=== PATIENT | female | born 1945 | race Caucasian/White ===

== ENCOUNTER 2017-09-28 21:18 | Inpatient (IN) | payer MEDICARE, BC ==
[2017-09-28 22:27] VITALS: BP 131/72
[2017-09-28] MEDS ORDERED: Magnesium Hydroxide (MOM) 30 mL UDC PO PRN (22:31)
[2017-09-28] MEDS ORDERED: Maalox 30 mL Cup PO PRN (22:31)
[2017-09-28] MEDS ORDERED: APAP PO PRN (22:38)
[2017-09-28] MEDS ORDERED: HYDROCODONE PO PRN (22:38)
[2017-09-28] MEDS ORDERED: Albuterol Nebulizer 2.5mg/3mL HHN PRN (23:13)
[2017-09-29] MEDS: Pantoprazole 40 mg EC Tab PO SCH (07:21)
[2017-09-29 07:38] LABS: % BASOPHILS 1.4 % (0.0-2.0); % EOSINOPHILS 3.8 % (0.0-5.0); % LYMPHOCYTES 32.4 % (20.0-50.0); % MONOCYTES 7.1 % (2.0-10.0); % NEUTROPHILS 55.3 % (40.0-80.0); BASOPHILE ABSOLUTE 0.1 Th/cumm (0-0.2); EOSINOPHILE ABSOLUTE 0.2 Th/cmm (0.1-0.4); HEMATOCRIT 41.8 % (41.0-60); LYMPHOCYTE ABSOLUTE 1.7 Th/cmm (1.5-3.0); MEAN CELL VOLUME 93.8 fl (81-100); MEAN CORPUSCULAR HEMOGLOBIN 31.5 pg (27.0-31.0); MEAN CORPUSCULAR HGB CONC 33.6 pg (28.0-36.0); MEAN PLATELET VOLUME 6.5 fl; MONOCYTE ABSOLUTE 0.4 Th/cmm (0.3-1.0); NEUTROPHILE ABSOLUTE 2.8 Th/cmm (1.8-8.0); PLATELET COUNT 358 Th/cmm (150-400); RED BLOOD COUNT 4.45 Mil/cmm (3.80-5.20); RED CELL DISTRIBUTION WIDTH 13.3 % (11.5-20.0); WHITE BLOOD COUNT 5.2 Th/cmm (4.8-10.8)
[2017-09-29 07:56] LABS: ALB/GLOB RATIO 1.8 (1.0-1.8); ALBUMIN 3.9 gm/dL (3.7-5.3); ALKALINE PHOSPHATASE 59 U/L (34-104); ANION GAP 9.7 (7.0-16.0); BILIRUBIN,TOTAL 0.4 mg/dL (0.3-1.0); BUN - UREA NITROGEN 22 mg/dL (7-25); CALCIUM SERUM 9.6 mg/dL (8.6-10.3); CARBON DIOXIDE 28.3 mEq/L (21.0-31.0); CHLORIDE 106 mEq/L (98-107); CHOLESTEROL 178 mg/dL (<200); CREATININE - SERUM 0.7 mg/dL (0.6-1.2); GFR AFRICAN-AMERICAN > 60.0 ml/min (>90); GFR NON AFRICAN-AMERICAN > 60.0 ml/min; GLUCOSE 95 mg/dL (70-105); HDL -HIGH DENSITY LIPOPROTEIN 33 mg/dL (23-92); SGOT 11 U/L (13-39); SGPT/ALT 8 U/L (7-52); SODIUM SERUM 140 mEq/L (136-145); TOTAL PROTEIN,SERUM 6.1 gm/dL (6.0-8.3); TRIGLYCERIDES 202 mg/dL (<150)
[2017-09-29 08:01] LABS: URINE MICROSCOPIC INDICATED? YES; URINE SOURCE CLEAN C
[2017-09-29 08:05] LABS: URINE BILIRUBIN NEGATIVE (NEGATIVE); URINE BLOOD MODERATE (NEGATIVE); URINE GLUCOSE (UA) NEGATIVE (NEGATIVE); URINE KETONE NEGATIVE (NEGATIVE); URINE LEUKOCYTE ESTERASE SMALL (NEGATIVE); URINE NITRATE NEGATIVE (NEGATIVE); URINE PROTEIN NEGATIVE (NEGATIVE); URINE UROBILINOGEN 0.2 E.U./dL (0.2 - 1.0)
[2017-09-29 08:06] LABS: URINE CLARITY SLIGHTLY HAZY (CLEAR); URINE COLOR YELLOW
[2017-09-29 08:09] LABS: URINE EPITHELIAL CELLS MANY /lpf (FEW)
[2017-09-29 08:10] LABS: URINE BACTERIA NONE SEEN /hpf (NONE SEEN)
[2017-09-29] MEDS ORDERED: FLUTICASONE PROPIONATE NS SCH (09:00)
[2017-09-29] MEDS: Atorvastatin Calcium 10 MG TAB PO SCH (09:50)
[2017-09-29] MEDS: Multivitamin Tab PO SCH (09:50)
--- NOTE | 2017-09-29 10:06 | Diagnostic Imaging Report ---
CHEST X-RAY: AP view INDICATION: pain COMPARISON: None FINDINGS: Chronic lung changes are noted with COPD changes. No focal consolidation or effusions. Heart size normal. Degenerative changes of the spine are noted. There may be vertebroplasty changes along the lower thoracic spinal region. IMPRESSION: Chronic lung changes and probable COPD. No focal consolidation identified.
[2017-09-29] MEDS ORDERED: Hydrocodone/APAP 5mg/325mg Tab PO PRN (14:12)
[2017-09-29] MEDS: Fluticasone Propionate 0.05mg/Actuation 16gm Nasal Spray NS SCH (14:24)
--- NOTE | 2017-09-29 22:31 | History & Physical ---
ADMIT DATE: HISTORY OF PRESENT ILLNESS: The patient is a 72-year-old female with a long history of hyperlipidemia, degenerative joint disease, dementia, admitted to [facility] under Dr. Hopkins's service for evaluation and treatment. The patient is a poor historian. PAST MEDICAL HISTORY: Significant for hyperlipidemia, degenerative joint disease, dementia. PAST SURGICAL HISTORY: ____ surgery. ALLERGIES: CODEINE AND ASPIRIN. SOCIAL HISTORY: No smoking, no alcohol. MEDICATIONS: Follow admission reconciliation. REVIEW OF SYSTEMS: RENAL SYSTEM: No history of chronic renal disorder. CARDIOVASCULAR SYSTEM: No coronary artery disease. ENDOCRINE SYSTEM: No diabetes or thyroid problem. GASTROINTESTINAL: No upper or lower GI bleed. NEUROLOGICAL SYSTEM: No seizure disorder. SKELETOMUSCULAR SYSTEM: No muscular dystrophy. HEMATOLOGICAL SYSTEM: No bleeding tendencies. RESPIRATORY SYSTEM: No asthma. GENITOURINARY: No dysuria or hematuria. PHYSICAL EXAMINATION: GENERAL: She is awake, not coherent. VITAL SIGNS: Temperature is 98, heart rate 88, blood pressure 132/70. HEENT: Normocephalic. Pupils reactive to light and accommodation. Sclerae clear. NECK: Supple. Negative for lymphadenopathy, JVD, or bruit. CHEST: Entry of air bilateral normal. No rhonchi or wheezing. HEART: S1, S2 normal. No murmur or gallop rhythm. ABDOMEN: Soft. Bowel sounds positive. EXTREMITIES: No edema. NEUROLOGIC: She is awake, alert, not fully oriented. LABORATORY DATA: White blood cell 5.2, hemoglobin 14, hematocrit 41.8, platelets ____. Sodium 140, potassium 4.0, BUN is 22, creatinine ____. Triglycerides 202. Urine specific gravity 1.015, pH 5, white blood cells 6-10. ASSESSMENT: 1. Urinary tract infection. 2. Hyperlipidemia. 3. Degenerative joint disease. 4. Dementia. PLAN: The patient admitted to hospital under Dr. Hopkins's service. MEDICAL PROBLEMS TO BE ADDRESSED DURING HOSPITALIZATION: ____ hyperlipidemia, degenerative joint disease. The patient will be started on antibiotics. The patient ____. The patient is cleared for activity. Thank you Dr. Hopkins for asking me to see your patient. JOB# [id number]
--- NOTE | 2017-09-29 23:08 | Psychiatric Evaluation ---
DATE OF SERVICE: 09/29/2017 JUSTIFICATION FOR HOSPITALIZATION: The patient coming to the hospital with worsening confusion, hallucinating apparently, depressed, currently on a hold, unable to care for her basic needs, telling me she is homeless. Coming in from [facility]. CHIEF COMPLAINT: "I don't know why I am here." HISTORY OF PRESENT ILLNESS: A 72-year-old female, confused, disoriented, does not know why she is in the hospital. The patient is coming from another hospital. She is homeless, depressed, unable to verbalize the plan for basic food, clothing and chcf, attesting to sadness, despair, does not know where she lives or if she gets any money, does not know if she gets any social security money. The patient has been selectively mute at times, poorly interactive with staff, but she is talking to me. Slept for about 7-8 hours, but is attesting to poor sleep at times. PAST PSYCHIATRIC HISTORY: "I don't know." FAMILY HISTORY: Noncontributory. SOCIAL HISTORY: The patient was born in , , no kids. Denies history of drugs, alcohol or tobacco. States she is homeless. MEDICATIONS: Noted. She is on Zyprexa, Lexapro and Aricept, apparent history of dementia. Under medical, please see full H and P. MENTAL STATUS EXAMINATION: Stated age, mildly unkempt, fair eye contact. Speech, decreased content. Mood, depressed. Affect, flat. Thought processes were disoriented. No overt SI or HI, unclear psychotic symptoms. Insight and judgment seemingly diminished. PROVISIONAL DIAGNOSES: Dementia with behaviors; mood, unspecified; psychosis, unspecified; anxiety, unspecified. Under medical, please see full H and P. ESTIMATED LENGTH OF STAY: 5-6 days. ASSESSMENT: The patient is homeless, , symptomatic with confusion, worsening confusion, hallucinations, depressed. PLAN: We will continue to monitor. Restart medications. TREATMENT PLAN: Includes group as well as milieu therapy. CONDITIONS FOR DISCHARGE: Improved mood, improve affect, cessation of any SI or HI, better control of her mood symptoms, safe discharge plan. JOB# [id number]
[2017-09-30] MEDS: Pantoprazole 40 mg EC Tab PO SCH (06:34)
[2017-09-30] MEDS ORDERED: Probiotic Screen MC PRN (08:15)
[2017-09-30] MEDS: Lactobacillus Rhamnosus GG 15 Billion CFU CAP.SPRINK PO SCH (10:28)
[2017-09-30] MEDS: Multivitamin Tab PO SCH (12:52)
[2017-09-30] MEDS: Atorvastatin Calcium 10 MG TAB PO SCH (12:53)
[2017-09-30] MEDS: Fluticasone Propionate 0.05mg/Actuation 16gm Nasal Spray NS SCH (12:53)
--- NOTE | 2017-09-30 17:19 | Internal Medicine Prog Note ---
Internal Medicine Subjective - Subjective Service Date: 09/30/17 Patient seen and examined:: with staff Patient is:: awake, verbal, in bed, talking, confused Per staff patient has:: no adverse event Internal Medicine Objective - Results Result Diagrams: 09/29/17 07:20 09/29/17 07:20 Recent Labs: Laboratory Last Values WBC 5.2 Th/cmm (4.8-10.8) 09/29/17 07:20 RBC 4.45 Mil/cmm (3.80-5.20) 09/29/17 07:20 Hgb 14.0 gm/dL (12-16) 09/29/17 07:20 Hct 41.8 % (41.0-60) 09/29/17 07:20 MCV 93.8 fl (81-100) 09/29/17 07:20 MCH 31.5 pg (27.0-31.0) H 09/29/17 07:20 MCHC Differential 33.6 pg (28.0-36.0) 09/29/17 07:20 RDW 13.3 % (11.5-20.0) 09/29/17 07:20 Plt Count 358 Th/cmm (150-400) 09/29/17 07:20 MPV 6.5 fl 09/29/17 07:20 Neutrophils % 55.3 % (40.0-80.0) 09/29/17 07:20 Lymphocytes % 32.4 % (20.0-50.0) 09/29/17 07:20 Monocytes % 7.1 % (2.0-10.0) 09/29/17 07:20 Eosinophils % 3.8 % (0.0-5.0) 09/29/17 07:20 Basophils % 1.4 % (0.0-2.0) 09/29/17 07:20 Sodium 140 mEq/L (136-145) 09/29/17 07:20 Potassium 4.0 mEq/L (3.5-5.1) 09/29/17 07:20 Chloride 106 mEq/L (98-107) 09/29/17 07:20 Carbon Dioxide 28.3 mEq/L (21.0-31.0) 09/29/17 07:20 Anion Gap 9.7 (7.0-16.0) 09/29/17 07:20 BUN 22 mg/dL (7-25) 09/29/17 07:20 Creatinine 0.7 mg/dL (0.6-1.2) 09/29/17 07:20 Est GFR ( Amer) > 60.0 ml/min (>90) 09/29/17 07:20 Est GFR (Non-Af Amer) > 60.0 ml/min 09/29/17 07:20 BUN/Creatinine Ratio 31.4 09/29/17 07:20 Glucose 95 mg/dL (70-105) 09/29/17 07:20 Calcium 9.6 mg/dL (8.6-10.3) 09/29/17 07:20 Total Bilirubin 0.4 mg/dL (0.3-1.0) 09/29/17 07:20 AST 11 U/L (13-39) L 09/29/17 07:20 ALT 8 U/L (7-52) 09/29/17 07:20 Alkaline Phosphatase 59 U/L (34-104) 09/29/17 07:20 Total Protein 6.1 gm/dL (6.0-8.3) 09/29/17 07:20 Albumin 3.9 gm/dL (3.7-5.3) 09/29/17 07:20 Globulin 2.2 gm/dL 09/29/17 07:20 Albumin/Globulin Ratio 1.8 (1.0-1.8) 09/29/17 07:20 Triglycerides 202 mg/dL (<150) H 09/29/17 07:20 Cholesterol 178 mg/dL (<200) 09/29/17 07:20 LDL Cholesterol Direct 100 mg/dL (75-193) 09/29/17 07:20 HDL Cholesterol 33 mg/dL (23-92) 09/29/17 07:20 TSH 1.05 uIU/ml (0.34-5.60) 09/29/17 07:20 Urine Source CLEAN C 09/29/17 07:10 Urine Color YELLOW 09/29/17 07:10 Urine Clarity SLIGHTLY HAZY (CLEAR) 09/29/17 07:10 Urine pH 6.0 (4.6 - 8.0) 09/29/17 07:10 Ur Specific [place] 1.015 (1.005-1.030) 09/29/17 07:10 Urine Protein NEGATIVE mg/dL (NEGATIVE) 09/29/17 07:10 Urine Glucose (UA) NEGATIVE mg/dL (NEGATIVE) 09/29/17 07:10 Urine Ketones NEGATIVE mg/dL (NEGATIVE) 09/29/17 07:10 Urine Blood MODERATE (NEGATIVE) H 09/29/17 07:10 Urine Nitrate NEGATIVE (NEGATIVE) 09/29/17 07:10 Urine Bilirubin NEGATIVE (NEGATIVE) 09/29/17 07:10 Urine Urobilinogen 0.2 E.U./dL (0.2 - 1.0) 09/29/17 07:10 Ur Leukocyte Esterase SMALL (NEGATIVE) H 09/29/17 07:10 Urine RBC 5-10 /hpf (0-5) H 09/29/17 07:10 Urine WBC 6-10 /hpf (0-5) H 09/29/17 07:10 Ur Epithelial Cells MANY /lpf (FEW) 09/29/17 07:10 Urine Bacteria NONE SEEN /hpf (NONE SEEN) 09/29/17 07:10 - Physical Exam Vitals and I&O: Vital Signs Temp 98.4 F 09/30/17 15:45 Pulse 72 09/30/17 15:45 Resp 20 09/30/17 15:45 BP 94/52 09/30/17 15:45 Pulse Ox 97 09/30/17 15:45 Intake & Output 09/29/17 09/30/17 09/30/17 18:59 06:59 18:59 Intake Total 1200 540 Balance 1200 540 Intake: Oral 1200 540 Other: # Voids 3 1 Active Medications: Current Medications Acetaminophen (Tylenol) 650 mg PO Q6H PRN PRN Reason: mild pain Stop: 11/27/17 22:37 Acetaminophen/Hydrocodone Bitart ([place] 5mg/325mg) 1 tab PO Q4H PRN PRN Reason: Pain (Severe) Stop: 11/28/17 14:11 Al Hydrox/Mg Hydrox/Simethicone (Maalox) 30 ml PO Q4H PRN PRN Reason: GI DISTRESS Stop: 11/27/17 22:30 Albuterol Sulfate (Albuterol 2.5mg/3ml Neb Ud) 1.25 mg HHN Q4HRT PRN PRN Reason: Shortness of Breath Stop: 11/27/17 23:12 Atorvastatin Calcium (Lipitor) 10 mg PO DAILY [facility]; Protocol Stop: 11/28/17 08:59 Last Admin: 09/30/17 12:53 Dose: 10 mg Ciprofloxacin (Cipro) 250 mg PO BID [facility] Stop: 11/29/17 08:59 Last Admin: 09/30/17 10:24 Dose: 250 mg Docusate Sodium (Colace) 100 mg PO BID [facility] Stop: 11/28/17 08:59 Last Admin: 09/30/17 12:53 Dose: Not Given Donepezil HCl (Aricept) 5 mg PO DAILY [facility] Stop: 11/28/17 08:59 Last Admin: 09/30/17 10:25 Dose: 5 mg Escitalopram Oxalate (Lexapro) 10 mg PO DAILY [facility]; Protocol Stop: 11/28/17 08:59 Last Admin: 09/30/17 12:53 Dose: 10 mg Fluticasone Propionate (Flonase) 1 spr NS DAILY [facility] Stop: 11/28/17 14:14 Last Admin: 09/30/17 12:53 Dose: Not Given Lactobacillus Rhamnosus (Culturelle 15b) 1 each PO DAILY [facility] Stop: 11/29/17 08:59 Last Admin: 09/30/17 10:28 Dose: 1 each Lorazepam (Ativan) 0.5 mg PO Q4H PRN; Protocol PRN Reason: Anxiety/agitation Stop: 11/27/17 22:30 Magnesium Hydroxide (Milk Of Magnesia) 30 ml PO HS PRN PRN Reason: Constipation Meclizine HCl (Antivert) 25 mg PO Q12H PRN PRN Reason: Vertigo Stop: 11/27/17 22:37 Miscellaneous (Probiotic Screen) 1 ea MC PRN PRN PRN Reason: PROTOCOL Stop: 11/29/17 08:14 Multivitamins/Vitamin C (Theragran) 1 tab PO DAILY [facility] Stop: 11/28/17 08:59 Last Admin: 09/30/17 12:52 Dose: Not Given Olanzapine (Zyprexa) 20 mg PO HS [facility]; Protocol Stop: 11/28/17 20:59 Last Admin: 09/29/17 21:10 Dose: 20 mg Pantoprazole Sodium (Protonix) 40 mg PO QDAC [facility] Stop: 11/28/17 07:29 Last Admin: 09/30/17 06:34 Dose: 40 mg Zolpidem Tartrate (Ambien) 5 mg PO HS PRN PRN Reason: Insomnia Stop: 11/27/17 22:30 Last Admin: 09/29/17 21:11 Dose: 5 mg General: demented HEENT: NC/AT, PERRLA, anicteric sclerae, throat clear Neck: Supple, No thyromegaly, +2 carotid pulse wo bruit, No LAD Cardiovascular: Normal S1, Normal S2, without murmur Abdomen: soft, non-tender, non-distended Neurological: no change Internal Medicine Assmt/Plan - Assessment Assessment: 1.UTI. 2.HYPERLIPIDEMIA. 3.DJD. 4.DEMENTIA. - Plan Plan: CONTINUE ON CURRENT MEDICATION AND DIET.
[2017-09-30 21:48] LABS: A1C % 4.9 % (4.0-6.0)
--- NOTE | 2017-09-30 22:49 | Progress Notes ---
DATE: 09/30/2017 SUBJECTIVE: The patient in the hospital with worsening confusion, hallucinating, depressed, had been on a hold, homeless, coming from [place]. States she had been at [facility] in the past. Does not know where she is going to go. She is very upset, mostly isolative in her room. It is unclear where she is going to go when she leaves here. It is unclear. She has the wherewithal to fend for her basic needs. She certainly is not presenting as such. Staff noting she is isolative, highly depressed, withdrawn, appearing quite melancholic, she slept fairly well, eating with some prompting. ASSESSMENT: The patient remains symptomatic, very little interaction, mostly withdrawn, isolative, concerns for grave disability. PLAN: We will continue to monitor. We will adjust and titrate medications. Continue Lexapro, continue Aricept. JOB# [id number]
[2017-10-01 05:10] LABS: HEP A AB IGM Negative (Negative); HEP B CORE IGM Negative (Negative); HEP B SURFACE AG QL Negative (Negative); HEP C ANTIBODY <0.1 s/co ratio (0.0-0.9)
[2017-10-01] MEDS: Pantoprazole 40 mg EC Tab PO SCH (06:38)
[2017-10-01] MEDS: Multivitamin Tab PO SCH (10:31)
[2017-10-01] MEDS: Lactobacillus Rhamnosus GG 15 Billion CFU CAP.SPRINK PO SCH (10:31)
[2017-10-01] MEDS: Atorvastatin Calcium 10 MG TAB PO SCH (10:31)
--- NOTE | 2017-10-01 16:33 | Internal Medicine Prog Note ---
Internal Medicine Subjective - Subjective Service Date: 10/01/17 Patient seen and examined:: with staff Patient is:: awake, verbal, in bed, talking, confused Per staff patient has:: no adverse event Internal Medicine Objective - Results Result Diagrams: 09/29/17 07:20 09/29/17 07:20 Recent Labs: Laboratory Last Values WBC 5.2 Th/cmm (4.8-10.8) 09/29/17 07:20 RBC 4.45 Mil/cmm (3.80-5.20) 09/29/17 07:20 Hgb 14.0 gm/dL (12-16) 09/29/17 07:20 Hct 41.8 % (41.0-60) 09/29/17 07:20 MCV 93.8 fl (81-100) 09/29/17 07:20 MCH 31.5 pg (27.0-31.0) H 09/29/17 07:20 MCHC Differential 33.6 pg (28.0-36.0) 09/29/17 07:20 RDW 13.3 % (11.5-20.0) 09/29/17 07:20 Plt Count 358 Th/cmm (150-400) 09/29/17 07:20 MPV 6.5 fl 09/29/17 07:20 Neutrophils % 55.3 % (40.0-80.0) 09/29/17 07:20 Lymphocytes % 32.4 % (20.0-50.0) 09/29/17 07:20 Monocytes % 7.1 % (2.0-10.0) 09/29/17 07:20 Eosinophils % 3.8 % (0.0-5.0) 09/29/17 07:20 Basophils % 1.4 % (0.0-2.0) 09/29/17 07:20 Sodium 140 mEq/L (136-145) 09/29/17 07:20 Potassium 4.0 mEq/L (3.5-5.1) 09/29/17 07:20 Chloride 106 mEq/L (98-107) 09/29/17 07:20 Carbon Dioxide 28.3 mEq/L (21.0-31.0) 09/29/17 07:20 Anion Gap 9.7 (7.0-16.0) 09/29/17 07:20 BUN 22 mg/dL (7-25) 09/29/17 07:20 Creatinine 0.7 mg/dL (0.6-1.2) 09/29/17 07:20 Est GFR ( Amer) > 60.0 ml/min (>90) 09/29/17 07:20 Est GFR (Non-Af Amer) > 60.0 ml/min 09/29/17 07:20 BUN/Creatinine Ratio 31.4 09/29/17 07:20 Glucose 95 mg/dL (70-105) 09/29/17 07:20 Hemoglobin A1c % 4.9 % (4.0-6.0) 09/29/17 07:20 Calcium 9.6 mg/dL (8.6-10.3) 09/29/17 07:20 Total Bilirubin 0.4 mg/dL (0.3-1.0) 09/29/17 07:20 AST 11 U/L (13-39) L 09/29/17 07:20 ALT 8 U/L (7-52) 09/29/17 07:20 Alkaline Phosphatase 59 U/L (34-104) 09/29/17 07:20 Total Protein 6.1 gm/dL (6.0-8.3) 09/29/17 07:20 Albumin 3.9 gm/dL (3.7-5.3) 09/29/17 07:20 Globulin 2.2 gm/dL 09/29/17 07:20 Albumin/Globulin Ratio 1.8 (1.0-1.8) 09/29/17 07:20 Triglycerides 202 mg/dL (<150) H 09/29/17 07:20 Cholesterol 178 mg/dL (<200) 09/29/17 07:20 LDL Cholesterol Direct 100 mg/dL (75-193) 09/29/17 07:20 HDL Cholesterol 33 mg/dL (23-92) 09/29/17 07:20 TSH 1.05 uIU/ml (0.34-5.60) 09/29/17 07:20 Urine Source CLEAN C 09/29/17 07:10 Urine Color YELLOW 09/29/17 07:10 Urine Clarity SLIGHTLY HAZY (CLEAR) 09/29/17 07:10 Urine pH 6.0 (4.6 - 8.0) 09/29/17 07:10 Ur Specific [place] 1.015 (1.005-1.030) 09/29/17 07:10 Urine Protein NEGATIVE mg/dL (NEGATIVE) 09/29/17 07:10 Urine Glucose (UA) NEGATIVE mg/dL (NEGATIVE) 09/29/17 07:10 Urine Ketones NEGATIVE mg/dL (NEGATIVE) 09/29/17 07:10 Urine Blood MODERATE (NEGATIVE) H 09/29/17 07:10 Urine Nitrate NEGATIVE (NEGATIVE) 09/29/17 07:10 Urine Bilirubin NEGATIVE (NEGATIVE) 09/29/17 07:10 Urine Urobilinogen 0.2 E.U./dL (0.2 - 1.0) 09/29/17 07:10 Ur Leukocyte Esterase SMALL (NEGATIVE) H 09/29/17 07:10 Urine RBC 5-10 /hpf (0-5) H 09/29/17 07:10 Urine WBC 6-10 /hpf (0-5) H 09/29/17 07:10 Ur Epithelial Cells MANY /lpf (FEW) 09/29/17 07:10 Urine Bacteria NONE SEEN /hpf (NONE SEEN) 09/29/17 07:10 RPR NONREACTIVE (NONREACTIVE) 09/29/17 07:20 Hepatitis A IgM Ab Negative (Negative) 09/29/17 07:20 Hep Bs Antigen Negative (Negative) 09/29/17 07:20 Hep B Core IgM Ab Negative (Negative) 09/29/17 07:20 Hepatitis C Antibody <0.1 s/co ratio (0.0-0.9) 09/29/17 07:20 - Physical Exam Vitals and I&O: Vital Signs Temp 98.4 F 09/30/17 15:45 Pulse 72 09/30/17 15:45 Resp 18 10/01/17 08:00 BP 94/52 09/30/17 15:45 Pulse Ox 97 09/30/17 15:45 Intake & Output 09/30/17 10/01/17 10/01/17 18:59 06:59 18:59 Intake Total 1200 Balance 1200 Intake: Oral 1200 Other: # Voids 3 Active Medications: Current Medications Acetaminophen (Tylenol) 650 mg PO Q6H PRN PRN Reason: mild pain Stop: 11/27/17 22:37 Acetaminophen/Hydrocodone Bitart ([place] 5mg/325mg) 1 tab PO Q4H PRN PRN Reason: Pain (Severe) Stop: 11/28/17 14:11 Al Hydrox/Mg Hydrox/Simethicone (Maalox) 30 ml PO Q4H PRN PRN Reason: GI DISTRESS Stop: 11/27/17 22:30 Albuterol Sulfate (Albuterol 2.5mg/3ml Neb Ud) 1.25 mg HHN Q4HRT PRN PRN Reason: Shortness of Breath Stop: 11/27/17 23:12 Atorvastatin Calcium (Lipitor) 10 mg PO DAILY [facility]; Protocol Stop: 11/28/17 08:59 Last Admin: 10/01/17 10:31 Dose: 10 mg Ciprofloxacin (Cipro) 250 mg PO BID [facility] Stop: 11/29/17 08:59 Last Admin: 10/01/17 10:31 Dose: 250 mg Docusate Sodium (Colace) 100 mg PO BID [facility] Stop: 11/28/17 08:59 Last Admin: 10/01/17 10:31 Dose: 100 mg Donepezil HCl (Aricept) 5 mg PO DAILY [facility] Stop: 11/28/17 08:59 Last Admin: 09/30/17 10:25 Dose: 5 mg Escitalopram Oxalate (Lexapro) 10 mg PO DAILY [facility]; Protocol Stop: 11/28/17 08:59 Last Admin: 10/01/17 10:31 Dose: 10 mg Fluticasone Propionate (Flonase) 1 spr NS DAILY [facility] Stop: 11/28/17 14:14 Last Admin: 09/30/17 12:53 Dose: Not Given Lactobacillus Rhamnosus (Culturelle 15b) 1 each PO DAILY [facility] Stop: 11/29/17 08:59 Last Admin: 10/01/17 10:31 Dose: 1 each Lorazepam (Ativan) 0.5 mg PO Q4H PRN; Protocol PRN Reason: Anxiety/agitation Stop: 11/27/17 22:30 Magnesium Hydroxide (Milk Of Magnesia) 30 ml PO HS PRN PRN Reason: Constipation Meclizine HCl (Antivert) 25 mg PO Q12H PRN PRN Reason: Vertigo Stop: 11/27/17 22:37 Miscellaneous (Probiotic Screen) 1 ea MC PRN PRN PRN Reason: PROTOCOL Stop: 11/29/17 08:14 Multivitamins/Vitamin C (Theragran) 1 tab PO DAILY [facility] Stop: 11/28/17 08:59 Last Admin: 10/01/17 10:31 Dose: 1 tab Olanzapine (Zyprexa) 20 mg PO HS [facility]; Protocol Stop: 11/28/17 20:59 Last Admin: 09/30/17 21:27 Dose: 20 mg Pantoprazole Sodium (Protonix) 40 mg PO QDAC [facility] Stop: 11/28/17 07:29 Last Admin: 10/01/17 06:38 Dose: 40 mg Zolpidem Tartrate (Ambien) 5 mg PO HS PRN PRN Reason: Insomnia Stop: 11/27/17 22:30 Last Admin: 09/30/17 21:27 Dose: 5 mg General: demented HEENT: NC/AT, PERRLA, anicteric sclerae, throat clear Neck: Supple, No thyromegaly, +2 carotid pulse wo bruit, No LAD Cardiovascular: Normal S1, Normal S2, without murmur Abdomen: soft, non-tender, non-distended Neurological: no change Internal Medicine Assmt/Plan - Assessment Assessment: 1.UTI. 2.HYPERLIPIDEMIA. 3.DJD. 4.DEMENTIA. - Plan Plan: CONTINUE ON CURRENT MEDICATION AND DIET.
[2017-10-01] MEDS: Fluticasone Propionate 0.05mg/Actuation 16gm Nasal Spray NS SCH (17:50)
--- NOTE | 2017-10-01 23:25 | Progress Notes ---
DATE: 10/01/2017 SUBJECTIVE: The patient in the hospital, severely depressed, hopeless, despairing, mostly in her room, appearing quite depressed, appearing quite despairing. Staff noting patient is extremely depressed, withdrawn, pessimistic and negative, __concerns for___ for self-care. She does not know where she is going to go, where she is going to live. She is attesting to homelessness. The patient is sleeping fairly well, eating with prompting, seen in her room always in bed, isolative, not participating at all. ASSESSMENT: The patient remains symptomatic, severely depressed, hopeless, despairing. PLAN: We will continue to monitor. We will continue to adjust and titrate medications. Given the severity of her ongoing symptoms, she is currently not safe for discharge at this time. JOB# [id number] MANASA
[2017-10-02] MEDS: Pantoprazole 40 mg EC Tab PO SCH (06:42)
--- NOTE | 2017-10-02 15:59 | Internal Medicine Prog Note ---
Internal Medicine Subjective - Subjective Service Date: 10/02/17 Patient seen and examined:: with staff Patient is:: awake, verbal, in bed, talking, confused Per staff patient has:: no adverse event Internal Medicine Objective - Results Result Diagrams: 09/29/17 07:20 09/29/17 07:20 Recent Labs: Laboratory Last Values WBC 5.2 Th/cmm (4.8-10.8) 09/29/17 07:20 RBC 4.45 Mil/cmm (3.80-5.20) 09/29/17 07:20 Hgb 14.0 gm/dL (12-16) 09/29/17 07:20 Hct 41.8 % (41.0-60) 09/29/17 07:20 MCV 93.8 fl (81-100) 09/29/17 07:20 MCH 31.5 pg (27.0-31.0) H 09/29/17 07:20 MCHC Differential 33.6 pg (28.0-36.0) 09/29/17 07:20 RDW 13.3 % (11.5-20.0) 09/29/17 07:20 Plt Count 358 Th/cmm (150-400) 09/29/17 07:20 MPV 6.5 fl 09/29/17 07:20 Neutrophils % 55.3 % (40.0-80.0) 09/29/17 07:20 Lymphocytes % 32.4 % (20.0-50.0) 09/29/17 07:20 Monocytes % 7.1 % (2.0-10.0) 09/29/17 07:20 Eosinophils % 3.8 % (0.0-5.0) 09/29/17 07:20 Basophils % 1.4 % (0.0-2.0) 09/29/17 07:20 Sodium 140 mEq/L (136-145) 09/29/17 07:20 Potassium 4.0 mEq/L (3.5-5.1) 09/29/17 07:20 Chloride 106 mEq/L (98-107) 09/29/17 07:20 Carbon Dioxide 28.3 mEq/L (21.0-31.0) 09/29/17 07:20 Anion Gap 9.7 (7.0-16.0) 09/29/17 07:20 BUN 22 mg/dL (7-25) 09/29/17 07:20 Creatinine 0.7 mg/dL (0.6-1.2) 09/29/17 07:20 Est GFR ( Amer) > 60.0 ml/min (>90) 09/29/17 07:20 Est GFR (Non-Af Amer) > 60.0 ml/min 09/29/17 07:20 BUN/Creatinine Ratio 31.4 09/29/17 07:20 Glucose 95 mg/dL (70-105) 09/29/17 07:20 Hemoglobin A1c % 4.9 % (4.0-6.0) 09/29/17 07:20 Calcium 9.6 mg/dL (8.6-10.3) 09/29/17 07:20 Total Bilirubin 0.4 mg/dL (0.3-1.0) 09/29/17 07:20 AST 11 U/L (13-39) L 09/29/17 07:20 ALT 8 U/L (7-52) 09/29/17 07:20 Alkaline Phosphatase 59 U/L (34-104) 09/29/17 07:20 Total Protein 6.1 gm/dL (6.0-8.3) 09/29/17 07:20 Albumin 3.9 gm/dL (3.7-5.3) 09/29/17 07:20 Globulin 2.2 gm/dL 09/29/17 07:20 Albumin/Globulin Ratio 1.8 (1.0-1.8) 09/29/17 07:20 Triglycerides 202 mg/dL (<150) H 09/29/17 07:20 Cholesterol 178 mg/dL (<200) 09/29/17 07:20 LDL Cholesterol Direct 100 mg/dL (75-193) 09/29/17 07:20 HDL Cholesterol 33 mg/dL (23-92) 09/29/17 07:20 TSH 1.05 uIU/ml (0.34-5.60) 09/29/17 07:20 Urine Source CLEAN C 09/29/17 07:10 Urine Color YELLOW 09/29/17 07:10 Urine Clarity SLIGHTLY HAZY (CLEAR) 09/29/17 07:10 Urine pH 6.0 (4.6 - 8.0) 09/29/17 07:10 Ur Specific [place] 1.015 (1.005-1.030) 09/29/17 07:10 Urine Protein NEGATIVE mg/dL (NEGATIVE) 09/29/17 07:10 Urine Glucose (UA) NEGATIVE mg/dL (NEGATIVE) 09/29/17 07:10 Urine Ketones NEGATIVE mg/dL (NEGATIVE) 09/29/17 07:10 Urine Blood MODERATE (NEGATIVE) H 09/29/17 07:10 Urine Nitrate NEGATIVE (NEGATIVE) 09/29/17 07:10 Urine Bilirubin NEGATIVE (NEGATIVE) 09/29/17 07:10 Urine Urobilinogen 0.2 E.U./dL (0.2 - 1.0) 09/29/17 07:10 Ur Leukocyte Esterase SMALL (NEGATIVE) H 09/29/17 07:10 Urine RBC 5-10 /hpf (0-5) H 09/29/17 07:10 Urine WBC 6-10 /hpf (0-5) H 09/29/17 07:10 Ur Epithelial Cells MANY /lpf (FEW) 09/29/17 07:10 Urine Bacteria NONE SEEN /hpf (NONE SEEN) 09/29/17 07:10 RPR NONREACTIVE (NONREACTIVE) 09/29/17 07:20 Hepatitis A IgM Ab Negative (Negative) 09/29/17 07:20 Hep Bs Antigen Negative (Negative) 09/29/17 07:20 Hep B Core IgM Ab Negative (Negative) 09/29/17 07:20 Hepatitis C Antibody <0.1 s/co ratio (0.0-0.9) 09/29/17 07:20 - Physical Exam Vitals and I&O: Vital Signs Temp 98.3 F 10/02/17 06:29 Pulse 73 10/02/17 06:29 Resp 20 10/02/17 06:29 BP 123/60 10/02/17 06:29 Pulse Ox 98 10/02/17 06:29 Intake & Output 10/01/17 10/02/17 10/02/17 18:59 06:59 18:59 Intake Total 800 240 Balance 800 240 Intake: Oral 800 240 Other: # Voids 3 2 # Bowel Movements 1 Active Medications: Current Medications Acetaminophen (Tylenol) 650 mg PO Q6H PRN PRN Reason: mild pain Stop: 11/27/17 22:37 Acetaminophen/Hydrocodone Bitart ([place] 5mg/325mg) 1 tab PO Q4H PRN PRN Reason: Pain (Severe) Stop: 11/28/17 14:11 Al Hydrox/Mg Hydrox/Simethicone (Maalox) 30 ml PO Q4H PRN PRN Reason: GI DISTRESS Stop: 11/27/17 22:30 Albuterol Sulfate (Albuterol 2.5mg/3ml Neb Ud) 1.25 mg HHN Q4HRT PRN PRN Reason: Shortness of Breath Stop: 11/27/17 23:12 Atorvastatin Calcium (Lipitor) 10 mg PO DAILY [facility]; Protocol Stop: 11/28/17 08:59 Last Admin: 10/01/17 10:31 Dose: 10 mg Ciprofloxacin (Cipro) 250 mg PO BID [facility] Stop: 11/29/17 08:59 Last Admin: 10/01/17 17:47 Dose: 250 mg Docusate Sodium (Colace) 100 mg PO BID [facility] Stop: 11/28/17 08:59 Last Admin: 10/01/17 17:49 Dose: Not Given Donepezil HCl (Aricept) 5 mg PO DAILY [facility] Stop: 11/28/17 08:59 Last Admin: 10/01/17 17:50 Dose: Not Given Escitalopram Oxalate (Lexapro) 10 mg PO DAILY [facility]; Protocol Stop: 11/28/17 08:59 Last Admin: 10/01/17 10:31 Dose: 10 mg Fluticasone Propionate (Flonase) 1 spr NS DAILY [facility] Stop: 11/28/17 14:14 Last Admin: 10/01/17 17:50 Dose: Not Given Lactobacillus Rhamnosus (Culturelle 15b) 1 each PO DAILY [facility] Stop: 11/29/17 08:59 Last Admin: 10/01/17 10:31 Dose: 1 each Lorazepam (Ativan) 0.5 mg PO Q4H PRN; Protocol PRN Reason: Anxiety/agitation Stop: 11/27/17 22:30 Magnesium Hydroxide (Milk Of Magnesia) 30 ml PO HS PRN PRN Reason: Constipation Meclizine HCl (Antivert) 25 mg PO Q12H PRN PRN Reason: Vertigo Stop: 11/27/17 22:37 Miscellaneous (Probiotic Screen) 1 ea MC PRN PRN PRN Reason: PROTOCOL Stop: 11/29/17 08:14 Multivitamins/Vitamin C (Theragran) 1 tab PO DAILY [facility] Stop: 11/28/17 08:59 Last Admin: 10/01/17 10:31 Dose: 1 tab Olanzapine (Zyprexa) 20 mg PO HS [facility]; Protocol Stop: 11/28/17 20:59 Last Admin: 10/01/17 21:31 Dose: 20 mg Pantoprazole Sodium (Protonix) 40 mg PO QDAC [facility] Stop: 11/28/17 07:29 Last Admin: 10/02/17 06:42 Dose: 40 mg Zolpidem Tartrate (Ambien) 5 mg PO HS PRN PRN Reason: Insomnia Stop: 11/27/17 22:30 Last Admin: 10/01/17 21:31 Dose: 5 mg General: demented HEENT: NC/AT, PERRLA, anicteric sclerae, throat clear Neck: Supple, No thyromegaly, +2 carotid pulse wo bruit, No LAD Cardiovascular: Normal S1, Normal S2, without murmur Abdomen: soft, non-tender, non-distended Neurological: no change Internal Medicine Assmt/Plan - Assessment Assessment: 1.UTI. 2.HYPERLIPIDEMIA. 3.DJD. 4.DEMENTIA. - Plan Plan: CONTINUE ON CURRENT MEDICATION AND DIET.
[2017-10-02] MEDS: Atorvastatin Calcium 10 MG TAB PO SCH (16:47)
[2017-10-02] MEDS: Lactobacillus Rhamnosus GG 15 Billion CFU CAP.SPRINK PO SCH (16:49)
[2017-10-02] MEDS: Multivitamin Tab PO SCH (16:49)
[2017-10-02] MEDS: Fluticasone Propionate 0.05mg/Actuation 16gm Nasal Spray NS SCH (16:49)
--- NOTE | 2017-10-02 23:01 | Progress Notes ---
DATE: SUBJECTIVE: Mostly stays to herself. The patient is still verbalizing, severe depression, hopelessness and despair, sleeping fairly well, most of the time requiring prompting to eat. ASSESSMENT: The patient remains asymptomatic, ongoing depressive symptoms, melancholy. PLAN: We will continue to monitor given her ongoing symptoms, she is not safe for discharge. She is unable to currently care for herself at a lower level of care. [facility]# [id number]
[2017-10-03] MEDS: Pantoprazole 40 mg EC Tab PO SCH (06:49)
--- NOTE | 2017-10-03 07:05 | Progress Notes ---
DATE: 10/03/2017 SUBJECTIVE: The patient still remains depressed, highly withdrawn, mostly stays to herself, alluding to severe depression and hopeless thoughts, despair, most of the time requiring prompting to eat, mostly in her room, feeling hopeless, helpless and despairing. No plans for self care. She gets anxious when I bring up where she is going to go when she leaves the hospital for example. ASSESSMENT: The patient is disengaged, highly withdrawn, highly symptomatic, depressed, hopeless. PLAN: We will continue to monitor, medications were noted, ongoing concerns about her ability to care for basic food, clothing and retirement. JOB# [id number]
[2017-10-03] MEDS: Lactobacillus Rhamnosus GG 15 Billion CFU CAP.SPRINK PO SCH (08:38)
[2017-10-03] MEDS: Multivitamin Tab PO SCH (08:38)
[2017-10-03] MEDS: Fluticasone Propionate 0.05mg/Actuation 16gm Nasal Spray NS SCH (08:39)
[2017-10-03] MEDS: Atorvastatin Calcium 10 MG TAB PO SCH (08:39)
--- NOTE | 2017-10-03 16:07 | Internal Medicine Prog Note ---
Internal Medicine Subjective - Subjective Service Date: 10/03/17 Patient seen and examined:: with staff Patient is:: awake, verbal, in bed, talking, confused Per staff patient has:: no adverse event Internal Medicine Objective - Results Result Diagrams: 09/29/17 07:20 09/29/17 07:20 Recent Labs: Laboratory Last Values WBC 5.2 Th/cmm (4.8-10.8) 09/29/17 07:20 RBC 4.45 Mil/cmm (3.80-5.20) 09/29/17 07:20 Hgb 14.0 gm/dL (12-16) 09/29/17 07:20 Hct 41.8 % (41.0-60) 09/29/17 07:20 MCV 93.8 fl (81-100) 09/29/17 07:20 MCH 31.5 pg (27.0-31.0) H 09/29/17 07:20 MCHC Differential 33.6 pg (28.0-36.0) 09/29/17 07:20 RDW 13.3 % (11.5-20.0) 09/29/17 07:20 Plt Count 358 Th/cmm (150-400) 09/29/17 07:20 MPV 6.5 fl 09/29/17 07:20 Neutrophils % 55.3 % (40.0-80.0) 09/29/17 07:20 Lymphocytes % 32.4 % (20.0-50.0) 09/29/17 07:20 Monocytes % 7.1 % (2.0-10.0) 09/29/17 07:20 Eosinophils % 3.8 % (0.0-5.0) 09/29/17 07:20 Basophils % 1.4 % (0.0-2.0) 09/29/17 07:20 Sodium 140 mEq/L (136-145) 09/29/17 07:20 Potassium 4.0 mEq/L (3.5-5.1) 09/29/17 07:20 Chloride 106 mEq/L (98-107) 09/29/17 07:20 Carbon Dioxide 28.3 mEq/L (21.0-31.0) 09/29/17 07:20 Anion Gap 9.7 (7.0-16.0) 09/29/17 07:20 BUN 22 mg/dL (7-25) 09/29/17 07:20 Creatinine 0.7 mg/dL (0.6-1.2) 09/29/17 07:20 Est GFR ( Amer) > 60.0 ml/min (>90) 09/29/17 07:20 Est GFR (Non-Af Amer) > 60.0 ml/min 09/29/17 07:20 BUN/Creatinine Ratio 31.4 09/29/17 07:20 Glucose 95 mg/dL (70-105) 09/29/17 07:20 Hemoglobin A1c % 4.9 % (4.0-6.0) 09/29/17 07:20 Calcium 9.6 mg/dL (8.6-10.3) 09/29/17 07:20 Total Bilirubin 0.4 mg/dL (0.3-1.0) 09/29/17 07:20 AST 11 U/L (13-39) L 09/29/17 07:20 ALT 8 U/L (7-52) 09/29/17 07:20 Alkaline Phosphatase 59 U/L (34-104) 09/29/17 07:20 Total Protein 6.1 gm/dL (6.0-8.3) 09/29/17 07:20 Albumin 3.9 gm/dL (3.7-5.3) 09/29/17 07:20 Globulin 2.2 gm/dL 09/29/17 07:20 Albumin/Globulin Ratio 1.8 (1.0-1.8) 09/29/17 07:20 Triglycerides 202 mg/dL (<150) H 09/29/17 07:20 Cholesterol 178 mg/dL (<200) 09/29/17 07:20 LDL Cholesterol Direct 100 mg/dL (75-193) 09/29/17 07:20 HDL Cholesterol 33 mg/dL (23-92) 09/29/17 07:20 TSH 1.05 uIU/ml (0.34-5.60) 09/29/17 07:20 Urine Source CLEAN C 09/29/17 07:10 Urine Color YELLOW 09/29/17 07:10 Urine Clarity SLIGHTLY HAZY (CLEAR) 09/29/17 07:10 Urine pH 6.0 (4.6 - 8.0) 09/29/17 07:10 Ur Specific [place] 1.015 (1.005-1.030) 09/29/17 07:10 Urine Protein NEGATIVE mg/dL (NEGATIVE) 09/29/17 07:10 Urine Glucose (UA) NEGATIVE mg/dL (NEGATIVE) 09/29/17 07:10 Urine Ketones NEGATIVE mg/dL (NEGATIVE) 09/29/17 07:10 Urine Blood MODERATE (NEGATIVE) H 09/29/17 07:10 Urine Nitrate NEGATIVE (NEGATIVE) 09/29/17 07:10 Urine Bilirubin NEGATIVE (NEGATIVE) 09/29/17 07:10 Urine Urobilinogen 0.2 E.U./dL (0.2 - 1.0) 09/29/17 07:10 Ur Leukocyte Esterase SMALL (NEGATIVE) H 09/29/17 07:10 Urine RBC 5-10 /hpf (0-5) H 09/29/17 07:10 Urine WBC 6-10 /hpf (0-5) H 09/29/17 07:10 Ur Epithelial Cells MANY /lpf (FEW) 09/29/17 07:10 Urine Bacteria NONE SEEN /hpf (NONE SEEN) 09/29/17 07:10 RPR NONREACTIVE (NONREACTIVE) 09/29/17 07:20 Hepatitis A IgM Ab Negative (Negative) 09/29/17 07:20 Hep Bs Antigen Negative (Negative) 09/29/17 07:20 Hep B Core IgM Ab Negative (Negative) 09/29/17 07:20 Hepatitis C Antibody <0.1 s/co ratio (0.0-0.9) 09/29/17 07:20 - Physical Exam Vitals and I&O: Vital Signs Temp 98.9 F 10/03/17 15:17 Pulse 78 10/03/17 15:17 Resp 18 10/03/17 15:17 BP 104/52 10/03/17 15:17 Pulse Ox 96 10/03/17 15:17 Intake & Output 10/02/17 10/03/17 10/03/17 18:59 06:59 18:59 Intake Total 950 Balance 950 Intake: Oral 950 Other: # Voids 4 # Bowel Movements 1 Active Medications: Current Medications Acetaminophen (Tylenol) 650 mg PO Q6H PRN PRN Reason: mild pain Stop: 11/27/17 22:37 Acetaminophen/Hydrocodone Bitart ([place] 5mg/325mg) 1 tab PO Q4H PRN PRN Reason: Pain (Severe) Stop: 11/28/17 14:11 Al Hydrox/Mg Hydrox/Simethicone (Maalox) 30 ml PO Q4H PRN PRN Reason: GI DISTRESS Stop: 11/27/17 22:30 Albuterol Sulfate (Albuterol 2.5mg/3ml Neb Ud) 1.25 mg HHN Q4HRT PRN PRN Reason: Shortness of Breath Stop: 11/27/17 23:12 Atorvastatin Calcium (Lipitor) 10 mg PO DAILY [facility]; Protocol Stop: 11/28/17 08:59 Last Admin: 10/03/17 08:39 Dose: 10 mg Ciprofloxacin (Cipro) 250 mg PO BID [facility] Stop: 11/29/17 08:59 Last Admin: 10/03/17 08:38 Dose: 250 mg Docusate Sodium (Colace) 100 mg PO BID [facility] Stop: 11/28/17 08:59 Last Admin: 10/03/17 08:38 Dose: 100 mg Donepezil HCl (Aricept) 5 mg PO DAILY [facility] Stop: 11/28/17 08:59 Last Admin: 10/03/17 08:39 Dose: 5 mg Escitalopram Oxalate (Lexapro) 10 mg PO DAILY [facility]; Protocol Stop: 11/28/17 08:59 Last Admin: 10/03/17 08:38 Dose: 10 mg Fluticasone Propionate (Flonase) 1 spr NS DAILY [facility] Stop: 11/28/17 14:14 Last Admin: 10/03/17 08:39 Dose: 1 spr Lactobacillus Rhamnosus (Culturelle 15b) 1 each PO DAILY [facility] Stop: 11/29/17 08:59 Last Admin: 10/03/17 08:38 Dose: 1 each Lorazepam (Ativan) 0.5 mg PO Q4H PRN; Protocol PRN Reason: Anxiety/agitation Stop: 11/27/17 22:30 Magnesium Hydroxide (Milk Of Magnesia) 30 ml PO HS PRN PRN Reason: Constipation Meclizine HCl (Antivert) 25 mg PO Q12H PRN PRN Reason: Vertigo Stop: 11/27/17 22:37 Miscellaneous (Probiotic Screen) 1 ea MC PRN PRN PRN Reason: PROTOCOL Stop: 11/29/17 08:14 Multivitamins/Vitamin C (Theragran) 1 tab PO DAILY [facility] Stop: 11/28/17 08:59 Last Admin: 10/03/17 08:38 Dose: 1 tab Olanzapine (Zyprexa) 20 mg PO HS [facility]; Protocol Stop: 11/28/17 20:59 Last Admin: 10/02/17 21:17 Dose: 20 mg Pantoprazole Sodium (Protonix) 40 mg PO QDAC [facility] Stop: 11/28/17 07:29 Last Admin: 10/03/17 06:49 Dose: 40 mg Zolpidem Tartrate (Ambien) 5 mg PO HS PRN PRN Reason: Insomnia Stop: 11/27/17 22:30 Last Admin: 10/02/17 21:17 Dose: 5 mg General: demented HEENT: NC/AT, PERRLA, anicteric sclerae, throat clear Neck: Supple, No thyromegaly, +2 carotid pulse wo bruit, No LAD Cardiovascular: Normal S1, Normal S2, without murmur Abdomen: soft, non-tender, non-distended Neurological: no change Internal Medicine Assmt/Plan - Assessment Assessment: 1.HYPERLIPIDEMIA. 2.DJD. 3.DEMENTIA. - Plan Plan: CONTINUE ON CURRENT MEDICATION AND DIET.
[2017-10-04] MEDS: Pantoprazole 40 mg EC Tab PO SCH (06:44)
--- NOTE | 2017-10-04 08:32 | Progress Notes ---
DATE: 10/04/2017 SUBJECTIVE: The patient is currently in the hospital highly depressed, withdrawn, always in her bed. States she feels "very bad" "the same." Denies any improvement, hopeless, helpless, despairing, also anxious, somewhat internally preoccupied, ruminative in her thoughts. Staff noting she remains quite depressed, melancholic, sullen. She is answering questions appropriately, but she is quite sad. 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 They share a room in a residential facility, which is fairly new information. The patient always by herself withdrawn, states that even if she had a place to go that she wanted to go to, she would still feel very depressed. ASSESSMENT AND PLAN: The patient remains down, depressed, withdrawn, attesting to ongoing severe depression. Continue Lexapro, Aricept. The patient seems to have a history of dementia. Given her ongoing symptoms, she is not currently safe for discharge. We will adjust medications at this time as needed and based on her ability. JOB# [id number]
[2017-10-04] MEDS: Lactobacillus Rhamnosus GG 15 Billion CFU CAP.SPRINK PO SCH (09:38)
[2017-10-04] MEDS: Fluticasone Propionate 0.05mg/Actuation 16gm Nasal Spray NS SCH (09:40)
[2017-10-04] MEDS: Atorvastatin Calcium 10 MG TAB PO SCH (09:40)
[2017-10-04] MEDS: Multivitamin Tab PO SCH (09:40)
--- NOTE | 2017-10-04 18:04 | Internal Medicine Prog Note ---
Internal Medicine Subjective - Subjective Service Date: 10/04/17 Patient seen and examined:: with staff Patient is:: awake, verbal, in bed, talking, confused Per staff patient has:: no adverse event Internal Medicine Objective - Results Result Diagrams: 09/29/17 07:20 09/29/17 07:20 Recent Labs: Laboratory Last Values WBC 5.2 Th/cmm (4.8-10.8) 09/29/17 07:20 RBC 4.45 Mil/cmm (3.80-5.20) 09/29/17 07:20 Hgb 14.0 gm/dL (12-16) 09/29/17 07:20 Hct 41.8 % (41.0-60) 09/29/17 07:20 MCV 93.8 fl (81-100) 09/29/17 07:20 MCH 31.5 pg (27.0-31.0) H 09/29/17 07:20 MCHC Differential 33.6 pg (28.0-36.0) 09/29/17 07:20 RDW 13.3 % (11.5-20.0) 09/29/17 07:20 Plt Count 358 Th/cmm (150-400) 09/29/17 07:20 MPV 6.5 fl 09/29/17 07:20 Neutrophils % 55.3 % (40.0-80.0) 09/29/17 07:20 Lymphocytes % 32.4 % (20.0-50.0) 09/29/17 07:20 Monocytes % 7.1 % (2.0-10.0) 09/29/17 07:20 Eosinophils % 3.8 % (0.0-5.0) 09/29/17 07:20 Basophils % 1.4 % (0.0-2.0) 09/29/17 07:20 Sodium 140 mEq/L (136-145) 09/29/17 07:20 Potassium 4.0 mEq/L (3.5-5.1) 09/29/17 07:20 Chloride 106 mEq/L (98-107) 09/29/17 07:20 Carbon Dioxide 28.3 mEq/L (21.0-31.0) 09/29/17 07:20 Anion Gap 9.7 (7.0-16.0) 09/29/17 07:20 BUN 22 mg/dL (7-25) 09/29/17 07:20 Creatinine 0.7 mg/dL (0.6-1.2) 09/29/17 07:20 Est GFR ( Amer) > 60.0 ml/min (>90) 09/29/17 07:20 Est GFR (Non-Af Amer) > 60.0 ml/min 09/29/17 07:20 BUN/Creatinine Ratio 31.4 09/29/17 07:20 Glucose 95 mg/dL (70-105) 09/29/17 07:20 Hemoglobin A1c % 4.9 % (4.0-6.0) 09/29/17 07:20 Calcium 9.6 mg/dL (8.6-10.3) 09/29/17 07:20 Total Bilirubin 0.4 mg/dL (0.3-1.0) 09/29/17 07:20 AST 11 U/L (13-39) L 09/29/17 07:20 ALT 8 U/L (7-52) 09/29/17 07:20 Alkaline Phosphatase 59 U/L (34-104) 09/29/17 07:20 Total Protein 6.1 gm/dL (6.0-8.3) 09/29/17 07:20 Albumin 3.9 gm/dL (3.7-5.3) 09/29/17 07:20 Globulin 2.2 gm/dL 09/29/17 07:20 Albumin/Globulin Ratio 1.8 (1.0-1.8) 09/29/17 07:20 Triglycerides 202 mg/dL (<150) H 09/29/17 07:20 Cholesterol 178 mg/dL (<200) 09/29/17 07:20 LDL Cholesterol Direct 100 mg/dL (75-193) 09/29/17 07:20 HDL Cholesterol 33 mg/dL (23-92) 09/29/17 07:20 TSH 1.05 uIU/ml (0.34-5.60) 09/29/17 07:20 Urine Source CLEAN C 09/29/17 07:10 Urine Color YELLOW 09/29/17 07:10 Urine Clarity SLIGHTLY HAZY (CLEAR) 09/29/17 07:10 Urine pH 6.0 (4.6 - 8.0) 09/29/17 07:10 Ur Specific [place] 1.015 (1.005-1.030) 09/29/17 07:10 Urine Protein NEGATIVE mg/dL (NEGATIVE) 09/29/17 07:10 Urine Glucose (UA) NEGATIVE mg/dL (NEGATIVE) 09/29/17 07:10 Urine Ketones NEGATIVE mg/dL (NEGATIVE) 09/29/17 07:10 Urine Blood MODERATE (NEGATIVE) H 09/29/17 07:10 Urine Nitrate NEGATIVE (NEGATIVE) 09/29/17 07:10 Urine Bilirubin NEGATIVE (NEGATIVE) 09/29/17 07:10 Urine Urobilinogen 0.2 E.U./dL (0.2 - 1.0) 09/29/17 07:10 Ur Leukocyte Esterase SMALL (NEGATIVE) H 09/29/17 07:10 Urine RBC 5-10 /hpf (0-5) H 09/29/17 07:10 Urine WBC 6-10 /hpf (0-5) H 09/29/17 07:10 Ur Epithelial Cells MANY /lpf (FEW) 09/29/17 07:10 Urine Bacteria NONE SEEN /hpf (NONE SEEN) 09/29/17 07:10 RPR NONREACTIVE (NONREACTIVE) 09/29/17 07:20 Hepatitis A IgM Ab Negative (Negative) 09/29/17 07:20 Hep Bs Antigen Negative (Negative) 09/29/17 07:20 Hep B Core IgM Ab Negative (Negative) 09/29/17 07:20 Hepatitis C Antibody <0.1 s/co ratio (0.0-0.9) 09/29/17 07:20 - Physical Exam Vitals and I&O: Vital Signs Temp 98.1 F 10/04/17 15:23 Pulse 71 10/04/17 15:23 Resp 20 10/04/17 15:23 BP 101/45 10/04/17 15:23 Pulse Ox 97 10/04/17 15:23 Intake & Output 10/03/17 10/04/17 10/04/17 18:59 06:59 18:59 Intake Total 1200 180 Balance 1200 180 Intake: Oral 1200 180 Other: # Voids 3 1 # Bowel Movements 1 0 Active Medications: Current Medications Acetaminophen (Tylenol) 650 mg PO Q6H PRN PRN Reason: mild pain Stop: 11/27/17 22:37 Acetaminophen/Hydrocodone Bitart ([place] 5mg/325mg) 1 tab PO Q4H PRN PRN Reason: Pain (Severe) Stop: 11/28/17 14:11 Al Hydrox/Mg Hydrox/Simethicone (Maalox) 30 ml PO Q4H PRN PRN Reason: GI DISTRESS Stop: 11/27/17 22:30 Albuterol Sulfate (Albuterol 2.5mg/3ml Neb Ud) 1.25 mg HHN Q4HRT PRN PRN Reason: Shortness of Breath Stop: 11/27/17 23:12 Atorvastatin Calcium (Lipitor) 10 mg PO DAILY [facility]; Protocol Stop: 11/28/17 08:59 Last Admin: 10/04/17 09:40 Dose: 10 mg Ciprofloxacin (Cipro) 250 mg PO BID [facility] Stop: 11/29/17 08:59 Last Admin: 10/04/17 09:39 Dose: 250 mg Docusate Sodium (Colace) 100 mg PO BID [facility] Stop: 11/28/17 08:59 Last Admin: 10/04/17 09:38 Dose: Not Given Donepezil HCl (Aricept) 5 mg PO DAILY [facility] Stop: 11/28/17 08:59 Last Admin: 10/04/17 09:38 Dose: 5 mg Escitalopram Oxalate (Lexapro) 10 mg PO DAILY [facility]; Protocol Stop: 11/28/17 08:59 Last Admin: 10/04/17 09:39 Dose: 10 mg Fluticasone Propionate (Flonase) 1 spr NS DAILY [facility] Stop: 11/28/17 14:14 Last Admin: 10/04/17 09:40 Dose: 1 spr Lactobacillus Rhamnosus (Culturelle 15b) 1 each PO DAILY [facility] Stop: 11/29/17 08:59 Last Admin: 10/04/17 09:38 Dose: 1 each Lorazepam (Ativan) 0.5 mg PO Q4H PRN; Protocol PRN Reason: Anxiety/agitation Stop: 11/27/17 22:30 Magnesium Hydroxide (Milk Of Magnesia) 30 ml PO HS PRN PRN Reason: Constipation Meclizine HCl (Antivert) 25 mg PO Q12H PRN PRN Reason: Vertigo Stop: 11/27/17 22:37 Miscellaneous (Probiotic Screen) 1 ea MC PRN PRN PRN Reason: PROTOCOL Stop: 11/29/17 08:14 Multivitamins/Vitamin C (Theragran) 1 tab PO DAILY [facility] Stop: 11/28/17 08:59 Last Admin: 10/04/17 09:40 Dose: 1 tab Olanzapine (Zyprexa) 20 mg PO HS ESME; Protocol Stop: 11/28/17 20:59 Last Admin: 10/03/17 20:43 Dose: 20 mg Pantoprazole Sodium (Protonix) 40 mg PO QDAC ESME Stop: 11/28/17 07:29 Last Admin: 10/04/17 06:44 Dose: 40 mg Zolpidem Tartrate (Ambien) 5 mg PO HS PRN PRN Reason: Insomnia Stop: 11/27/17 22:30 Last Admin: 10/02/17 21:17 Dose: 5 mg General: demented HEENT: NC/AT, PERRLA, anicteric sclerae, throat clear Neck: Supple, No thyromegaly, +2 carotid pulse wo bruit, No LAD Cardiovascular: Normal S1, Normal S2, without murmur Abdomen: soft, non-tender, non-distended Neurological: no change Internal Medicine Assmt/Plan - Assessment Assessment: 1.HYPERLIPIDEMIA. 2.DJD. 3.DEMENTIA. - Plan Plan: CONTINUE ON CURRENT MEDICATION AND DIET. Nutritional Asmnt/Malnutr-PDOC - Dietary Evaluation Malnutrition Findings (Please click <Entered> for more info): Nutritional Asmnt/Malnutrition Start: 10/04/17 14: 42 Text: Status: Complete Freq: Protocol: Document 10/04/17 14:42 [email or web address] (Rec: 10/04/17 14:45 [id number] [id number]) Nutritional Asmnt/Malnutrition Patient General Information Nutritional Screening Low Risk Diagnosis psychosis Pertinent Medical Hx/Surgical Hx hyperlipidemia, DJD, demntia Subjective Information Pt was in bathroom not able to visit. Per EMR, PO intake 25% . Current Diet Order/ Nutrition Support regular Pertinent Medications colace, culturelle, theragran, protonix Pertinent Labs 09/29 triglycerides 202 Nutritional Hx/Data Height 1.65 m Height (Calculated Centimeters) 165.1 Current Weight (lbs) 56.699 kg Weight (Calculated Kilograms) 56.7 Weight (Calculated Grams) 35708.0 Elizabeth Body Weight 125 Body Mass Index (BMI) 20.7 Weight Status Approriate GI Symptoms GI Symptoms None Last BM 7/8 Difficult in: None Skin Integrity/Comment: intact Current %PO Good (75-100%) Estimated Nutritional Goals BEE in Kcals: Using Current wt Calories/Kcals/Kg 25-30 Kcals Calculated 7707-4217 Protein: Using Current wt Protein g/k-1.2 Protein Calculated 57-68 Fluid: ml 1425-1710ml (1ml/kcal) Nutritional Problem No current Nutrition Prob Problem N/A Malnutrition Alert Is there a minimum of two criteria No selected? Query Text:Check all the applicable criteria. A minimum of two criteria are recommended for diagnosis of either severe or non-severe malnutrition. Malnutrition Related to Morbid Obesity Malnutrition related to morbid obesity No Intervention/Recommendation Comments 1. Continue with regular diet as ordered. 2. Monitor PO intake, wt, labs and skin integrity 3. F/U as low risk in 7 days, 10/11 Expected Outcomes/Goals Expected Outcomes/Goals 1. PO intake to meet at least 75% of nutritional needs. 2. Wt stability, skin to remain intact, labs to approach WNL.
[2017-10-05] MEDS: Pantoprazole 40 mg EC Tab PO SCH (06:38)
[2017-10-05] MEDS: Fluticasone Propionate 0.05mg/Actuation 16gm Nasal Spray NS SCH (08:58)
[2017-10-05] MEDS: Multivitamin Tab PO SCH (08:59)
[2017-10-05] MEDS: Lactobacillus Rhamnosus GG 15 Billion CFU CAP.SPRINK PO SCH (08:59)
[2017-10-05] MEDS: Atorvastatin Calcium 10 MG TAB PO SCH (08:59)
--- NOTE | 2017-10-05 21:25 | Internal Medicine Prog Note ---
Internal Medicine Subjective - Subjective Service Date: 10/05/17 Patient seen and examined:: with staff Patient is:: awake, verbal, in bed, talking, confused Per staff patient has:: no adverse event Internal Medicine Objective - Results Result Diagrams: 09/29/17 07:20 09/29/17 07:20 Recent Labs: Laboratory Last Values WBC 5.2 Th/cmm (4.8-10.8) 09/29/17 07:20 RBC 4.45 Mil/cmm (3.80-5.20) 09/29/17 07:20 Hgb 14.0 gm/dL (12-16) 09/29/17 07:20 Hct 41.8 % (41.0-60) 09/29/17 07:20 MCV 93.8 fl (81-100) 09/29/17 07:20 MCH 31.5 pg (27.0-31.0) H 09/29/17 07:20 MCHC Differential 33.6 pg (28.0-36.0) 09/29/17 07:20 RDW 13.3 % (11.5-20.0) 09/29/17 07:20 Plt Count 358 Th/cmm (150-400) 09/29/17 07:20 MPV 6.5 fl 09/29/17 07:20 Neutrophils % 55.3 % (40.0-80.0) 09/29/17 07:20 Lymphocytes % 32.4 % (20.0-50.0) 09/29/17 07:20 Monocytes % 7.1 % (2.0-10.0) 09/29/17 07:20 Eosinophils % 3.8 % (0.0-5.0) 09/29/17 07:20 Basophils % 1.4 % (0.0-2.0) 09/29/17 07:20 Sodium 140 mEq/L (136-145) 09/29/17 07:20 Potassium 4.0 mEq/L (3.5-5.1) 09/29/17 07:20 Chloride 106 mEq/L (98-107) 09/29/17 07:20 Carbon Dioxide 28.3 mEq/L (21.0-31.0) 09/29/17 07:20 Anion Gap 9.7 (7.0-16.0) 09/29/17 07:20 BUN 22 mg/dL (7-25) 09/29/17 07:20 Creatinine 0.7 mg/dL (0.6-1.2) 09/29/17 07:20 Est GFR ( Amer) > 60.0 ml/min (>90) 09/29/17 07:20 Est GFR (Non-Af Amer) > 60.0 ml/min 09/29/17 07:20 BUN/Creatinine Ratio 31.4 09/29/17 07:20 Glucose 95 mg/dL (70-105) 09/29/17 07:20 Hemoglobin A1c % 4.9 % (4.0-6.0) 09/29/17 07:20 Calcium 9.6 mg/dL (8.6-10.3) 09/29/17 07:20 Total Bilirubin 0.4 mg/dL (0.3-1.0) 09/29/17 07:20 AST 11 U/L (13-39) L 09/29/17 07:20 ALT 8 U/L (7-52) 09/29/17 07:20 Alkaline Phosphatase 59 U/L (34-104) 09/29/17 07:20 Total Protein 6.1 gm/dL (6.0-8.3) 09/29/17 07:20 Albumin 3.9 gm/dL (3.7-5.3) 09/29/17 07:20 Globulin 2.2 gm/dL 09/29/17 07:20 Albumin/Globulin Ratio 1.8 (1.0-1.8) 09/29/17 07:20 Triglycerides 202 mg/dL (<150) H 09/29/17 07:20 Cholesterol 178 mg/dL (<200) 09/29/17 07:20 LDL Cholesterol Direct 100 mg/dL (75-193) 09/29/17 07:20 HDL Cholesterol 33 mg/dL (23-92) 09/29/17 07:20 TSH 1.05 uIU/ml (0.34-5.60) 09/29/17 07:20 Urine Source CLEAN C 09/29/17 07:10 Urine Color YELLOW 09/29/17 07:10 Urine Clarity SLIGHTLY HAZY (CLEAR) 09/29/17 07:10 Urine pH 6.0 (4.6 - 8.0) 09/29/17 07:10 Ur Specific [place] 1.015 (1.005-1.030) 09/29/17 07:10 Urine Protein NEGATIVE mg/dL (NEGATIVE) 09/29/17 07:10 Urine Glucose (UA) NEGATIVE mg/dL (NEGATIVE) 09/29/17 07:10 Urine Ketones NEGATIVE mg/dL (NEGATIVE) 09/29/17 07:10 Urine Blood MODERATE (NEGATIVE) H 09/29/17 07:10 Urine Nitrate NEGATIVE (NEGATIVE) 09/29/17 07:10 Urine Bilirubin NEGATIVE (NEGATIVE) 09/29/17 07:10 Urine Urobilinogen 0.2 E.U./dL (0.2 - 1.0) 09/29/17 07:10 Ur Leukocyte Esterase SMALL (NEGATIVE) H 09/29/17 07:10 Urine RBC 5-10 /hpf (0-5) H 09/29/17 07:10 Urine WBC 6-10 /hpf (0-5) H 09/29/17 07:10 Ur Epithelial Cells MANY /lpf (FEW) 09/29/17 07:10 Urine Bacteria NONE SEEN /hpf (NONE SEEN) 09/29/17 07:10 RPR NONREACTIVE (NONREACTIVE) 09/29/17 07:20 Hepatitis A IgM Ab Negative (Negative) 09/29/17 07:20 Hep Bs Antigen Negative (Negative) 09/29/17 07:20 Hep B Core IgM Ab Negative (Negative) 09/29/17 07:20 Hepatitis C Antibody <0.1 s/co ratio (0.0-0.9) 09/29/17 07:20 - Physical Exam Vitals and I&O: Vital Signs Temp 98.9 F 10/05/17 19:54 Pulse 68 10/05/17 19:54 Resp 20 10/05/17 19:59 BP 103/52 10/05/17 19:54 Pulse Ox 98 10/05/17 19:54 Intake & Output 10/05/17 10/05/17 10/06/17 06:59 18:59 06:59 Intake Total 1800 60 Balance 1800 60 Intake: Oral 1800 60 Other: # Voids 4 0 # Bowel Movements 0 0 Active Medications: Current Medications Acetaminophen (Tylenol) 650 mg PO Q6H PRN PRN Reason: mild pain Stop: 11/27/17 22:37 Acetaminophen/Hydrocodone Bitart ([place] 5mg/325mg) 1 tab PO Q4H PRN PRN Reason: Pain (Severe) Stop: 11/28/17 14:11 Al Hydrox/Mg Hydrox/Simethicone (Maalox) 30 ml PO Q4H PRN PRN Reason: GI DISTRESS Stop: 11/27/17 22:30 Albuterol Sulfate (Albuterol 2.5mg/3ml Neb Ud) 1.25 mg HHN Q4HRT PRN PRN Reason: Shortness of Breath Stop: 11/27/17 23:12 Atorvastatin Calcium (Lipitor) 10 mg PO DAILY [facility]; Protocol Stop: 11/28/17 08:59 Last Admin: 10/05/17 08:59 Dose: 10 mg Docusate Sodium (Colace) 100 mg PO BID [facility] Stop: 11/28/17 08:59 Last Admin: 10/05/17 18:24 Dose: Not Given Donepezil HCl (Aricept) 5 mg PO DAILY [facility] Stop: 11/28/17 08:59 Last Admin: 10/05/17 08:59 Dose: 5 mg Escitalopram Oxalate (Lexapro) 10 mg PO DAILY [facility]; Protocol Stop: 11/28/17 08:59 Last Admin: 10/05/17 08:59 Dose: 10 mg Fluticasone Propionate (Flonase) 1 spr NS DAILY [facility] Stop: 11/28/17 14:14 Last Admin: 10/05/17 08:58 Dose: 1 spr Lactobacillus Rhamnosus (Culturelle 15b) 1 each PO DAILY [facility] Stop: 11/29/17 08:59 Last Admin: 10/05/17 08:59 Dose: 1 each Lorazepam (Ativan) 0.5 mg PO Q4H PRN; Protocol PRN Reason: Anxiety/agitation Stop: 11/27/17 22:30 Magnesium Hydroxide (Milk Of Magnesia) 30 ml PO HS PRN PRN Reason: Constipation Meclizine HCl (Antivert) 25 mg PO Q12H PRN PRN Reason: Vertigo Stop: 11/27/17 22:37 Miscellaneous (Probiotic Screen) 1 ea MC PRN PRN PRN Reason: PROTOCOL Stop: 11/29/17 08:14 Multivitamins/Vitamin C (Theragran) 1 tab PO DAILY [facility] Stop: 11/28/17 08:59 Last Admin: 10/05/17 08:59 Dose: 1 tab Olanzapine (Zyprexa) 20 mg PO HS [facility]; Protocol Stop: 11/28/17 20:59 Last Admin: 10/05/17 21:01 Dose: Not Given Pantoprazole Sodium (Protonix) 40 mg PO QDAC [facility] Stop: 11/28/17 07:29 Last Admin: 10/05/17 06:38 Dose: 40 mg Zolpidem Tartrate (Ambien) 5 mg PO HS PRN PRN Reason: Insomnia Stop: 11/27/17 22:30 Last Admin: 10/04/17 21:26 Dose: 5 mg General: demented HEENT: NC/AT, PERRLA, anicteric sclerae, throat clear Neck: Supple, No thyromegaly, +2 carotid pulse wo bruit, No LAD Cardiovascular: Normal S1, Normal S2, without murmur Abdomen: soft, non-tender, non-distended Neurological: no change Internal Medicine Assmt/Plan - Assessment Assessment: 1.HYPERLIPIDEMIA. 2.DJD. 3.DEMENTIA. - Plan Plan: CONTINUE ON CURRENT MEDICATION AND DIET. Nutritional Asmnt/Malnutr-PDOC - Dietary Evaluation Malnutrition Findings (Please click <Entered> for more info): Nutritional Asmnt/Malnutrition Start: 10/04/17 14: 42 Text: Status: Complete Freq: Protocol: Document 10/04/17 14:42 LCHENG (Rec: 10/04/17 14:45 [email or web address] [email or web address]) Nutritional Asmnt/Malnutrition Patient General Information Nutritional Screening Low Risk Diagnosis psychosis Pertinent Medical Hx/Surgical Hx hyperlipidemia, DJD, demntia Subjective Information Pt was in bathroom not able to visit. Per EMR, PO intake 25% . Current Diet Order/ Nutrition Support regular Pertinent Medications colace, culturelle, theragran, protonix Pertinent Labs 09/29 triglycerides 202 Nutritional Hx/Data Height 1.65 m Height (Calculated Centimeters) 165.1 Current Weight (lbs) 56.699 kg Weight (Calculated Kilograms) 56.7 Weight (Calculated Grams) 90491.0 [place] Body Weight 125 Body Mass Index (BMI) 20.7 Weight Status Approriate GI Symptoms GI Symptoms None Last BM 78 Difficult in: None Skin Integrity/Comment: intact Current %PO Good (75-100%) Estimated Nutritional Goals BEE in Kcals: Using Current wt Calories/Kcals/Kg 25-30 Kcals Calculated 6222-1632 Protein: Using Current wt Protein g/k-1.2 Protein Calculated 57-68 Fluid: ml 1425-1710ml (1ml/kcal) Nutritional Problem No current Nutrition Prob Problem N/A Malnutrition Alert Is there a minimum of two criteria No selected? Query Text:Check all the applicable criteria. A minimum of two criteria are recommended for diagnosis of either severe or non-severe malnutrition. Malnutrition Related to Morbid Obesity Malnutrition related to morbid obesity No Intervention/Recommendation Comments 1. Continue with regular diet as ordered. 2. Monitor PO intake, wt, labs and skin integrity 3. F/U as low risk in 7 days, 10/11 Expected Outcomes/Goals Expected Outcomes/Goals 1. PO intake to meet at least 75% of nutritional needs. 2. Wt stability, skin to remain intact, labs to approach WNL.
--- NOTE | 2017-10-06 01:11 | Progress Notes ---
DATE: 10/05/2017 The patient in the hospital, remains depressed, withdrawn, states her chief complaint is "very anxious," "very nervous." She is sleeping fairly well, mostly in her bed. Staff doing some work on her toilet. She is currently outside of her room, sitting down. No overt suicidal thoughts, but she states that she cannot walk very far. This is bothering her, feels very weak. She may need rehabilitation. The patient eating with some prompting. Staff notes she remains down and depressed. ASSESSMENT: The patient remains symptomatic, highly depressed, withdrawn. PLAN: We will continue to monitor. The patient remains melancholic, highly anxious and nervous. I will attempt to reach out to daughter today to increase collateral. [facility]# [id number]
[2017-10-06] MEDS: Pantoprazole 40 mg EC Tab PO SCH (06:37)
[2017-10-06] MEDS: Atorvastatin Calcium 10 MG TAB PO SCH ×2 (09:25→09:30)
[2017-10-06] MEDS: Lactobacillus Rhamnosus GG 15 Billion CFU CAP.SPRINK PO SCH ×2 (09:25→09:30)
[2017-10-06] MEDS: Multivitamin Tab PO SCH (09:30)
[2017-10-06] MEDS: Fluticasone Propionate 0.05mg/Actuation 16gm Nasal Spray NS SCH (09:30)
--- NOTE | 2017-10-06 20:25 | Internal Medicine Prog Note ---
Internal Medicine Subjective - Subjective Service Date: 10/06/17 Patient seen and examined:: with staff Patient is:: awake, verbal, in bed, talking, confused Per staff patient has:: no adverse event Internal Medicine Objective - Results Result Diagrams: 09/29/17 07:20 09/29/17 07:20 Recent Labs: Laboratory Last Values WBC 5.2 Th/cmm (4.8-10.8) 09/29/17 07:20 RBC 4.45 Mil/cmm (3.80-5.20) 09/29/17 07:20 Hgb 14.0 gm/dL (12-16) 09/29/17 07:20 Hct 41.8 % (41.0-60) 09/29/17 07:20 MCV 93.8 fl (81-100) 09/29/17 07:20 MCH 31.5 pg (27.0-31.0) H 09/29/17 07:20 MCHC Differential 33.6 pg (28.0-36.0) 09/29/17 07:20 RDW 13.3 % (11.5-20.0) 09/29/17 07:20 Plt Count 358 Th/cmm (150-400) 09/29/17 07:20 MPV 6.5 fl 09/29/17 07:20 Neutrophils % 55.3 % (40.0-80.0) 09/29/17 07:20 Lymphocytes % 32.4 % (20.0-50.0) 09/29/17 07:20 Monocytes % 7.1 % (2.0-10.0) 09/29/17 07:20 Eosinophils % 3.8 % (0.0-5.0) 09/29/17 07:20 Basophils % 1.4 % (0.0-2.0) 09/29/17 07:20 Sodium 140 mEq/L (136-145) 09/29/17 07:20 Potassium 4.0 mEq/L (3.5-5.1) 09/29/17 07:20 Chloride 106 mEq/L (98-107) 09/29/17 07:20 Carbon Dioxide 28.3 mEq/L (21.0-31.0) 09/29/17 07:20 Anion Gap 9.7 (7.0-16.0) 09/29/17 07:20 BUN 22 mg/dL (7-25) 09/29/17 07:20 Creatinine 0.7 mg/dL (0.6-1.2) 09/29/17 07:20 Est GFR ( Amer) > 60.0 ml/min (>90) 09/29/17 07:20 Est GFR (Non-Af Amer) > 60.0 ml/min 09/29/17 07:20 BUN/Creatinine Ratio 31.4 09/29/17 07:20 Glucose 95 mg/dL (70-105) 09/29/17 07:20 Hemoglobin A1c % 4.9 % (4.0-6.0) 09/29/17 07:20 Calcium 9.6 mg/dL (8.6-10.3) 09/29/17 07:20 Total Bilirubin 0.4 mg/dL (0.3-1.0) 09/29/17 07:20 AST 11 U/L (13-39) L 09/29/17 07:20 ALT 8 U/L (7-52) 09/29/17 07:20 Alkaline Phosphatase 59 U/L (34-104) 09/29/17 07:20 Total Protein 6.1 gm/dL (6.0-8.3) 09/29/17 07:20 Albumin 3.9 gm/dL (3.7-5.3) 09/29/17 07:20 Globulin 2.2 gm/dL 09/29/17 07:20 Albumin/Globulin Ratio 1.8 (1.0-1.8) 09/29/17 07:20 Triglycerides 202 mg/dL (<150) H 09/29/17 07:20 Cholesterol 178 mg/dL (<200) 09/29/17 07:20 LDL Cholesterol Direct 100 mg/dL (75-193) 09/29/17 07:20 HDL Cholesterol 33 mg/dL (23-92) 09/29/17 07:20 TSH 1.05 uIU/ml (0.34-5.60) 09/29/17 07:20 Urine Source CLEAN C 09/29/17 07:10 Urine Color YELLOW 09/29/17 07:10 Urine Clarity SLIGHTLY HAZY (CLEAR) 09/29/17 07:10 Urine pH 6.0 (4.6 - 8.0) 09/29/17 07:10 Ur Specific [place] 1.015 (1.005-1.030) 09/29/17 07:10 Urine Protein NEGATIVE mg/dL (NEGATIVE) 09/29/17 07:10 Urine Glucose (UA) NEGATIVE mg/dL (NEGATIVE) 09/29/17 07:10 Urine Ketones NEGATIVE mg/dL (NEGATIVE) 09/29/17 07:10 Urine Blood MODERATE (NEGATIVE) H 09/29/17 07:10 Urine Nitrate NEGATIVE (NEGATIVE) 09/29/17 07:10 Urine Bilirubin NEGATIVE (NEGATIVE) 09/29/17 07:10 Urine Urobilinogen 0.2 E.U./dL (0.2 - 1.0) 09/29/17 07:10 Ur Leukocyte Esterase SMALL (NEGATIVE) H 09/29/17 07:10 Urine RBC 5-10 /hpf (0-5) H 09/29/17 07:10 Urine WBC 6-10 /hpf (0-5) H 09/29/17 07:10 Ur Epithelial Cells MANY /lpf (FEW) 09/29/17 07:10 Urine Bacteria NONE SEEN /hpf (NONE SEEN) 09/29/17 07:10 RPR NONREACTIVE (NONREACTIVE) 09/29/17 07:20 Hepatitis A IgM Ab Negative (Negative) 09/29/17 07:20 Hep Bs Antigen Negative (Negative) 09/29/17 07:20 Hep B Core IgM Ab Negative (Negative) 09/29/17 07:20 Hepatitis C Antibody <0.1 s/co ratio (0.0-0.9) 09/29/17 07:20 - Physical Exam Vitals and I&O: Vital Signs Temp 98.7 F 10/06/17 15:00 Pulse 69 10/06/17 15:00 Resp 20 10/06/17 19:44 BP 104/53 10/06/17 15:00 Pulse Ox 98 10/06/17 14:00 Intake & Output 10/06/17 10/06/17 10/07/17 06:59 18:59 06:59 Intake Total 60 1100 Output Total 4 Balance 60 1096 Intake: Oral 60 1100 Output: Urine 4 Other: # Voids 0 # Bowel Movements 0 1 Active Medications: Current Medications Acetaminophen (Tylenol) 650 mg PO Q6H PRN PRN Reason: mild pain Stop: 11/27/17 22:37 Acetaminophen/Hydrocodone Bitart ([place] 5mg/325mg) 1 tab PO Q4H PRN PRN Reason: Pain (Severe) Stop: 11/28/17 14:11 Al Hydrox/Mg Hydrox/Simethicone (Maalox) 30 ml PO Q4H PRN PRN Reason: GI DISTRESS Stop: 11/27/17 22:30 Albuterol Sulfate (Albuterol 2.5mg/3ml Neb Ud) 1.25 mg HHN Q4HRT PRN PRN Reason: Shortness of Breath Stop: 11/27/17 23:12 Atorvastatin Calcium (Lipitor) 10 mg PO DAILY [facility]; Protocol Stop: 11/28/17 08:59 Last Admin: 10/06/17 09:30 Dose: Not Given Docusate Sodium (Colace) 100 mg PO BID [facility] Stop: 11/28/17 08:59 Last Admin: 10/06/17 17:32 Dose: Not Given Donepezil HCl (Aricept) 5 mg PO DAILY [facility] Stop: 11/28/17 08:59 Last Admin: 10/06/17 09:30 Dose: Not Given Escitalopram Oxalate (Lexapro) 10 mg PO DAILY [facility]; Protocol Stop: 11/28/17 08:59 Last Admin: 10/06/17 09:30 Dose: Not Given Fluticasone Propionate (Flonase) 1 spr NS DAILY [facility] Stop: 11/28/17 14:14 Last Admin: 10/06/17 09:30 Dose: Not Given Lactobacillus Rhamnosus (Culturelle 15b) 1 each PO DAILY [facility] Stop: 11/29/17 08:59 Last Admin: 10/06/17 09:30 Dose: Not Given Lorazepam (Ativan) 0.5 mg PO Q4H PRN; Protocol PRN Reason: Anxiety/agitation Stop: 11/27/17 22:30 Magnesium Hydroxide (Milk Of Magnesia) 30 ml PO HS PRN PRN Reason: Constipation Meclizine HCl (Antivert) 25 mg PO Q12H PRN PRN Reason: Vertigo Stop: 11/27/17 22:37 Miscellaneous (Probiotic Screen) 1 ea MC PRN PRN PRN Reason: PROTOCOL Stop: 11/29/17 08:14 Multivitamins/Vitamin C (Theragran) 1 tab PO DAILY [facility] Stop: 11/28/17 08:59 Last Admin: 10/06/17 09:30 Dose: Not Given Olanzapine (Zyprexa) 15 mg PO HS [facility] Stop: 12/05/17 20:59 Pantoprazole Sodium (Protonix) 40 mg PO QDAC [facility] Stop: 11/28/17 07:29 Last Admin: 10/06/17 06:37 Dose: 40 mg Zolpidem Tartrate (Ambien) 5 mg PO HS PRN PRN Reason: Insomnia Stop: 11/27/17 22:30 Last Admin: 10/04/17 21:26 Dose: 5 mg General: demented HEENT: NC/AT, PERRLA, anicteric sclerae, throat clear Neck: Supple, No thyromegaly, +2 carotid pulse wo bruit, No LAD Cardiovascular: Normal S1, Normal S2, without murmur Abdomen: soft, non-tender, non-distended Neurological: no change Internal Medicine Assmt/Plan - Assessment Assessment: 1.HYPERLIPIDEMIA. 2.DJD. 3.DEMENTIA. - Plan Plan: CONTINUE ON CURRENT MEDICATION AND DIET. Nutritional Asmnt/Malnutr-PDOC - Dietary Evaluation Malnutrition Findings (Please click <Entered> for more info): Nutritional Asmnt/Malnutrition Start: 10/04/17 14: 42 Text: Status: Complete Freq: Protocol: Document 10/04/17 14:42 LCHENG (Rec: 10/04/17 14:45 LCHENG [email or web address]) Nutritional Asmnt/Malnutrition Patient General Information Nutritional Screening Low Risk Diagnosis psychosis Pertinent Medical Hx/Surgical Hx hyperlipidemia, DJD, demntia Subjective Information Pt was in bathroom not able to visit. Per EMR, PO intake 25% . Current Diet Order/ Nutrition Support regular Pertinent Medications colace, culturelle, theragran, protonix Pertinent Labs 09/29 triglycerides 202 Nutritional Hx/Data Height 1.65 m Height (Calculated Centimeters) 165.1 Current Weight (lbs) 56.699 kg Weight (Calculated Kilograms) 56.7 Weight (Calculated Grams) 51741.0 [place] Body Weight 125 Body Mass Index (BMI) 20.7 Weight Status Approriate GI Symptoms GI Symptoms None Last BM 7/8 Difficult in: None Skin Integrity/Comment: intact Current %PO Good (75-100%) Estimated Nutritional Goals BEE in Kcals: Using Current wt Calories/Kcals/Kg 25-30 Kcals Calculated 4126-2790 Protein: Using Current wt Protein g/k-1.2 Protein Calculated 57-68 Fluid: ml 1425-1710ml (1ml/kcal) Nutritional Problem No current Nutrition Prob Problem N/A Malnutrition Alert Is there a minimum of two criteria No selected? Query Text:Check all the applicable criteria. A minimum of two criteria are recommended for diagnosis of either severe or non-severe malnutrition. Malnutrition Related to Morbid Obesity Malnutrition related to morbid obesity No Intervention/Recommendation Comments 1. Continue with regular diet as ordered. 2. Monitor PO intake, wt, labs and skin integrity 3. F/U as low risk in 7 days, 10/11 Expected Outcomes/Goals Expected Outcomes/Goals 1. PO intake to meet at least 75% of nutritional needs. 2. Wt stability, skin to remain intact, labs to approach WNL.
--- NOTE | 2017-10-07 05:09 | Progress Notes ---
DATE: 10/06/2017 SUBJECTIVE: The patient in the hospital very depressed, very withdrawn, very anxious all the time in her room, ruminative. I did speak with daughter yesterday. The patient with a long history of mental illness, severe depression, bizarre symptoms in the past, unclear if she has schizophrenia or major depression with psychotic symptoms. The patient is refusing medications, states that it is making her stomach upset. She is selectively mute at times, mostly in her room. ASSESSMENT: The patient remains __symptomatic___, highly depressed, withdrawn, complaining of medication side effects. PLAN: I will lower her Zyprexa to 15 mg. She remains quite acute in regards to how depressed she is. She needs prompting for ADLs, prompting to eat. KEANU# [id number] MANASA
[2017-10-07] MEDS: Pantoprazole 40 mg EC Tab PO SCH (06:37)
[2017-10-07] MEDS: Fluticasone Propionate 0.05mg/Actuation 16gm Nasal Spray NS SCH (09:32)
[2017-10-07] MEDS: Lactobacillus Rhamnosus GG 15 Billion CFU CAP.SPRINK PO SCH (09:32)
[2017-10-07] MEDS: Atorvastatin Calcium 10 MG TAB PO SCH (09:32)
[2017-10-07] MEDS: buPROPion XL 150 mg T 24 H PO SCH (09:32)
[2017-10-07] MEDS: Multivitamin Tab PO SCH (09:32)
--- NOTE | 2017-10-07 22:41 | Progress Notes ---
DATE: SUBJECTIVE: The patient seen, chart reviewed, discussed with staff. The patient is very depressed, isolative, withdrawn, not saying much. The patient with a long history of severe depression, melancholy, history of electroconvulsive therapy in the past. The patient mostly in her room. Concerns for atrophy. She states she cannot walk as far as she could when she first came to the hospital. Concerns about suicidality given how depressed she is. I did speak with daughter recently. Medications were noted. ASSESSMENT: The patient is severely depressed, melancholic, withdrawn, vegetative symptoms of depression, always in her room, not really functional at this time. PLAN: We will continue to monitor. We will adjust and titrate medications. Consider Wellbutrin. I did taper down her medications due to concerns of over sedation. JOB# [id number]
--- NOTE | 2017-10-07 23:14 | Internal Medicine Prog Note ---
Internal Medicine Subjective - Subjective Service Date: 10/07/17 Patient seen and examined:: with staff Patient is:: awake, verbal, in bed, talking, confused Per staff patient has:: no adverse event Internal Medicine Objective - Results Result Diagrams: 09/29/17 07:20 09/29/17 07:20 Recent Labs: Laboratory Last Values WBC 5.2 Th/cmm (4.8-10.8) 09/29/17 07:20 RBC 4.45 Mil/cmm (3.80-5.20) 09/29/17 07:20 Hgb 14.0 gm/dL (12-16) 09/29/17 07:20 Hct 41.8 % (41.0-60) 09/29/17 07:20 MCV 93.8 fl (81-100) 09/29/17 07:20 MCH 31.5 pg (27.0-31.0) H 09/29/17 07:20 MCHC Differential 33.6 pg (28.0-36.0) 09/29/17 07:20 RDW 13.3 % (11.5-20.0) 09/29/17 07:20 Plt Count 358 Th/cmm (150-400) 09/29/17 07:20 MPV 6.5 fl 09/29/17 07:20 Neutrophils % 55.3 % (40.0-80.0) 09/29/17 07:20 Lymphocytes % 32.4 % (20.0-50.0) 09/29/17 07:20 Monocytes % 7.1 % (2.0-10.0) 09/29/17 07:20 Eosinophils % 3.8 % (0.0-5.0) 09/29/17 07:20 Basophils % 1.4 % (0.0-2.0) 09/29/17 07:20 Sodium 140 mEq/L (136-145) 09/29/17 07:20 Potassium 4.0 mEq/L (3.5-5.1) 09/29/17 07:20 Chloride 106 mEq/L (98-107) 09/29/17 07:20 Carbon Dioxide 28.3 mEq/L (21.0-31.0) 09/29/17 07:20 Anion Gap 9.7 (7.0-16.0) 09/29/17 07:20 BUN 22 mg/dL (7-25) 09/29/17 07:20 Creatinine 0.7 mg/dL (0.6-1.2) 09/29/17 07:20 Est GFR ( Amer) > 60.0 ml/min (>90) 09/29/17 07:20 Est GFR (Non-Af Amer) > 60.0 ml/min 09/29/17 07:20 BUN/Creatinine Ratio 31.4 09/29/17 07:20 Glucose 95 mg/dL (70-105) 09/29/17 07:20 Hemoglobin A1c % 4.9 % (4.0-6.0) 09/29/17 07:20 Calcium 9.6 mg/dL (8.6-10.3) 09/29/17 07:20 Total Bilirubin 0.4 mg/dL (0.3-1.0) 09/29/17 07:20 AST 11 U/L (13-39) L 09/29/17 07:20 ALT 8 U/L (7-52) 09/29/17 07:20 Alkaline Phosphatase 59 U/L (34-104) 09/29/17 07:20 Total Protein 6.1 gm/dL (6.0-8.3) 09/29/17 07:20 Albumin 3.9 gm/dL (3.7-5.3) 09/29/17 07:20 Globulin 2.2 gm/dL 09/29/17 07:20 Albumin/Globulin Ratio 1.8 (1.0-1.8) 09/29/17 07:20 Triglycerides 202 mg/dL (<150) H 09/29/17 07:20 Cholesterol 178 mg/dL (<200) 09/29/17 07:20 LDL Cholesterol Direct 100 mg/dL (75-193) 09/29/17 07:20 HDL Cholesterol 33 mg/dL (23-92) 09/29/17 07:20 TSH 1.05 uIU/ml (0.34-5.60) 09/29/17 07:20 Urine Source CLEAN C 09/29/17 07:10 Urine Color YELLOW 09/29/17 07:10 Urine Clarity SLIGHTLY HAZY (CLEAR) 09/29/17 07:10 Urine pH 6.0 (4.6 - 8.0) 09/29/17 07:10 Ur Specific [place] 1.015 (1.005-1.030) 09/29/17 07:10 Urine Protein NEGATIVE mg/dL (NEGATIVE) 09/29/17 07:10 Urine Glucose (UA) NEGATIVE mg/dL (NEGATIVE) 09/29/17 07:10 Urine Ketones NEGATIVE mg/dL (NEGATIVE) 09/29/17 07:10 Urine Blood MODERATE (NEGATIVE) H 09/29/17 07:10 Urine Nitrate NEGATIVE (NEGATIVE) 09/29/17 07:10 Urine Bilirubin NEGATIVE (NEGATIVE) 09/29/17 07:10 Urine Urobilinogen 0.2 E.U./dL (0.2 - 1.0) 09/29/17 07:10 Ur Leukocyte Esterase SMALL (NEGATIVE) H 09/29/17 07:10 Urine RBC 5-10 /hpf (0-5) H 09/29/17 07:10 Urine WBC 6-10 /hpf (0-5) H 09/29/17 07:10 Ur Epithelial Cells MANY /lpf (FEW) 09/29/17 07:10 Urine Bacteria NONE SEEN /hpf (NONE SEEN) 09/29/17 07:10 RPR NONREACTIVE (NONREACTIVE) 09/29/17 07:20 Hepatitis A IgM Ab Negative (Negative) 09/29/17 07:20 Hep Bs Antigen Negative (Negative) 09/29/17 07:20 Hep B Core IgM Ab Negative (Negative) 09/29/17 07:20 Hepatitis C Antibody <0.1 s/co ratio (0.0-0.9) 09/29/17 07:20 - Physical Exam Vitals and I&O: Vital Signs Temp 98.6 F 10/07/17 14:00 Pulse 72 10/07/17 14:00 Resp 20 10/07/17 20:00 BP 121/57 10/07/17 14:00 Pulse Ox 98 10/07/17 14:00 Intake & Output 10/07/17 10/07/17 10/08/17 06:59 18:59 06:59 Intake Total 1250 Output Total 4 Balance 1246 Intake: Oral 1250 Output: Urine 4 Active Medications: Current Medications Acetaminophen (Tylenol) 650 mg PO Q6H PRN PRN Reason: mild pain Stop: 11/27/17 22:37 Acetaminophen/Hydrocodone Bitart ([place] 5mg/325mg) 1 tab PO Q4H PRN PRN Reason: Pain (Severe) Stop: 11/28/17 14:11 Al Hydrox/Mg Hydrox/Simethicone (Maalox) 30 ml PO Q4H PRN PRN Reason: GI DISTRESS Stop: 11/27/17 22:30 Albuterol Sulfate (Albuterol 2.5mg/3ml Neb Ud) 1.25 mg HHN Q4HRT PRN PRN Reason: Shortness of Breath Stop: 11/27/17 23:12 Atorvastatin Calcium (Lipitor) 10 mg PO DAILY [facility]; Protocol Stop: 11/28/17 08:59 Last Admin: 10/07/17 09:32 Dose: Not Given Bupropion HCl (Wellbutrin Xl) 150 mg PO DAILY [facility]; Protocol Stop: 12/06/17 08:59 Last Admin: 10/07/17 09:32 Dose: Not Given Docusate Sodium (Colace) 100 mg PO BID [facility] Stop: 11/28/17 08:59 Last Admin: 10/07/17 16:53 Dose: Not Given Donepezil HCl (Aricept) 5 mg PO DAILY [facility] Stop: 11/28/17 08:59 Last Admin: 10/07/17 09:32 Dose: Not Given Escitalopram Oxalate (Lexapro) 10 mg PO DAILY [facility]; Protocol Stop: 11/28/17 08:59 Last Admin: 10/07/17 09:32 Dose: Not Given Fluticasone Propionate (Flonase) 1 spr NS DAILY [facility] Stop: 11/28/17 14:14 Last Admin: 10/07/17 09:32 Dose: Not Given Lactobacillus Rhamnosus (Culturelle 15b) 1 each PO DAILY [facility] Stop: 11/29/17 08:59 Last Admin: 10/07/17 09:32 Dose: Not Given Lorazepam (Ativan) 0.5 mg PO Q4H PRN; Protocol PRN Reason: Anxiety/agitation Stop: 11/27/17 22:30 Magnesium Hydroxide (Milk Of Magnesia) 30 ml PO HS PRN PRN Reason: Constipation Meclizine HCl (Antivert) 25 mg PO Q12H PRN PRN Reason: Vertigo Stop: 11/27/17 22:37 Miscellaneous (Probiotic Screen) 1 ea MC PRN PRN PRN Reason: PROTOCOL Stop: 11/29/17 08:14 Multivitamins/Vitamin C (Theragran) 1 tab PO DAILY [facility] Stop: 11/28/17 08:59 Last Admin: 10/07/17 09:32 Dose: Not Given Olanzapine (Zyprexa) 15 mg PO HS [facility] Stop: 12/05/17 20:59 Last Admin: 10/07/17 20:50 Dose: 15 mg Pantoprazole Sodium (Protonix) 40 mg PO QDAC [facility] Stop: 11/28/17 07:29 Last Admin: 10/07/17 06:37 Dose: 40 mg Zolpidem Tartrate (Ambien) 5 mg PO HS PRN PRN Reason: Insomnia Stop: 11/27/17 22:30 Last Admin: 10/04/17 21:26 Dose: 5 mg General: demented HEENT: NC/AT, PERRLA, anicteric sclerae, throat clear Neck: Supple, No thyromegaly, +2 carotid pulse wo bruit, No LAD Cardiovascular: Normal S1, Normal S2, without murmur Abdomen: soft, non-tender, non-distended Neurological: no change Internal Medicine Assmt/Plan - Assessment Assessment: 1.HYPERLIPIDEMIA. 2.DJD. 3.DEMENTIA. - Plan Plan: CONTINUE ON CURRENT MEDICATION AND DIET. Nutritional Asmnt/Malnutr-PDOC - Dietary Evaluation Malnutrition Findings (Please click <Entered> for more info): Nutritional Asmnt/Malnutrition Start: 10/04/17 14: 42 Text: Status: Complete Freq: Protocol: Document 10/04/17 14:42 LCHENG (Rec: 10/04/17 14:45 [email or web address] [email or web address]) Nutritional Asmnt/Malnutrition Patient General Information Nutritional Screening Low Risk Diagnosis psychosis Pertinent Medical Hx/Surgical Hx hyperlipidemia, DJD, demntia Subjective Information Pt was in bathroom not able to visit. Per EMR, PO intake 25% . Current Diet Order/ Nutrition Support regular Pertinent Medications colace, culturelle, theragran, protonix Pertinent Labs 09/29 triglycerides 202 Nutritional Hx/Data Height 1.65 m Height (Calculated Centimeters) 165.1 Current Weight (lbs) 56.699 kg Weight (Calculated Kilograms) 56.7 Weight (Calculated Grams) 05847.0 [place] Body Weight 125 Body Mass Index (BMI) 20.7 Weight Status Approriate GI Symptoms GI Symptoms None Last BM 7/8 Difficult in: None Skin Integrity/Comment: intact Current %PO Good (75-100%) Estimated Nutritional Goals BEE in Kcals: Using Current wt Calories/Kcals/Kg 25-30 Kcals Calculated 5078-5721 Protein: Using Current wt Protein g/k-1.2 Protein Calculated 57-68 Fluid: ml 1425-1710ml (1ml/kcal) Nutritional Problem No current Nutrition Prob Problem N/A Malnutrition Alert Is there a minimum of two criteria No selected? Query Text:Check all the applicable criteria. A minimum of two criteria are recommended for diagnosis of either severe or non-severe malnutrition. Malnutrition Related to Morbid Obesity Malnutrition related to morbid obesity No Intervention/Recommendation Comments 1. Continue with regular diet as ordered. 2. Monitor PO intake, wt, labs and skin integrity 3. F/U as low risk in 7 days, 10/11 Expected Outcomes/Goals Expected Outcomes/Goals 1. PO intake to meet at least 75% of nutritional needs. 2. Wt stability, skin to remain intact, labs to approach WNL.
[2017-10-08] MEDS: Pantoprazole 40 mg EC Tab PO SCH (06:39)
[2017-10-08] MEDS: buPROPion XL 150 mg T 24 H PO SCH (09:14)
[2017-10-08] MEDS: Atorvastatin Calcium 10 MG TAB PO SCH (09:14)
[2017-10-08] MEDS: Multivitamin Tab PO SCH (09:15)
[2017-10-08] MEDS: Fluticasone Propionate 0.05mg/Actuation 16gm Nasal Spray NS SCH (09:15)
[2017-10-08] MEDS: Lactobacillus Rhamnosus GG 15 Billion CFU CAP.SPRINK PO SCH (09:15)
--- NOTE | 2017-10-08 17:30 | Progress Notes ---
DATE: 10/08/2017 SUBJECTIVE: The patient is depressed, still isolative, withdrawn. States she feels "very depressed, worked with physical therapy, but she states for a very brief period of time. The patient currently on Lexapro and Aricept. I did speak with daughter a couple of days ago, the patient remains highly withdrawn, vegetative, signs and symptoms of depression, recently increased on her Lexapro and also on Wellbutrin. The patient always in bed attesting to hopeless thoughts, hopeless thoughts. ASSESSMENT: The patient remains symptomatic, does not want to talk, sad, depressed. PLAN: We will continue to monitor given recent dose adjustments, we will continue at current dose, but I do plan to increase Lexapro and Wellbutrin over the next few days.. [facility]# [id number]
--- NOTE | 2017-10-08 19:02 | Internal Medicine Prog Note ---
Internal Medicine Subjective - Subjective Service Date: 10/08/17 Patient seen and examined:: with staff Patient is:: awake, verbal, in bed, talking, confused Per staff patient has:: no adverse event Internal Medicine Objective - Results Result Diagrams: 09/29/17 07:20 09/29/17 07:20 Recent Labs: Laboratory Last Values WBC 5.2 Th/cmm (4.8-10.8) 09/29/17 07:20 RBC 4.45 Mil/cmm (3.80-5.20) 09/29/17 07:20 Hgb 14.0 gm/dL (12-16) 09/29/17 07:20 Hct 41.8 % (41.0-60) 09/29/17 07:20 MCV 93.8 fl (81-100) 09/29/17 07:20 MCH 31.5 pg (27.0-31.0) H 09/29/17 07:20 MCHC Differential 33.6 pg (28.0-36.0) 09/29/17 07:20 RDW 13.3 % (11.5-20.0) 09/29/17 07:20 Plt Count 358 Th/cmm (150-400) 09/29/17 07:20 MPV 6.5 fl 09/29/17 07:20 Neutrophils % 55.3 % (40.0-80.0) 09/29/17 07:20 Lymphocytes % 32.4 % (20.0-50.0) 09/29/17 07:20 Monocytes % 7.1 % (2.0-10.0) 09/29/17 07:20 Eosinophils % 3.8 % (0.0-5.0) 09/29/17 07:20 Basophils % 1.4 % (0.0-2.0) 09/29/17 07:20 Sodium 140 mEq/L (136-145) 09/29/17 07:20 Potassium 4.0 mEq/L (3.5-5.1) 09/29/17 07:20 Chloride 106 mEq/L (98-107) 09/29/17 07:20 Carbon Dioxide 28.3 mEq/L (21.0-31.0) 09/29/17 07:20 Anion Gap 9.7 (7.0-16.0) 09/29/17 07:20 BUN 22 mg/dL (7-25) 09/29/17 07:20 Creatinine 0.7 mg/dL (0.6-1.2) 09/29/17 07:20 Est GFR ( Amer) > 60.0 ml/min (>90) 09/29/17 07:20 Est GFR (Non-Af Amer) > 60.0 ml/min 09/29/17 07:20 BUN/Creatinine Ratio 31.4 09/29/17 07:20 Glucose 95 mg/dL (70-105) 09/29/17 07:20 Hemoglobin A1c % 4.9 % (4.0-6.0) 09/29/17 07:20 Calcium 9.6 mg/dL (8.6-10.3) 09/29/17 07:20 Total Bilirubin 0.4 mg/dL (0.3-1.0) 09/29/17 07:20 AST 11 U/L (13-39) L 09/29/17 07:20 ALT 8 U/L (7-52) 09/29/17 07:20 Alkaline Phosphatase 59 U/L (34-104) 09/29/17 07:20 Total Protein 6.1 gm/dL (6.0-8.3) 09/29/17 07:20 Albumin 3.9 gm/dL (3.7-5.3) 09/29/17 07:20 Globulin 2.2 gm/dL 09/29/17 07:20 Albumin/Globulin Ratio 1.8 (1.0-1.8) 09/29/17 07:20 Triglycerides 202 mg/dL (<150) H 09/29/17 07:20 Cholesterol 178 mg/dL (<200) 09/29/17 07:20 LDL Cholesterol Direct 100 mg/dL (75-193) 09/29/17 07:20 HDL Cholesterol 33 mg/dL (23-92) 09/29/17 07:20 TSH 1.05 uIU/ml (0.34-5.60) 09/29/17 07:20 Urine Source CLEAN C 09/29/17 07:10 Urine Color YELLOW 09/29/17 07:10 Urine Clarity SLIGHTLY HAZY (CLEAR) 09/29/17 07:10 Urine pH 6.0 (4.6 - 8.0) 09/29/17 07:10 Ur Specific [place] 1.015 (1.005-1.030) 09/29/17 07:10 Urine Protein NEGATIVE mg/dL (NEGATIVE) 09/29/17 07:10 Urine Glucose (UA) NEGATIVE mg/dL (NEGATIVE) 09/29/17 07:10 Urine Ketones NEGATIVE mg/dL (NEGATIVE) 09/29/17 07:10 Urine Blood MODERATE (NEGATIVE) H 09/29/17 07:10 Urine Nitrate NEGATIVE (NEGATIVE) 09/29/17 07:10 Urine Bilirubin NEGATIVE (NEGATIVE) 09/29/17 07:10 Urine Urobilinogen 0.2 E.U./dL (0.2 - 1.0) 09/29/17 07:10 Ur Leukocyte Esterase SMALL (NEGATIVE) H 09/29/17 07:10 Urine RBC 5-10 /hpf (0-5) H 09/29/17 07:10 Urine WBC 6-10 /hpf (0-5) H 09/29/17 07:10 Ur Epithelial Cells MANY /lpf (FEW) 09/29/17 07:10 Urine Bacteria NONE SEEN /hpf (NONE SEEN) 09/29/17 07:10 RPR NONREACTIVE (NONREACTIVE) 09/29/17 07:20 Hepatitis A IgM Ab Negative (Negative) 09/29/17 07:20 Hep Bs Antigen Negative (Negative) 09/29/17 07:20 Hep B Core IgM Ab Negative (Negative) 09/29/17 07:20 Hepatitis C Antibody <0.1 s/co ratio (0.0-0.9) 09/29/17 07:20 - Physical Exam Vitals and I&O: Vital Signs Temp 97.8 F 10/08/17 15:15 Pulse 66 10/08/17 15:15 Resp 20 10/08/17 15:15 BP 100/59 10/08/17 15:15 Pulse Ox 97 10/08/17 15:15 Intake & Output 10/07/17 10/08/17 10/08/17 18:59 06:59 18:59 Intake Total 1250 1200 Output Total 4 Balance 1246 1200 Intake: Oral 1250 1200 Output: Urine 4 Other: # Voids 3 # Bowel Movements 1 Active Medications: Current Medications Acetaminophen (Tylenol) 650 mg PO Q6H PRN PRN Reason: mild pain Stop: 11/27/17 22:37 Acetaminophen/Hydrocodone Bitart ([place] 5mg/325mg) 1 tab PO Q4H PRN PRN Reason: Pain (Severe) Stop: 11/28/17 14:11 Al Hydrox/Mg Hydrox/Simethicone (Maalox) 30 ml PO Q4H PRN PRN Reason: GI DISTRESS Stop: 11/27/17 22:30 Albuterol Sulfate (Albuterol 2.5mg/3ml Neb Ud) 1.25 mg HHN Q4HRT PRN PRN Reason: Shortness of Breath Stop: 11/27/17 23:12 Atorvastatin Calcium (Lipitor) 10 mg PO DAILY [facility]; Protocol Stop: 11/28/17 08:59 Last Admin: 10/08/17 09:14 Dose: Not Given Bupropion HCl (Wellbutrin Xl) 150 mg PO DAILY [facility]; Protocol Stop: 12/06/17 08:59 Last Admin: 10/08/17 09:14 Dose: Not Given Docusate Sodium (Colace) 100 mg PO BID [facility] Stop: 11/28/17 08:59 Last Admin: 10/08/17 10:00 Dose: 100 mg Donepezil HCl (Aricept) 5 mg PO DAILY [facility] Stop: 11/28/17 08:59 Last Admin: 10/08/17 09:15 Dose: Not Given Escitalopram Oxalate (Lexapro) 10 mg PO DAILY [facility]; Protocol Stop: 11/28/17 08:59 Last Admin: 10/08/17 09:15 Dose: Not Given Fluticasone Propionate (Flonase) 1 spr NS DAILY [facility] Stop: 11/28/17 14:14 Last Admin: 10/08/17 09:15 Dose: Not Given Lactobacillus Rhamnosus (Culturelle 15b) 1 each PO DAILY [facility] Stop: 11/29/17 08:59 Last Admin: 10/08/17 09:15 Dose: Not Given Lorazepam (Ativan) 0.5 mg PO Q4H PRN; Protocol PRN Reason: Anxiety/agitation Stop: 11/27/17 22:30 Magnesium Hydroxide (Milk Of Magnesia) 30 ml PO HS PRN PRN Reason: Constipation Meclizine HCl (Antivert) 25 mg PO Q12H PRN PRN Reason: Vertigo Stop: 11/27/17 22:37 Miscellaneous (Probiotic Screen) 1 ea MC PRN PRN PRN Reason: PROTOCOL Stop: 11/29/17 08:14 Multivitamins/Vitamin C (Theragran) 1 tab PO DAILY [facility] Stop: 11/28/17 08:59 Last Admin: 10/08/17 09:15 Dose: Not Given Olanzapine (Zyprexa) 15 mg PO HS [facility] Stop: 12/05/17 20:59 Last Admin: 10/07/17 20:50 Dose: 15 mg Pantoprazole Sodium (Protonix) 40 mg PO QDAC [facility] Stop: 11/28/17 07:29 Last Admin: 10/08/17 06:39 Dose: 40 mg Zolpidem Tartrate (Ambien) 5 mg PO HS PRN PRN Reason: Insomnia Stop: 11/27/17 22:30 Last Admin: 10/04/17 21:26 Dose: 5 mg General: demented HEENT: NC/AT, PERRLA, anicteric sclerae, throat clear Neck: Supple, No thyromegaly, +2 carotid pulse wo bruit, No LAD Cardiovascular: Normal S1, Normal S2, without murmur Abdomen: soft, non-tender, non-distended Neurological: no change Internal Medicine Assmt/Plan - Assessment Assessment: 1.HYPERLIPIDEMIA. 2.DJD. 3.DEMENTIA. - Plan Plan: CONTINUE ON CURRENT MEDICATION AND DIET. Nutritional Asmnt/Malnutr-PDOC - Dietary Evaluation Malnutrition Findings (Please click <Entered> for more info): Nutritional Asmnt/Malnutrition Start: 10/04/17 14: 42 Text: Status: Complete Freq: Protocol: Document 10/04/17 14:42 LCHENG (Rec: 10/04/17 14:45 [email or web address] [email or web address]) Nutritional Asmnt/Malnutrition Patient General Information Nutritional Screening Low Risk Diagnosis psychosis Pertinent Medical Hx/Surgical Hx hyperlipidemia, DJD, demntia Subjective Information Pt was in bathroom not able to visit. Per EMR, PO intake 25% . Current Diet Order/ Nutrition Support regular Pertinent Medications colace, culturelle, theragran, protonix Pertinent Labs 09/29 triglycerides 202 Nutritional Hx/Data Height 1.65 m Height (Calculated Centimeters) 165.1 Current Weight (lbs) 56.699 kg Weight (Calculated Kilograms) 56.7 Weight (Calculated Grams) 23024.0 [place] Body Weight 125 Body Mass Index (BMI) 20.7 Weight Status Approriate GI Symptoms GI Symptoms None Last BM 7/8 Difficult in: None Skin Integrity/Comment: intact Current %PO Good (75-100%) Estimated Nutritional Goals BEE in Kcals: Using Current wt Calories/Kcals/Kg 25-30 Kcals Calculated 4973-1035 Protein: Using Current wt Protein g/k-1.2 Protein Calculated 57-68 Fluid: ml 1425-1710ml (1ml/kcal) Nutritional Problem No current Nutrition Prob Problem N/A Malnutrition Alert Is there a minimum of two criteria No selected? Query Text:Check all the applicable criteria. A minimum of two criteria are recommended for diagnosis of either severe or non-severe malnutrition. Malnutrition Related to Morbid Obesity Malnutrition related to morbid obesity No Intervention/Recommendation Comments 1. Continue with regular diet as ordered. 2. Monitor PO intake, wt, labs and skin integrity 3. F/U as low risk in 7 days, 10/11 Expected Outcomes/Goals Expected Outcomes/Goals 1. PO intake to meet at least 75% of nutritional needs. 2. Wt stability, skin to remain intact, labs to approach WNL.
[2017-10-09] MEDS: Pantoprazole 40 mg EC Tab PO SCH (06:37)
[2017-10-09] MEDS: Multivitamin Tab PO SCH (08:57)
[2017-10-09] MEDS: Lactobacillus Rhamnosus GG 15 Billion CFU CAP.SPRINK PO SCH (08:57)
[2017-10-09] MEDS: buPROPion XL 150 mg T 24 H PO SCH (08:58)
[2017-10-09] MEDS: Atorvastatin Calcium 10 MG TAB PO SCH (08:58)
[2017-10-09] MEDS: Fluticasone Propionate 0.05mg/Actuation 16gm Nasal Spray NS SCH (11:53)
--- NOTE | 2017-10-09 18:17 | Progress Notes ---
DATE: 10/09/2017 Dr. Medrano Covering for Dr. Hopkins. SUBJECTIVE: Chart reviewed and the patient interviewed. Also, discussed the patient's condition with the staff and reviewed records and labs. The patient is in a depressed mood. The patient also is isolating herself. She is also selectively mute. The patient also is still selective with taking her medications and yesterday she only took Zyprexa and refused other medications. The patient also still has mood swings and she is agitated and easily irritable. ASSESSMENT: The patient is still psychotic and agitated. TREATMENT PLAN: Encouraged the patient to take her medications. Also, working on her depression and her ineffective coping and also continue to work on her anxiety and continue to follow up. [facility]# [id number]
--- NOTE | 2017-10-09 20:29 | Internal Medicine Prog Note ---
Internal Medicine Subjective - Subjective Service Date: 10/09/17 Patient seen and examined:: with staff Patient is:: awake, verbal, in bed, talking, confused Per staff patient has:: no adverse event Internal Medicine Objective - Results Result Diagrams: 09/29/17 07:20 09/29/17 07:20 Recent Labs: Laboratory Last Values WBC 5.2 Th/cmm (4.8-10.8) 09/29/17 07:20 RBC 4.45 Mil/cmm (3.80-5.20) 09/29/17 07:20 Hgb 14.0 gm/dL (12-16) 09/29/17 07:20 Hct 41.8 % (41.0-60) 09/29/17 07:20 MCV 93.8 fl (81-100) 09/29/17 07:20 MCH 31.5 pg (27.0-31.0) H 09/29/17 07:20 MCHC Differential 33.6 pg (28.0-36.0) 09/29/17 07:20 RDW 13.3 % (11.5-20.0) 09/29/17 07:20 Plt Count 358 Th/cmm (150-400) 09/29/17 07:20 MPV 6.5 fl 09/29/17 07:20 Neutrophils % 55.3 % (40.0-80.0) 09/29/17 07:20 Lymphocytes % 32.4 % (20.0-50.0) 09/29/17 07:20 Monocytes % 7.1 % (2.0-10.0) 09/29/17 07:20 Eosinophils % 3.8 % (0.0-5.0) 09/29/17 07:20 Basophils % 1.4 % (0.0-2.0) 09/29/17 07:20 Sodium 140 mEq/L (136-145) 09/29/17 07:20 Potassium 4.0 mEq/L (3.5-5.1) 09/29/17 07:20 Chloride 106 mEq/L (98-107) 09/29/17 07:20 Carbon Dioxide 28.3 mEq/L (21.0-31.0) 09/29/17 07:20 Anion Gap 9.7 (7.0-16.0) 09/29/17 07:20 BUN 22 mg/dL (7-25) 09/29/17 07:20 Creatinine 0.7 mg/dL (0.6-1.2) 09/29/17 07:20 Est GFR ( Amer) > 60.0 ml/min (>90) 09/29/17 07:20 Est GFR (Non-Af Amer) > 60.0 ml/min 09/29/17 07:20 BUN/Creatinine Ratio 31.4 09/29/17 07:20 Glucose 95 mg/dL (70-105) 09/29/17 07:20 Hemoglobin A1c % 4.9 % (4.0-6.0) 09/29/17 07:20 Calcium 9.6 mg/dL (8.6-10.3) 09/29/17 07:20 Total Bilirubin 0.4 mg/dL (0.3-1.0) 09/29/17 07:20 AST 11 U/L (13-39) L 09/29/17 07:20 ALT 8 U/L (7-52) 09/29/17 07:20 Alkaline Phosphatase 59 U/L (34-104) 09/29/17 07:20 Total Protein 6.1 gm/dL (6.0-8.3) 09/29/17 07:20 Albumin 3.9 gm/dL (3.7-5.3) 09/29/17 07:20 Globulin 2.2 gm/dL 09/29/17 07:20 Albumin/Globulin Ratio 1.8 (1.0-1.8) 09/29/17 07:20 Triglycerides 202 mg/dL (<150) H 09/29/17 07:20 Cholesterol 178 mg/dL (<200) 09/29/17 07:20 LDL Cholesterol Direct 100 mg/dL (75-193) 09/29/17 07:20 HDL Cholesterol 33 mg/dL (23-92) 09/29/17 07:20 TSH 1.05 uIU/ml (0.34-5.60) 09/29/17 07:20 Urine Source CLEAN C 09/29/17 07:10 Urine Color YELLOW 09/29/17 07:10 Urine Clarity SLIGHTLY HAZY (CLEAR) 09/29/17 07:10 Urine pH 6.0 (4.6 - 8.0) 09/29/17 07:10 Ur Specific [place] 1.015 (1.005-1.030) 09/29/17 07:10 Urine Protein NEGATIVE mg/dL (NEGATIVE) 09/29/17 07:10 Urine Glucose (UA) NEGATIVE mg/dL (NEGATIVE) 09/29/17 07:10 Urine Ketones NEGATIVE mg/dL (NEGATIVE) 09/29/17 07:10 Urine Blood MODERATE (NEGATIVE) H 09/29/17 07:10 Urine Nitrate NEGATIVE (NEGATIVE) 09/29/17 07:10 Urine Bilirubin NEGATIVE (NEGATIVE) 09/29/17 07:10 Urine Urobilinogen 0.2 E.U./dL (0.2 - 1.0) 09/29/17 07:10 Ur Leukocyte Esterase SMALL (NEGATIVE) H 09/29/17 07:10 Urine RBC 5-10 /hpf (0-5) H 09/29/17 07:10 Urine WBC 6-10 /hpf (0-5) H 09/29/17 07:10 Ur Epithelial Cells MANY /lpf (FEW) 09/29/17 07:10 Urine Bacteria NONE SEEN /hpf (NONE SEEN) 09/29/17 07:10 RPR NONREACTIVE (NONREACTIVE) 09/29/17 07:20 Hepatitis A IgM Ab Negative (Negative) 09/29/17 07:20 Hep Bs Antigen Negative (Negative) 09/29/17 07:20 Hep B Core IgM Ab Negative (Negative) 09/29/17 07:20 Hepatitis C Antibody <0.1 s/co ratio (0.0-0.9) 09/29/17 07:20 - Physical Exam Vitals and I&O: Vital Signs Temp 98.1 F 10/09/17 15:36 Pulse 70 10/09/17 15:36 Resp 20 10/09/17 15:36 BP 119/58 10/09/17 15:36 Pulse Ox 96 10/09/17 15:36 Intake & Output 10/09/17 10/09/17 10/10/17 06:59 18:59 06:59 Intake Total 1200 Balance 1200 Intake: Oral 1200 Other: # Voids 3 Active Medications: Current Medications Acetaminophen (Tylenol) 650 mg PO Q6H PRN PRN Reason: mild pain Stop: 11/27/17 22:37 Acetaminophen/Hydrocodone Bitart ([place] 5mg/325mg) 1 tab PO Q4H PRN PRN Reason: Pain (Severe) Stop: 11/28/17 14:11 Al Hydrox/Mg Hydrox/Simethicone (Maalox) 30 ml PO Q4H PRN PRN Reason: GI DISTRESS Stop: 11/27/17 22:30 Albuterol Sulfate (Albuterol 2.5mg/3ml Neb Ud) 1.25 mg HHN Q4HRT PRN PRN Reason: Shortness of Breath Stop: 11/27/17 23:12 Atorvastatin Calcium (Lipitor) 10 mg PO DAILY [facility]; Protocol Stop: 11/28/17 08:59 Last Admin: 10/09/17 08:58 Dose: 10 mg Bupropion HCl (Wellbutrin Xl) 150 mg PO DAILY [facility]; Protocol Stop: 12/06/17 08:59 Last Admin: 10/09/17 08:58 Dose: 150 mg Docusate Sodium (Colace) 100 mg PO BID [facility] Stop: 11/28/17 08:59 Last Admin: 10/09/17 16:14 Dose: 100 mg Donepezil HCl (Aricept) 5 mg PO DAILY [facility] Stop: 11/28/17 08:59 Last Admin: 10/09/17 08:58 Dose: 5 mg Escitalopram Oxalate (Lexapro) 10 mg PO DAILY [facility]; Protocol Stop: 11/28/17 08:59 Last Admin: 10/09/17 08:58 Dose: 10 mg Fluticasone Propionate (Flonase) 1 spr NS DAILY [facility] Stop: 11/28/17 14:14 Last Admin: 10/09/17 11:53 Dose: 1 spr Lactobacillus Rhamnosus (Culturelle 15b) 1 each PO DAILY [facility] Stop: 11/29/17 08:59 Last Admin: 10/09/17 08:57 Dose: 1 each Lorazepam (Ativan) 0.5 mg PO Q4H PRN; Protocol PRN Reason: Anxiety/agitation Stop: 11/27/17 22:30 Magnesium Hydroxide (Milk Of Magnesia) 30 ml PO HS PRN PRN Reason: Constipation Meclizine HCl (Antivert) 25 mg PO Q12H PRN PRN Reason: Vertigo Stop: 11/27/17 22:37 Miscellaneous (Probiotic Screen) 1 ea MC PRN PRN PRN Reason: PROTOCOL Stop: 11/29/17 08:14 Multivitamins/Vitamin C (Theragran) 1 tab PO DAILY [facility] Stop: 11/28/17 08:59 Last Admin: 10/09/17 08:57 Dose: 1 tab Olanzapine (Zyprexa) 15 mg PO HS [facility] Stop: 12/05/17 20:59 Last Admin: 10/08/17 20:58 Dose: 15 mg Pantoprazole Sodium (Protonix) 40 mg PO QDAC [facility] Stop: 11/28/17 07:29 Last Admin: 10/09/17 06:37 Dose: 40 mg Zolpidem Tartrate (Ambien) 5 mg PO HS PRN PRN Reason: Insomnia Stop: 11/27/17 22:30 Last Admin: 10/04/17 21:26 Dose: 5 mg General: demented HEENT: NC/AT, PERRLA, anicteric sclerae, throat clear Neck: Supple, No thyromegaly, +2 carotid pulse wo bruit, No LAD Cardiovascular: Normal S1, Normal S2, without murmur Abdomen: soft, non-tender, non-distended Neurological: no change Internal Medicine Assmt/Plan - Assessment Assessment: 1.HYPERLIPIDEMIA. 2.DJD. 3.DEMENTIA. - Plan Plan: CONTINUE ON CURRENT MEDICATION AND DIET. Nutritional Asmnt/Malnutr-PDOC - Dietary Evaluation Malnutrition Findings (Please click <Entered> for more info): Nutritional Asmnt/Malnutrition Start: 10/04/17 14: 42 Text: Status: Complete Freq: Protocol: Document 10/04/17 14:42 LCHENG (Rec: 10/04/17 14:45 KAREN [email or web address]) Nutritional Asmnt/Malnutrition Patient General Information Nutritional Screening Low Risk Diagnosis psychosis Pertinent Medical Hx/Surgical Hx hyperlipidemia, DJD, demntia Subjective Information Pt was in bathroom not able to visit. Per EMR, PO intake 25% . Current Diet Order/ Nutrition Support regular Pertinent Medications colace, culturelle, theragran, protonix Pertinent Labs 09/29 triglycerides 202 Nutritional Hx/Data Height 1.65 m Height (Calculated Centimeters) 165.1 Current Weight (lbs) 56.699 kg Weight (Calculated Kilograms) 56.7 Weight (Calculated Grams) 86907.0 [place] Body Weight 125 Body Mass Index (BMI) 20.7 Weight Status Approriate GI Symptoms GI Symptoms None Last BM 7/8 Difficult in: None Skin Integrity/Comment: intact Current %PO Good (75-100%) Estimated Nutritional Goals BEE in Kcals: Using Current wt Calories/Kcals/Kg 25-30 Kcals Calculated 1710-5056 Protein: Using Current wt Protein g/k-1.2 Protein Calculated 57-68 Fluid: ml 1425-1710ml (1ml/kcal) Nutritional Problem No current Nutrition Prob Problem N/A Malnutrition Alert Is there a minimum of two criteria No selected? Query Text:Check all the applicable criteria. A minimum of two criteria are recommended for diagnosis of either severe or non-severe malnutrition. Malnutrition Related to Morbid Obesity Malnutrition related to morbid obesity No Intervention/Recommendation Comments 1. Continue with regular diet as ordered. 2. Monitor PO intake, wt, labs and skin integrity 3. F/U as low risk in 7 days, 10/11 Expected Outcomes/Goals Expected Outcomes/Goals 1. PO intake to meet at least 75% of nutritional needs. 2. Wt stability, skin to remain intact, labs to approach WNL.
[2017-10-10] MEDS: Pantoprazole 40 mg EC Tab PO SCH (06:31)
[2017-10-10] MEDS: Fluticasone Propionate 0.05mg/Actuation 16gm Nasal Spray NS SCH (09:12)
[2017-10-10] MEDS: Atorvastatin Calcium 10 MG TAB PO SCH (09:12)
[2017-10-10] MEDS: Multivitamin Tab PO SCH (09:12)
[2017-10-10] MEDS: Lactobacillus Rhamnosus GG 15 Billion CFU CAP.SPRINK PO SCH (09:12)
[2017-10-10] MEDS: buPROPion XL 150 mg T 24 H PO SCH (09:12)
--- NOTE | 2017-10-10 17:05 | Internal Medicine Prog Note ---
Internal Medicine Subjective - Subjective Service Date: 10/10/17 Patient seen and examined:: without staff Patient is:: awake, verbal, in bed, talking, confused Per staff patient has:: no adverse event Internal Medicine Objective - Results Result Diagrams: 09/29/17 07:20 09/29/17 07:20 Recent Labs: Laboratory Last Values WBC 5.2 Th/cmm (4.8-10.8) 09/29/17 07:20 RBC 4.45 Mil/cmm (3.80-5.20) 09/29/17 07:20 Hgb 14.0 gm/dL (12-16) 09/29/17 07:20 Hct 41.8 % (41.0-60) 09/29/17 07:20 MCV 93.8 fl (81-100) 09/29/17 07:20 MCH 31.5 pg (27.0-31.0) H 09/29/17 07:20 MCHC Differential 33.6 pg (28.0-36.0) 09/29/17 07:20 RDW 13.3 % (11.5-20.0) 09/29/17 07:20 Plt Count 358 Th/cmm (150-400) 09/29/17 07:20 MPV 6.5 fl 09/29/17 07:20 Neutrophils % 55.3 % (40.0-80.0) 09/29/17 07:20 Lymphocytes % 32.4 % (20.0-50.0) 09/29/17 07:20 Monocytes % 7.1 % (2.0-10.0) 09/29/17 07:20 Eosinophils % 3.8 % (0.0-5.0) 09/29/17 07:20 Basophils % 1.4 % (0.0-2.0) 09/29/17 07:20 Sodium 140 mEq/L (136-145) 09/29/17 07:20 Potassium 4.0 mEq/L (3.5-5.1) 09/29/17 07:20 Chloride 106 mEq/L (98-107) 09/29/17 07:20 Carbon Dioxide 28.3 mEq/L (21.0-31.0) 09/29/17 07:20 Anion Gap 9.7 (7.0-16.0) 09/29/17 07:20 BUN 22 mg/dL (7-25) 09/29/17 07:20 Creatinine 0.7 mg/dL (0.6-1.2) 09/29/17 07:20 Est GFR ( Amer) > 60.0 ml/min (>90) 09/29/17 07:20 Est GFR (Non-Af Amer) > 60.0 ml/min 09/29/17 07:20 BUN/Creatinine Ratio 31.4 09/29/17 07:20 Glucose 95 mg/dL (70-105) 09/29/17 07:20 Hemoglobin A1c % 4.9 % (4.0-6.0) 09/29/17 07:20 Calcium 9.6 mg/dL (8.6-10.3) 09/29/17 07:20 Total Bilirubin 0.4 mg/dL (0.3-1.0) 09/29/17 07:20 AST 11 U/L (13-39) L 09/29/17 07:20 ALT 8 U/L (7-52) 09/29/17 07:20 Alkaline Phosphatase 59 U/L (34-104) 09/29/17 07:20 Total Protein 6.1 gm/dL (6.0-8.3) 09/29/17 07:20 Albumin 3.9 gm/dL (3.7-5.3) 09/29/17 07:20 Globulin 2.2 gm/dL 09/29/17 07:20 Albumin/Globulin Ratio 1.8 (1.0-1.8) 09/29/17 07:20 Triglycerides 202 mg/dL (<150) H 09/29/17 07:20 Cholesterol 178 mg/dL (<200) 09/29/17 07:20 LDL Cholesterol Direct 100 mg/dL (75-193) 09/29/17 07:20 HDL Cholesterol 33 mg/dL (23-92) 09/29/17 07:20 TSH 1.05 uIU/ml (0.34-5.60) 09/29/17 07:20 Urine Source CLEAN C 09/29/17 07:10 Urine Color YELLOW 09/29/17 07:10 Urine Clarity SLIGHTLY HAZY (CLEAR) 09/29/17 07:10 Urine pH 6.0 (4.6 - 8.0) 09/29/17 07:10 Ur Specific [place] 1.015 (1.005-1.030) 09/29/17 07:10 Urine Protein NEGATIVE mg/dL (NEGATIVE) 09/29/17 07:10 Urine Glucose (UA) NEGATIVE mg/dL (NEGATIVE) 09/29/17 07:10 Urine Ketones NEGATIVE mg/dL (NEGATIVE) 09/29/17 07:10 Urine Blood MODERATE (NEGATIVE) H 09/29/17 07:10 Urine Nitrate NEGATIVE (NEGATIVE) 09/29/17 07:10 Urine Bilirubin NEGATIVE (NEGATIVE) 09/29/17 07:10 Urine Urobilinogen 0.2 E.U./dL (0.2 - 1.0) 09/29/17 07:10 Ur Leukocyte Esterase SMALL (NEGATIVE) H 09/29/17 07:10 Urine RBC 5-10 /hpf (0-5) H 09/29/17 07:10 Urine WBC 6-10 /hpf (0-5) H 09/29/17 07:10 Ur Epithelial Cells MANY /lpf (FEW) 09/29/17 07:10 Urine Bacteria NONE SEEN /hpf (NONE SEEN) 09/29/17 07:10 RPR NONREACTIVE (NONREACTIVE) 09/29/17 07:20 Hepatitis A IgM Ab Negative (Negative) 09/29/17 07:20 Hep Bs Antigen Negative (Negative) 09/29/17 07:20 Hep B Core IgM Ab Negative (Negative) 09/29/17 07:20 Hepatitis C Antibody <0.1 s/co ratio (0.0-0.9) 09/29/17 07:20 - Physical Exam Vitals and I&O: Vital Signs Temp 98.1 F 10/09/17 15:36 Pulse 70 10/09/17 15:36 Resp 20 10/09/17 15:36 BP 119/58 10/09/17 15:36 Pulse Ox 96 10/09/17 15:36 Intake & Output 10/09/17 10/10/17 10/10/17 18:59 06:59 18:59 Intake Total 1200 Balance 1200 Intake: Oral 1200 Other: # Voids 3 Active Medications: Current Medications Acetaminophen (Tylenol) 650 mg PO Q6H PRN PRN Reason: mild pain Stop: 11/27/17 22:37 Acetaminophen/Hydrocodone Bitart ([place] 5mg/325mg) 1 tab PO Q4H PRN PRN Reason: Pain (Severe) Stop: 11/28/17 14:11 Al Hydrox/Mg Hydrox/Simethicone (Maalox) 30 ml PO Q4H PRN PRN Reason: GI DISTRESS Stop: 11/27/17 22:30 Albuterol Sulfate (Albuterol 2.5mg/3ml Neb Ud) 1.25 mg HHN Q4HRT PRN PRN Reason: Shortness of Breath Stop: 11/27/17 23:12 Atorvastatin Calcium (Lipitor) 10 mg PO DAILY [facility]; Protocol Stop: 11/28/17 08:59 Last Admin: 10/10/17 09:12 Dose: Not Given Bupropion HCl (Wellbutrin Xl) 150 mg PO DAILY [facility]; Protocol Stop: 12/06/17 08:59 Last Admin: 10/10/17 09:12 Dose: Not Given Docusate Sodium (Colace) 100 mg PO BID [facility] Stop: 11/28/17 08:59 Last Admin: 10/10/17 16:11 Dose: Not Given Donepezil HCl (Aricept) 5 mg PO DAILY [facility] Stop: 11/28/17 08:59 Last Admin: 10/10/17 09:12 Dose: Not Given Escitalopram Oxalate (Lexapro) 10 mg PO DAILY [facility]; Protocol Stop: 11/28/17 08:59 Last Admin: 10/10/17 09:12 Dose: Not Given Fluticasone Propionate (Flonase) 1 spr NS DAILY [facility] Stop: 11/28/17 14:14 Last Admin: 10/10/17 09:12 Dose: 1 spr Lactobacillus Rhamnosus (Culturelle 15b) 1 each PO DAILY [facility] Stop: 11/29/17 08:59 Last Admin: 10/10/17 09:12 Dose: Not Given Lorazepam (Ativan) 0.5 mg PO Q4H PRN; Protocol PRN Reason: Anxiety/agitation Stop: 11/27/17 22:30 Magnesium Hydroxide (Milk Of Magnesia) 30 ml PO HS PRN PRN Reason: Constipation Meclizine HCl (Antivert) 25 mg PO Q12H PRN PRN Reason: Vertigo Stop: 11/27/17 22:37 Miscellaneous (Probiotic Screen) 1 ea MC PRN PRN PRN Reason: PROTOCOL Stop: 11/29/17 08:14 Multivitamins/Vitamin C (Theragran) 1 tab PO DAILY [facility] Stop: 11/28/17 08:59 Last Admin: 10/10/17 09:12 Dose: Not Given Olanzapine (Zyprexa) 15 mg PO HS [facility] Stop: 12/05/17 20:59 Last Admin: 10/09/17 21:29 Dose: Not Given Pantoprazole Sodium (Protonix) 40 mg PO QDAC [facility] Stop: 11/28/17 07:29 Last Admin: 10/10/17 06:31 Dose: 40 mg Zolpidem Tartrate (Ambien) 5 mg PO HS PRN PRN Reason: Insomnia Stop: 11/27/17 22:30 Last Admin: 10/04/17 21:26 Dose: 5 mg General: demented HEENT: NC/AT, PERRLA, anicteric sclerae, throat clear Neck: Supple, No thyromegaly, +2 carotid pulse wo bruit, No LAD Cardiovascular: Normal S1, Normal S2, without murmur Abdomen: soft, non-tender, non-distended Neurological: no change Internal Medicine Assmt/Plan - Assessment Assessment: 1.HYPERLIPIDEMIA. 2.DJD. 3.DEMENTIA. - Plan Plan: CONTINUE ON CURRENT MEDICATION AND DIET. Nutritional Asmnt/Malnutr-PDOC - Dietary Evaluation Malnutrition Findings (Please click <Entered> for more info): Nutritional Asmnt/Malnutrition Start: 10/04/17 14: 42 Text: Status: Complete Freq: Protocol: Document 10/04/17 14:42 LCHENG (Rec: 10/04/17 14:45 KAREN [email or web address]) Nutritional Asmnt/Malnutrition Patient General Information Nutritional Screening Low Risk Diagnosis psychosis Pertinent Medical Hx/Surgical Hx hyperlipidemia, DJD, demntia Subjective Information Pt was in bathroom not able to visit. Per EMR, PO intake 25% . Current Diet Order/ Nutrition Support regular Pertinent Medications colace, culturelle, theragran, protonix Pertinent Labs 09/29 triglycerides 202 Nutritional Hx/Data Height 1.65 m Height (Calculated Centimeters) 165.1 Current Weight (lbs) 56.699 kg Weight (Calculated Kilograms) 56.7 Weight (Calculated Grams) 59147.0 [place] Body Weight 125 Body Mass Index (BMI) 20.7 Weight Status Approriate GI Symptoms GI Symptoms None Last BM 7/8 Difficult in: None Skin Integrity/Comment: intact Current %PO Good (75-100%) Estimated Nutritional Goals BEE in Kcals: Using Current wt Calories/Kcals/Kg 25-30 Kcals Calculated 5246-5772 Protein: Using Current wt Protein g/k-1.2 Protein Calculated 57-68 Fluid: ml 1425-1710ml (1ml/kcal) Nutritional Problem No current Nutrition Prob Problem N/A Malnutrition Alert Is there a minimum of two criteria No selected? Query Text:Check all the applicable criteria. A minimum of two criteria are recommended for diagnosis of either severe or non-severe malnutrition. Malnutrition Related to Morbid Obesity Malnutrition related to morbid obesity No Intervention/Recommendation Comments 1. Continue with regular diet as ordered. 2. Monitor PO intake, wt, labs and skin integrity 3. F/U as low risk in 7 days, 10/11 Expected Outcomes/Goals Expected Outcomes/Goals 1. PO intake to meet at least 75% of nutritional needs. 2. Wt stability, skin to remain intact, labs to approach WNL.
--- NOTE | 2017-10-11 00:29 | Progress Notes ---
DATE: 10/10/2017 SUBJECTIVE: Chart reviewed and the patient interviewed. Also, discussed the patient's condition with the staff and reviewed records and labs. The patient is still isolative and withdrawn. The patient also is still in a depressed mood. She continued to be selectively mute. Also, the patient is selective with taking her medications. Otherwise, the patient is more cooperative. ASSESSMENT: The patient is still agitated. TREATMENT PLAN: Continue to monitor behavior and current medications closely. Also, we will continue adjusting psychotropic medications and follow up closely. [facility]# [id number] [id number]
[2017-10-11] MEDS: Pantoprazole 40 mg EC Tab PO SCH (06:32)
[2017-10-11] MEDS: buPROPion XL 150 mg T 24 H PO SCH (08:37)
[2017-10-11] MEDS: Fluticasone Propionate 0.05mg/Actuation 16gm Nasal Spray NS SCH (08:37)
[2017-10-11] MEDS: Atorvastatin Calcium 10 MG TAB PO SCH (08:37)
[2017-10-11] MEDS: Lactobacillus Rhamnosus GG 15 Billion CFU CAP.SPRINK PO SCH (08:38)
[2017-10-11] MEDS: Multivitamin Tab PO SCH (08:38)
--- NOTE | 2017-10-11 20:53 | Internal Medicine Prog Note ---
Internal Medicine Subjective - Subjective Service Date: 10/11/17 Patient seen and examined:: with staff Patient is:: awake, verbal, in bed, talking, confused Per staff patient has:: no adverse event Internal Medicine Objective - Results Result Diagrams: 09/29/17 07:20 09/29/17 07:20 Recent Labs: Laboratory Last Values WBC 5.2 Th/cmm (4.8-10.8) 09/29/17 07:20 RBC 4.45 Mil/cmm (3.80-5.20) 09/29/17 07:20 Hgb 14.0 gm/dL (12-16) 09/29/17 07:20 Hct 41.8 % (41.0-60) 09/29/17 07:20 MCV 93.8 fl (81-100) 09/29/17 07:20 MCH 31.5 pg (27.0-31.0) H 09/29/17 07:20 MCHC Differential 33.6 pg (28.0-36.0) 09/29/17 07:20 RDW 13.3 % (11.5-20.0) 09/29/17 07:20 Plt Count 358 Th/cmm (150-400) 09/29/17 07:20 MPV 6.5 fl 09/29/17 07:20 Neutrophils % 55.3 % (40.0-80.0) 09/29/17 07:20 Lymphocytes % 32.4 % (20.0-50.0) 09/29/17 07:20 Monocytes % 7.1 % (2.0-10.0) 09/29/17 07:20 Eosinophils % 3.8 % (0.0-5.0) 09/29/17 07:20 Basophils % 1.4 % (0.0-2.0) 09/29/17 07:20 Sodium 140 mEq/L (136-145) 09/29/17 07:20 Potassium 4.0 mEq/L (3.5-5.1) 09/29/17 07:20 Chloride 106 mEq/L (98-107) 09/29/17 07:20 Carbon Dioxide 28.3 mEq/L (21.0-31.0) 09/29/17 07:20 Anion Gap 9.7 (7.0-16.0) 09/29/17 07:20 BUN 22 mg/dL (7-25) 09/29/17 07:20 Creatinine 0.7 mg/dL (0.6-1.2) 09/29/17 07:20 Est GFR ( Amer) > 60.0 ml/min (>90) 09/29/17 07:20 Est GFR (Non-Af Amer) > 60.0 ml/min 09/29/17 07:20 BUN/Creatinine Ratio 31.4 09/29/17 07:20 Glucose 95 mg/dL (70-105) 09/29/17 07:20 Hemoglobin A1c % 4.9 % (4.0-6.0) 09/29/17 07:20 Calcium 9.6 mg/dL (8.6-10.3) 09/29/17 07:20 Total Bilirubin 0.4 mg/dL (0.3-1.0) 09/29/17 07:20 AST 11 U/L (13-39) L 09/29/17 07:20 ALT 8 U/L (7-52) 09/29/17 07:20 Alkaline Phosphatase 59 U/L (34-104) 09/29/17 07:20 Total Protein 6.1 gm/dL (6.0-8.3) 09/29/17 07:20 Albumin 3.9 gm/dL (3.7-5.3) 09/29/17 07:20 Globulin 2.2 gm/dL 09/29/17 07:20 Albumin/Globulin Ratio 1.8 (1.0-1.8) 09/29/17 07:20 Triglycerides 202 mg/dL (<150) H 09/29/17 07:20 Cholesterol 178 mg/dL (<200) 09/29/17 07:20 LDL Cholesterol Direct 100 mg/dL (75-193) 09/29/17 07:20 HDL Cholesterol 33 mg/dL (23-92) 09/29/17 07:20 TSH 1.05 uIU/ml (0.34-5.60) 09/29/17 07:20 Urine Source CLEAN C 09/29/17 07:10 Urine Color YELLOW 09/29/17 07:10 Urine Clarity SLIGHTLY HAZY (CLEAR) 09/29/17 07:10 Urine pH 6.0 (4.6 - 8.0) 09/29/17 07:10 Ur Specific [place] 1.015 (1.005-1.030) 09/29/17 07:10 Urine Protein NEGATIVE mg/dL (NEGATIVE) 09/29/17 07:10 Urine Glucose (UA) NEGATIVE mg/dL (NEGATIVE) 09/29/17 07:10 Urine Ketones NEGATIVE mg/dL (NEGATIVE) 09/29/17 07:10 Urine Blood MODERATE (NEGATIVE) H 09/29/17 07:10 Urine Nitrate NEGATIVE (NEGATIVE) 09/29/17 07:10 Urine Bilirubin NEGATIVE (NEGATIVE) 09/29/17 07:10 Urine Urobilinogen 0.2 E.U./dL (0.2 - 1.0) 09/29/17 07:10 Ur Leukocyte Esterase SMALL (NEGATIVE) H 09/29/17 07:10 Urine RBC 5-10 /hpf (0-5) H 09/29/17 07:10 Urine WBC 6-10 /hpf (0-5) H 09/29/17 07:10 Ur Epithelial Cells MANY /lpf (FEW) 09/29/17 07:10 Urine Bacteria NONE SEEN /hpf (NONE SEEN) 09/29/17 07:10 RPR NONREACTIVE (NONREACTIVE) 09/29/17 07:20 Hepatitis A IgM Ab Negative (Negative) 09/29/17 07:20 Hep Bs Antigen Negative (Negative) 09/29/17 07:20 Hep B Core IgM Ab Negative (Negative) 09/29/17 07:20 Hepatitis C Antibody <0.1 s/co ratio (0.0-0.9) 09/29/17 07:20 - Physical Exam Vitals and I&O: Vital Signs Temp 97 F 10/11/17 20:02 Pulse 76 10/11/17 20:02 Resp 20 10/11/17 20:02 BP 110/64 10/11/17 20:02 Pulse Ox 95 10/11/17 20:02 Intake & Output 10/11/17 10/11/17 10/12/17 06:59 18:59 06:59 Intake Total 120 1200 120 Balance 120 1200 120 Intake: Oral 120 1200 120 Other: # Voids 3 3 3 # Bowel Movements 0 0 0 Active Medications: Current Medications Acetaminophen (Tylenol) 650 mg PO Q6H PRN PRN Reason: mild pain Stop: 11/27/17 22:37 Acetaminophen/Hydrocodone Bitart ([place] 5mg/325mg) 1 tab PO Q4H PRN PRN Reason: Pain (Severe) Stop: 11/28/17 14:11 Al Hydrox/Mg Hydrox/Simethicone (Maalox) 30 ml PO Q4H PRN PRN Reason: GI DISTRESS Stop: 11/27/17 22:30 Albuterol Sulfate (Albuterol 2.5mg/3ml Neb Ud) 1.25 mg HHN Q4HRT PRN PRN Reason: Shortness of Breath Stop: 11/27/17 23:12 Atorvastatin Calcium (Lipitor) 10 mg PO DAILY [facility]; Protocol Stop: 11/28/17 08:59 Last Admin: 10/11/17 08:37 Dose: Not Given Bupropion HCl (Wellbutrin Xl) 150 mg PO DAILY [facility]; Protocol Stop: 12/06/17 08:59 Last Admin: 10/11/17 08:37 Dose: Not Given Docusate Sodium (Colace) 100 mg PO BID [facility] Stop: 11/28/17 08:59 Last Admin: 10/11/17 18:22 Dose: 100 mg Donepezil HCl (Aricept) 5 mg PO DAILY [facility] Stop: 11/28/17 08:59 Last Admin: 10/11/17 08:37 Dose: Not Given Escitalopram Oxalate (Lexapro) 10 mg PO DAILY [facility]; Protocol Stop: 11/28/17 08:59 Last Admin: 10/11/17 08:37 Dose: Not Given Fluticasone Propionate (Flonase) 1 spr NS DAILY [facility] Stop: 11/28/17 14:14 Last Admin: 10/11/17 08:37 Dose: 1 spr Lactobacillus Rhamnosus (Culturelle 15b) 1 each PO DAILY [facility] Stop: 11/29/17 08:59 Last Admin: 10/11/17 08:38 Dose: Not Given Lorazepam (Ativan) 0.5 mg PO Q4H PRN; Protocol PRN Reason: Anxiety/agitation Stop: 11/27/17 22:30 Magnesium Hydroxide (Milk Of Magnesia) 30 ml PO HS PRN PRN Reason: Constipation Meclizine HCl (Antivert) 25 mg PO Q12H PRN PRN Reason: Vertigo Stop: 11/27/17 22:37 Miscellaneous (Probiotic Screen) 1 ea MC PRN PRN PRN Reason: PROTOCOL Stop: 11/29/17 08:14 Multivitamins/Vitamin C (Theragran) 1 tab PO DAILY [facility] Stop: 11/28/17 08:59 Last Admin: 10/11/17 08:38 Dose: Not Given Olanzapine (Zyprexa) 15 mg PO HS [facility] Stop: 12/05/17 20:59 Last Admin: 10/11/17 20:42 Dose: Not Given Pantoprazole Sodium (Protonix) 40 mg PO QDAC [facility] Stop: 11/28/17 07:29 Last Admin: 10/11/17 06:32 Dose: Not Given Zolpidem Tartrate (Ambien) 5 mg PO HS PRN PRN Reason: Insomnia Stop: 11/27/17 22:30 Last Admin: 10/04/17 21:26 Dose: 5 mg General: demented HEENT: NC/AT, PERRLA, anicteric sclerae, throat clear Neck: Supple, No thyromegaly, +2 carotid pulse wo bruit, No LAD Cardiovascular: Normal S1, Normal S2, without murmur Abdomen: soft, non-tender, non-distended Neurological: no change Internal Medicine Assmt/Plan - Assessment Assessment: 1.HYPERLIPIDEMIA. 2.DJD. 3.DEMENTIA. - Plan Plan: CONTINUE ON CURRENT MEDICATION AND DIET. Nutritional Asmnt/Malnutr-PDOC - Dietary Evaluation Malnutrition Findings (Please click <Entered> for more info): Nutritional Asmnt/Malnutrition Start: 10/04/17 14: 42 Text: Status: Complete Freq: Protocol: Document 10/04/17 14:42 LCHENG (Rec: 10/04/17 14:45 [email or web address]) Nutritional Asmnt/Malnutrition Patient General Information Nutritional Screening Low Risk Diagnosis psychosis Pertinent Medical Hx/Surgical Hx hyperlipidemia, DJD, demntia Subjective Information Pt was in bathroom not able to visit. Per EMR, PO intake 25% . Current Diet Order/ Nutrition Support regular Pertinent Medications colace, culturelle, theragran, protonix Pertinent Labs 09/29 triglycerides 202 Nutritional Hx/Data Height 1.65 m Height (Calculated Centimeters) 165.1 Current Weight (lbs) 56.699 kg Weight (Calculated Kilograms) 56.7 Weight (Calculated Grams) 31903.0 [place] Body Weight 125 Body Mass Index (BMI) 20.7 Weight Status Approriate GI Symptoms GI Symptoms None Last BM 7/8 Difficult in: None Skin Integrity/Comment: intact Current %PO Good (75-100%) Estimated Nutritional Goals BEE in Kcals: Using Current wt Calories/Kcals/Kg 25-30 Kcals Calculated 2716-1376 Protein: Using Current wt Protein g/k-1.2 Protein Calculated 57-68 Fluid: ml 1425-1710ml (1ml/kcal) Nutritional Problem No current Nutrition Prob Problem N/A Malnutrition Alert Is there a minimum of two criteria No selected? Query Text:Check all the applicable criteria. A minimum of two criteria are recommended for diagnosis of either severe or non-severe malnutrition. Malnutrition Related to Morbid Obesity Malnutrition related to morbid obesity No Intervention/Recommendation Comments 1. Continue with regular diet as ordered. 2. Monitor PO intake, wt, labs and skin integrity 3. F/U as low risk in 7 days, 10/11 Expected Outcomes/Goals Expected Outcomes/Goals 1. PO intake to meet at least 75% of nutritional needs. 2. Wt stability, skin to remain intact, labs to approach WNL.
--- NOTE | 2017-10-11 23:19 | Progress Notes ---
DATE: 10/11/2017 SUBJECTIVE: I met with the patient in the hospital. Still very isolative, withdrawn, still feeling "the same," depressed, hopeless and melancholic, despairing, not talking much, states she feels hopeless, down. No agitation today. She has been fairly calm, cooperative, mostly to herself. Ongoing concerns about her mood, she has had electroconvulsive therapy in the past. ASSESSMENT: The patient remains withdrawn, isolative, still symptomatic, severe depressive symptoms, currently on bupropion, seems to be tolerating well. Also, Lexapro. PLAN: We will continue to monitor. We will slowly increase doses of medications, increase dosing of Wellbutrin for example. JOB# [id number]
[2017-10-12] MEDS: Pantoprazole 40 mg EC Tab PO SCH (06:34)
[2017-10-12] MEDS: buPROPion XL 150 mg T 24 H PO SCH (09:15)
[2017-10-12] MEDS: Atorvastatin Calcium 10 MG TAB PO SCH (09:15)
[2017-10-12] MEDS: Multivitamin Tab PO SCH (09:16)
[2017-10-12] MEDS: Fluticasone Propionate 0.05mg/Actuation 16gm Nasal Spray NS SCH (09:16)
[2017-10-12] MEDS: Lactobacillus Rhamnosus GG 15 Billion CFU CAP.SPRINK PO SCH (09:16)
--- NOTE | 2017-10-12 22:09 | Internal Medicine Prog Note ---
Internal Medicine Subjective - Subjective Service Date: 10/12/17 Patient seen and examined:: with staff Patient is:: awake, verbal, in bed, talking, confused Per staff patient has:: no adverse event Internal Medicine Objective - Results Result Diagrams: 09/29/17 07:20 09/29/17 07:20 Recent Labs: Laboratory Last Values WBC 5.2 Th/cmm (4.8-10.8) 09/29/17 07:20 RBC 4.45 Mil/cmm (3.80-5.20) 09/29/17 07:20 Hgb 14.0 gm/dL (12-16) 09/29/17 07:20 Hct 41.8 % (41.0-60) 09/29/17 07:20 MCV 93.8 fl (81-100) 09/29/17 07:20 MCH 31.5 pg (27.0-31.0) H 09/29/17 07:20 MCHC Differential 33.6 pg (28.0-36.0) 09/29/17 07:20 RDW 13.3 % (11.5-20.0) 09/29/17 07:20 Plt Count 358 Th/cmm (150-400) 09/29/17 07:20 MPV 6.5 fl 09/29/17 07:20 Neutrophils % 55.3 % (40.0-80.0) 09/29/17 07:20 Lymphocytes % 32.4 % (20.0-50.0) 09/29/17 07:20 Monocytes % 7.1 % (2.0-10.0) 09/29/17 07:20 Eosinophils % 3.8 % (0.0-5.0) 09/29/17 07:20 Basophils % 1.4 % (0.0-2.0) 09/29/17 07:20 Sodium 140 mEq/L (136-145) 09/29/17 07:20 Potassium 4.0 mEq/L (3.5-5.1) 09/29/17 07:20 Chloride 106 mEq/L (98-107) 09/29/17 07:20 Carbon Dioxide 28.3 mEq/L (21.0-31.0) 09/29/17 07:20 Anion Gap 9.7 (7.0-16.0) 09/29/17 07:20 BUN 22 mg/dL (7-25) 09/29/17 07:20 Creatinine 0.7 mg/dL (0.6-1.2) 09/29/17 07:20 Est GFR ( Amer) > 60.0 ml/min (>90) 09/29/17 07:20 Est GFR (Non-Af Amer) > 60.0 ml/min 09/29/17 07:20 BUN/Creatinine Ratio 31.4 09/29/17 07:20 Glucose 95 mg/dL (70-105) 09/29/17 07:20 Hemoglobin A1c % 4.9 % (4.0-6.0) 09/29/17 07:20 Calcium 9.6 mg/dL (8.6-10.3) 09/29/17 07:20 Total Bilirubin 0.4 mg/dL (0.3-1.0) 09/29/17 07:20 AST 11 U/L (13-39) L 09/29/17 07:20 ALT 8 U/L (7-52) 09/29/17 07:20 Alkaline Phosphatase 59 U/L (34-104) 09/29/17 07:20 Total Protein 6.1 gm/dL (6.0-8.3) 09/29/17 07:20 Albumin 3.9 gm/dL (3.7-5.3) 09/29/17 07:20 Globulin 2.2 gm/dL 09/29/17 07:20 Albumin/Globulin Ratio 1.8 (1.0-1.8) 09/29/17 07:20 Triglycerides 202 mg/dL (<150) H 09/29/17 07:20 Cholesterol 178 mg/dL (<200) 09/29/17 07:20 LDL Cholesterol Direct 100 mg/dL (75-193) 09/29/17 07:20 HDL Cholesterol 33 mg/dL (23-92) 09/29/17 07:20 TSH 1.05 uIU/ml (0.34-5.60) 09/29/17 07:20 Urine Source CLEAN C 09/29/17 07:10 Urine Color YELLOW 09/29/17 07:10 Urine Clarity SLIGHTLY HAZY (CLEAR) 09/29/17 07:10 Urine pH 6.0 (4.6 - 8.0) 09/29/17 07:10 Ur Specific [place] 1.015 (1.005-1.030) 09/29/17 07:10 Urine Protein NEGATIVE mg/dL (NEGATIVE) 09/29/17 07:10 Urine Glucose (UA) NEGATIVE mg/dL (NEGATIVE) 09/29/17 07:10 Urine Ketones NEGATIVE mg/dL (NEGATIVE) 09/29/17 07:10 Urine Blood MODERATE (NEGATIVE) H 09/29/17 07:10 Urine Nitrate NEGATIVE (NEGATIVE) 09/29/17 07:10 Urine Bilirubin NEGATIVE (NEGATIVE) 09/29/17 07:10 Urine Urobilinogen 0.2 E.U./dL (0.2 - 1.0) 09/29/17 07:10 Ur Leukocyte Esterase SMALL (NEGATIVE) H 09/29/17 07:10 Urine RBC 5-10 /hpf (0-5) H 09/29/17 07:10 Urine WBC 6-10 /hpf (0-5) H 09/29/17 07:10 Ur Epithelial Cells MANY /lpf (FEW) 09/29/17 07:10 Urine Bacteria NONE SEEN /hpf (NONE SEEN) 09/29/17 07:10 RPR NONREACTIVE (NONREACTIVE) 09/29/17 07:20 Hepatitis A IgM Ab Negative (Negative) 09/29/17 07:20 Hep Bs Antigen Negative (Negative) 09/29/17 07:20 Hep B Core IgM Ab Negative (Negative) 09/29/17 07:20 Hepatitis C Antibody <0.1 s/co ratio (0.0-0.9) 09/29/17 07:20 - Physical Exam Vitals and I&O: Vital Signs Temp 98.9 F 10/12/17 20:31 Pulse 66 10/12/17 20:31 Resp 19 10/12/17 20:31 BP 112/66 10/12/17 20:31 Pulse Ox 96 10/12/17 20:31 Intake & Output 10/12/17 10/12/17 10/13/17 06:59 18:59 06:59 Intake Total 120 1200 120 Balance 120 1200 120 Intake: Oral 120 1200 120 Other: # Voids 3 3 3 # Bowel Movements 0 1 0 Active Medications: Current Medications Acetaminophen (Tylenol) 650 mg PO Q6H PRN PRN Reason: mild pain Stop: 11/27/17 22:37 Acetaminophen/Hydrocodone Bitart ([place] 5mg/325mg) 1 tab PO Q4H PRN PRN Reason: Pain (Severe) Stop: 11/28/17 14:11 Al Hydrox/Mg Hydrox/Simethicone (Maalox) 30 ml PO Q4H PRN PRN Reason: GI DISTRESS Stop: 11/27/17 22:30 Albuterol Sulfate (Albuterol 2.5mg/3ml Neb Ud) 1.25 mg HHN Q4HRT PRN PRN Reason: Shortness of Breath Stop: 11/27/17 23:12 Atorvastatin Calcium (Lipitor) 10 mg PO DAILY [facility]; Protocol Stop: 11/28/17 08:59 Last Admin: 10/12/17 09:15 Dose: Not Given Bupropion HCl (Wellbutrin Xl) 150 mg PO DAILY [facility]; Protocol Stop: 12/06/17 08:59 Last Admin: 10/12/17 09:15 Dose: Not Given Docusate Sodium (Colace) 100 mg PO BID [facility] Stop: 11/28/17 08:59 Last Admin: 10/12/17 16:30 Dose: Not Given Donepezil HCl (Aricept) 5 mg PO DAILY [facility] Stop: 11/28/17 08:59 Last Admin: 10/12/17 09:15 Dose: Not Given Escitalopram Oxalate (Lexapro) 10 mg PO DAILY [facility]; Protocol Stop: 11/28/17 08:59 Last Admin: 10/12/17 09:16 Dose: Not Given Fluticasone Propionate (Flonase) 1 spr NS DAILY [facility] Stop: 11/28/17 14:14 Last Admin: 10/12/17 09:16 Dose: Not Given Lactobacillus Rhamnosus (Culturelle 15b) 1 each PO DAILY [facility] Stop: 10/12/17 23:59 Last Admin: 10/12/17 09:16 Dose: Not Given Lorazepam (Ativan) 0.5 mg PO Q4H PRN; Protocol PRN Reason: Anxiety/agitation Stop: 11/27/17 22:30 Magnesium Hydroxide (Milk Of Magnesia) 30 ml PO HS PRN PRN Reason: Constipation Meclizine HCl (Antivert) 25 mg PO Q12H PRN PRN Reason: Vertigo Stop: 11/27/17 22:37 Miscellaneous (Probiotic Screen) 1 ea MC PRN PRN PRN Reason: PROTOCOL Stop: 11/29/17 08:14 Multivitamins/Vitamin C (Theragran) 1 tab PO DAILY [facility] Stop: 11/28/17 08:59 Last Admin: 10/12/17 09:16 Dose: Not Given Olanzapine (Zyprexa) 15 mg PO HS [facility] Stop: 12/05/17 20:59 Last Admin: 10/12/17 20:31 Dose: Not Given Pantoprazole Sodium (Protonix) 40 mg PO QDAC [facility] Stop: 11/28/17 07:29 Last Admin: 10/12/17 06:34 Dose: Not Given Zolpidem Tartrate (Ambien) 5 mg PO HS PRN PRN Reason: Insomnia Stop: 11/27/17 22:30 Last Admin: 10/04/17 21:26 Dose: 5 mg General: demented HEENT: NC/AT, PERRLA, anicteric sclerae, throat clear Neck: Supple, No thyromegaly, +2 carotid pulse wo bruit, No LAD Cardiovascular: Normal S1, Normal S2, without murmur Abdomen: soft, non-tender, non-distended Neurological: no change Internal Medicine Assmt/Plan - Assessment Assessment: 1.HYPERLIPIDEMIA. 2.DJD. 3.DEMENTIA. - Plan Plan: CONTINUE ON CURRENT MEDICATION AND DIET. Nutritional Asmnt/Malnutr-PDOC - Dietary Evaluation Malnutrition Findings (Please click <Entered> for more info): Nutritional Asmnt/Malnutrition Start: 10/04/17 14: 42 Text: Status: Complete Freq: Protocol: Document 10/04/17 14:42 LCHENG (Rec: 10/04/17 14:45 [email or web address] [email or web address]) Nutritional Asmnt/Malnutrition Patient General Information Nutritional Screening Low Risk Diagnosis psychosis Pertinent Medical Hx/Surgical Hx hyperlipidemia, DJD, demntia Subjective Information Pt was in bathroom not able to visit. Per EMR, PO intake 25% . Current Diet Order/ Nutrition Support regular Pertinent Medications colace, culturelle, theragran, protonix Pertinent Labs 09/29 triglycerides 202 Nutritional Hx/Data Height 1.65 m Height (Calculated Centimeters) 165.1 Current Weight (lbs) 56.699 kg Weight (Calculated Kilograms) 56.7 Weight (Calculated Grams) 74044.0 [place] Body Weight 125 Body Mass Index (BMI) 20.7 Weight Status Approriate GI Symptoms GI Symptoms None Last BM 7/8 Difficult in: None Skin Integrity/Comment: intact Current %PO Good (75-100%) Estimated Nutritional Goals BEE in Kcals: Using Current wt Calories/Kcals/Kg 25-30 Kcals Calculated 5924-8918 Protein: Using Current wt Protein g/k-1.2 Protein Calculated 57-68 Fluid: ml 1425-1710ml (1ml/kcal) Nutritional Problem No current Nutrition Prob Problem N/A Malnutrition Alert Is there a minimum of two criteria No selected? Query Text:Check all the applicable criteria. A minimum of two criteria are recommended for diagnosis of either severe or non-severe malnutrition. Malnutrition Related to Morbid Obesity Malnutrition related to morbid obesity No Intervention/Recommendation Comments 1. Continue with regular diet as ordered. 2. Monitor PO intake, wt, labs and skin integrity 3. F/U as low risk in 7 days, 10/11 Expected Outcomes/Goals Expected Outcomes/Goals 1. PO intake to meet at least 75% of nutritional needs. 2. Wt stability, skin to remain intact, labs to approach WNL.
--- NOTE | 2017-10-12 22:43 | Progress Notes ---
DATE: 10/12/2017 SUBJECTIVE: A 72-year-old female seen today 10/12/2017, severely depressed, melancholic, and bad. States she still feels very disoriented and very depressed, does not know where she is going to go when she leaves here, distracted, and still at times refusing medications. Unclear why she is refusing medications. The patient remains symptomatic, depressed, refusing treatment, hopeless, despairing, mostly in her room. No overt psychotic symptoms, mostly severe depressive symptoms. Unclear why she is refusing medications, alluding to stomach upset. ASSESSMENT: The patient is symptomatic and severely depressed, not really getting much better and refusing treatment. We will monitor and follow up. [facility]# [id number]
[2017-10-13] MEDS: Pantoprazole 40 mg EC Tab PO SCH (06:34)
[2017-10-13] MEDS: Atorvastatin Calcium 10 MG TAB PO SCH (08:42)
[2017-10-13] MEDS: buPROPion XL 150 mg T 24 H PO SCH (08:42)
[2017-10-13] MEDS: Fluticasone Propionate 0.05mg/Actuation 16gm Nasal Spray NS SCH (08:43)
[2017-10-13] MEDS: Multivitamin Tab PO SCH (08:43)
--- NOTE | 2017-10-13 20:46 | Progress Notes ---
DATE: 10/13/2017 DATE OF SERVICE: 10/13/2017 SUBJECTIVE: The patient does not want to take her medications, especially the Zyprexa. She knows she is amenable to take antidepressants. She remains preoccupied, somewhat disoriented, highly depressed, mostly in her room. Vegetative symptoms of depression feel clinically the same. Does not know why she is so depressed, guarded, selectively mute at times. Medications were noted. Vitals were noted. The patient is sleeping well, eating on her own volition. ASSESSMENT: The patient is depressed, withdrawn, does not want to take Zyprexa. She does verbalize she is willing to take Wellbutrin. We will continue to monitor. There are ongoing safety concerns given the severity and extent of her depression, also concerns about compliance to medications. [facility]# [id number]
--- NOTE | 2017-10-13 21:33 | Internal Medicine Prog Note ---
Internal Medicine Subjective - Subjective Service Date: 10/13/17 Patient is:: awake, verbal, in bed, talking, confused Per staff patient has:: no adverse event Internal Medicine Objective - Results Result Diagrams: 09/29/17 07:20 09/29/17 07:20 Recent Labs: Laboratory Last Values WBC 5.2 Th/cmm (4.8-10.8) 09/29/17 07:20 RBC 4.45 Mil/cmm (3.80-5.20) 09/29/17 07:20 Hgb 14.0 gm/dL (12-16) 09/29/17 07:20 Hct 41.8 % (41.0-60) 09/29/17 07:20 MCV 93.8 fl (81-100) 09/29/17 07:20 MCH 31.5 pg (27.0-31.0) H 09/29/17 07:20 MCHC Differential 33.6 pg (28.0-36.0) 09/29/17 07:20 RDW 13.3 % (11.5-20.0) 09/29/17 07:20 Plt Count 358 Th/cmm (150-400) 09/29/17 07:20 MPV 6.5 fl 09/29/17 07:20 Neutrophils % 55.3 % (40.0-80.0) 09/29/17 07:20 Lymphocytes % 32.4 % (20.0-50.0) 09/29/17 07:20 Monocytes % 7.1 % (2.0-10.0) 09/29/17 07:20 Eosinophils % 3.8 % (0.0-5.0) 09/29/17 07:20 Basophils % 1.4 % (0.0-2.0) 09/29/17 07:20 Sodium 140 mEq/L (136-145) 09/29/17 07:20 Potassium 4.0 mEq/L (3.5-5.1) 09/29/17 07:20 Chloride 106 mEq/L (98-107) 09/29/17 07:20 Carbon Dioxide 28.3 mEq/L (21.0-31.0) 09/29/17 07:20 Anion Gap 9.7 (7.0-16.0) 09/29/17 07:20 BUN 22 mg/dL (7-25) 09/29/17 07:20 Creatinine 0.7 mg/dL (0.6-1.2) 09/29/17 07:20 Est GFR ( Amer) > 60.0 ml/min (>90) 09/29/17 07:20 Est GFR (Non-Af Amer) > 60.0 ml/min 09/29/17 07:20 BUN/Creatinine Ratio 31.4 09/29/17 07:20 Glucose 95 mg/dL (70-105) 09/29/17 07:20 Hemoglobin A1c % 4.9 % (4.0-6.0) 09/29/17 07:20 Calcium 9.6 mg/dL (8.6-10.3) 09/29/17 07:20 Total Bilirubin 0.4 mg/dL (0.3-1.0) 09/29/17 07:20 AST 11 U/L (13-39) L 09/29/17 07:20 ALT 8 U/L (7-52) 09/29/17 07:20 Alkaline Phosphatase 59 U/L (34-104) 09/29/17 07:20 Total Protein 6.1 gm/dL (6.0-8.3) 09/29/17 07:20 Albumin 3.9 gm/dL (3.7-5.3) 09/29/17 07:20 Globulin 2.2 gm/dL 09/29/17 07:20 Albumin/Globulin Ratio 1.8 (1.0-1.8) 09/29/17 07:20 Triglycerides 202 mg/dL (<150) H 09/29/17 07:20 Cholesterol 178 mg/dL (<200) 09/29/17 07:20 LDL Cholesterol Direct 100 mg/dL (75-193) 09/29/17 07:20 HDL Cholesterol 33 mg/dL (23-92) 09/29/17 07:20 TSH 1.05 uIU/ml (0.34-5.60) 09/29/17 07:20 Urine Source CLEAN C 09/29/17 07:10 Urine Color YELLOW 09/29/17 07:10 Urine Clarity SLIGHTLY HAZY (CLEAR) 09/29/17 07:10 Urine pH 6.0 (4.6 - 8.0) 09/29/17 07:10 Ur Specific [place] 1.015 (1.005-1.030) 09/29/17 07:10 Urine Protein NEGATIVE mg/dL (NEGATIVE) 09/29/17 07:10 Urine Glucose (UA) NEGATIVE mg/dL (NEGATIVE) 09/29/17 07:10 Urine Ketones NEGATIVE mg/dL (NEGATIVE) 09/29/17 07:10 Urine Blood MODERATE (NEGATIVE) H 09/29/17 07:10 Urine Nitrate NEGATIVE (NEGATIVE) 09/29/17 07:10 Urine Bilirubin NEGATIVE (NEGATIVE) 09/29/17 07:10 Urine Urobilinogen 0.2 E.U./dL (0.2 - 1.0) 09/29/17 07:10 Ur Leukocyte Esterase SMALL (NEGATIVE) H 09/29/17 07:10 Urine RBC 5-10 /hpf (0-5) H 09/29/17 07:10 Urine WBC 6-10 /hpf (0-5) H 09/29/17 07:10 Ur Epithelial Cells MANY /lpf (FEW) 09/29/17 07:10 Urine Bacteria NONE SEEN /hpf (NONE SEEN) 09/29/17 07:10 RPR NONREACTIVE (NONREACTIVE) 09/29/17 07:20 Hepatitis A IgM Ab Negative (Negative) 09/29/17 07:20 Hep Bs Antigen Negative (Negative) 09/29/17 07:20 Hep B Core IgM Ab Negative (Negative) 09/29/17 07:20 Hepatitis C Antibody <0.1 s/co ratio (0.0-0.9) 09/29/17 07:20 - Physical Exam Vitals and I&O: Vital Signs Temp 98.0 F 10/13/17 21:01 Pulse 79 10/13/17 21:01 Resp 20 10/13/17 21:01 BP 117/59 10/13/17 21:01 Pulse Ox 94 10/13/17 21:01 Intake & Output 10/13/17 10/13/17 10/14/17 06:59 18:59 06:59 Intake Total 120 1200 Output Total 0 Balance 120 1200 Intake: Oral 120 1200 Output: Stool 0 Other: # Voids 2 2 # Bowel Movements 0 Active Medications: Current Medications Acetaminophen (Tylenol) 650 mg PO Q6H PRN PRN Reason: mild pain Stop: 11/27/17 22:37 Acetaminophen/Hydrocodone Bitart ([place] 5mg/325mg) 1 tab PO Q4H PRN PRN Reason: Pain (Severe) Stop: 11/28/17 14:11 Al Hydrox/Mg Hydrox/Simethicone (Maalox) 30 ml PO Q4H PRN PRN Reason: GI DISTRESS Stop: 11/27/17 22:30 Albuterol Sulfate (Albuterol 2.5mg/3ml Neb Ud) 1.25 mg HHN Q4HRT PRN PRN Reason: Shortness of Breath Stop: 11/27/17 23:12 Atorvastatin Calcium (Lipitor) 10 mg PO DAILY [facility]; Protocol Stop: 11/28/17 08:59 Last Admin: 10/13/17 08:42 Dose: Not Given Bupropion HCl (Wellbutrin Xl) 150 mg PO DAILY [facility]; Protocol Stop: 12/06/17 08:59 Last Admin: 10/13/17 08:42 Dose: Not Given Docusate Sodium (Colace) 100 mg PO BID [facility] Stop: 11/28/17 08:59 Last Admin: 10/13/17 16:52 Dose: 100 mg Donepezil HCl (Aricept) 5 mg PO DAILY [facility] Stop: 11/28/17 08:59 Last Admin: 10/13/17 08:42 Dose: Not Given Escitalopram Oxalate (Lexapro) 10 mg PO DAILY [facility]; Protocol Stop: 11/28/17 08:59 Last Admin: 10/13/17 08:43 Dose: Not Given Fluticasone Propionate (Flonase) 1 spr NS DAILY [facility] Stop: 11/28/17 14:14 Last Admin: 10/13/17 08:43 Dose: Not Given Lorazepam (Ativan) 0.5 mg PO Q4H PRN; Protocol PRN Reason: Anxiety/agitation Stop: 11/27/17 22:30 Magnesium Hydroxide (Milk Of Magnesia) 30 ml PO HS PRN PRN Reason: Constipation Meclizine HCl (Antivert) 25 mg PO Q12H PRN PRN Reason: Vertigo Stop: 11/27/17 22:37 Miscellaneous (Probiotic Screen) 1 ea MC PRN PRN PRN Reason: PROTOCOL Stop: 11/29/17 08:14 Multivitamins/Vitamin C (Theragran) 1 tab PO DAILY [facility] Stop: 11/28/17 08:59 Last Admin: 10/13/17 08:43 Dose: Not Given Pantoprazole Sodium (Protonix) 40 mg PO QDAC [facility] Stop: 11/28/17 07:29 Last Admin: 10/13/17 06:34 Dose: Not Given Zolpidem Tartrate (Ambien) 5 mg PO HS PRN PRN Reason: Insomnia Stop: 11/27/17 22:30 Last Admin: 10/04/17 21:26 Dose: 5 mg General: demented HEENT: NC/AT, PERRLA, anicteric sclerae, throat clear Neck: Supple, No thyromegaly, +2 carotid pulse wo bruit, No LAD Cardiovascular: Normal S1, Normal S2, without murmur Abdomen: soft, non-tender, non-distended Neurological: no change Internal Medicine Assmt/Plan - Assessment Assessment: 1.HYPERLIPIDEMIA. 2.DJD. 3.DEMENTIA. - Plan Plan: CONTINUE ON CURRENT MEDICATION AND DIET. Nutritional Asmnt/Malnutr-PDOC - Dietary Evaluation Malnutrition Findings (Please click <Entered> for more info): Nutritional Asmnt/Malnutrition Start: 10/04/17 14: 42 Text: Status: Complete Freq: Protocol: Document 10/04/17 14:42 LCHENG (Rec: 10/04/17 14:45 [email or web address]) Nutritional Asmnt/Malnutrition Patient General Information Nutritional Screening Low Risk Diagnosis psychosis Pertinent Medical Hx/Surgical Hx hyperlipidemia, DJD, demntia Subjective Information Pt was in bathroom not able to visit. Per EMR, PO intake 25% . Current Diet Order/ Nutrition Support regular Pertinent Medications colace, culturelle, theragran, protonix Pertinent Labs 09/29 triglycerides 202 Nutritional Hx/Data Height 1.65 m Height (Calculated Centimeters) 165.1 Current Weight (lbs) 56.699 kg Weight (Calculated Kilograms) 56.7 Weight (Calculated Grams) 40009.0 [place] Body Weight 125 Body Mass Index (BMI) 20.7 Weight Status Approriate GI Symptoms GI Symptoms None Last BM 10/03 Difficult in: None Skin Integrity/Comment: intact Current %PO Good (75-100%) Estimated Nutritional Goals BEE in Kcals: Using Current wt Calories/Kcals/Kg 25-30 Kcals Calculated 7195-0015 Protein: Using Current wt Protein g/k-1.2 Protein Calculated 57-68 Fluid: ml 1425-1710ml (1ml/kcal) Nutritional Problem No current Nutrition Prob Problem N/A Malnutrition Alert Is there a minimum of two criteria No selected? Query Text:Check all the applicable criteria. A minimum of two criteria are recommended for diagnosis of either severe or non-severe malnutrition. Malnutrition Related to Morbid Obesity Malnutrition related to morbid obesity No Intervention/Recommendation Comments 1. Continue with regular diet as ordered. 2. Monitor PO intake, wt, labs and skin integrity 3. F/U as low risk in 7 days, 10/11 Expected Outcomes/Goals Expected Outcomes/Goals 1. PO intake to meet at least 75% of nutritional needs. 2. Wt stability, skin to remain intact, labs to approach WNL.
[2017-10-14] MEDS: Pantoprazole 40 mg EC Tab PO SCH (06:30)
[2017-10-14] MEDS: Multivitamin Tab PO SCH (09:10)
[2017-10-14] MEDS: buPROPion XL 150 mg T 24 H PO SCH (09:10)
[2017-10-14] MEDS: Atorvastatin Calcium 10 MG TAB PO SCH (09:11)
[2017-10-14] MEDS: Fluticasone Propionate 0.05mg/Actuation 16gm Nasal Spray NS SCH (09:15)
--- NOTE | 2017-10-14 21:19 | Internal Medicine Prog Note ---
Internal Medicine Subjective - Subjective Service Date: 10/14/17 Patient seen and examined:: with staff Patient is:: awake, verbal, in bed, talking, confused Per staff patient has:: no adverse event Internal Medicine Objective - Results Result Diagrams: 09/29/17 07:20 09/29/17 07:20 Recent Labs: Laboratory Last Values WBC 5.2 Th/cmm (4.8-10.8) 09/29/17 07:20 RBC 4.45 Mil/cmm (3.80-5.20) 09/29/17 07:20 Hgb 14.0 gm/dL (12-16) 09/29/17 07:20 Hct 41.8 % (41.0-60) 09/29/17 07:20 MCV 93.8 fl (81-100) 09/29/17 07:20 MCH 31.5 pg (27.0-31.0) H 09/29/17 07:20 MCHC Differential 33.6 pg (28.0-36.0) 09/29/17 07:20 RDW 13.3 % (11.5-20.0) 09/29/17 07:20 Plt Count 358 Th/cmm (150-400) 09/29/17 07:20 MPV 6.5 fl 09/29/17 07:20 Neutrophils % 55.3 % (40.0-80.0) 09/29/17 07:20 Lymphocytes % 32.4 % (20.0-50.0) 09/29/17 07:20 Monocytes % 7.1 % (2.0-10.0) 09/29/17 07:20 Eosinophils % 3.8 % (0.0-5.0) 09/29/17 07:20 Basophils % 1.4 % (0.0-2.0) 09/29/17 07:20 Sodium 140 mEq/L (136-145) 09/29/17 07:20 Potassium 4.0 mEq/L (3.5-5.1) 09/29/17 07:20 Chloride 106 mEq/L (98-107) 09/29/17 07:20 Carbon Dioxide 28.3 mEq/L (21.0-31.0) 09/29/17 07:20 Anion Gap 9.7 (7.0-16.0) 09/29/17 07:20 BUN 22 mg/dL (7-25) 09/29/17 07:20 Creatinine 0.7 mg/dL (0.6-1.2) 09/29/17 07:20 Est GFR ( Amer) > 60.0 ml/min (>90) 09/29/17 07:20 Est GFR (Non-Af Amer) > 60.0 ml/min 09/29/17 07:20 BUN/Creatinine Ratio 31.4 09/29/17 07:20 Glucose 95 mg/dL (70-105) 09/29/17 07:20 Hemoglobin A1c % 4.9 % (4.0-6.0) 09/29/17 07:20 Calcium 9.6 mg/dL (8.6-10.3) 09/29/17 07:20 Total Bilirubin 0.4 mg/dL (0.3-1.0) 09/29/17 07:20 AST 11 U/L (13-39) L 09/29/17 07:20 ALT 8 U/L (7-52) 09/29/17 07:20 Alkaline Phosphatase 59 U/L (34-104) 09/29/17 07:20 Total Protein 6.1 gm/dL (6.0-8.3) 09/29/17 07:20 Albumin 3.9 gm/dL (3.7-5.3) 09/29/17 07:20 Globulin 2.2 gm/dL 09/29/17 07:20 Albumin/Globulin Ratio 1.8 (1.0-1.8) 09/29/17 07:20 Triglycerides 202 mg/dL (<150) H 09/29/17 07:20 Cholesterol 178 mg/dL (<200) 09/29/17 07:20 LDL Cholesterol Direct 100 mg/dL (75-193) 09/29/17 07:20 HDL Cholesterol 33 mg/dL (23-92) 09/29/17 07:20 TSH 1.05 uIU/ml (0.34-5.60) 09/29/17 07:20 Urine Source CLEAN C 09/29/17 07:10 Urine Color YELLOW 09/29/17 07:10 Urine Clarity SLIGHTLY HAZY (CLEAR) 09/29/17 07:10 Urine pH 6.0 (4.6 - 8.0) 09/29/17 07:10 Ur Specific [place] 1.015 (1.005-1.030) 09/29/17 07:10 Urine Protein NEGATIVE mg/dL (NEGATIVE) 09/29/17 07:10 Urine Glucose (UA) NEGATIVE mg/dL (NEGATIVE) 09/29/17 07:10 Urine Ketones NEGATIVE mg/dL (NEGATIVE) 09/29/17 07:10 Urine Blood MODERATE (NEGATIVE) H 09/29/17 07:10 Urine Nitrate NEGATIVE (NEGATIVE) 09/29/17 07:10 Urine Bilirubin NEGATIVE (NEGATIVE) 09/29/17 07:10 Urine Urobilinogen 0.2 E.U./dL (0.2 - 1.0) 09/29/17 07:10 Ur Leukocyte Esterase SMALL (NEGATIVE) H 09/29/17 07:10 Urine RBC 5-10 /hpf (0-5) H 09/29/17 07:10 Urine WBC 6-10 /hpf (0-5) H 09/29/17 07:10 Ur Epithelial Cells MANY /lpf (FEW) 09/29/17 07:10 Urine Bacteria NONE SEEN /hpf (NONE SEEN) 09/29/17 07:10 RPR NONREACTIVE (NONREACTIVE) 09/29/17 07:20 Hepatitis A IgM Ab Negative (Negative) 09/29/17 07:20 Hep Bs Antigen Negative (Negative) 09/29/17 07:20 Hep B Core IgM Ab Negative (Negative) 09/29/17 07:20 Hepatitis C Antibody <0.1 s/co ratio (0.0-0.9) 09/29/17 07:20 - Physical Exam Vitals and I&O: Vital Signs Temp 98.0 F 10/14/17 20:09 Pulse 72 10/14/17 20:09 Resp 19 10/14/17 20:09 BP 115/69 10/14/17 20:09 Pulse Ox 98 10/14/17 20:09 Intake & Output 10/14/17 10/14/17 10/15/17 06:59 18:59 06:59 Intake Total 960 Balance 960 Intake: Oral 960 Other: # Voids 4 # Bowel Movements 0 Active Medications: Current Medications Acetaminophen (Tylenol) 650 mg PO Q6H PRN PRN Reason: mild pain Stop: 11/27/17 22:37 Acetaminophen/Hydrocodone Bitart ([place] 5mg/325mg) 1 tab PO Q4H PRN PRN Reason: Pain (Severe) Stop: 11/28/17 14:11 Al Hydrox/Mg Hydrox/Simethicone (Maalox) 30 ml PO Q4H PRN PRN Reason: GI DISTRESS Stop: 11/27/17 22:30 Albuterol Sulfate (Albuterol 2.5mg/3ml Neb Ud) 1.25 mg HHN Q4HRT PRN PRN Reason: Shortness of Breath Stop: 11/27/17 23:12 Atorvastatin Calcium (Lipitor) 10 mg PO DAILY [facility]; Protocol Stop: 11/28/17 08:59 Last Admin: 10/14/17 09:11 Dose: 10 mg Bupropion HCl (Wellbutrin Xl) 150 mg PO DAILY [facility]; Protocol Stop: 12/06/17 08:59 Last Admin: 10/14/17 09:10 Dose: 150 mg Docusate Sodium (Colace) 100 mg PO BID [facility] Stop: 11/28/17 08:59 Last Admin: 10/14/17 18:44 Dose: 100 mg Donepezil HCl (Aricept) 5 mg PO DAILY [facility] Stop: 11/28/17 08:59 Last Admin: 10/14/17 09:10 Dose: 5 mg Escitalopram Oxalate (Lexapro) 10 mg PO DAILY [facility]; Protocol Stop: 11/28/17 08:59 Last Admin: 10/14/17 09:10 Dose: 10 mg Fluticasone Propionate (Flonase) 1 spr NS DAILY [facility] Stop: 11/28/17 14:14 Last Admin: 10/14/17 09:15 Dose: 1 spr Lorazepam (Ativan) 0.5 mg PO Q4H PRN; Protocol PRN Reason: Anxiety/agitation Stop: 11/27/17 22:30 Magnesium Hydroxide (Milk Of Magnesia) 30 ml PO HS PRN PRN Reason: Constipation Meclizine HCl (Antivert) 25 mg PO Q12H PRN PRN Reason: Vertigo Stop: 11/27/17 22:37 Miscellaneous (Probiotic Screen) 1 ea MC PRN PRN PRN Reason: PROTOCOL Stop: 11/29/17 08:14 Multivitamins/Vitamin C (Theragran) 1 tab PO DAILY [facility] Stop: 11/28/17 08:59 Last Admin: 10/14/17 09:10 Dose: 1 tab Pantoprazole Sodium (Protonix) 40 mg PO QDAC [facility] Stop: 11/28/17 07:29 Last Admin: 10/14/17 06:30 Dose: Not Given Zolpidem Tartrate (Ambien) 5 mg PO HS PRN PRN Reason: Insomnia Stop: 11/27/17 22:30 Last Admin: 10/04/17 21:26 Dose: 5 mg General: demented HEENT: NC/AT, PERRLA, anicteric sclerae, throat clear Neck: Supple, No thyromegaly, +2 carotid pulse wo bruit, No LAD Cardiovascular: Normal S1, Normal S2, without murmur Abdomen: soft, non-tender, non-distended Neurological: no change Internal Medicine Assmt/Plan - Assessment Assessment: 1.HYPERLIPIDEMIA. 2.DJD. 3.DEMENTIA. - Plan Plan: CONTINUE ON CURRENT MEDICATION AND DIET. Nutritional Asmnt/Malnutr-PDOC - Dietary Evaluation Malnutrition Findings (Please click <Entered> for more info): Nutritional Asmnt/Malnutrition Start: 10/04/17 14: 42 Text: Status: Complete Freq: Protocol: Document 10/04/17 14:42 LCHENG (Rec: 10/04/17 14:45 LCHENG [email or web address]) Nutritional Asmnt/Malnutrition Patient General Information Nutritional Screening Low Risk Diagnosis psychosis Pertinent Medical Hx/Surgical Hx hyperlipidemia, DJD, demntia Subjective Information Pt was in bathroom not able to visit. Per EMR, PO intake 25% . Current Diet Order/ Nutrition Support regular Pertinent Medications colace, culturelle, theragran, protonix Pertinent Labs 09/29 triglycerides 202 Nutritional Hx/Data Height 1.65 m Height (Calculated Centimeters) 165.1 Current Weight (lbs) 56.699 kg Weight (Calculated Kilograms) 56.7 Weight (Calculated Grams) 93131.0 [place] Body Weight 125 Body Mass Index (BMI) 20.7 Weight Status Approriate GI Symptoms GI Symptoms None Last BM 7 Difficult in: None Skin Integrity/Comment: intact Current %PO Good (75-100%) Estimated Nutritional Goals BEE in Kcals: Using Current wt Calories/Kcals/Kg 25-30 Kcals Calculated 9990-5132 Protein: Using Current wt Protein g/k-1.2 Protein Calculated 57-68 Fluid: ml 1425-1710ml (1ml/kcal) Nutritional Problem No current Nutrition Prob Problem N/A Malnutrition Alert Is there a minimum of two criteria No selected? Query Text:Check all the applicable criteria. A minimum of two criteria are recommended for diagnosis of either severe or non-severe malnutrition. Malnutrition Related to Morbid Obesity Malnutrition related to morbid obesity No Intervention/Recommendation Comments 1. Continue with regular diet as ordered. 2. Monitor PO intake, wt, labs and skin integrity 3. F/U as low risk in 7 days, 10/11 Expected Outcomes/Goals Expected Outcomes/Goals 1. PO intake to meet at least 75% of nutritional needs. 2. Wt stability, skin to remain intact, labs to approach WNL.
[2017-10-15] MEDS: Pantoprazole 40 mg EC Tab PO SCH (06:30)
--- NOTE | 2017-10-15 07:08 | Progress Notes ---
DATE: SUBJECTIVE: The patient seen, chart reviewed, discussed with staff. The patient is more amenable to taking her medications. She is complaining of constipation; however, the patient verbalizing severe depression, hopeless thoughts, melancholic despair, mostly in her room, isolative, vegetative in regards to her depressive signs and symptoms. She is sleeping okay, eating on her own volition, denying any overt SI, but she is quite hopeless, which is concerning given her history, off Zyprexa. ASSESSMENT: The patient remains symptomatic, severely depressed, melancholic, tolerant of dose, stoppage of Zyprexa. She was refusing for the past couple of days. We will continue to monitor her medical complaints. We will continue to adjust her medications given the severity of her current symptoms that are ongoing safety concerns. [facility]# [id number]
[2017-10-15] MEDS: buPROPion XL 150 mg T 24 H PO SCH (08:42)
[2017-10-15] MEDS: Atorvastatin Calcium 10 MG TAB PO SCH (08:42)
[2017-10-15] MEDS: Multivitamin Tab PO SCH (08:44)
[2017-10-15] MEDS: Fluticasone Propionate 0.05mg/Actuation 16gm Nasal Spray NS SCH (10:03)
--- NOTE | 2017-10-15 16:42 | Internal Medicine Prog Note ---
Internal Medicine Subjective - Subjective Service Date: 10/15/17 Patient seen and examined:: with staff Patient is:: awake, verbal, in bed, talking, confused Per staff patient has:: no adverse event Internal Medicine Objective - Results Result Diagrams: 09/29/17 07:20 09/29/17 07:20 Recent Labs: Laboratory Last Values WBC 5.2 Th/cmm (4.8-10.8) 09/29/17 07:20 RBC 4.45 Mil/cmm (3.80-5.20) 09/29/17 07:20 Hgb 14.0 gm/dL (12-16) 09/29/17 07:20 Hct 41.8 % (41.0-60) 09/29/17 07:20 MCV 93.8 fl (81-100) 09/29/17 07:20 MCH 31.5 pg (27.0-31.0) H 09/29/17 07:20 MCHC Differential 33.6 pg (28.0-36.0) 09/29/17 07:20 RDW 13.3 % (11.5-20.0) 09/29/17 07:20 Plt Count 358 Th/cmm (150-400) 09/29/17 07:20 MPV 6.5 fl 09/29/17 07:20 Neutrophils % 55.3 % (40.0-80.0) 09/29/17 07:20 Lymphocytes % 32.4 % (20.0-50.0) 09/29/17 07:20 Monocytes % 7.1 % (2.0-10.0) 09/29/17 07:20 Eosinophils % 3.8 % (0.0-5.0) 09/29/17 07:20 Basophils % 1.4 % (0.0-2.0) 09/29/17 07:20 Sodium 140 mEq/L (136-145) 09/29/17 07:20 Potassium 4.0 mEq/L (3.5-5.1) 09/29/17 07:20 Chloride 106 mEq/L (98-107) 09/29/17 07:20 Carbon Dioxide 28.3 mEq/L (21.0-31.0) 09/29/17 07:20 Anion Gap 9.7 (7.0-16.0) 09/29/17 07:20 BUN 22 mg/dL (7-25) 09/29/17 07:20 Creatinine 0.7 mg/dL (0.6-1.2) 09/29/17 07:20 Est GFR ( Amer) > 60.0 ml/min (>90) 09/29/17 07:20 Est GFR (Non-Af Amer) > 60.0 ml/min 09/29/17 07:20 BUN/Creatinine Ratio 31.4 09/29/17 07:20 Glucose 95 mg/dL (70-105) 09/29/17 07:20 Hemoglobin A1c % 4.9 % (4.0-6.0) 09/29/17 07:20 Calcium 9.6 mg/dL (8.6-10.3) 09/29/17 07:20 Total Bilirubin 0.4 mg/dL (0.3-1.0) 09/29/17 07:20 AST 11 U/L (13-39) L 09/29/17 07:20 ALT 8 U/L (7-52) 09/29/17 07:20 Alkaline Phosphatase 59 U/L (34-104) 09/29/17 07:20 Total Protein 6.1 gm/dL (6.0-8.3) 09/29/17 07:20 Albumin 3.9 gm/dL (3.7-5.3) 09/29/17 07:20 Globulin 2.2 gm/dL 09/29/17 07:20 Albumin/Globulin Ratio 1.8 (1.0-1.8) 09/29/17 07:20 Triglycerides 202 mg/dL (<150) H 09/29/17 07:20 Cholesterol 178 mg/dL (<200) 09/29/17 07:20 LDL Cholesterol Direct 100 mg/dL (75-193) 09/29/17 07:20 HDL Cholesterol 33 mg/dL (23-92) 09/29/17 07:20 TSH 1.05 uIU/ml (0.34-5.60) 09/29/17 07:20 Urine Source CLEAN C 09/29/17 07:10 Urine Color YELLOW 09/29/17 07:10 Urine Clarity SLIGHTLY HAZY (CLEAR) 09/29/17 07:10 Urine pH 6.0 (4.6 - 8.0) 09/29/17 07:10 Ur Specific [place] 1.015 (1.005-1.030) 09/29/17 07:10 Urine Protein NEGATIVE mg/dL (NEGATIVE) 09/29/17 07:10 Urine Glucose (UA) NEGATIVE mg/dL (NEGATIVE) 09/29/17 07:10 Urine Ketones NEGATIVE mg/dL (NEGATIVE) 09/29/17 07:10 Urine Blood MODERATE (NEGATIVE) H 09/29/17 07:10 Urine Nitrate NEGATIVE (NEGATIVE) 09/29/17 07:10 Urine Bilirubin NEGATIVE (NEGATIVE) 09/29/17 07:10 Urine Urobilinogen 0.2 E.U./dL (0.2 - 1.0) 09/29/17 07:10 Ur Leukocyte Esterase SMALL (NEGATIVE) H 09/29/17 07:10 Urine RBC 5-10 /hpf (0-5) H 09/29/17 07:10 Urine WBC 6-10 /hpf (0-5) H 09/29/17 07:10 Ur Epithelial Cells MANY /lpf (FEW) 09/29/17 07:10 Urine Bacteria NONE SEEN /hpf (NONE SEEN) 09/29/17 07:10 RPR NONREACTIVE (NONREACTIVE) 09/29/17 07:20 Hepatitis A IgM Ab Negative (Negative) 09/29/17 07:20 Hep Bs Antigen Negative (Negative) 09/29/17 07:20 Hep B Core IgM Ab Negative (Negative) 09/29/17 07:20 Hepatitis C Antibody <0.1 s/co ratio (0.0-0.9) 09/29/17 07:20 - Physical Exam Vitals and I&O: Vital Signs Temp 97.9 F 10/15/17 14:00 Pulse 68 10/15/17 14:00 Resp 20 10/15/17 14:00 BP 110/60 10/15/17 14:00 Pulse Ox 98 10/15/17 14:00 Intake & Output 10/14/17 10/15/17 10/15/17 18:59 06:59 18:59 Intake Total 960 120 240 Output Total 0 Balance 960 120 240 Intake: Oral 960 120 240 Output: Stool 0 Other: # Voids 4 3 1 # Bowel Movements 0 Active Medications: Current Medications Acetaminophen (Tylenol) 650 mg PO Q6H PRN PRN Reason: mild pain Stop: 11/27/17 22:37 Acetaminophen/Hydrocodone Bitart ([place] 5mg/325mg) 1 tab PO Q4H PRN PRN Reason: Pain (Severe) Stop: 11/28/17 14:11 Al Hydrox/Mg Hydrox/Simethicone (Maalox) 30 ml PO Q4H PRN PRN Reason: GI DISTRESS Stop: 11/27/17 22:30 Albuterol Sulfate (Albuterol 2.5mg/3ml Neb Ud) 1.25 mg HHN Q4HRT PRN PRN Reason: Shortness of Breath Stop: 11/27/17 23:12 Atorvastatin Calcium (Lipitor) 10 mg PO DAILY ESME; Protocol Stop: 11/28/17 08:59 Last Admin: 10/15/17 08:42 Dose: 10 mg Bisacodyl (Dulcolax 10 Mg Supp) 10 mg RC DAILY PRN PRN Reason: Constipation Stop: 12/13/17 22:14 Bupropion HCl (Wellbutrin Xl) 150 mg PO DAILY ESME; Protocol Stop: 12/06/17 08:59 Last Admin: 10/15/17 08:42 Dose: 150 mg Docusate Sodium (Colace) 100 mg PO BID ESME Stop: 11/28/17 08:59 Last Admin: 10/15/17 08:43 Dose: 100 mg Donepezil HCl (Aricept) 5 mg PO DAILY ESME Stop: 11/28/17 08:59 Last Admin: 10/15/17 08:43 Dose: 5 mg Escitalopram Oxalate (Lexapro) 10 mg PO DAILY ESME; Protocol Stop: 11/28/17 08:59 Last Admin: 10/15/17 08:43 Dose: 10 mg Fluticasone Propionate (Flonase) 1 spr NS DAILY ESME Stop: 11/28/17 14:14 Last Admin: 10/15/17 10:03 Dose: 1 spr Lorazepam (Ativan) 0.5 mg PO Q4H PRN; Protocol PRN Reason: Anxiety/agitation Stop: 11/27/17 22:30 Magnesium Hydroxide (Milk Of Magnesia) 30 ml PO HS PRN PRN Reason: Constipation Meclizine HCl (Antivert) 25 mg PO Q12H PRN PRN Reason: Vertigo Stop: 11/27/17 22:37 Miscellaneous (Probiotic Screen) 1 ea MC PRN PRN PRN Reason: PROTOCOL Stop: 11/29/17 08:14 Multivitamins/Vitamin C (Theragran) 1 tab PO DAILY ESME Stop: 11/28/17 08:59 Last Admin: 10/15/17 08:44 Dose: 1 tab Pantoprazole Sodium (Protonix) 40 mg PO QDAC ESME Stop: 11/28/17 07:29 Last Admin: 10/15/17 06:30 Dose: 40 mg Zolpidem Tartrate (Ambien) 5 mg PO HS PRN PRN Reason: Insomnia Stop: 11/27/17 22:30 Last Admin: 10/14/17 23:47 Dose: 5 mg General: demented HEENT: NC/AT, PERRLA, anicteric sclerae, throat clear Neck: Supple, No thyromegaly, +2 carotid pulse wo bruit, No LAD Cardiovascular: Normal S1, Normal S2, without murmur Abdomen: soft, non-tender, non-distended Neurological: no change Internal Medicine Assmt/Plan - Assessment Assessment: 1.HYPERLIPIDEMIA. 2.DJD. 3.DEMENTIA. - Plan Plan: CONTINUE ON CURRENT MEDICATION AND DIET. Nutritional Asmnt/Malnutr-PDOC - Dietary Evaluation Malnutrition Findings (Please click <Entered> for more info): Nutritional Asmnt/Malnutrition Start: 10/04/17 14: 42 Text: Status: Complete Freq: Protocol: Document 10/04/17 14:42 LCHENG (Rec: 10/04/17 14:45 [email or web address]) Nutritional Asmnt/Malnutrition Patient General Information Nutritional Screening Low Risk Diagnosis psychosis Pertinent Medical Hx/Surgical Hx hyperlipidemia, DJD, demntia Subjective Information Pt was in bathroom not able to visit. Per EMR, PO intake 25% . Current Diet Order/ Nutrition Support regular Pertinent Medications colace, culturelle, theragran, protonix Pertinent Labs 09/29 triglycerides 202 Nutritional Hx/Data Height 1.65 m Height (Calculated Centimeters) 165.1 Current Weight (lbs) 56.699 kg Weight (Calculated Kilograms) 56.7 Weight (Calculated Grams) 44101.0 [place] Body Weight 125 Body Mass Index (BMI) 20.7 Weight Status Approriate GI Symptoms GI Symptoms None Last BM 10/03 Difficult in: None Skin Integrity/Comment: intact Current %PO Good (75-100%) Estimated Nutritional Goals BEE in Kcals: Using Current wt Calories/Kcals/Kg 25-30 Kcals Calculated 6601-7219 Protein: Using Current wt Protein g/k-1.2 Protein Calculated 57-68 Fluid: ml 1425-1710ml (1ml/kcal) Nutritional Problem No current Nutrition Prob Problem N/A Malnutrition Alert Is there a minimum of two criteria No selected? Query Text:Check all the applicable criteria. A minimum of two criteria are recommended for diagnosis of either severe or non-severe malnutrition. Malnutrition Related to Morbid Obesity Malnutrition related to morbid obesity No Intervention/Recommendation Comments 1. Continue with regular diet as ordered. 2. Monitor PO intake, wt, labs and skin integrity 3. F/U as low risk in 7 days, 10/11 Expected Outcomes/Goals Expected Outcomes/Goals 1. PO intake to meet at least 75% of nutritional needs. 2. Wt stability, skin to remain intact, labs to approach WNL.
--- NOTE | 2017-10-15 19:53 | Progress Notes ---
DATE: 10/15/2017 SUBJECTIVE: The patient is currently in the hospital, still very depressed, withdrawn, not saying much to me, sleeping: "Okay". Eating: "Okay". Appearing isolative, mostly in her room. She is taking her medications, not complaining of stomach upset. No side effects noted. She needs a lot of prompting for ADLs, prompting to eat, unable to care for her basic needs, concerns for grave disability. No place to go at this time. Medications were noted. ASSESSMENT: The patient awake, engaged, but not saying much. Some eye contact. Vegetative signs of depression noted, hopelessness and despair. PLAN: We will continue to monitor, titrate and adjust medications. The patient will need help with placement. [facility]# [id number]
[2017-10-16] MEDS: Pantoprazole 40 mg EC Tab PO SCH (06:37)
[2017-10-16] MEDS: Atorvastatin Calcium 10 MG TAB PO SCH ×2 (09:33→09:46)
[2017-10-16] MEDS: buPROPion XL 150 mg T 24 H PO SCH ×2 (09:33→09:46)
[2017-10-16] MEDS: Multivitamin Tab PO SCH ×2 (09:33→09:47)
[2017-10-16] MEDS: Fluticasone Propionate 0.05mg/Actuation 16gm Nasal Spray NS SCH (09:33)
--- NOTE | 2017-10-16 15:56 | General Progress Note ---
Subjective - Review of Systems Service Date: 10/16/17 Subjective: resting comfortably cooperative no complaint Objective - Results Result Diagrams: 09/29/17 07:20 09/29/17 07:20 Recent Labs: Laboratory Last Values WBC 5.2 Th/cmm (4.8-10.8) 09/29/17 07:20 RBC 4.45 Mil/cmm (3.80-5.20) 09/29/17 07:20 Hgb 14.0 gm/dL (12-16) 09/29/17 07:20 Hct 41.8 % (41.0-60) 09/29/17 07:20 MCV 93.8 fl (81-100) 09/29/17 07:20 MCH 31.5 pg (27.0-31.0) H 09/29/17 07:20 MCHC Differential 33.6 pg (28.0-36.0) 09/29/17 07:20 RDW 13.3 % (11.5-20.0) 09/29/17 07:20 Plt Count 358 Th/cmm (150-400) 09/29/17 07:20 MPV 6.5 fl 09/29/17 07:20 Neutrophils % 55.3 % (40.0-80.0) 09/29/17 07:20 Lymphocytes % 32.4 % (20.0-50.0) 09/29/17 07:20 Monocytes % 7.1 % (2.0-10.0) 09/29/17 07:20 Eosinophils % 3.8 % (0.0-5.0) 09/29/17 07:20 Basophils % 1.4 % (0.0-2.0) 09/29/17 07:20 Sodium 140 mEq/L (136-145) 09/29/17 07:20 Potassium 4.0 mEq/L (3.5-5.1) 09/29/17 07:20 Chloride 106 mEq/L (98-107) 09/29/17 07:20 Carbon Dioxide 28.3 mEq/L (21.0-31.0) 09/29/17 07:20 Anion Gap 9.7 (7.0-16.0) 09/29/17 07:20 BUN 22 mg/dL (7-25) 09/29/17 07:20 Creatinine 0.7 mg/dL (0.6-1.2) 09/29/17 07:20 Est GFR ( Amer) > 60.0 ml/min (>90) 09/29/17 07:20 Est GFR (Non-Af Amer) > 60.0 ml/min 09/29/17 07:20 BUN/Creatinine Ratio 31.4 09/29/17 07:20 Glucose 95 mg/dL (70-105) 09/29/17 07:20 Hemoglobin A1c % 4.9 % (4.0-6.0) 09/29/17 07:20 Calcium 9.6 mg/dL (8.6-10.3) 09/29/17 07:20 Total Bilirubin 0.4 mg/dL (0.3-1.0) 09/29/17 07:20 AST 11 U/L (13-39) L 09/29/17 07:20 ALT 8 U/L (7-52) 09/29/17 07:20 Alkaline Phosphatase 59 U/L (34-104) 09/29/17 07:20 Total Protein 6.1 gm/dL (6.0-8.3) 09/29/17 07:20 Albumin 3.9 gm/dL (3.7-5.3) 09/29/17 07:20 Globulin 2.2 gm/dL 09/29/17 07:20 Albumin/Globulin Ratio 1.8 (1.0-1.8) 09/29/17 07:20 Triglycerides 202 mg/dL (<150) H 09/29/17 07:20 Cholesterol 178 mg/dL (<200) 09/29/17 07:20 LDL Cholesterol Direct 100 mg/dL (75-193) 09/29/17 07:20 HDL Cholesterol 33 mg/dL (23-92) 09/29/17 07:20 TSH 1.05 uIU/ml (0.34-5.60) 09/29/17 07:20 Urine Source CLEAN C 09/29/17 07:10 Urine Color YELLOW 09/29/17 07:10 Urine Clarity SLIGHTLY HAZY (CLEAR) 09/29/17 07:10 Urine pH 6.0 (4.6 - 8.0) 09/29/17 07:10 Ur Specific [place] 1.015 (1.005-1.030) 09/29/17 07:10 Urine Protein NEGATIVE mg/dL (NEGATIVE) 09/29/17 07:10 Urine Glucose (UA) NEGATIVE mg/dL (NEGATIVE) 09/29/17 07:10 Urine Ketones NEGATIVE mg/dL (NEGATIVE) 09/29/17 07:10 Urine Blood MODERATE (NEGATIVE) H 09/29/17 07:10 Urine Nitrate NEGATIVE (NEGATIVE) 09/29/17 07:10 Urine Bilirubin NEGATIVE (NEGATIVE) 09/29/17 07:10 Urine Urobilinogen 0.2 E.U./dL (0.2 - 1.0) 09/29/17 07:10 Ur Leukocyte Esterase SMALL (NEGATIVE) H 09/29/17 07:10 Urine RBC 5-10 /hpf (0-5) H 09/29/17 07:10 Urine WBC 6-10 /hpf (0-5) H 09/29/17 07:10 Ur Epithelial Cells MANY /lpf (FEW) 09/29/17 07:10 Urine Bacteria NONE SEEN /hpf (NONE SEEN) 09/29/17 07:10 RPR NONREACTIVE (NONREACTIVE) 09/29/17 07:20 Hepatitis A IgM Ab Negative (Negative) 09/29/17 07:20 Hep Bs Antigen Negative (Negative) 09/29/17 07:20 Hep B Core IgM Ab Negative (Negative) 09/29/17 07:20 Hepatitis C Antibody <0.1 s/co ratio (0.0-0.9) 09/29/17 07:20 - Physical Exam Vitals and I&O: Vital Signs Temp 98.2 F 10/16/17 08:00 Pulse 78 10/16/17 08:00 Resp 20 10/16/17 08:00 BP 143/74 10/16/17 08:00 Pulse Ox 96 10/16/17 08:00 Intake & Output 10/15/17 10/16/17 10/16/17 18:59 06:59 18:59 Intake Total 240 Balance 240 Intake: Oral 240 Other: # Voids 1 Active Medications: Current Medications Acetaminophen (Tylenol) 650 mg PO Q6H PRN PRN Reason: mild pain Stop: 11/27/17 22:37 Acetaminophen/Hydrocodone Bitart ([place] 5mg/325mg) 1 tab PO Q4H PRN PRN Reason: Pain (Severe) Stop: 11/28/17 14:11 Al Hydrox/Mg Hydrox/Simethicone (Maalox) 30 ml PO Q4H PRN PRN Reason: GI DISTRESS Stop: 11/27/17 22:30 Albuterol Sulfate (Albuterol 2.5mg/3ml Neb Ud) 1.25 mg HHN Q4HRT PRN PRN Reason: Shortness of Breath Stop: 11/27/17 23:12 Atorvastatin Calcium (Lipitor) 10 mg PO DAILY ESME; Protocol Stop: 11/28/17 08:59 Last Admin: 10/16/17 09:46 Dose: Not Given Bisacodyl (Dulcolax 10 Mg Supp) 10 mg RC DAILY PRN PRN Reason: Constipation Stop: 12/13/17 22:14 Last Admin: 10/15/17 17:22 Dose: 10 mg Bupropion HCl (Wellbutrin Xl) 150 mg PO DAILY ESME; Protocol Stop: 12/06/17 08:59 Last Admin: 10/16/17 09:46 Dose: Not Given Docusate Sodium (Colace) 100 mg PO BID ESME Stop: 11/28/17 08:59 Last Admin: 10/16/17 09:45 Dose: Not Given Donepezil HCl (Aricept) 5 mg PO DAILY ESME Stop: 11/28/17 08:59 Last Admin: 10/16/17 09:33 Dose: 5 mg Escitalopram Oxalate (Lexapro) 10 mg PO DAILY ESME; Protocol Stop: 11/28/17 08:59 Last Admin: 10/16/17 09:47 Dose: Not Given Fluticasone Propionate (Flonase) 1 spr NS DAILY ESME Stop: 11/28/17 14:14 Last Admin: 10/16/17 09:33 Dose: 1 spr Lorazepam (Ativan) 0.5 mg PO Q4H PRN; Protocol PRN Reason: Anxiety/agitation Stop: 11/27/17 22:30 Magnesium Hydroxide (Milk Of Magnesia) 30 ml PO HS PRN PRN Reason: Constipation Meclizine HCl (Antivert) 25 mg PO Q12H PRN PRN Reason: Vertigo Stop: 11/27/17 22:37 Miscellaneous (Probiotic Screen) 1 ea MC PRN PRN PRN Reason: PROTOCOL Stop: 11/29/17 08:14 Multivitamins/Vitamin C (Theragran) 1 tab PO DAILY ESME Stop: 11/28/17 08:59 Last Admin: 10/16/17 09:47 Dose: Not Given Pantoprazole Sodium (Protonix) 40 mg PO QDAC ESME Stop: 11/28/17 07:29 Last Admin: 10/16/17 06:37 Dose: Not Given Zolpidem Tartrate (Ambien) 5 mg PO HS PRN PRN Reason: Insomnia Stop: 11/27/17 22:30 Last Admin: 10/14/17 23:47 Dose: 5 mg Assessment/Plan - Assessment Assessment: 1.HYPERLIPIDEMIA. 2.DJD. 3.DEMENTIA - Plan Plan: cont current treatment Nutritional Asmnt/Malnutr-PDOC - Dietary Evaluation Malnutrition Findings (Please click <Entered> for more info): Nutritional Asmnt/Malnutrition Start: 10/04/17 14: 42 Text: Status: Complete Freq: Protocol: Document 10/04/17 14:42 [email or web address] (Rec: 10/04/17 14:45 [email or web address] [email or web address]) Nutritional Asmnt/Malnutrition Patient General Information Nutritional Screening Low Risk Diagnosis psychosis Pertinent Medical Hx/Surgical Hx hyperlipidemia, DJD, demntia Subjective Information Pt was in bathroom not able to visit. Per EMR, PO intake 25% . Current Diet Order/ Nutrition Support regular Pertinent Medications colace, culturelle, theragran, protonix Pertinent Labs 09/29 triglycerides 202 Nutritional Hx/Data Height 1.65 m Height (Calculated Centimeters) 165.1 Current Weight (lbs) 56.699 kg Weight (Calculated Kilograms) 56.7 Weight (Calculated Grams) 31111.0 [place] Body Weight 125 Body Mass Index (BMI) 20.7 Weight Status Approriate GI Symptoms GI Symptoms None Last BM 10/03 Difficult in: None Skin Integrity/Comment: intact Current %PO Good (75-100%) Estimated Nutritional Goals BEE in Kcals: Using Current wt Calories/Kcals/Kg 25-30 Kcals Calculated 5118-4189 Protein: Using Current wt Protein g/k-1.2 Protein Calculated 57-68 Fluid: ml 1425-1710ml (1ml/kcal) Nutritional Problem No current Nutrition Prob Problem N/A Malnutrition Alert Is there a minimum of two criteria No selected? Query Text:Check all the applicable criteria. A minimum of two criteria are recommended for diagnosis of either severe or non-severe malnutrition. Malnutrition Related to Morbid Obesity Malnutrition related to morbid obesity No Intervention/Recommendation Comments 1. Continue with regular diet as ordered. 2. Monitor PO intake, wt, labs and skin integrity 3. F/U as low risk in 7 days, 10/11 Expected Outcomes/Goals Expected Outcomes/Goals 1. PO intake to meet at least 75% of nutritional needs. 2. Wt stability, skin to remain intact, labs to approach WNL.
[2017-10-17] MEDS: Pantoprazole 40 mg EC Tab PO SCH (06:34)
[2017-10-17] MEDS: buPROPion XL 150 mg T 24 H PO SCH (09:07)
[2017-10-17] MEDS: Multivitamin Tab PO SCH (09:08)
[2017-10-17] MEDS: Atorvastatin Calcium 10 MG TAB PO SCH (09:08)
[2017-10-17] MEDS: Fluticasone Propionate 0.05mg/Actuation 16gm Nasal Spray NS SCH (10:09)
--- NOTE | 2017-10-17 18:06 | General Progress Note ---
Subjective - Review of Systems Service Date: 10/17/17 Subjective: resting comfortably cooperative no complaint Objective - Results Result Diagrams: 09/29/17 07:20 09/29/17 07:20 Recent Labs: Laboratory Last Values WBC 5.2 Th/cmm (4.8-10.8) 09/29/17 07:20 RBC 4.45 Mil/cmm (3.80-5.20) 09/29/17 07:20 Hgb 14.0 gm/dL (12-16) 09/29/17 07:20 Hct 41.8 % (41.0-60) 09/29/17 07:20 MCV 93.8 fl (81-100) 09/29/17 07:20 MCH 31.5 pg (27.0-31.0) H 09/29/17 07:20 MCHC Differential 33.6 pg (28.0-36.0) 09/29/17 07:20 RDW 13.3 % (11.5-20.0) 09/29/17 07:20 Plt Count 358 Th/cmm (150-400) 09/29/17 07:20 MPV 6.5 fl 09/29/17 07:20 Neutrophils % 55.3 % (40.0-80.0) 09/29/17 07:20 Lymphocytes % 32.4 % (20.0-50.0) 09/29/17 07:20 Monocytes % 7.1 % (2.0-10.0) 09/29/17 07:20 Eosinophils % 3.8 % (0.0-5.0) 09/29/17 07:20 Basophils % 1.4 % (0.0-2.0) 09/29/17 07:20 Sodium 140 mEq/L (136-145) 09/29/17 07:20 Potassium 4.0 mEq/L (3.5-5.1) 09/29/17 07:20 Chloride 106 mEq/L (98-107) 09/29/17 07:20 Carbon Dioxide 28.3 mEq/L (21.0-31.0) 09/29/17 07:20 Anion Gap 9.7 (7.0-16.0) 09/29/17 07:20 BUN 22 mg/dL (7-25) 09/29/17 07:20 Creatinine 0.7 mg/dL (0.6-1.2) 09/29/17 07:20 Est GFR ( Amer) > 60.0 ml/min (>90) 09/29/17 07:20 Est GFR (Non-Af Amer) > 60.0 ml/min 09/29/17 07:20 BUN/Creatinine Ratio 31.4 09/29/17 07:20 Glucose 95 mg/dL (70-105) 09/29/17 07:20 Hemoglobin A1c % 4.9 % (4.0-6.0) 09/29/17 07:20 Calcium 9.6 mg/dL (8.6-10.3) 09/29/17 07:20 Total Bilirubin 0.4 mg/dL (0.3-1.0) 09/29/17 07:20 AST 11 U/L (13-39) L 09/29/17 07:20 ALT 8 U/L (7-52) 09/29/17 07:20 Alkaline Phosphatase 59 U/L (34-104) 09/29/17 07:20 Total Protein 6.1 gm/dL (6.0-8.3) 09/29/17 07:20 Albumin 3.9 gm/dL (3.7-5.3) 09/29/17 07:20 Globulin 2.2 gm/dL 09/29/17 07:20 Albumin/Globulin Ratio 1.8 (1.0-1.8) 09/29/17 07:20 Triglycerides 202 mg/dL (<150) H 09/29/17 07:20 Cholesterol 178 mg/dL (<200) 09/29/17 07:20 LDL Cholesterol Direct 100 mg/dL (75-193) 09/29/17 07:20 HDL Cholesterol 33 mg/dL (23-92) 09/29/17 07:20 TSH 1.05 uIU/ml (0.34-5.60) 09/29/17 07:20 Urine Source CLEAN C 09/29/17 07:10 Urine Color YELLOW 09/29/17 07:10 Urine Clarity SLIGHTLY HAZY (CLEAR) 09/29/17 07:10 Urine pH 6.0 (4.6 - 8.0) 09/29/17 07:10 Ur Specific [place] 1.015 (1.005-1.030) 09/29/17 07:10 Urine Protein NEGATIVE mg/dL (NEGATIVE) 09/29/17 07:10 Urine Glucose (UA) NEGATIVE mg/dL (NEGATIVE) 09/29/17 07:10 Urine Ketones NEGATIVE mg/dL (NEGATIVE) 09/29/17 07:10 Urine Blood MODERATE (NEGATIVE) H 09/29/17 07:10 Urine Nitrate NEGATIVE (NEGATIVE) 09/29/17 07:10 Urine Bilirubin NEGATIVE (NEGATIVE) 09/29/17 07:10 Urine Urobilinogen 0.2 E.U./dL (0.2 - 1.0) 09/29/17 07:10 Ur Leukocyte Esterase SMALL (NEGATIVE) H 09/29/17 07:10 Urine RBC 5-10 /hpf (0-5) H 09/29/17 07:10 Urine WBC 6-10 /hpf (0-5) H 09/29/17 07:10 Ur Epithelial Cells MANY /lpf (FEW) 09/29/17 07:10 Urine Bacteria NONE SEEN /hpf (NONE SEEN) 09/29/17 07:10 RPR NONREACTIVE (NONREACTIVE) 09/29/17 07:20 Hepatitis A IgM Ab Negative (Negative) 09/29/17 07:20 Hep Bs Antigen Negative (Negative) 09/29/17 07:20 Hep B Core IgM Ab Negative (Negative) 09/29/17 07:20 Hepatitis C Antibody <0.1 s/co ratio (0.0-0.9) 09/29/17 07:20 - Physical Exam Vitals and I&O: Vital Signs Temp 98.1 F 10/17/17 15:33 Pulse 76 10/17/17 15:33 Resp 20 10/17/17 15:33 BP 133/74 10/17/17 15:33 Pulse Ox 95 10/17/17 15:33 Intake & Output 10/16/17 10/17/17 10/17/17 18:59 06:59 18:59 Output Total 1 Balance -1 Output: Stool 1 Other: # Voids 2 Active Medications: Current Medications Acetaminophen (Tylenol) 650 mg PO Q6H PRN PRN Reason: mild pain Stop: 11/27/17 22:37 Acetaminophen/Hydrocodone Bitart ([place] 5mg/325mg) 1 tab PO Q4H PRN PRN Reason: Pain (Severe) Stop: 11/28/17 14:11 Al Hydrox/Mg Hydrox/Simethicone (Maalox) 30 ml PO Q4H PRN PRN Reason: GI DISTRESS Stop: 11/27/17 22:30 Albuterol Sulfate (Albuterol 2.5mg/3ml Neb Ud) 1.25 mg HHN Q4HRT PRN PRN Reason: Shortness of Breath Stop: 11/27/17 23:12 Atorvastatin Calcium (Lipitor) 10 mg PO DAILY ESME; Protocol Stop: 11/28/17 08:59 Last Admin: 10/17/17 09:08 Dose: 10 mg Bisacodyl (Dulcolax 10 Mg Supp) 10 mg RC DAILY PRN PRN Reason: Constipation Stop: 12/13/17 22:14 Last Admin: 10/15/17 17:22 Dose: 10 mg Bupropion HCl (Wellbutrin Xl) 150 mg PO DAILY ESME; Protocol Stop: 12/06/17 08:59 Last Admin: 10/17/17 09:07 Dose: 150 mg Docusate Sodium (Colace) 100 mg PO BID ESME Stop: 11/28/17 08:59 Last Admin: 10/17/17 17:43 Dose: 100 mg Donepezil HCl (Aricept) 5 mg PO DAILY ESME Stop: 11/28/17 08:59 Last Admin: 10/17/17 09:08 Dose: 5 mg Escitalopram Oxalate (Lexapro) 10 mg PO DAILY ESME; Protocol Stop: 11/28/17 08:59 Last Admin: 10/17/17 09:07 Dose: 10 mg Fluticasone Propionate (Flonase) 1 spr NS DAILY ESME Stop: 11/28/17 14:14 Last Admin: 10/17/17 10:09 Dose: 1 spr Lorazepam (Ativan) 0.5 mg PO Q4H PRN; Protocol PRN Reason: Anxiety/agitation Stop: 11/27/17 22:30 Magnesium Hydroxide (Milk Of Magnesia) 30 ml PO HS PRN PRN Reason: Constipation Meclizine HCl (Antivert) 25 mg PO Q12H PRN PRN Reason: Vertigo Stop: 11/27/17 22:37 Miscellaneous (Probiotic Screen) 1 ea MC PRN PRN PRN Reason: PROTOCOL Stop: 11/29/17 08:14 Multivitamins/Vitamin C (Theragran) 1 tab PO DAILY ESME Stop: 11/28/17 08:59 Last Admin: 10/17/17 09:08 Dose: 1 tab Pantoprazole Sodium (Protonix) 40 mg PO QDAC ESME Stop: 11/28/17 07:29 Last Admin: 10/17/17 06:34 Dose: Not Given Zolpidem Tartrate (Ambien) 5 mg PO HS PRN PRN Reason: Insomnia Stop: 11/27/17 22:30 Last Admin: 10/14/17 23:47 Dose: 5 mg Assessment/Plan - Assessment Assessment: 1.HYPERLIPIDEMIA. 2.DJD. 3.DEMENTIA - Plan Plan: cont current treatment Nutritional Asmnt/Malnutr-PDOC - Dietary Evaluation Malnutrition Findings (Please click <Entered> for more info): Nutritional Asmnt/Malnutrition Start: 10/04/17 14: 42 Text: Status: Complete Freq: Protocol: Document 10/04/17 14:42 [email or web address] (Rec: 10/04/17 14:45 [email or web address] [email or web address]) Nutritional Asmnt/Malnutrition Patient General Information Nutritional Screening Low Risk Diagnosis psychosis Pertinent Medical Hx/Surgical Hx hyperlipidemia, DJD, demntia Subjective Information Pt was in bathroom not able to visit. Per EMR, PO intake 25% . Current Diet Order/ Nutrition Support regular Pertinent Medications colace, culturelle, theragran, protonix Pertinent Labs 09/29 triglycerides 202 Nutritional Hx/Data Height 1.65 m Height (Calculated Centimeters) 165.1 Current Weight (lbs) 56.699 kg Weight (Calculated Kilograms) 56.7 Weight (Calculated Grams) 21984.0 [place] Body Weight 125 Body Mass Index (BMI) 20.7 Weight Status Approriate GI Symptoms GI Symptoms None Last BM 10/03 Difficult in: None Skin Integrity/Comment: intact Current %PO Good (75-100%) Estimated Nutritional Goals BEE in Kcals: Using Current wt Calories/Kcals/Kg 25-30 Kcals Calculated 2664-5543 Protein: Using Current wt Protein g/k-1.2 Protein Calculated 57-68 Fluid: ml 1425-1710ml (1ml/kcal) Nutritional Problem No current Nutrition Prob Problem N/A Malnutrition Alert Is there a minimum of two criteria No selected? Query Text:Check all the applicable criteria. A minimum of two criteria are recommended for diagnosis of either severe or non-severe malnutrition. Malnutrition Related to Morbid Obesity Malnutrition related to morbid obesity No Intervention/Recommendation Comments 1. Continue with regular diet as ordered. 2. Monitor PO intake, wt, labs and skin integrity 3. F/U as low risk in 7 days, 10/11 Expected Outcomes/Goals Expected Outcomes/Goals 1. PO intake to meet at least 75% of nutritional needs. 2. Wt stability, skin to remain intact, labs to approach WNL.
--- NOTE | 2017-10-17 18:38 | Progress Notes ---
DATE: 10/17/2017 SUBJECTIVE: Chart reviewed and the patient interviewed. Also, discussed the patient's condition with the staff and reviewed records and labs. The patient continued to be severely anxious and she is still restless. The patient also did not sleep well last night. She also is refusing to take her medications. Also, when I tried to talk to the patient, the patient is selectively mute and has poor eye contact and low tone and rate of speech. The patient also is still isolative and minimal interaction with others. Otherwise, the patient is eating and she still needs a lot of prompt towards her ADLs. ASSESSMENT: The patient is still irritable and needs titration. TREATMENT PLAN: We will continue to monitor her behavior and her condition closely. Also, continue to work on her noncooperative and not compliant with treatment recommendations and advised the patient to take her medications regularly. JOB# [id number]
[2017-10-18] MEDS: Pantoprazole 40 mg EC Tab PO SCH (06:31)
--- NOTE | 2017-10-18 08:22 | Progress Notes ---
DATE: 10/16/2017 DICTATING FOR: Angel Hopkins MD SUBJECTIVE: The patient was interviewed. Case discussed with the staff and chart reviewed. Per the staff, the patient has been labile. She has been medication selective. She also has been anxious. The patient was interviewed. The patient reports that she is doing "I guess okay." The patient is speaking with soft speech. She does report feeling depressed. She is also withdrawn, lying in bed with poor eye contact. She is mumbling to herself. Apparently, she also has been responding to internal stimuli per the floor staff. MENTAL STATUS EXAM: The patient appears elderly with somewhat unkempt with poor eye contact. Her speech is soft and minimal. Her mood, she describes as depressed. She is also with a constricted affect, also withdrawn. Her speech is soft and minimal. Her thought process remains loose. Unable to assess suicidal and homicidal ideations due to her poor cooperation, but she does seem to be responding to internal stimuli. She also seems to have poor insight, judgement and impulse control. ASSESSMENT: This is a 72-year-old female, admitted to [facility]. The patient at this time continues to be labile. She has been refusing selective medications. She has been anxious. She has been mumbling to herself. Responding heavily to internal stimuli. Also depressed and withdrawn. Needs constant redirection on the unit and needs further titration of her medication. PLAN: We will continue the patient's acute hospitalization. We will continue medications as prescribed. We will encourage the patient to verbalize her needs. Encourage the patient to participate in group and milieu therapy. Encourage the patient to work with social work and case checker for discharge planning and the need for community resources. JOB# [id number] MANASA
[2017-10-18] MEDS: Fluticasone Propionate 0.05mg/Actuation 16gm Nasal Spray NS SCH (09:50)
[2017-10-18] MEDS: Atorvastatin Calcium 10 MG TAB PO SCH (09:55)
[2017-10-18] MEDS: buPROPion XL 150 mg T 24 H PO SCH ×2 (09:56→10:27)
[2017-10-18] MEDS: Multivitamin Tab PO SCH (09:57)
--- NOTE | 2017-10-18 14:39 | Progress Notes ---
DATE: 10/18/2017 SUBJECTIVE: The patient interviewed. Case discussed with staff. Chart reviewed. The patient labile. Medications selective. Anxious. The patient noting that she is feeling "okay." She states that she does not feel depressed today. She does not want to take her medications, but she did take her medications today. Dr. Adame felt that she may have been mumbling to self, but no current evidence of psychosis at this time. She did not want to take the Zyprexa. She does not appear to have been psychotic. I did speak with family. No previous diagnosis of psychosis in the past with schizophrenia, mostly withdrawn, poorly interactive. ASSESSMENT: The patient remains restless, engaged on exam. Awake, alert. Staff noting she has been resistant to care, complaining of diarrhea. We have found her placement. We need confirmation by family, we can send her there. The patient's more likely diagnosis seems to be cognitive decline, possibly dementia. She seems quite vegetative, anhedonic, apathetic in fact. The patient did take Lexapro today. We will monitor and follow up. Consider the addition of Namenda. JOB# [id number]
--- NOTE | 2017-10-18 20:28 | Internal Medicine Prog Note ---
Internal Medicine Subjective - Subjective Service Date: 10/18/17 Patient seen and examined:: with staff Patient is:: awake, verbal, in bed, talking, confused Per staff patient has:: no adverse event Internal Medicine Objective - Results Result Diagrams: 09/29/17 07:20 09/29/17 07:20 Recent Labs: Laboratory Last Values WBC 5.2 Th/cmm (4.8-10.8) 09/29/17 07:20 RBC 4.45 Mil/cmm (3.80-5.20) 09/29/17 07:20 Hgb 14.0 gm/dL (12-16) 09/29/17 07:20 Hct 41.8 % (41.0-60) 09/29/17 07:20 MCV 93.8 fl (81-100) 09/29/17 07:20 MCH 31.5 pg (27.0-31.0) H 09/29/17 07:20 MCHC Differential 33.6 pg (28.0-36.0) 09/29/17 07:20 RDW 13.3 % (11.5-20.0) 09/29/17 07:20 Plt Count 358 Th/cmm (150-400) 09/29/17 07:20 MPV 6.5 fl 09/29/17 07:20 Neutrophils % 55.3 % (40.0-80.0) 09/29/17 07:20 Lymphocytes % 32.4 % (20.0-50.0) 09/29/17 07:20 Monocytes % 7.1 % (2.0-10.0) 09/29/17 07:20 Eosinophils % 3.8 % (0.0-5.0) 09/29/17 07:20 Basophils % 1.4 % (0.0-2.0) 09/29/17 07:20 Sodium 140 mEq/L (136-145) 09/29/17 07:20 Potassium 4.0 mEq/L (3.5-5.1) 09/29/17 07:20 Chloride 106 mEq/L (98-107) 09/29/17 07:20 Carbon Dioxide 28.3 mEq/L (21.0-31.0) 09/29/17 07:20 Anion Gap 9.7 (7.0-16.0) 09/29/17 07:20 BUN 22 mg/dL (7-25) 09/29/17 07:20 Creatinine 0.7 mg/dL (0.6-1.2) 09/29/17 07:20 Est GFR ( Amer) > 60.0 ml/min (>90) 09/29/17 07:20 Est GFR (Non-Af Amer) > 60.0 ml/min 09/29/17 07:20 BUN/Creatinine Ratio 31.4 09/29/17 07:20 Glucose 95 mg/dL (70-105) 09/29/17 07:20 Hemoglobin A1c % 4.9 % (4.0-6.0) 09/29/17 07:20 Calcium 9.6 mg/dL (8.6-10.3) 09/29/17 07:20 Total Bilirubin 0.4 mg/dL (0.3-1.0) 09/29/17 07:20 AST 11 U/L (13-39) L 09/29/17 07:20 ALT 8 U/L (7-52) 09/29/17 07:20 Alkaline Phosphatase 59 U/L (34-104) 09/29/17 07:20 Total Protein 6.1 gm/dL (6.0-8.3) 09/29/17 07:20 Albumin 3.9 gm/dL (3.7-5.3) 09/29/17 07:20 Globulin 2.2 gm/dL 09/29/17 07:20 Albumin/Globulin Ratio 1.8 (1.0-1.8) 09/29/17 07:20 Triglycerides 202 mg/dL (<150) H 09/29/17 07:20 Cholesterol 178 mg/dL (<200) 09/29/17 07:20 LDL Cholesterol Direct 100 mg/dL (75-193) 09/29/17 07:20 HDL Cholesterol 33 mg/dL (23-92) 09/29/17 07:20 TSH 1.05 uIU/ml (0.34-5.60) 09/29/17 07:20 Urine Source CLEAN C 09/29/17 07:10 Urine Color YELLOW 09/29/17 07:10 Urine Clarity SLIGHTLY HAZY (CLEAR) 09/29/17 07:10 Urine pH 6.0 (4.6 - 8.0) 09/29/17 07:10 Ur Specific [place] 1.015 (1.005-1.030) 09/29/17 07:10 Urine Protein NEGATIVE mg/dL (NEGATIVE) 09/29/17 07:10 Urine Glucose (UA) NEGATIVE mg/dL (NEGATIVE) 09/29/17 07:10 Urine Ketones NEGATIVE mg/dL (NEGATIVE) 09/29/17 07:10 Urine Blood MODERATE (NEGATIVE) H 09/29/17 07:10 Urine Nitrate NEGATIVE (NEGATIVE) 09/29/17 07:10 Urine Bilirubin NEGATIVE (NEGATIVE) 09/29/17 07:10 Urine Urobilinogen 0.2 E.U./dL (0.2 - 1.0) 09/29/17 07:10 Ur Leukocyte Esterase SMALL (NEGATIVE) H 09/29/17 07:10 Urine RBC 5-10 /hpf (0-5) H 09/29/17 07:10 Urine WBC 6-10 /hpf (0-5) H 09/29/17 07:10 Ur Epithelial Cells MANY /lpf (FEW) 09/29/17 07:10 Urine Bacteria NONE SEEN /hpf (NONE SEEN) 09/29/17 07:10 RPR NONREACTIVE (NONREACTIVE) 09/29/17 07:20 Hepatitis A IgM Ab Negative (Negative) 09/29/17 07:20 Hep Bs Antigen Negative (Negative) 09/29/17 07:20 Hep B Core IgM Ab Negative (Negative) 09/29/17 07:20 Hepatitis C Antibody <0.1 s/co ratio (0.0-0.9) 09/29/17 07:20 - Physical Exam Vitals and I&O: Vital Signs Temp 98.5 F 10/18/17 19:58 Pulse 72 10/18/17 19:58 Resp 19 10/18/17 19:58 BP 105/55 10/18/17 19:58 Pulse Ox 96 10/18/17 19:58 Intake & Output 10/18/17 10/18/17 10/19/17 06:59 18:59 06:59 Intake Total 120 850 60 Balance 120 850 60 Intake: Oral 120 850 60 Other: # Voids 3 3 1 # Bowel Movements 0 0 0 Active Medications: Current Medications Acetaminophen (Tylenol) 650 mg PO Q6H PRN PRN Reason: mild pain Stop: 11/27/17 22:37 Acetaminophen/Hydrocodone Bitart ([place] 5mg/325mg) 1 tab PO Q4H PRN PRN Reason: Pain (Severe) Stop: 11/28/17 14:11 Al Hydrox/Mg Hydrox/Simethicone (Maalox) 30 ml PO Q4H PRN PRN Reason: GI DISTRESS Stop: 11/27/17 22:30 Last Admin: 10/18/17 10:19 Dose: 30 ml Albuterol Sulfate (Albuterol 2.5mg/3ml Neb Ud) 1.25 mg HHN Q4HRT PRN PRN Reason: Shortness of Breath Stop: 11/27/17 23:12 Atorvastatin Calcium (Lipitor) 10 mg PO DAILY ESME; Protocol Stop: 11/28/17 08:59 Last Admin: 10/18/17 09:55 Dose: Not Given Bisacodyl (Dulcolax 10 Mg Supp) 10 mg RC DAILY PRN PRN Reason: Constipation Stop: 12/13/17 22:14 Last Admin: 10/15/17 17:22 Dose: 10 mg Bupropion HCl (Wellbutrin Xl) 150 mg PO DAILY ESME; Protocol Stop: 12/06/17 08:59 Last Admin: 10/18/17 10:27 Dose: 150 mg Docusate Sodium (Colace) 100 mg PO BID ESME Stop: 11/28/17 08:59 Last Admin: 10/18/17 16:29 Dose: 100 mg Donepezil HCl (Aricept) 5 mg PO DAILY ESME Stop: 11/28/17 08:59 Last Admin: 10/18/17 09:56 Dose: Not Given Escitalopram Oxalate (Lexapro) 10 mg PO DAILY ESME; Protocol Stop: 11/28/17 08:59 Last Admin: 10/18/17 10:27 Dose: 10 mg Fluticasone Propionate (Flonase) 1 spr NS DAILY ESME Stop: 11/28/17 14:14 Last Admin: 10/18/17 09:50 Dose: 1 spr Lorazepam (Ativan) 0.5 mg PO Q4H PRN; Protocol PRN Reason: Anxiety/agitation Stop: 11/27/17 22:30 Last Admin: 10/17/17 20:30 Dose: 0.5 mg Magnesium Hydroxide (Milk Of Magnesia) 30 ml PO HS PRN PRN Reason: Constipation Meclizine HCl (Antivert) 25 mg PO Q12H PRN PRN Reason: Vertigo Stop: 11/27/17 22:37 Miscellaneous (Probiotic Screen) 1 ea MC PRN PRN PRN Reason: PROTOCOL Stop: 11/29/17 08:14 Multivitamins/Vitamin C (Theragran) 1 tab PO DAILY ESME Stop: 11/28/17 08:59 Last Admin: 10/18/17 09:57 Dose: Not Given Pantoprazole Sodium (Protonix) 40 mg PO QDAC ESME Stop: 11/28/17 07:29 Last Admin: 10/18/17 06:31 Dose: 40 mg Zolpidem Tartrate (Ambien) 5 mg PO HS PRN PRN Reason: Insomnia Stop: 11/27/17 22:30 Last Admin: 10/17/17 20:30 Dose: 5 mg General: demented HEENT: NC/AT, PERRLA, anicteric sclerae, throat clear Neck: Supple, No thyromegaly, +2 carotid pulse wo bruit, No LAD Cardiovascular: Normal S1, Normal S2, without murmur Abdomen: soft, non-tender, non-distended Neurological: no change Internal Medicine Assmt/Plan - Assessment Assessment: 1.HYPERLIPIDEMIA. 2.DJD. 3.DEMENTIA. - Plan Plan: CONTINUE ON CURRENT MEDICATION AND DIET. Nutritional Asmnt/Malnutr-PDOC - Dietary Evaluation Malnutrition Findings (Please click <Entered> for more info): Nutritional Asmnt/Malnutrition Start: 10/04/17 14: 42 Text: Status: Complete Freq: Protocol: Document 10/04/17 14:42 [email or web address] (Rec: 10/04/17 14:45 [email or web address] [email or web address]) Nutritional Asmnt/Malnutrition Patient General Information Nutritional Screening Low Risk Diagnosis psychosis Pertinent Medical Hx/Surgical Hx hyperlipidemia, DJD, demntia Subjective Information Pt was in bathroom not able to visit. Per EMR, PO intake 25% . Current Diet Order/ Nutrition Support regular Pertinent Medications colace, culturelle, theragran, protonix Pertinent Labs 09/29 triglycerides 202 Nutritional Hx/Data Height 1.65 m Height (Calculated Centimeters) 165.1 Current Weight (lbs) 56.699 kg Weight (Calculated Kilograms) 56.7 Weight (Calculated Grams) 56568.0 [place] Body Weight 125 Body Mass Index (BMI) 20.7 Weight Status Approriate GI Symptoms GI Symptoms None Last BM 7/8 Difficult in: None Skin Integrity/Comment: intact Current %PO Good (75-100%) Estimated Nutritional Goals BEE in Kcals: Using Current wt Calories/Kcals/Kg 25-30 Kcals Calculated 1585-7356 Protein: Using Current wt Protein g/k-1.2 Protein Calculated 57-68 Fluid: ml 1425-1710ml (1ml/kcal) Nutritional Problem No current Nutrition Prob Problem N/A Malnutrition Alert Is there a minimum of two criteria No selected? Query Text:Check all the applicable criteria. A minimum of two criteria are recommended for diagnosis of either severe or non-severe malnutrition. Malnutrition Related to Morbid Obesity Malnutrition related to morbid obesity No Intervention/Recommendation Comments 1. Continue with regular diet as ordered. 2. Monitor PO intake, wt, labs and skin integrity 3. F/U as low risk in 7 days, 10/11 Expected Outcomes/Goals Expected Outcomes/Goals 1. PO intake to meet at least 75% of nutritional needs. 2. Wt stability, skin to remain intact, labs to approach WNL.
[2017-10-19] MEDS: Pantoprazole 40 mg EC Tab PO SCH (06:39)
[2017-10-19] MEDS: Fluticasone Propionate 0.05mg/Actuation 16gm Nasal Spray NS SCH (09:15)
[2017-10-19] MEDS: Multivitamin Tab PO SCH (09:15)
[2017-10-19] MEDS: Atorvastatin Calcium 10 MG TAB PO SCH (09:15)
[2017-10-19] MEDS: buPROPion XL 150 mg T 24 H PO SCH (09:15)
--- NOTE | 2017-10-19 16:14 | Progress Notes ---
DATE: 10/19/2017 SUBJECTIVE: The patient remains anxious, restless, feeling "okay," "I am not depressed yet." The patient is AO to name, place, year, month, not day. She knows she was in the hospital. She knows what city she is in. She knows the season. She is not quite sure about why she is in the hospital only alluding to "medical reasons." The patient remains withdrawn, poorly interactive. On a positive note since the Zyprexa was stopped, the patient has been somewhat more interactive coming out of her room, but she is very noncompliant with medications sometimes taking them and sometimes not. She took her medications yesterday, but not today. Per collateral, the patient seems to have only responded to ECT. She has been on a gambit of medications in the past with little efficacy. Per health and social care teacher, the patient's daughter has filed an appeal because home, does not want her back. The hearing is scheduled for 11/09 at 11:45 a.m. Apparently, the daughter is coming, administrator social welfare is coming, linux systems administrator is coming. The patient is fairly indifferent about where she goes. She really has not voiced an opinion about where she wants to go. The patient notes she is sleeping well, eating without any overt prompting. ASSESSMENT AND PLAN: The patient remains symptomatic, withdrawn, not taking her medications. No overt psychotic symptoms. She is mildly disoriented, withdrawn, seems depressed. She tell me she does not take her medications because she feels like they do not work. This is likely based on reality given that collateral told me that the only thing she has responded to in the past was ECT. JOB# [id number]
--- NOTE | 2017-10-19 20:52 | Internal Medicine Prog Note ---
Internal Medicine Subjective - Subjective Service Date: 10/19/17 Patient seen and examined:: with staff Patient is:: awake, verbal, in bed, talking, confused Per staff patient has:: no adverse event Internal Medicine Objective - Results Result Diagrams: 09/29/17 07:20 09/29/17 07:20 Recent Labs: Laboratory Last Values WBC 5.2 Th/cmm (4.8-10.8) 09/29/17 07:20 RBC 4.45 Mil/cmm (3.80-5.20) 09/29/17 07:20 Hgb 14.0 gm/dL (12-16) 09/29/17 07:20 Hct 41.8 % (41.0-60) 09/29/17 07:20 MCV 93.8 fl (81-100) 09/29/17 07:20 MCH 31.5 pg (27.0-31.0) H 09/29/17 07:20 MCHC Differential 33.6 pg (28.0-36.0) 09/29/17 07:20 RDW 13.3 % (11.5-20.0) 09/29/17 07:20 Plt Count 358 Th/cmm (150-400) 09/29/17 07:20 MPV 6.5 fl 09/29/17 07:20 Neutrophils % 55.3 % (40.0-80.0) 09/29/17 07:20 Lymphocytes % 32.4 % (20.0-50.0) 09/29/17 07:20 Monocytes % 7.1 % (2.0-10.0) 09/29/17 07:20 Eosinophils % 3.8 % (0.0-5.0) 09/29/17 07:20 Basophils % 1.4 % (0.0-2.0) 09/29/17 07:20 Sodium 140 mEq/L (136-145) 09/29/17 07:20 Potassium 4.0 mEq/L (3.5-5.1) 09/29/17 07:20 Chloride 106 mEq/L (98-107) 09/29/17 07:20 Carbon Dioxide 28.3 mEq/L (21.0-31.0) 09/29/17 07:20 Anion Gap 9.7 (7.0-16.0) 09/29/17 07:20 BUN 22 mg/dL (7-25) 09/29/17 07:20 Creatinine 0.7 mg/dL (0.6-1.2) 09/29/17 07:20 Est GFR ( Amer) > 60.0 ml/min (>90) 09/29/17 07:20 Est GFR (Non-Af Amer) > 60.0 ml/min 09/29/17 07:20 BUN/Creatinine Ratio 31.4 09/29/17 07:20 Glucose 95 mg/dL (70-105) 09/29/17 07:20 Hemoglobin A1c % 4.9 % (4.0-6.0) 09/29/17 07:20 Calcium 9.6 mg/dL (8.6-10.3) 09/29/17 07:20 Total Bilirubin 0.4 mg/dL (0.3-1.0) 09/29/17 07:20 AST 11 U/L (13-39) L 09/29/17 07:20 ALT 8 U/L (7-52) 09/29/17 07:20 Alkaline Phosphatase 59 U/L (34-104) 09/29/17 07:20 Total Protein 6.1 gm/dL (6.0-8.3) 09/29/17 07:20 Albumin 3.9 gm/dL (3.7-5.3) 09/29/17 07:20 Globulin 2.2 gm/dL 09/29/17 07:20 Albumin/Globulin Ratio 1.8 (1.0-1.8) 09/29/17 07:20 Triglycerides 202 mg/dL (<150) H 09/29/17 07:20 Cholesterol 178 mg/dL (<200) 09/29/17 07:20 LDL Cholesterol Direct 100 mg/dL (75-193) 09/29/17 07:20 HDL Cholesterol 33 mg/dL (23-92) 09/29/17 07:20 TSH 1.05 uIU/ml (0.34-5.60) 09/29/17 07:20 Urine Source CLEAN C 09/29/17 07:10 Urine Color YELLOW 09/29/17 07:10 Urine Clarity SLIGHTLY HAZY (CLEAR) 09/29/17 07:10 Urine pH 6.0 (4.6 - 8.0) 09/29/17 07:10 Ur Specific [place] 1.015 (1.005-1.030) 09/29/17 07:10 Urine Protein NEGATIVE mg/dL (NEGATIVE) 09/29/17 07:10 Urine Glucose (UA) NEGATIVE mg/dL (NEGATIVE) 09/29/17 07:10 Urine Ketones NEGATIVE mg/dL (NEGATIVE) 09/29/17 07:10 Urine Blood MODERATE (NEGATIVE) H 09/29/17 07:10 Urine Nitrate NEGATIVE (NEGATIVE) 09/29/17 07:10 Urine Bilirubin NEGATIVE (NEGATIVE) 09/29/17 07:10 Urine Urobilinogen 0.2 E.U./dL (0.2 - 1.0) 09/29/17 07:10 Ur Leukocyte Esterase SMALL (NEGATIVE) H 09/29/17 07:10 Urine RBC 5-10 /hpf (0-5) H 09/29/17 07:10 Urine WBC 6-10 /hpf (0-5) H 09/29/17 07:10 Ur Epithelial Cells MANY /lpf (FEW) 09/29/17 07:10 Urine Bacteria NONE SEEN /hpf (NONE SEEN) 09/29/17 07:10 RPR NONREACTIVE (NONREACTIVE) 09/29/17 07:20 Hepatitis A IgM Ab Negative (Negative) 09/29/17 07:20 Hep Bs Antigen Negative (Negative) 09/29/17 07:20 Hep B Core IgM Ab Negative (Negative) 09/29/17 07:20 Hepatitis C Antibody <0.1 s/co ratio (0.0-0.9) 09/29/17 07:20 - Physical Exam Vitals and I&O: Vital Signs Temp 98.8 F 10/19/17 14:00 Pulse 80 10/19/17 14:00 Resp 20 10/19/17 14:00 BP 115/65 10/19/17 14:00 Pulse Ox 98 10/19/17 14:00 Intake & Output 10/19/17 10/19/17 10/20/17 06:59 18:59 06:59 Intake Total 60 400 Balance 60 400 Intake: Oral 60 400 Other: # Voids 3 2 # Bowel Movements 0 0 Active Medications: Current Medications Acetaminophen (Tylenol) 650 mg PO Q6H PRN PRN Reason: mild pain Stop: 11/27/17 22:37 Acetaminophen/Hydrocodone Bitart ([place] 5mg/325mg) 1 tab PO Q4H PRN PRN Reason: Pain (Severe) Stop: 11/28/17 14:11 Al Hydrox/Mg Hydrox/Simethicone (Maalox) 30 ml PO Q4H PRN PRN Reason: GI DISTRESS Stop: 11/27/17 22:30 Last Admin: 10/18/17 10:19 Dose: 30 ml Albuterol Sulfate (Albuterol 2.5mg/3ml Neb Ud) 1.25 mg HHN Q4HRT PRN PRN Reason: Shortness of Breath Stop: 11/27/17 23:12 Atorvastatin Calcium (Lipitor) 10 mg PO DAILY ESME; Protocol Stop: 11/28/17 08:59 Last Admin: 10/19/17 09:15 Dose: Not Given Bisacodyl (Dulcolax 10 Mg Supp) 10 mg RC DAILY PRN PRN Reason: Constipation Stop: 12/13/17 22:14 Last Admin: 10/15/17 17:22 Dose: 10 mg Bupropion HCl (Wellbutrin Xl) 150 mg PO DAILY ESME; Protocol Stop: 12/06/17 08:59 Last Admin: 10/19/17 09:15 Dose: Not Given Docusate Sodium (Colace) 100 mg PO BID [facility] Stop: 11/28/17 08:59 Last Admin: 10/19/17 16:08 Dose: Not Given Donepezil HCl (Aricept) 5 mg PO DAILY [facility] Stop: 11/28/17 08:59 Last Admin: 10/19/17 09:15 Dose: Not Given Escitalopram Oxalate (Lexapro) 10 mg PO DAILY ESME; Protocol Stop: 11/28/17 08:59 Last Admin: 10/19/17 09:15 Dose: Not Given Fluticasone Propionate (Flonase) 1 spr NS DAILY [facility] Stop: 11/28/17 14:14 Last Admin: 10/19/17 09:15 Dose: Not Given Lorazepam (Ativan) 0.5 mg PO Q4H PRN; Protocol PRN Reason: Anxiety/agitation Stop: 11/27/17 22:30 Last Admin: 10/17/17 20:30 Dose: 0.5 mg Magnesium Hydroxide (Milk Of Magnesia) 30 ml PO HS PRN PRN Reason: Constipation Meclizine HCl (Antivert) 25 mg PO Q12H PRN PRN Reason: Vertigo Stop: 11/27/17 22:37 Miscellaneous (Probiotic Screen) 1 ea MC PRN PRN PRN Reason: PROTOCOL Stop: 11/29/17 08:14 Multivitamins/Vitamin C (Theragran) 1 tab PO DAILY ESME Stop: 11/28/17 08:59 Last Admin: 10/19/17 09:15 Dose: Not Given Pantoprazole Sodium (Protonix) 40 mg PO QDAC ESME Stop: 11/28/17 07:29 Last Admin: 10/19/17 06:39 Dose: 40 mg Zolpidem Tartrate (Ambien) 5 mg PO HS PRN PRN Reason: Insomnia Stop: 11/27/17 22:30 Last Admin: 10/18/17 21:13 Dose: 5 mg General: demented HEENT: NC/AT, PERRLA, anicteric sclerae, throat clear Neck: Supple, No thyromegaly, +2 carotid pulse wo bruit, No LAD Cardiovascular: Normal S1, Normal S2, without murmur Abdomen: soft, non-tender, non-distended Neurological: no change Internal Medicine Assmt/Plan - Assessment Assessment: 1.HYPERLIPIDEMIA. 2.DJD. 3.DEMENTIA. - Plan Plan: CONTINUE ON CURRENT MEDICATION AND DIET. Nutritional Asmnt/Malnutr-PDOC - Dietary Evaluation Malnutrition Findings (Please click <Entered> for more info): Nutritional Asmnt/Malnutrition Start: 10/04/17 14: 42 Text: Status: Complete Freq: Protocol: Document 10/04/17 14:42 [email or web address] (Rec: 10/04/17 14:45 [email or web address]) Nutritional Asmnt/Malnutrition Patient General Information Nutritional Screening Low Risk Diagnosis psychosis Pertinent Medical Hx/Surgical Hx hyperlipidemia, DJD, demntia Subjective Information Pt was in bathroom not able to visit. Per EMR, PO intake 25% . Current Diet Order/ Nutrition Support regular Pertinent Medications colace, culturelle, theragran, protonix Pertinent Labs 09/29 triglycerides 202 Nutritional Hx/Data Height 1.65 m Height (Calculated Centimeters) 165.1 Current Weight (lbs) 56.699 kg Weight (Calculated Kilograms) 56.7 Weight (Calculated Grams) 16576.0 [place] Body Weight 125 Body Mass Index (BMI) 20.7 Weight Status Approriate GI Symptoms GI Symptoms None Last BM 7/8 Difficult in: None Skin Integrity/Comment: intact Current %PO Good (75-100%) Estimated Nutritional Goals BEE in Kcals: Using Current wt Calories/Kcals/Kg 25-30 Kcals Calculated 2518-1760 Protein: Using Current wt Protein g/k-1.2 Protein Calculated 57-68 Fluid: ml 1425-1710ml (1ml/kcal) Nutritional Problem No current Nutrition Prob Problem N/A Malnutrition Alert Is there a minimum of two criteria No selected? Query Text:Check all the applicable criteria. A minimum of two criteria are recommended for diagnosis of either severe or non-severe malnutrition. Malnutrition Related to Morbid Obesity Malnutrition related to morbid obesity No Intervention/Recommendation Comments 1. Continue with regular diet as ordered. 2. Monitor PO intake, wt, labs and skin integrity 3. F/U as low risk in 7 days, 10/11 Expected Outcomes/Goals Expected Outcomes/Goals 1. PO intake to meet at least 75% of nutritional needs. 2. Wt stability, skin to remain intact, labs to approach WNL.
[2017-10-20] MEDS: Pantoprazole 40 mg EC Tab PO SCH (06:31)
[2017-10-20] MEDS: Atorvastatin Calcium 10 MG TAB PO SCH (08:48)
[2017-10-20] MEDS: buPROPion XL 150 mg T 24 H PO SCH (08:49)
[2017-10-20] MEDS: Fluticasone Propionate 0.05mg/Actuation 16gm Nasal Spray NS SCH (08:50)
[2017-10-20] MEDS: Multivitamin Tab PO SCH (08:50)
--- NOTE | 2017-10-20 13:41 | Progress Notes ---
DATE: 10/20/2017 The patient did take her medications today and noting she feels "okay." Staff noting she has been in bed most of the day, very withdrawn, currently awaiting a court hearing for her chances to go back to her previous living arrangements. Still at times confused, isolative. It seems she came in with a diagnosis of depression. Her demeanor has been waxing and waning, cognition waxing and waning. Per daughter who I spoke with a while ago, the only thing that ever worked for her depression was electroconvulsive therapy. The patient denying depression, but she appears depressed, withdrawn. Some of her symptoms and affect may be due to Alzheimer dementia. Sleeping well, eating well. ASSESSMENT: The patient remains symptomatic, depressed, withdrawn, confusion noted. We will monitor and follow up. [facility]# [id number]
--- NOTE | 2017-10-20 21:42 | Internal Medicine Prog Note ---
Internal Medicine Subjective - Subjective Service Date: 10/20/17 Patient seen and examined:: with staff Patient is:: awake, verbal, in bed, talking, confused Per staff patient has:: no adverse event Internal Medicine Objective - Results Result Diagrams: 09/29/17 07:20 09/29/17 07:20 Recent Labs: Laboratory Last Values WBC 5.2 Th/cmm (4.8-10.8) 09/29/17 07:20 RBC 4.45 Mil/cmm (3.80-5.20) 09/29/17 07:20 Hgb 14.0 gm/dL (12-16) 09/29/17 07:20 Hct 41.8 % (41.0-60) 09/29/17 07:20 MCV 93.8 fl (81-100) 09/29/17 07:20 MCH 31.5 pg (27.0-31.0) H 09/29/17 07:20 MCHC Differential 33.6 pg (28.0-36.0) 09/29/17 07:20 RDW 13.3 % (11.5-20.0) 09/29/17 07:20 Plt Count 358 Th/cmm (150-400) 09/29/17 07:20 MPV 6.5 fl 09/29/17 07:20 Neutrophils % 55.3 % (40.0-80.0) 09/29/17 07:20 Lymphocytes % 32.4 % (20.0-50.0) 09/29/17 07:20 Monocytes % 7.1 % (2.0-10.0) 09/29/17 07:20 Eosinophils % 3.8 % (0.0-5.0) 09/29/17 07:20 Basophils % 1.4 % (0.0-2.0) 09/29/17 07:20 Sodium 140 mEq/L (136-145) 09/29/17 07:20 Potassium 4.0 mEq/L (3.5-5.1) 09/29/17 07:20 Chloride 106 mEq/L (98-107) 09/29/17 07:20 Carbon Dioxide 28.3 mEq/L (21.0-31.0) 09/29/17 07:20 Anion Gap 9.7 (7.0-16.0) 09/29/17 07:20 BUN 22 mg/dL (7-25) 09/29/17 07:20 Creatinine 0.7 mg/dL (0.6-1.2) 09/29/17 07:20 Est GFR ( Amer) > 60.0 ml/min (>90) 09/29/17 07:20 Est GFR (Non-Af Amer) > 60.0 ml/min 09/29/17 07:20 BUN/Creatinine Ratio 31.4 09/29/17 07:20 Glucose 95 mg/dL (70-105) 09/29/17 07:20 Hemoglobin A1c % 4.9 % (4.0-6.0) 09/29/17 07:20 Calcium 9.6 mg/dL (8.6-10.3) 09/29/17 07:20 Total Bilirubin 0.4 mg/dL (0.3-1.0) 09/29/17 07:20 AST 11 U/L (13-39) L 09/29/17 07:20 ALT 8 U/L (7-52) 09/29/17 07:20 Alkaline Phosphatase 59 U/L (34-104) 09/29/17 07:20 Total Protein 6.1 gm/dL (6.0-8.3) 09/29/17 07:20 Albumin 3.9 gm/dL (3.7-5.3) 09/29/17 07:20 Globulin 2.2 gm/dL 09/29/17 07:20 Albumin/Globulin Ratio 1.8 (1.0-1.8) 09/29/17 07:20 Triglycerides 202 mg/dL (<150) H 09/29/17 07:20 Cholesterol 178 mg/dL (<200) 09/29/17 07:20 LDL Cholesterol Direct 100 mg/dL (75-193) 09/29/17 07:20 HDL Cholesterol 33 mg/dL (23-92) 09/29/17 07:20 TSH 1.05 uIU/ml (0.34-5.60) 09/29/17 07:20 Urine Source CLEAN C 09/29/17 07:10 Urine Color YELLOW 09/29/17 07:10 Urine Clarity SLIGHTLY HAZY (CLEAR) 09/29/17 07:10 Urine pH 6.0 (4.6 - 8.0) 09/29/17 07:10 Ur Specific [place] 1.015 (1.005-1.030) 09/29/17 07:10 Urine Protein NEGATIVE mg/dL (NEGATIVE) 09/29/17 07:10 Urine Glucose (UA) NEGATIVE mg/dL (NEGATIVE) 09/29/17 07:10 Urine Ketones NEGATIVE mg/dL (NEGATIVE) 09/29/17 07:10 Urine Blood MODERATE (NEGATIVE) H 09/29/17 07:10 Urine Nitrate NEGATIVE (NEGATIVE) 09/29/17 07:10 Urine Bilirubin NEGATIVE (NEGATIVE) 09/29/17 07:10 Urine Urobilinogen 0.2 E.U./dL (0.2 - 1.0) 09/29/17 07:10 Ur Leukocyte Esterase SMALL (NEGATIVE) H 09/29/17 07:10 Urine RBC 5-10 /hpf (0-5) H 09/29/17 07:10 Urine WBC 6-10 /hpf (0-5) H 09/29/17 07:10 Ur Epithelial Cells MANY /lpf (FEW) 09/29/17 07:10 Urine Bacteria NONE SEEN /hpf (NONE SEEN) 09/29/17 07:10 RPR NONREACTIVE (NONREACTIVE) 09/29/17 07:20 Hepatitis A IgM Ab Negative (Negative) 09/29/17 07:20 Hep Bs Antigen Negative (Negative) 09/29/17 07:20 Hep B Core IgM Ab Negative (Negative) 09/29/17 07:20 Hepatitis C Antibody <0.1 s/co ratio (0.0-0.9) 09/29/17 07:20 - Physical Exam Vitals and I&O: Vital Signs Temp 97.3 F 10/20/17 19:48 Pulse 68 10/20/17 19:48 Resp 20 10/20/17 19:48 BP 104/61 10/20/17 19:48 Pulse Ox 98 10/20/17 19:48 Intake & Output 10/20/17 10/20/17 10/21/17 06:59 18:59 06:59 Intake Total 120 800 Balance 120 800 Intake: Oral 120 800 Other: # Voids 2 3 # Bowel Movements 1 Active Medications: Current Medications Acetaminophen (Tylenol) 650 mg PO Q6H PRN PRN Reason: mild pain Stop: 11/27/17 22:37 Acetaminophen/Hydrocodone Bitart ([place] 5mg/325mg) 1 tab PO Q4H PRN PRN Reason: Pain (Severe) Stop: 11/28/17 14:11 Al Hydrox/Mg Hydrox/Simethicone (Maalox) 30 ml PO Q4H PRN PRN Reason: GI DISTRESS Stop: 11/27/17 22:30 Last Admin: 10/18/17 10:19 Dose: 30 ml Albuterol Sulfate (Albuterol 2.5mg/3ml Neb Ud) 1.25 mg HHN Q4HRT PRN PRN Reason: Shortness of Breath Stop: 11/27/17 23:12 Atorvastatin Calcium (Lipitor) 10 mg PO DAILY ESME; Protocol Stop: 11/28/17 08:59 Last Admin: 10/20/17 08:48 Dose: 10 mg Bisacodyl (Dulcolax 10 Mg Supp) 10 mg RC DAILY PRN PRN Reason: Constipation Stop: 12/13/17 22:14 Last Admin: 10/15/17 17:22 Dose: 10 mg Bupropion HCl (Wellbutrin Xl) 150 mg PO DAILY ESME; Protocol Stop: 12/06/17 08:59 Last Admin: 10/20/17 08:49 Dose: 150 mg Docusate Sodium (Colace) 100 mg PO BID ESME Stop: 11/28/17 08:59 Last Admin: 10/20/17 16:28 Dose: Not Given Donepezil HCl (Aricept) 5 mg PO DAILY ESME Stop: 11/28/17 08:59 Last Admin: 10/20/17 08:49 Dose: 5 mg Escitalopram Oxalate (Lexapro) 10 mg PO DAILY ESME; Protocol Stop: 11/28/17 08:59 Last Admin: 10/20/17 08:49 Dose: 10 mg Fluticasone Propionate (Flonase) 1 spr NS DAILY ESME Stop: 11/28/17 14:14 Last Admin: 10/20/17 08:50 Dose: 1 spr Lorazepam (Ativan) 0.5 mg PO Q4H PRN; Protocol PRN Reason: Anxiety/agitation Stop: 11/27/17 22:30 Last Admin: 10/17/17 20:30 Dose: 0.5 mg Magnesium Hydroxide (Milk Of Magnesia) 30 ml PO HS PRN PRN Reason: Constipation Meclizine HCl (Antivert) 25 mg PO Q12H PRN PRN Reason: Vertigo Stop: 11/27/17 22:37 Miscellaneous (Probiotic Screen) 1 ea MC PRN PRN PRN Reason: PROTOCOL Stop: 11/29/17 08:14 Multivitamins/Vitamin C (Theragran) 1 tab PO DAILY ESME Stop: 11/28/17 08:59 Last Admin: 10/20/17 08:50 Dose: Not Given Pantoprazole Sodium (Protonix) 40 mg PO QDAC ESME Stop: 11/28/17 07:29 Last Admin: 10/20/17 06:31 Dose: Not Given Zolpidem Tartrate (Ambien) 5 mg PO HS PRN PRN Reason: Insomnia Stop: 11/27/17 22:30 Last Admin: 10/18/17 21:13 Dose: 5 mg General: demented HEENT: NC/AT, PERRLA, anicteric sclerae, throat clear Neck: Supple, No thyromegaly, +2 carotid pulse wo bruit, No LAD Cardiovascular: Normal S1, Normal S2, without murmur Abdomen: soft, non-tender, non-distended Neurological: no change Internal Medicine Assmt/Plan - Assessment Assessment: 1.HYPERLIPIDEMIA. 2.DJD. 3.DEMENTIA. - Plan Plan: CONTINUE ON CURRENT MEDICATION AND DIET. Nutritional Asmnt/Malnutr-PDOC - Dietary Evaluation Malnutrition Findings (Please click <Entered> for more info): Nutritional Asmnt/Malnutrition Start: 10/04/17 14: 42 Text: Status: Complete Freq: Protocol: Document 10/04/17 14:42 LCHENG (Rec: 10/04/17 14:45 [email or web address]) Nutritional Asmnt/Malnutrition Patient General Information Nutritional Screening Low Risk Diagnosis psychosis Pertinent Medical Hx/Surgical Hx hyperlipidemia, DJD, demntia Subjective Information Pt was in bathroom not able to visit. Per EMR, PO intake 25% . Current Diet Order/ Nutrition Support regular Pertinent Medications colace, culturelle, theragran, protonix Pertinent Labs 09/29 triglycerides 202 Nutritional Hx/Data Height 1.65 m Height (Calculated Centimeters) 165.1 Current Weight (lbs) 56.699 kg Weight (Calculated Kilograms) 56.7 Weight (Calculated Grams) 40635.0 [place] Body Weight 125 Body Mass Index (BMI) 20.7 Weight Status Approriate GI Symptoms GI Symptoms None Last BM 7/8 Difficult in: None Skin Integrity/Comment: intact Current %PO Good (75-100%) Estimated Nutritional Goals BEE in Kcals: Using Current wt Calories/Kcals/Kg 25-30 Kcals Calculated 6932-0359 Protein: Using Current wt Protein g/k-1.2 Protein Calculated 57-68 Fluid: ml 1425-1710ml (1ml/kcal) Nutritional Problem No current Nutrition Prob Problem N/A Malnutrition Alert Is there a minimum of two criteria No selected? Query Text:Check all the applicable criteria. A minimum of two criteria are recommended for diagnosis of either severe or non-severe malnutrition. Malnutrition Related to Morbid Obesity Malnutrition related to morbid obesity No Intervention/Recommendation Comments 1. Continue with regular diet as ordered. 2. Monitor PO intake, wt, labs and skin integrity 3. F/U as low risk in 7 days, 10/11 Expected Outcomes/Goals Expected Outcomes/Goals 1. PO intake to meet at least 75% of nutritional needs. 2. Wt stability, skin to remain intact, labs to approach WNL.
[2017-10-21] MEDS: Pantoprazole 40 mg EC Tab PO SCH (06:44)
[2017-10-21] MEDS: Atorvastatin Calcium 10 MG TAB PO SCH (08:45)
[2017-10-21] MEDS: buPROPion XL 150 mg T 24 H PO SCH (08:45)
[2017-10-21] MEDS: Multivitamin Tab PO SCH (08:45)
[2017-10-21] MEDS: Fluticasone Propionate 0.05mg/Actuation 16gm Nasal Spray NS SCH (08:45)
--- NOTE | 2017-10-21 19:48 | Progress Notes ---
DATE: 10/21/2017 SUBJECTIVE: The patient states she feels "okay." She states that she took her medications today. She complains of some stomach upset. Per previous hospital notes, she apparently was exhibiting psychotic symptoms; per the psychologist voices actively hallucinating. The patient denying this currently, does not remember hallucinating, but not the best historian. The patient is sleeping well, eating well. She remains mostly withdrawn, isolative, slept about 7-1/2 hours. No behavioral outbursts. She has been calm, cooperative at times, still resisting medications. ASSESSMENT: The patient is withdrawn, some bouts of confusion, not wanting to shower, very withdrawn, mostly keeps to herself. Poor orientation at times. PLAN: We will attempt to encourage medication compliance. Start low dose Abilify as adjunctive for her depression. We are currently pending a court hearing for placement. JOB# [id number]
--- NOTE | 2017-10-21 22:15 | Internal Medicine Prog Note ---
Internal Medicine Subjective - Subjective Service Date: 10/21/17 Patient seen and examined:: with staff Patient is:: awake, verbal, in bed, talking, confused Per staff patient has:: no adverse event Internal Medicine Objective - Results Result Diagrams: 09/29/17 07:20 09/29/17 07:20 Recent Labs: Laboratory Last Values WBC 5.2 Th/cmm (4.8-10.8) 09/29/17 07:20 RBC 4.45 Mil/cmm (3.80-5.20) 09/29/17 07:20 Hgb 14.0 gm/dL (12-16) 09/29/17 07:20 Hct 41.8 % (41.0-60) 09/29/17 07:20 MCV 93.8 fl (81-100) 09/29/17 07:20 MCH 31.5 pg (27.0-31.0) H 09/29/17 07:20 MCHC Differential 33.6 pg (28.0-36.0) 09/29/17 07:20 RDW 13.3 % (11.5-20.0) 09/29/17 07:20 Plt Count 358 Th/cmm (150-400) 09/29/17 07:20 MPV 6.5 fl 09/29/17 07:20 Neutrophils % 55.3 % (40.0-80.0) 09/29/17 07:20 Lymphocytes % 32.4 % (20.0-50.0) 09/29/17 07:20 Monocytes % 7.1 % (2.0-10.0) 09/29/17 07:20 Eosinophils % 3.8 % (0.0-5.0) 09/29/17 07:20 Basophils % 1.4 % (0.0-2.0) 09/29/17 07:20 Sodium 140 mEq/L (136-145) 09/29/17 07:20 Potassium 4.0 mEq/L (3.5-5.1) 09/29/17 07:20 Chloride 106 mEq/L (98-107) 09/29/17 07:20 Carbon Dioxide 28.3 mEq/L (21.0-31.0) 09/29/17 07:20 Anion Gap 9.7 (7.0-16.0) 09/29/17 07:20 BUN 22 mg/dL (7-25) 09/29/17 07:20 Creatinine 0.7 mg/dL (0.6-1.2) 09/29/17 07:20 Est GFR ( Amer) > 60.0 ml/min (>90) 09/29/17 07:20 Est GFR (Non-Af Amer) > 60.0 ml/min 09/29/17 07:20 BUN/Creatinine Ratio 31.4 09/29/17 07:20 Glucose 95 mg/dL (70-105) 09/29/17 07:20 Hemoglobin A1c % 4.9 % (4.0-6.0) 09/29/17 07:20 Calcium 9.6 mg/dL (8.6-10.3) 09/29/17 07:20 Total Bilirubin 0.4 mg/dL (0.3-1.0) 09/29/17 07:20 AST 11 U/L (13-39) L 09/29/17 07:20 ALT 8 U/L (7-52) 09/29/17 07:20 Alkaline Phosphatase 59 U/L (34-104) 09/29/17 07:20 Total Protein 6.1 gm/dL (6.0-8.3) 09/29/17 07:20 Albumin 3.9 gm/dL (3.7-5.3) 09/29/17 07:20 Globulin 2.2 gm/dL 09/29/17 07:20 Albumin/Globulin Ratio 1.8 (1.0-1.8) 09/29/17 07:20 Triglycerides 202 mg/dL (<150) H 09/29/17 07:20 Cholesterol 178 mg/dL (<200) 09/29/17 07:20 LDL Cholesterol Direct 100 mg/dL (75-193) 09/29/17 07:20 HDL Cholesterol 33 mg/dL (23-92) 09/29/17 07:20 TSH 1.05 uIU/ml (0.34-5.60) 09/29/17 07:20 Urine Source CLEAN C 09/29/17 07:10 Urine Color YELLOW 09/29/17 07:10 Urine Clarity SLIGHTLY HAZY (CLEAR) 09/29/17 07:10 Urine pH 6.0 (4.6 - 8.0) 09/29/17 07:10 Ur Specific [place] 1.015 (1.005-1.030) 09/29/17 07:10 Urine Protein NEGATIVE mg/dL (NEGATIVE) 09/29/17 07:10 Urine Glucose (UA) NEGATIVE mg/dL (NEGATIVE) 09/29/17 07:10 Urine Ketones NEGATIVE mg/dL (NEGATIVE) 09/29/17 07:10 Urine Blood MODERATE (NEGATIVE) H 09/29/17 07:10 Urine Nitrate NEGATIVE (NEGATIVE) 09/29/17 07:10 Urine Bilirubin NEGATIVE (NEGATIVE) 09/29/17 07:10 Urine Urobilinogen 0.2 E.U./dL (0.2 - 1.0) 09/29/17 07:10 Ur Leukocyte Esterase SMALL (NEGATIVE) H 09/29/17 07:10 Urine RBC 5-10 /hpf (0-5) H 09/29/17 07:10 Urine WBC 6-10 /hpf (0-5) H 09/29/17 07:10 Ur Epithelial Cells MANY /lpf (FEW) 09/29/17 07:10 Urine Bacteria NONE SEEN /hpf (NONE SEEN) 09/29/17 07:10 RPR NONREACTIVE (NONREACTIVE) 09/29/17 07:20 Hepatitis A IgM Ab Negative (Negative) 09/29/17 07:20 Hep Bs Antigen Negative (Negative) 09/29/17 07:20 Hep B Core IgM Ab Negative (Negative) 09/29/17 07:20 Hepatitis C Antibody <0.1 s/co ratio (0.0-0.9) 09/29/17 07:20 - Physical Exam Vitals and I&O: Vital Signs Temp 98.3 F 10/21/17 14:00 Pulse 80 10/21/17 20:00 Resp 20 10/21/17 20:00 BP 107/65 10/21/17 14:00 Pulse Ox 96 10/21/17 14:00 Intake & Output 10/21/17 10/21/17 10/22/17 06:59 18:59 06:59 Intake Total 120 Output Total 0 Balance 120 0 Intake: Oral 120 Output: Stool 0 Other: # Voids 2 2 Active Medications: Current Medications Acetaminophen (Tylenol) 650 mg PO Q6H PRN PRN Reason: mild pain Stop: 11/27/17 22:37 Acetaminophen/Hydrocodone Bitart ([place] 5mg/325mg) 1 tab PO Q4H PRN PRN Reason: Pain (Severe) Stop: 11/28/17 14:11 Al Hydrox/Mg Hydrox/Simethicone (Maalox) 30 ml PO Q4H PRN PRN Reason: GI DISTRESS Stop: 11/27/17 22:30 Last Admin: 10/18/17 10:19 Dose: 30 ml Albuterol Sulfate (Albuterol 2.5mg/3ml Neb Ud) 1.25 mg HHN Q4HRT PRN PRN Reason: Shortness of Breath Stop: 11/27/17 23:12 Aripiprazole (Abilify) 2 mg PO DAILY ESME; Protocol Stop: 12/21/17 08:59 Atorvastatin Calcium (Lipitor) 10 mg PO DAILY ESME; Protocol Stop: 11/28/17 08:59 Last Admin: 10/21/17 08:45 Dose: 10 mg Bisacodyl (Dulcolax 10 Mg Supp) 10 mg RC DAILY PRN PRN Reason: Constipation Stop: 12/13/17 22:14 Last Admin: 10/15/17 17:22 Dose: 10 mg Bupropion HCl (Wellbutrin Xl) 150 mg PO DAILY ESME; Protocol Stop: 12/06/17 08:59 Last Admin: 10/21/17 08:45 Dose: 150 mg Docusate Sodium (Colace) 100 mg PO BID ESME Stop: 11/28/17 08:59 Last Admin: 10/21/17 17:05 Dose: Not Given Donepezil HCl (Aricept) 5 mg PO DAILY [facility] Stop: 11/28/17 08:59 Last Admin: 10/21/17 08:45 Dose: 5 mg Escitalopram Oxalate (Lexapro) 10 mg PO DAILY ESME; Protocol Stop: 11/28/17 08:59 Last Admin: 10/21/17 08:45 Dose: 10 mg Fluticasone Propionate (Flonase) 1 spr NS DAILY ESME Stop: 11/28/17 14:14 Last Admin: 10/21/17 08:45 Dose: 1 spr Lorazepam (Ativan) 0.5 mg PO Q4H PRN; Protocol PRN Reason: Anxiety/agitation Stop: 11/27/17 22:30 Last Admin: 10/17/17 20:30 Dose: 0.5 mg Magnesium Hydroxide (Milk Of Magnesia) 30 ml PO HS PRN PRN Reason: Constipation Meclizine HCl (Antivert) 25 mg PO Q12H PRN PRN Reason: Vertigo Stop: 11/27/17 22:37 Miscellaneous (Probiotic Screen) 1 ea MC PRN PRN PRN Reason: PROTOCOL Stop: 11/29/17 08:14 Multivitamins/Vitamin C (Theragran) 1 tab PO DAILY ESME Stop: 11/28/17 08:59 Last Admin: 10/21/17 08:45 Dose: 1 tab Pantoprazole Sodium (Protonix) 40 mg PO QDAC ESME Stop: 11/28/17 07:29 Last Admin: 10/21/17 06:44 Dose: Not Given Zolpidem Tartrate (Ambien) 5 mg PO HS PRN PRN Reason: Insomnia Stop: 11/27/17 22:30 Last Admin: 10/18/17 21:13 Dose: 5 mg General: demented HEENT: NC/AT, PERRLA, anicteric sclerae, throat clear Neck: Supple, No thyromegaly, +2 carotid pulse wo bruit, No LAD Cardiovascular: Normal S1, Normal S2, without murmur Abdomen: soft, non-tender, non-distended Neurological: no change Internal Medicine Assmt/Plan - Assessment Assessment: 1.HYPERLIPIDEMIA. 2.DJD. 3.DEMENTIA. - Plan Plan: CONTINUE ON CURRENT MEDICATION AND DIET. Nutritional Asmnt/Malnutr-PDOC - Dietary Evaluation Malnutrition Findings (Please click <Entered> for more info): Nutritional Asmnt/Malnutrition Start: 10/04/17 14: 42 Text: Status: Complete Freq: Protocol: Document 10/04/17 14:42 LCHENG (Rec: 10/04/17 14:45 LCHENG [email or web address]) Nutritional Asmnt/Malnutrition Patient General Information Nutritional Screening Low Risk Diagnosis psychosis Pertinent Medical Hx/Surgical Hx hyperlipidemia, DJD, demntia Subjective Information Pt was in bathroom not able to visit. Per EMR, PO intake 25% . Current Diet Order/ Nutrition Support regular Pertinent Medications colace, culturelle, theragran, protonix Pertinent Labs 09/29 triglycerides 202 Nutritional Hx/Data Height 1.65 m Height (Calculated Centimeters) 165.1 Current Weight (lbs) 56.699 kg Weight (Calculated Kilograms) 56.7 Weight (Calculated Grams) 92607.0 [place] Body Weight 125 Body Mass Index (BMI) 20.7 Weight Status Approriate GI Symptoms GI Symptoms None Last BM 8 Difficult in: None Skin Integrity/Comment: intact Current %PO Good (75-100%) Estimated Nutritional Goals BEE in Kcals: Using Current wt Calories/Kcals/Kg 25-30 Kcals Calculated 1855-6630 Protein: Using Current wt Protein g/k-1.2 Protein Calculated 57-68 Fluid: ml 1425-1710ml (1ml/kcal) Nutritional Problem No current Nutrition Prob Problem N/A Malnutrition Alert Is there a minimum of two criteria No selected? Query Text:Check all the applicable criteria. A minimum of two criteria are recommended for diagnosis of either severe or non-severe malnutrition. Malnutrition Related to Morbid Obesity Malnutrition related to morbid obesity No Intervention/Recommendation Comments 1. Continue with regular diet as ordered. 2. Monitor PO intake, wt, labs and skin integrity 3. F/U as low risk in 7 days, 10/11 Expected Outcomes/Goals Expected Outcomes/Goals 1. PO intake to meet at least 75% of nutritional needs. 2. Wt stability, skin to remain intact, labs to approach WNL.
[2017-10-22] MEDS: Pantoprazole 40 mg EC Tab PO SCH (06:34)
[2017-10-22] MEDS: Atorvastatin Calcium 10 MG TAB PO SCH (09:14)
[2017-10-22] MEDS: buPROPion XL 150 mg T 24 H PO SCH (09:14)
[2017-10-22] MEDS: Multivitamin Tab PO SCH (09:17)
[2017-10-22] MEDS: Fluticasone Propionate 0.05mg/Actuation 16gm Nasal Spray NS SCH (09:18)
--- NOTE | 2017-10-22 18:06 | Progress Notes ---
DATE: 10/22/2017 SUBJECTIVE: The patient is seen today 10/22/2017 at about 0700 hours, took her medications today with some prompting, preoccupied, noted to be guarded, very poor historian, concerns for cognitive impairment, very impoverished on exam. Not a very good historian. Currently, we are pending the court hearing to try to get her back to her original place of residence. The patient still pacing, but she has been calm, no agitation. ASSESSMENT: The patient seemingly confused, disoriented, poor historian, and restless. Currently on low dose Abilify. She is taking her medications. We will continue to monitor. Medications were noted. The patient unable to be cared for at a lower level of care. JOB# [id number]
--- NOTE | 2017-10-22 22:56 | Internal Medicine Prog Note ---
Internal Medicine Subjective - Subjective Service Date: 10/22/17 Patient seen and examined:: with staff Patient is:: awake, verbal, in bed, talking, confused Per staff patient has:: no adverse event Internal Medicine Objective - Results Result Diagrams: 09/29/17 07:20 09/29/17 07:20 Recent Labs: Laboratory Last Values WBC 5.2 Th/cmm (4.8-10.8) 09/29/17 07:20 RBC 4.45 Mil/cmm (3.80-5.20) 09/29/17 07:20 Hgb 14.0 gm/dL (12-16) 09/29/17 07:20 Hct 41.8 % (41.0-60) 09/29/17 07:20 MCV 93.8 fl (81-100) 09/29/17 07:20 MCH 31.5 pg (27.0-31.0) H 09/29/17 07:20 MCHC Differential 33.6 pg (28.0-36.0) 09/29/17 07:20 RDW 13.3 % (11.5-20.0) 09/29/17 07:20 Plt Count 358 Th/cmm (150-400) 09/29/17 07:20 MPV 6.5 fl 09/29/17 07:20 Neutrophils % 55.3 % (40.0-80.0) 09/29/17 07:20 Lymphocytes % 32.4 % (20.0-50.0) 09/29/17 07:20 Monocytes % 7.1 % (2.0-10.0) 09/29/17 07:20 Eosinophils % 3.8 % (0.0-5.0) 09/29/17 07:20 Basophils % 1.4 % (0.0-2.0) 09/29/17 07:20 Sodium 140 mEq/L (136-145) 09/29/17 07:20 Potassium 4.0 mEq/L (3.5-5.1) 09/29/17 07:20 Chloride 106 mEq/L (98-107) 09/29/17 07:20 Carbon Dioxide 28.3 mEq/L (21.0-31.0) 09/29/17 07:20 Anion Gap 9.7 (7.0-16.0) 09/29/17 07:20 BUN 22 mg/dL (7-25) 09/29/17 07:20 Creatinine 0.7 mg/dL (0.6-1.2) 09/29/17 07:20 Est GFR ( Amer) > 60.0 ml/min (>90) 09/29/17 07:20 Est GFR (Non-Af Amer) > 60.0 ml/min 09/29/17 07:20 BUN/Creatinine Ratio 31.4 09/29/17 07:20 Glucose 95 mg/dL (70-105) 09/29/17 07:20 Hemoglobin A1c % 4.9 % (4.0-6.0) 09/29/17 07:20 Calcium 9.6 mg/dL (8.6-10.3) 09/29/17 07:20 Total Bilirubin 0.4 mg/dL (0.3-1.0) 09/29/17 07:20 AST 11 U/L (13-39) L 09/29/17 07:20 ALT 8 U/L (7-52) 09/29/17 07:20 Alkaline Phosphatase 59 U/L (34-104) 09/29/17 07:20 Total Protein 6.1 gm/dL (6.0-8.3) 09/29/17 07:20 Albumin 3.9 gm/dL (3.7-5.3) 09/29/17 07:20 Globulin 2.2 gm/dL 09/29/17 07:20 Albumin/Globulin Ratio 1.8 (1.0-1.8) 09/29/17 07:20 Triglycerides 202 mg/dL (<150) H 09/29/17 07:20 Cholesterol 178 mg/dL (<200) 09/29/17 07:20 LDL Cholesterol Direct 100 mg/dL (75-193) 09/29/17 07:20 HDL Cholesterol 33 mg/dL (23-92) 09/29/17 07:20 TSH 1.05 uIU/ml (0.34-5.60) 09/29/17 07:20 Urine Source CLEAN C 09/29/17 07:10 Urine Color YELLOW 09/29/17 07:10 Urine Clarity SLIGHTLY HAZY (CLEAR) 09/29/17 07:10 Urine pH 6.0 (4.6 - 8.0) 09/29/17 07:10 Ur Specific [place] 1.015 (1.005-1.030) 09/29/17 07:10 Urine Protein NEGATIVE mg/dL (NEGATIVE) 09/29/17 07:10 Urine Glucose (UA) NEGATIVE mg/dL (NEGATIVE) 09/29/17 07:10 Urine Ketones NEGATIVE mg/dL (NEGATIVE) 09/29/17 07:10 Urine Blood MODERATE (NEGATIVE) H 09/29/17 07:10 Urine Nitrate NEGATIVE (NEGATIVE) 09/29/17 07:10 Urine Bilirubin NEGATIVE (NEGATIVE) 09/29/17 07:10 Urine Urobilinogen 0.2 E.U./dL (0.2 - 1.0) 09/29/17 07:10 Ur Leukocyte Esterase SMALL (NEGATIVE) H 09/29/17 07:10 Urine RBC 5-10 /hpf (0-5) H 09/29/17 07:10 Urine WBC 6-10 /hpf (0-5) H 09/29/17 07:10 Ur Epithelial Cells MANY /lpf (FEW) 09/29/17 07:10 Urine Bacteria NONE SEEN /hpf (NONE SEEN) 09/29/17 07:10 RPR NONREACTIVE (NONREACTIVE) 09/29/17 07:20 Hepatitis A IgM Ab Negative (Negative) 09/29/17 07:20 Hep Bs Antigen Negative (Negative) 09/29/17 07:20 Hep B Core IgM Ab Negative (Negative) 09/29/17 07:20 Hepatitis C Antibody <0.1 s/co ratio (0.0-0.9) 09/29/17 07:20 - Physical Exam Vitals and I&O: Vital Signs Temp 97.4 F 10/22/17 14:00 Pulse 80 10/22/17 19:43 Resp 20 10/22/17 19:43 BP 103/53 10/22/17 14:00 Pulse Ox 98 10/22/17 14:00 Intake & Output 10/22/17 10/22/17 10/23/17 06:59 18:59 06:59 Intake Total 500 950 Balance 500 950 Intake: Oral 500 950 Other: # Voids 3 4 # Bowel Movements 0 1 Active Medications: Current Medications Acetaminophen (Tylenol) 650 mg PO Q6H PRN PRN Reason: mild pain Stop: 11/27/17 22:37 Acetaminophen/Hydrocodone Bitart ([place] 5mg/325mg) 1 tab PO Q4H PRN PRN Reason: Pain (Severe) Stop: 11/28/17 14:11 Al Hydrox/Mg Hydrox/Simethicone (Maalox) 30 ml PO Q4H PRN PRN Reason: GI DISTRESS Stop: 11/27/17 22:30 Last Admin: 10/18/17 10:19 Dose: 30 ml Albuterol Sulfate (Albuterol 2.5mg/3ml Neb Ud) 1.25 mg HHN Q4HRT PRN PRN Reason: Shortness of Breath Stop: 11/27/17 23:12 Aripiprazole (Abilify) 2 mg PO DAILY ESME; Protocol Stop: 12/21/17 08:59 Last Admin: 10/22/17 09:15 Dose: 2 mg Atorvastatin Calcium (Lipitor) 10 mg PO DAILY ESME; Protocol Stop: 11/28/17 08:59 Last Admin: 10/22/17 09:14 Dose: 10 mg Bisacodyl (Dulcolax 10 Mg Supp) 10 mg RC DAILY PRN PRN Reason: Constipation Stop: 12/13/17 22:14 Last Admin: 10/15/17 17:22 Dose: 10 mg Bupropion HCl (Wellbutrin Xl) 150 mg PO DAILY ESME; Protocol Stop: 12/06/17 08:59 Last Admin: 10/22/17 09:14 Dose: 150 mg Docusate Sodium (Colace) 100 mg PO BID ESME Stop: 11/28/17 08:59 Last Admin: 10/22/17 16:14 Dose: 100 mg Donepezil HCl (Aricept) 5 mg PO DAILY ESME Stop: 11/28/17 08:59 Last Admin: 10/22/17 09:16 Dose: 5 mg Escitalopram Oxalate (Lexapro) 10 mg PO DAILY ESME; Protocol Stop: 11/28/17 08:59 Last Admin: 10/22/17 09:15 Dose: 10 mg Fluticasone Propionate (Flonase) 1 spr NS DAILY ESME Stop: 11/28/17 14:14 Last Admin: 10/22/17 09:18 Dose: 1 spr Lorazepam (Ativan) 0.5 mg PO Q4H PRN; Protocol PRN Reason: Anxiety/agitation Stop: 11/27/17 22:30 Last Admin: 10/22/17 20:45 Dose: 0.5 mg Magnesium Hydroxide (Milk Of Magnesia) 30 ml PO HS PRN PRN Reason: Constipation Meclizine HCl (Antivert) 25 mg PO Q12H PRN PRN Reason: Vertigo Stop: 11/27/17 22:37 Miscellaneous (Probiotic Screen) 1 ea MC PRN PRN PRN Reason: PROTOCOL Stop: 11/29/17 08:14 Multivitamins/Vitamin C (Theragran) 1 tab PO DAILY ESME Stop: 11/28/17 08:59 Last Admin: 10/22/17 09:17 Dose: 1 tab Pantoprazole Sodium (Protonix) 40 mg PO QDAC ESME Stop: 11/28/17 07:29 Last Admin: 10/22/17 06:34 Dose: 40 mg Zolpidem Tartrate (Ambien) 5 mg PO HS PRN PRN Reason: Insomnia Stop: 11/27/17 22:30 Last Admin: 10/22/17 20:45 Dose: 5 mg General: demented HEENT: NC/AT, PERRLA, anicteric sclerae, throat clear Neck: Supple, No thyromegaly, +2 carotid pulse wo bruit, No LAD Cardiovascular: Normal S1, Normal S2, without murmur Abdomen: soft, non-tender, non-distended Neurological: no change Internal Medicine Assmt/Plan - Assessment Assessment: 1.HYPERLIPIDEMIA. 2.DJD. 3.DEMENTIA. - Plan Plan: CONTINUE ON CURRENT MEDICATION AND DIET. Nutritional Asmnt/Malnutr-PDOC - Dietary Evaluation Malnutrition Findings (Please click <Entered> for more info): Nutritional Asmnt/Malnutrition Start: 10/04/17 14: 42 Text: Status: Complete Freq: Protocol: Document 10/04/17 14:42 LCHENG (Rec: 10/04/17 14:45 [email or web address]) Nutritional Asmnt/Malnutrition Patient General Information Nutritional Screening Low Risk Diagnosis psychosis Pertinent Medical Hx/Surgical Hx hyperlipidemia, DJD, demntia Subjective Information Pt was in bathroom not able to visit. Per EMR, PO intake 25% . Current Diet Order/ Nutrition Support regular Pertinent Medications colace, culturelle, theragran, protonix Pertinent Labs 09/29 triglycerides 202 Nutritional Hx/Data Height 1.65 m Height (Calculated Centimeters) 165.1 Current Weight (lbs) 56.699 kg Weight (Calculated Kilograms) 56.7 Weight (Calculated Grams) 58389.0 [place] Body Weight 125 Body Mass Index (BMI) 20.7 Weight Status Approriate GI Symptoms GI Symptoms None Last BM 7/8 Difficult in: None Skin Integrity/Comment: intact Current %PO Good (75-100%) Estimated Nutritional Goals BEE in Kcals: Using Current wt Calories/Kcals/Kg 25-30 Kcals Calculated 1107-8404 Protein: Using Current wt Protein g/k-1.2 Protein Calculated 57-68 Fluid: ml 1425-1710ml (1ml/kcal) Nutritional Problem No current Nutrition Prob Problem N/A Malnutrition Alert Is there a minimum of two criteria No selected? Query Text:Check all the applicable criteria. A minimum of two criteria are recommended for diagnosis of either severe or non-severe malnutrition. Malnutrition Related to Morbid Obesity Malnutrition related to morbid obesity No Intervention/Recommendation Comments 1. Continue with regular diet as ordered. 2. Monitor PO intake, wt, labs and skin integrity 3. F/U as low risk in 7 days, 10/11 Expected Outcomes/Goals Expected Outcomes/Goals 1. PO intake to meet at least 75% of nutritional needs. 2. Wt stability, skin to remain intact, labs to approach WNL.
[2017-10-23] MEDS: Pantoprazole 40 mg EC Tab PO SCH (06:38)
[2017-10-23] MEDS: buPROPion XL 150 mg T 24 H PO SCH (09:01)
[2017-10-23] MEDS: Multivitamin Tab PO SCH (09:02)
[2017-10-23] MEDS: Atorvastatin Calcium 10 MG TAB PO SCH (09:02)
[2017-10-23] MEDS: Fluticasone Propionate 0.05mg/Actuation 16gm Nasal Spray NS SCH (09:07)
--- NOTE | 2017-10-23 19:47 | Internal Medicine Prog Note ---
Internal Medicine Subjective - Subjective Service Date: 10/23/17 Patient seen and examined:: without staff Patient is:: awake, verbal, in bed, talking, confused Per staff patient has:: no adverse event Internal Medicine Objective - Results Result Diagrams: 09/29/17 07:20 09/29/17 07:20 Recent Labs: Laboratory Last Values WBC 5.2 Th/cmm (4.8-10.8) 09/29/17 07:20 RBC 4.45 Mil/cmm (3.80-5.20) 09/29/17 07:20 Hgb 14.0 gm/dL (12-16) 09/29/17 07:20 Hct 41.8 % (41.0-60) 09/29/17 07:20 MCV 93.8 fl (81-100) 09/29/17 07:20 MCH 31.5 pg (27.0-31.0) H 09/29/17 07:20 MCHC Differential 33.6 pg (28.0-36.0) 09/29/17 07:20 RDW 13.3 % (11.5-20.0) 09/29/17 07:20 Plt Count 358 Th/cmm (150-400) 09/29/17 07:20 MPV 6.5 fl 09/29/17 07:20 Neutrophils % 55.3 % (40.0-80.0) 09/29/17 07:20 Lymphocytes % 32.4 % (20.0-50.0) 09/29/17 07:20 Monocytes % 7.1 % (2.0-10.0) 09/29/17 07:20 Eosinophils % 3.8 % (0.0-5.0) 09/29/17 07:20 Basophils % 1.4 % (0.0-2.0) 09/29/17 07:20 Sodium 140 mEq/L (136-145) 09/29/17 07:20 Potassium 4.0 mEq/L (3.5-5.1) 09/29/17 07:20 Chloride 106 mEq/L (98-107) 09/29/17 07:20 Carbon Dioxide 28.3 mEq/L (21.0-31.0) 09/29/17 07:20 Anion Gap 9.7 (7.0-16.0) 09/29/17 07:20 BUN 22 mg/dL (7-25) 09/29/17 07:20 Creatinine 0.7 mg/dL (0.6-1.2) 09/29/17 07:20 Est GFR ( Amer) > 60.0 ml/min (>90) 09/29/17 07:20 Est GFR (Non-Af Amer) > 60.0 ml/min 09/29/17 07:20 BUN/Creatinine Ratio 31.4 09/29/17 07:20 Glucose 95 mg/dL (70-105) 09/29/17 07:20 Hemoglobin A1c % 4.9 % (4.0-6.0) 09/29/17 07:20 Calcium 9.6 mg/dL (8.6-10.3) 09/29/17 07:20 Total Bilirubin 0.4 mg/dL (0.3-1.0) 09/29/17 07:20 AST 11 U/L (13-39) L 09/29/17 07:20 ALT 8 U/L (7-52) 09/29/17 07:20 Alkaline Phosphatase 59 U/L (34-104) 09/29/17 07:20 Total Protein 6.1 gm/dL (6.0-8.3) 09/29/17 07:20 Albumin 3.9 gm/dL (3.7-5.3) 09/29/17 07:20 Globulin 2.2 gm/dL 09/29/17 07:20 Albumin/Globulin Ratio 1.8 (1.0-1.8) 09/29/17 07:20 Triglycerides 202 mg/dL (<150) H 09/29/17 07:20 Cholesterol 178 mg/dL (<200) 09/29/17 07:20 LDL Cholesterol Direct 100 mg/dL (75-193) 09/29/17 07:20 HDL Cholesterol 33 mg/dL (23-92) 09/29/17 07:20 TSH 1.05 uIU/ml (0.34-5.60) 09/29/17 07:20 Urine Source CLEAN C 09/29/17 07:10 Urine Color YELLOW 09/29/17 07:10 Urine Clarity SLIGHTLY HAZY (CLEAR) 09/29/17 07:10 Urine pH 6.0 (4.6 - 8.0) 09/29/17 07:10 Ur Specific [place] 1.015 (1.005-1.030) 09/29/17 07:10 Urine Protein NEGATIVE mg/dL (NEGATIVE) 09/29/17 07:10 Urine Glucose (UA) NEGATIVE mg/dL (NEGATIVE) 09/29/17 07:10 Urine Ketones NEGATIVE mg/dL (NEGATIVE) 09/29/17 07:10 Urine Blood MODERATE (NEGATIVE) H 09/29/17 07:10 Urine Nitrate NEGATIVE (NEGATIVE) 09/29/17 07:10 Urine Bilirubin NEGATIVE (NEGATIVE) 09/29/17 07:10 Urine Urobilinogen 0.2 E.U./dL (0.2 - 1.0) 09/29/17 07:10 Ur Leukocyte Esterase SMALL (NEGATIVE) H 09/29/17 07:10 Urine RBC 5-10 /hpf (0-5) H 09/29/17 07:10 Urine WBC 6-10 /hpf (0-5) H 09/29/17 07:10 Ur Epithelial Cells MANY /lpf (FEW) 09/29/17 07:10 Urine Bacteria NONE SEEN /hpf (NONE SEEN) 09/29/17 07:10 RPR NONREACTIVE (NONREACTIVE) 09/29/17 07:20 Hepatitis A IgM Ab Negative (Negative) 09/29/17 07:20 Hep Bs Antigen Negative (Negative) 09/29/17 07:20 Hep B Core IgM Ab Negative (Negative) 09/29/17 07:20 Hepatitis C Antibody <0.1 s/co ratio (0.0-0.9) 09/29/17 07:20 - Physical Exam Vitals and I&O: Vital Signs Temp 99.3 F 10/23/17 14:00 Pulse 71 10/23/17 14:00 Resp 18 10/23/17 14:00 BP 117/92 10/23/17 14:00 Pulse Ox 97 10/23/17 14:00 Intake & Output 10/23/17 10/23/17 10/24/17 06:59 18:59 06:59 Intake Total 600 Balance 600 Intake: Oral 600 Other: # Voids 3 Active Medications: Current Medications Acetaminophen (Tylenol) 650 mg PO Q6H PRN PRN Reason: mild pain Stop: 11/27/17 22:37 Acetaminophen/Hydrocodone Bitart ([place] 5mg/325mg) 1 tab PO Q4H PRN PRN Reason: Pain (Severe) Stop: 11/28/17 14:11 Al Hydrox/Mg Hydrox/Simethicone (Maalox) 30 ml PO Q4H PRN PRN Reason: GI DISTRESS Stop: 11/27/17 22:30 Last Admin: 10/18/17 10:19 Dose: 30 ml Albuterol Sulfate (Albuterol 2.5mg/3ml Neb Ud) 1.25 mg HHN Q4HRT PRN PRN Reason: Shortness of Breath Stop: 11/27/17 23:12 Aripiprazole (Abilify) 2 mg PO DAILY ESME; Protocol Stop: 12/21/17 08:59 Last Admin: 10/23/17 09:03 Dose: 2 mg Atorvastatin Calcium (Lipitor) 10 mg PO DAILY ESME; Protocol Stop: 11/28/17 08:59 Last Admin: 10/23/17 09:02 Dose: 10 mg Bisacodyl (Dulcolax 10 Mg Supp) 10 mg RC DAILY PRN PRN Reason: Constipation Stop: 12/13/17 22:14 Last Admin: 10/15/17 17:22 Dose: 10 mg Bupropion HCl (Wellbutrin Xl) 150 mg PO DAILY ESME; Protocol Stop: 12/06/17 08:59 Last Admin: 10/23/17 09:01 Dose: 150 mg Docusate Sodium (Colace) 100 mg PO BID ESME Stop: 11/28/17 08:59 Last Admin: 10/23/17 17:45 Dose: Not Given Donepezil HCl (Aricept) 5 mg PO DAILY ESME Stop: 11/28/17 08:59 Last Admin: 10/23/17 09:02 Dose: 5 mg Escitalopram Oxalate (Lexapro) 10 mg PO DAILY ESME; Protocol Stop: 11/28/17 08:59 Last Admin: 10/23/17 09:01 Dose: 10 mg Fluticasone Propionate (Flonase) 1 spr NS DAILY ESME Stop: 11/28/17 14:14 Last Admin: 10/23/17 09:07 Dose: 1 spr Lorazepam (Ativan) 0.5 mg PO Q4H PRN; Protocol PRN Reason: Anxiety/agitation Stop: 11/27/17 22:30 Last Admin: 10/23/17 11:42 Dose: 0.5 mg Magnesium Hydroxide (Milk Of Magnesia) 30 ml PO HS PRN PRN Reason: Constipation Meclizine HCl (Antivert) 25 mg PO Q12H PRN PRN Reason: Vertigo Stop: 11/27/17 22:37 Miscellaneous (Probiotic Screen) 1 ea MC PRN PRN PRN Reason: PROTOCOL Stop: 11/29/17 08:14 Multivitamins/Vitamin C (Theragran) 1 tab PO DAILY ESME Stop: 11/28/17 08:59 Last Admin: 10/23/17 09:02 Dose: 1 tab Pantoprazole Sodium (Protonix) 40 mg PO QDAC ESME Stop: 11/28/17 07:29 Last Admin: 10/23/17 06:38 Dose: 40 mg Zolpidem Tartrate (Ambien) 5 mg PO HS PRN PRN Reason: Insomnia Stop: 11/27/17 22:30 Last Admin: 10/22/17 20:45 Dose: 5 mg General: demented HEENT: NC/AT, PERRLA, anicteric sclerae, throat clear Neck: Supple, No thyromegaly, +2 carotid pulse wo bruit, No LAD Cardiovascular: Normal S1, Normal S2, without murmur Abdomen: soft, non-tender, non-distended Neurological: no change Internal Medicine Assmt/Plan - Assessment Assessment: 1.HYPERLIPIDEMIA. 2.DJD. 3.DEMENTIA. - Plan Plan: CONTINUE ON CURRENT MEDICATION AND DIET. Nutritional Asmnt/Malnutr-PDOC - Dietary Evaluation Malnutrition Findings (Please click <Entered> for more info): Nutritional Asmnt/Malnutrition Start: 10/04/17 14: 42 Text: Status: Complete Freq: Protocol: Document 10/04/17 14:42 LCHENG (Rec: 10/04/17 14:45 LCHENG [email or web address]) Nutritional Asmnt/Malnutrition Patient General Information Nutritional Screening Low Risk Diagnosis psychosis Pertinent Medical Hx/Surgical Hx hyperlipidemia, DJD, demntia Subjective Information Pt was in bathroom not able to visit. Per EMR, PO intake 25% . Current Diet Order/ Nutrition Support regular Pertinent Medications colace, culturelle, theragran, protonix Pertinent Labs 09/29 triglycerides 202 Nutritional Hx/Data Height 1.65 m Height (Calculated Centimeters) 165.1 Current Weight (lbs) 56.699 kg Weight (Calculated Kilograms) 56.7 Weight (Calculated Grams) 48333.0 [place] Body Weight 125 Body Mass Index (BMI) 20.7 Weight Status Approriate GI Symptoms GI Symptoms None Last BM 7/8 Difficult in: None Skin Integrity/Comment: intact Current %PO Good (75-100%) Estimated Nutritional Goals BEE in Kcals: Using Current wt Calories/Kcals/Kg 25-30 Kcals Calculated 1629-3139 Protein: Using Current wt Protein g/k-1.2 Protein Calculated 57-68 Fluid: ml 1425-1710ml (1ml/kcal) Nutritional Problem No current Nutrition Prob Problem N/A Malnutrition Alert Is there a minimum of two criteria No selected? Query Text:Check all the applicable criteria. A minimum of two criteria are recommended for diagnosis of either severe or non-severe malnutrition. Malnutrition Related to Morbid Obesity Malnutrition related to morbid obesity No Intervention/Recommendation Comments 1. Continue with regular diet as ordered. 2. Monitor PO intake, wt, labs and skin integrity 3. F/U as low risk in 7 days, 10/11 Expected Outcomes/Goals Expected Outcomes/Goals 1. PO intake to meet at least 75% of nutritional needs. 2. Wt stability, skin to remain intact, labs to approach WNL.
--- NOTE | 2017-10-23 22:42 | Progress Notes ---
DATE: 10/23/[address] Hopkins. Case was discussed with staff of the patient, reviewed records. This is a 72-year-old female who was admitted on 09/28/2017 because of confusion, hallucinations, depression, on the hold, unable to take care of her basic needs. She is homeless, coming from [facility]. She said "I don't know why I am here," was very confused. The patient continues to be internally preoccupied, continues to be guarded, continues to be confused, unable to participate in meaningful conversation or make safe plan for self-care. They are trying to get her back to her original place of residence. The patient has been compliant with the medication with no side effects, no sedation, no nausea, no extrapyramidal symptoms. She is on Abilify 2 mg daily, Lexapro 10 mg a day and Aricept 5 mg a day and no side effects, no sedation, no nausea and no extrapyramidal symptoms. We will continue to work with the patient in group therapy, milieu therapy, adjust medication as needed. JOB# [id number]
[2017-10-24] MEDS: Pantoprazole 40 mg EC Tab PO SCH (06:51)
[2017-10-24] MEDS: Fluticasone Propionate 0.05mg/Actuation 16gm Nasal Spray NS SCH (09:49)
[2017-10-24] MEDS: Multivitamin Tab PO SCH (09:50)
[2017-10-24] MEDS: Atorvastatin Calcium 10 MG TAB PO SCH (09:50)
[2017-10-24] MEDS: buPROPion XL 150 mg T 24 H PO SCH (09:51)
--- NOTE | 2017-10-24 13:17 | Internal Medicine Prog Note ---
Internal Medicine Subjective - Subjective Service Date: 10/24/17 Patient seen and examined:: with staff Patient is:: awake, verbal, in bed, talking, confused Per staff patient has:: no adverse event Internal Medicine Objective - Results Result Diagrams: 09/29/17 07:20 09/29/17 07:20 Recent Labs: Laboratory Last Values WBC 5.2 Th/cmm (4.8-10.8) 09/29/17 07:20 RBC 4.45 Mil/cmm (3.80-5.20) 09/29/17 07:20 Hgb 14.0 gm/dL (12-16) 09/29/17 07:20 Hct 41.8 % (41.0-60) 09/29/17 07:20 MCV 93.8 fl (81-100) 09/29/17 07:20 MCH 31.5 pg (27.0-31.0) H 09/29/17 07:20 MCHC Differential 33.6 pg (28.0-36.0) 09/29/17 07:20 RDW 13.3 % (11.5-20.0) 09/29/17 07:20 Plt Count 358 Th/cmm (150-400) 09/29/17 07:20 MPV 6.5 fl 09/29/17 07:20 Neutrophils % 55.3 % (40.0-80.0) 09/29/17 07:20 Lymphocytes % 32.4 % (20.0-50.0) 09/29/17 07:20 Monocytes % 7.1 % (2.0-10.0) 09/29/17 07:20 Eosinophils % 3.8 % (0.0-5.0) 09/29/17 07:20 Basophils % 1.4 % (0.0-2.0) 09/29/17 07:20 Sodium 140 mEq/L (136-145) 09/29/17 07:20 Potassium 4.0 mEq/L (3.5-5.1) 09/29/17 07:20 Chloride 106 mEq/L (98-107) 09/29/17 07:20 Carbon Dioxide 28.3 mEq/L (21.0-31.0) 09/29/17 07:20 Anion Gap 9.7 (7.0-16.0) 09/29/17 07:20 BUN 22 mg/dL (7-25) 09/29/17 07:20 Creatinine 0.7 mg/dL (0.6-1.2) 09/29/17 07:20 Est GFR ( Amer) > 60.0 ml/min (>90) 09/29/17 07:20 Est GFR (Non-Af Amer) > 60.0 ml/min 09/29/17 07:20 BUN/Creatinine Ratio 31.4 09/29/17 07:20 Glucose 95 mg/dL (70-105) 09/29/17 07:20 Hemoglobin A1c % 4.9 % (4.0-6.0) 09/29/17 07:20 Calcium 9.6 mg/dL (8.6-10.3) 09/29/17 07:20 Total Bilirubin 0.4 mg/dL (0.3-1.0) 09/29/17 07:20 AST 11 U/L (13-39) L 09/29/17 07:20 ALT 8 U/L (7-52) 09/29/17 07:20 Alkaline Phosphatase 59 U/L (34-104) 09/29/17 07:20 Total Protein 6.1 gm/dL (6.0-8.3) 09/29/17 07:20 Albumin 3.9 gm/dL (3.7-5.3) 09/29/17 07:20 Globulin 2.2 gm/dL 09/29/17 07:20 Albumin/Globulin Ratio 1.8 (1.0-1.8) 09/29/17 07:20 Triglycerides 202 mg/dL (<150) H 09/29/17 07:20 Cholesterol 178 mg/dL (<200) 09/29/17 07:20 LDL Cholesterol Direct 100 mg/dL (75-193) 09/29/17 07:20 HDL Cholesterol 33 mg/dL (23-92) 09/29/17 07:20 TSH 1.05 uIU/ml (0.34-5.60) 09/29/17 07:20 Urine Source CLEAN C 09/29/17 07:10 Urine Color YELLOW 09/29/17 07:10 Urine Clarity SLIGHTLY HAZY (CLEAR) 09/29/17 07:10 Urine pH 6.0 (4.6 - 8.0) 09/29/17 07:10 Ur Specific [place] 1.015 (1.005-1.030) 09/29/17 07:10 Urine Protein NEGATIVE mg/dL (NEGATIVE) 09/29/17 07:10 Urine Glucose (UA) NEGATIVE mg/dL (NEGATIVE) 09/29/17 07:10 Urine Ketones NEGATIVE mg/dL (NEGATIVE) 09/29/17 07:10 Urine Blood MODERATE (NEGATIVE) H 09/29/17 07:10 Urine Nitrate NEGATIVE (NEGATIVE) 09/29/17 07:10 Urine Bilirubin NEGATIVE (NEGATIVE) 09/29/17 07:10 Urine Urobilinogen 0.2 E.U./dL (0.2 - 1.0) 09/29/17 07:10 Ur Leukocyte Esterase SMALL (NEGATIVE) H 09/29/17 07:10 Urine RBC 5-10 /hpf (0-5) H 09/29/17 07:10 Urine WBC 6-10 /hpf (0-5) H 09/29/17 07:10 Ur Epithelial Cells MANY /lpf (FEW) 09/29/17 07:10 Urine Bacteria NONE SEEN /hpf (NONE SEEN) 09/29/17 07:10 RPR NONREACTIVE (NONREACTIVE) 09/29/17 07:20 Hepatitis A IgM Ab Negative (Negative) 09/29/17 07:20 Hep Bs Antigen Negative (Negative) 09/29/17 07:20 Hep B Core IgM Ab Negative (Negative) 09/29/17 07:20 Hepatitis C Antibody <0.1 s/co ratio (0.0-0.9) 09/29/17 07:20 - Physical Exam Vitals and I&O: Vital Signs Temp 97.6 F 10/23/17 20:00 Pulse 73 10/23/17 20:00 Resp 20 10/24/17 08:00 BP 111/59 10/23/17 20:00 Pulse Ox 97 10/23/17 20:00 Intake & Output 10/23/17 10/24/17 10/24/17 18:59 06:59 18:59 Intake Total 600 Balance 600 Intake: Oral 600 Other: # Voids 3 Active Medications: Current Medications Acetaminophen (Tylenol) 650 mg PO Q6H PRN PRN Reason: mild pain Stop: 11/27/17 22:37 Acetaminophen/Hydrocodone Bitart ([place] 5mg/325mg) 1 tab PO Q4H PRN PRN Reason: Pain (Severe) Stop: 11/28/17 14:11 Al Hydrox/Mg Hydrox/Simethicone (Maalox) 30 ml PO Q4H PRN PRN Reason: GI DISTRESS Stop: 11/27/17 22:30 Last Admin: 10/18/17 10:19 Dose: 30 ml Albuterol Sulfate (Albuterol 2.5mg/3ml Neb Ud) 1.25 mg HHN Q4HRT PRN PRN Reason: Shortness of Breath Stop: 11/27/17 23:12 Aripiprazole (Abilify) 2 mg PO DAILY ESME; Protocol Stop: 12/21/17 08:59 Last Admin: 10/24/17 09:51 Dose: 2 mg Atorvastatin Calcium (Lipitor) 10 mg PO DAILY ESME; Protocol Stop: 11/28/17 08:59 Last Admin: 10/24/17 09:50 Dose: 10 mg Bisacodyl (Dulcolax 10 Mg Supp) 10 mg RC DAILY PRN PRN Reason: Constipation Stop: 12/13/17 22:14 Last Admin: 10/15/17 17:22 Dose: 10 mg Bupropion HCl (Wellbutrin Xl) 150 mg PO DAILY ESME; Protocol Stop: 12/06/17 08:59 Last Admin: 10/24/17 09:51 Dose: 150 mg Docusate Sodium (Colace) 100 mg PO BID ESME Stop: 11/28/17 08:59 Last Admin: 10/24/17 09:50 Dose: 100 mg Donepezil HCl (Aricept) 5 mg PO DAILY ESME Stop: 11/28/17 08:59 Last Admin: 10/24/17 09:51 Dose: 5 mg Escitalopram Oxalate (Lexapro) 10 mg PO DAILY ESME; Protocol Stop: 11/28/17 08:59 Last Admin: 10/24/17 09:51 Dose: 10 mg Fluticasone Propionate (Flonase) 1 spr NS DAILY ESME Stop: 11/28/17 14:14 Last Admin: 10/24/17 09:49 Dose: 1 spr Lorazepam (Ativan) 0.5 mg PO Q4H PRN; Protocol PRN Reason: Anxiety/agitation Stop: 11/27/17 22:30 Last Admin: 10/23/17 11:42 Dose: 0.5 mg Magnesium Hydroxide (Milk Of Magnesia) 30 ml PO HS PRN PRN Reason: Constipation Meclizine HCl (Antivert) 25 mg PO Q12H PRN PRN Reason: Vertigo Stop: 11/27/17 22:37 Miscellaneous (Probiotic Screen) 1 ea MC PRN PRN PRN Reason: PROTOCOL Stop: 11/29/17 08:14 Multivitamins/Vitamin C (Theragran) 1 tab PO DAILY ESME Stop: 11/28/17 08:59 Last Admin: 10/24/17 09:50 Dose: 1 tab Pantoprazole Sodium (Protonix) 40 mg PO QDAC ESME Stop: 11/28/17 07:29 Last Admin: 10/24/17 06:51 Dose: 40 mg Zolpidem Tartrate (Ambien) 5 mg PO HS PRN PRN Reason: Insomnia Stop: 11/27/17 22:30 Last Admin: 10/22/17 20:45 Dose: 5 mg General: demented HEENT: NC/AT, PERRLA, anicteric sclerae, throat clear Neck: Supple, No thyromegaly, +2 carotid pulse wo bruit, No LAD Cardiovascular: Normal S1, Normal S2, without murmur Abdomen: soft, non-tender, non-distended Neurological: no change Internal Medicine Assmt/Plan - Assessment Assessment: 1.HYPERLIPIDEMIA. 2.DJD. 3.DEMENTIA. - Plan Plan: CONTINUE ON CURRENT MEDICATION AND DIET. Nutritional Asmnt/Malnutr-PDOC - Dietary Evaluation Malnutrition Findings (Please click <Entered> for more info): Nutritional Asmnt/Malnutrition Start: 10/04/17 14: 42 Text: Status: Complete Freq: Protocol: Document 10/04/17 14:42 LCHENG (Rec: 10/04/17 14:45 LCHENG [email or web address]) Nutritional Asmnt/Malnutrition Patient General Information Nutritional Screening Low Risk Diagnosis psychosis Pertinent Medical Hx/Surgical Hx hyperlipidemia, DJD, demntia Subjective Information Pt was in bathroom not able to visit. Per EMR, PO intake 25% . Current Diet Order/ Nutrition Support regular Pertinent Medications colace, culturelle, theragran, protonix Pertinent Labs 09/29 triglycerides 202 Nutritional Hx/Data Height 1.65 m Height (Calculated Centimeters) 165.1 Current Weight (lbs) 56.699 kg Weight (Calculated Kilograms) 56.7 Weight (Calculated Grams) 31773.0 [place] Body Weight 125 Body Mass Index (BMI) 20.7 Weight Status Approriate GI Symptoms GI Symptoms None Last BM 7/8 Difficult in: None Skin Integrity/Comment: intact Current %PO Good (75-100%) Estimated Nutritional Goals BEE in Kcals: Using Current wt Calories/Kcals/Kg 25-30 Kcals Calculated 7027-4962 Protein: Using Current wt Protein g/k-1.2 Protein Calculated 57-68 Fluid: ml 1425-1710ml (1ml/kcal) Nutritional Problem No current Nutrition Prob Problem N/A Malnutrition Alert Is there a minimum of two criteria No selected? Query Text:Check all the applicable criteria. A minimum of two criteria are recommended for diagnosis of either severe or non-severe malnutrition. Malnutrition Related to Morbid Obesity Malnutrition related to morbid obesity No Intervention/Recommendation Comments 1. Continue with regular diet as ordered. 2. Monitor PO intake, wt, labs and skin integrity 3. F/U as low risk in 7 days, 10/11 Expected Outcomes/Goals Expected Outcomes/Goals 1. PO intake to meet at least 75% of nutritional needs. 2. Wt stability, skin to remain intact, labs to approach WNL.
--- NOTE | 2017-10-24 22:33 | Progress Notes ---
DATE: 10/24/[address] Hopkins. SUBJECTIVE: Case was discussed with staff of the patient, reviewed records. The patient continues to be confused, responding to internal stimuli, depressed, unable to care for her basic needs or make safe plan for self-care. She continues to be unable to state a plan for self-care, don't know why she is here, unpredictable, impulsive, needing redirection with very poor insight. She was initiated on Abilify and Aricept with no side effects, no sedation, no nausea, and no extrapyramidal symptoms. Her lab work showed CBC with high MCH, the rest within normal range. Her chemistry panel shows low AST. The rest is within normal range. Triglyceride is high at 202. Urinalysis was high with ____ blood and small leukocytic esterase, defer decision to the primary care physician ____. Hepatitis panel is negative. We will continue to work with the patient in group therapy, milieu therapy, and adjust the medications as needed. JOB# [id number]
[2017-10-25] MEDS: Pantoprazole 40 mg EC Tab PO SCH (06:34)
[2017-10-25] MEDS: Atorvastatin Calcium 10 MG TAB PO SCH (10:23)
[2017-10-25] MEDS: buPROPion XL 150 mg T 24 H PO SCH (10:24)
[2017-10-25] MEDS: Fluticasone Propionate 0.05mg/Actuation 16gm Nasal Spray NS SCH (10:26)
[2017-10-25] MEDS: Multivitamin Tab PO SCH (10:26)
--- NOTE | 2017-10-25 11:17 | Progress Notes ---
DATE: 10/25/2017 SUBJECTIVE: The patient is currently in the hospital, still noted to be at times confused, not the best historian, coming in on Aricept, seems to be a little more compliant with her medications, although still requiring some prompting. Mostly withdrawn, isolative in her room, pacing back and forth. She is denying any voices. No active psychotic symptoms, but at times staff noting she seems to be mumbling to self. The patient does not appear paranoid. She seems to have presented initially with psychotic symptoms, but the symptoms seem to be dissipating. Sleeping 6-8 hours per night. ASSESSMENT: The patient remains symptomatic, withdrawn, mostly in her room. No behaviors, no agitation, somewhat better med compliance. We will continue to monitor. Coordinate care with social work regarding safe discharge plan and good psychiatric followup. JOB# [id number]
--- NOTE | 2017-10-25 22:16 | Internal Medicine Prog Note ---
Internal Medicine Subjective - Subjective Service Date: 10/25/17 Patient seen and examined:: with staff Patient is:: awake, verbal, in bed, talking, confused Per staff patient has:: no adverse event Internal Medicine Objective - Results Result Diagrams: 09/29/17 07:20 09/29/17 07:20 Recent Labs: Laboratory Last Values WBC 5.2 Th/cmm (4.8-10.8) 09/29/17 07:20 RBC 4.45 Mil/cmm (3.80-5.20) 09/29/17 07:20 Hgb 14.0 gm/dL (12-16) 09/29/17 07:20 Hct 41.8 % (41.0-60) 09/29/17 07:20 MCV 93.8 fl (81-100) 09/29/17 07:20 MCH 31.5 pg (27.0-31.0) H 09/29/17 07:20 MCHC Differential 33.6 pg (28.0-36.0) 09/29/17 07:20 RDW 13.3 % (11.5-20.0) 09/29/17 07:20 Plt Count 358 Th/cmm (150-400) 09/29/17 07:20 MPV 6.5 fl 09/29/17 07:20 Neutrophils % 55.3 % (40.0-80.0) 09/29/17 07:20 Lymphocytes % 32.4 % (20.0-50.0) 09/29/17 07:20 Monocytes % 7.1 % (2.0-10.0) 09/29/17 07:20 Eosinophils % 3.8 % (0.0-5.0) 09/29/17 07:20 Basophils % 1.4 % (0.0-2.0) 09/29/17 07:20 Sodium 140 mEq/L (136-145) 09/29/17 07:20 Potassium 4.0 mEq/L (3.5-5.1) 09/29/17 07:20 Chloride 106 mEq/L (98-107) 09/29/17 07:20 Carbon Dioxide 28.3 mEq/L (21.0-31.0) 09/29/17 07:20 Anion Gap 9.7 (7.0-16.0) 09/29/17 07:20 BUN 22 mg/dL (7-25) 09/29/17 07:20 Creatinine 0.7 mg/dL (0.6-1.2) 09/29/17 07:20 Est GFR ( Amer) > 60.0 ml/min (>90) 09/29/17 07:20 Est GFR (Non-Af Amer) > 60.0 ml/min 09/29/17 07:20 BUN/Creatinine Ratio 31.4 09/29/17 07:20 Glucose 95 mg/dL (70-105) 09/29/17 07:20 Hemoglobin A1c % 4.9 % (4.0-6.0) 09/29/17 07:20 Calcium 9.6 mg/dL (8.6-10.3) 09/29/17 07:20 Total Bilirubin 0.4 mg/dL (0.3-1.0) 09/29/17 07:20 AST 11 U/L (13-39) L 09/29/17 07:20 ALT 8 U/L (7-52) 09/29/17 07:20 Alkaline Phosphatase 59 U/L (34-104) 09/29/17 07:20 Total Protein 6.1 gm/dL (6.0-8.3) 09/29/17 07:20 Albumin 3.9 gm/dL (3.7-5.3) 09/29/17 07:20 Globulin 2.2 gm/dL 09/29/17 07:20 Albumin/Globulin Ratio 1.8 (1.0-1.8) 09/29/17 07:20 Triglycerides 202 mg/dL (<150) H 09/29/17 07:20 Cholesterol 178 mg/dL (<200) 09/29/17 07:20 LDL Cholesterol Direct 100 mg/dL (75-193) 09/29/17 07:20 HDL Cholesterol 33 mg/dL (23-92) 09/29/17 07:20 TSH 1.05 uIU/ml (0.34-5.60) 09/29/17 07:20 Urine Source CLEAN C 09/29/17 07:10 Urine Color YELLOW 09/29/17 07:10 Urine Clarity SLIGHTLY HAZY (CLEAR) 09/29/17 07:10 Urine pH 6.0 (4.6 - 8.0) 09/29/17 07:10 Ur Specific [place] 1.015 (1.005-1.030) 09/29/17 07:10 Urine Protein NEGATIVE mg/dL (NEGATIVE) 09/29/17 07:10 Urine Glucose (UA) NEGATIVE mg/dL (NEGATIVE) 09/29/17 07:10 Urine Ketones NEGATIVE mg/dL (NEGATIVE) 09/29/17 07:10 Urine Blood MODERATE (NEGATIVE) H 09/29/17 07:10 Urine Nitrate NEGATIVE (NEGATIVE) 09/29/17 07:10 Urine Bilirubin NEGATIVE (NEGATIVE) 09/29/17 07:10 Urine Urobilinogen 0.2 E.U./dL (0.2 - 1.0) 09/29/17 07:10 Ur Leukocyte Esterase SMALL (NEGATIVE) H 09/29/17 07:10 Urine RBC 5-10 /hpf (0-5) H 09/29/17 07:10 Urine WBC 6-10 /hpf (0-5) H 09/29/17 07:10 Ur Epithelial Cells MANY /lpf (FEW) 09/29/17 07:10 Urine Bacteria NONE SEEN /hpf (NONE SEEN) 09/29/17 07:10 RPR NONREACTIVE (NONREACTIVE) 09/29/17 07:20 Hepatitis A IgM Ab Negative (Negative) 09/29/17 07:20 Hep Bs Antigen Negative (Negative) 09/29/17 07:20 Hep B Core IgM Ab Negative (Negative) 09/29/17 07:20 Hepatitis C Antibody <0.1 s/co ratio (0.0-0.9) 09/29/17 07:20 - Physical Exam Vitals and I&O: Vital Signs Temp 98.4 F 10/25/17 20:19 Pulse 71 10/25/17 20:19 Resp 20 10/25/17 20:19 BP 120/63 10/25/17 20:19 Pulse Ox 95 10/25/17 20:19 Intake & Output 10/25/17 10/25/17 10/26/17 06:59 18:59 06:59 Intake Total 120 1200 120 Balance 120 1200 120 Intake: Oral 120 1200 120 Other: # Voids 3 3 1 # Bowel Movements 0 1 0 Active Medications: Current Medications Acetaminophen (Tylenol) 650 mg PO Q6H PRN PRN Reason: mild pain Stop: 11/27/17 22:37 Acetaminophen/Hydrocodone Bitart ([place] 5mg/325mg) 1 tab PO Q4H PRN PRN Reason: Pain (Severe) Stop: 11/28/17 14:11 Al Hydrox/Mg Hydrox/Simethicone (Maalox) 30 ml PO Q4H PRN PRN Reason: GI DISTRESS Stop: 11/27/17 22:30 Last Admin: 10/18/17 10:19 Dose: 30 ml Albuterol Sulfate (Albuterol 2.5mg/3ml Neb Ud) 1.25 mg HHN Q4HRT PRN PRN Reason: Shortness of Breath Stop: 11/27/17 23:12 Aripiprazole (Abilify) 2 mg PO DAILY ESME; Protocol Stop: 12/21/17 08:59 Last Admin: 10/25/17 10:24 Dose: 2 mg Atorvastatin Calcium (Lipitor) 10 mg PO DAILY ESME; Protocol Stop: 11/28/17 08:59 Last Admin: 10/25/17 10:23 Dose: 10 mg Bisacodyl (Dulcolax 10 Mg Supp) 10 mg RC DAILY PRN PRN Reason: Constipation Stop: 12/13/17 22:14 Last Admin: 10/15/17 17:22 Dose: 10 mg Bupropion HCl (Wellbutrin Xl) 150 mg PO DAILY ESME; Protocol Stop: 12/06/17 08:59 Last Admin: 10/25/17 10:24 Dose: 150 mg Docusate Sodium (Colace) 100 mg PO BID ESME Stop: 11/28/17 08:59 Last Admin: 10/25/17 10:25 Dose: Not Given Donepezil HCl (Aricept) 5 mg PO DAILY ESME Stop: 11/28/17 08:59 Last Admin: 10/25/17 10:25 Dose: 5 mg Escitalopram Oxalate (Lexapro) 10 mg PO DAILY ESME; Protocol Stop: 11/28/17 08:59 Last Admin: 10/25/17 10:24 Dose: 10 mg Fluticasone Propionate (Flonase) 1 spr NS DAILY ESME Stop: 11/28/17 14:14 Last Admin: 10/25/17 10:26 Dose: Not Given Lorazepam (Ativan) 0.5 mg PO Q4H PRN; Protocol PRN Reason: Anxiety/agitation Stop: 11/27/17 22:30 Last Admin: 10/23/17 11:42 Dose: 0.5 mg Magnesium Hydroxide (Milk Of Magnesia) 30 ml PO HS PRN PRN Reason: Constipation Meclizine HCl (Antivert) 25 mg PO Q12H PRN PRN Reason: Vertigo Stop: 11/27/17 22:37 Miscellaneous (Probiotic Screen) 1 ea MC PRN PRN PRN Reason: PROTOCOL Stop: 11/29/17 08:14 Multivitamins/Vitamin C (Theragran) 1 tab PO DAILY ESME Stop: 11/28/17 08:59 Last Admin: 10/25/17 10:26 Dose: Not Given Pantoprazole Sodium (Protonix) 40 mg PO QDAC ESME Stop: 11/28/17 07:29 Last Admin: 10/25/17 06:34 Dose: 40 mg Zolpidem Tartrate (Ambien) 5 mg PO HS PRN PRN Reason: Insomnia Stop: 11/27/17 22:30 Last Admin: 10/22/17 20:45 Dose: 5 mg General: demented HEENT: NC/AT, PERRLA, anicteric sclerae, throat clear Neck: Supple, No thyromegaly, +2 carotid pulse wo bruit, No LAD Cardiovascular: Normal S1, Normal S2, without murmur Abdomen: soft, non-tender, non-distended Neurological: no change Internal Medicine Assmt/Plan - Assessment Assessment: 1.HYPERLIPIDEMIA. 2.DJD. 3.DEMENTIA. - Plan Plan: CONTINUE ON CURRENT MEDICATION AND DIET. Nutritional Asmnt/Malnutr-PDOC - Dietary Evaluation Malnutrition Findings (Please click <Entered> for more info): Nutritional Asmnt/Malnutrition Start: 10/04/17 14: 42 Text: Status: Complete Freq: Protocol: Document 10/04/17 14:42 [email or web address] (Rec: 10/04/17 14:45 KAREN [email or web address]) Nutritional Asmnt/Malnutrition Patient General Information Nutritional Screening Low Risk Diagnosis psychosis Pertinent Medical Hx/Surgical Hx hyperlipidemia, DJD, demntia Subjective Information Pt was in bathroom not able to visit. Per EMR, PO intake 25% . Current Diet Order/ Nutrition Support regular Pertinent Medications colace, culturelle, theragran, protonix Pertinent Labs 09/29 triglycerides 202 Nutritional Hx/Data Height 1.65 m Height (Calculated Centimeters) 165.1 Current Weight (lbs) 56.699 kg Weight (Calculated Kilograms) 56.7 Weight (Calculated Grams) 62837.0 [place] Body Weight 125 Body Mass Index (BMI) 20.7 Weight Status Approriate GI Symptoms GI Symptoms None Last BM 8 Difficult in: None Skin Integrity/Comment: intact Current %PO Good (75-100%) Estimated Nutritional Goals BEE in Kcals: Using Current wt Calories/Kcals/Kg 25-30 Kcals Calculated 3847-1693 Protein: Using Current wt Protein g/k-1.2 Protein Calculated 57-68 Fluid: ml 1425-1710ml (1ml/kcal) Nutritional Problem No current Nutrition Prob Problem N/A Malnutrition Alert Is there a minimum of two criteria No selected? Query Text:Check all the applicable criteria. A minimum of two criteria are recommended for diagnosis of either severe or non-severe malnutrition. Malnutrition Related to Morbid Obesity Malnutrition related to morbid obesity No Intervention/Recommendation Comments 1. Continue with regular diet as ordered. 2. Monitor PO intake, wt, labs and skin integrity 3. F/U as low risk in 7 days, 10/11 Expected Outcomes/Goals Expected Outcomes/Goals 1. PO intake to meet at least 75% of nutritional needs. 2. Wt stability, skin to remain intact, labs to approach WNL.
[2017-10-26] MEDS: Pantoprazole 40 mg EC Tab PO SCH (06:31)
[2017-10-26] MEDS: buPROPion XL 150 mg T 24 H PO SCH (10:29)
[2017-10-26] MEDS: Atorvastatin Calcium 10 MG TAB PO SCH (10:30)
[2017-10-26] MEDS: Fluticasone Propionate 0.05mg/Actuation 16gm Nasal Spray NS SCH (10:31)
[2017-10-26] MEDS: Multivitamin Tab PO SCH (10:31)
--- NOTE | 2017-10-26 11:55 | Internal Medicine Prog Note ---
Internal Medicine Subjective - Subjective Service Date: 10/26/17 Patient seen and examined:: without staff Patient is:: awake, verbal, in bed, talking, confused Per staff patient has:: no adverse event Internal Medicine Objective - Results Result Diagrams: 09/29/17 07:20 09/29/17 07:20 Recent Labs: Laboratory Last Values WBC 5.2 Th/cmm (4.8-10.8) 09/29/17 07:20 RBC 4.45 Mil/cmm (3.80-5.20) 09/29/17 07:20 Hgb 14.0 gm/dL (12-16) 09/29/17 07:20 Hct 41.8 % (41.0-60) 09/29/17 07:20 MCV 93.8 fl (81-100) 09/29/17 07:20 MCH 31.5 pg (27.0-31.0) H 09/29/17 07:20 MCHC Differential 33.6 pg (28.0-36.0) 09/29/17 07:20 RDW 13.3 % (11.5-20.0) 09/29/17 07:20 Plt Count 358 Th/cmm (150-400) 09/29/17 07:20 MPV 6.5 fl 09/29/17 07:20 Neutrophils % 55.3 % (40.0-80.0) 09/29/17 07:20 Lymphocytes % 32.4 % (20.0-50.0) 09/29/17 07:20 Monocytes % 7.1 % (2.0-10.0) 09/29/17 07:20 Eosinophils % 3.8 % (0.0-5.0) 09/29/17 07:20 Basophils % 1.4 % (0.0-2.0) 09/29/17 07:20 Sodium 140 mEq/L (136-145) 09/29/17 07:20 Potassium 4.0 mEq/L (3.5-5.1) 09/29/17 07:20 Chloride 106 mEq/L (98-107) 09/29/17 07:20 Carbon Dioxide 28.3 mEq/L (21.0-31.0) 09/29/17 07:20 Anion Gap 9.7 (7.0-16.0) 09/29/17 07:20 BUN 22 mg/dL (7-25) 09/29/17 07:20 Creatinine 0.7 mg/dL (0.6-1.2) 09/29/17 07:20 Est GFR ( Amer) > 60.0 ml/min (>90) 09/29/17 07:20 Est GFR (Non-Af Amer) > 60.0 ml/min 09/29/17 07:20 BUN/Creatinine Ratio 31.4 09/29/17 07:20 Glucose 95 mg/dL (70-105) 09/29/17 07:20 Hemoglobin A1c % 4.9 % (4.0-6.0) 09/29/17 07:20 Calcium 9.6 mg/dL (8.6-10.3) 09/29/17 07:20 Total Bilirubin 0.4 mg/dL (0.3-1.0) 09/29/17 07:20 AST 11 U/L (13-39) L 09/29/17 07:20 ALT 8 U/L (7-52) 09/29/17 07:20 Alkaline Phosphatase 59 U/L (34-104) 09/29/17 07:20 Total Protein 6.1 gm/dL (6.0-8.3) 09/29/17 07:20 Albumin 3.9 gm/dL (3.7-5.3) 09/29/17 07:20 Globulin 2.2 gm/dL 09/29/17 07:20 Albumin/Globulin Ratio 1.8 (1.0-1.8) 09/29/17 07:20 Triglycerides 202 mg/dL (<150) H 09/29/17 07:20 Cholesterol 178 mg/dL (<200) 09/29/17 07:20 LDL Cholesterol Direct 100 mg/dL (75-193) 09/29/17 07:20 HDL Cholesterol 33 mg/dL (23-92) 09/29/17 07:20 TSH 1.05 uIU/ml (0.34-5.60) 09/29/17 07:20 Urine Source CLEAN C 09/29/17 07:10 Urine Color YELLOW 09/29/17 07:10 Urine Clarity SLIGHTLY HAZY (CLEAR) 09/29/17 07:10 Urine pH 6.0 (4.6 - 8.0) 09/29/17 07:10 Ur Specific [place] 1.015 (1.005-1.030) 09/29/17 07:10 Urine Protein NEGATIVE mg/dL (NEGATIVE) 09/29/17 07:10 Urine Glucose (UA) NEGATIVE mg/dL (NEGATIVE) 09/29/17 07:10 Urine Ketones NEGATIVE mg/dL (NEGATIVE) 09/29/17 07:10 Urine Blood MODERATE (NEGATIVE) H 09/29/17 07:10 Urine Nitrate NEGATIVE (NEGATIVE) 09/29/17 07:10 Urine Bilirubin NEGATIVE (NEGATIVE) 09/29/17 07:10 Urine Urobilinogen 0.2 E.U./dL (0.2 - 1.0) 09/29/17 07:10 Ur Leukocyte Esterase SMALL (NEGATIVE) H 09/29/17 07:10 Urine RBC 5-10 /hpf (0-5) H 09/29/17 07:10 Urine WBC 6-10 /hpf (0-5) H 09/29/17 07:10 Ur Epithelial Cells MANY /lpf (FEW) 09/29/17 07:10 Urine Bacteria NONE SEEN /hpf (NONE SEEN) 09/29/17 07:10 RPR NONREACTIVE (NONREACTIVE) 09/29/17 07:20 Hepatitis A IgM Ab Negative (Negative) 09/29/17 07:20 Hep Bs Antigen Negative (Negative) 09/29/17 07:20 Hep B Core IgM Ab Negative (Negative) 09/29/17 07:20 Hepatitis C Antibody <0.1 s/co ratio (0.0-0.9) 09/29/17 07:20 - Physical Exam Vitals and I&O: Vital Signs Temp 99.0 F 10/26/17 06:17 Pulse 80 10/26/17 06:17 Resp 20 10/26/17 06:17 BP 128/69 10/26/17 06:17 Pulse Ox 97 10/26/17 06:17 Intake & Output 10/25/17 10/26/17 10/26/17 18:59 06:59 18:59 Intake Total 1200 240 Balance 1200 240 Intake: Oral 1200 240 Other: # Voids 3 1 # Bowel Movements 1 0 Active Medications: Current Medications Acetaminophen (Tylenol) 650 mg PO Q6H PRN PRN Reason: mild pain Stop: 11/27/17 22:37 Acetaminophen/Hydrocodone Bitart ([place] 5mg/325mg) 1 tab PO Q4H PRN PRN Reason: Pain (Severe) Stop: 11/28/17 14:11 Al Hydrox/Mg Hydrox/Simethicone (Maalox) 30 ml PO Q4H PRN PRN Reason: GI DISTRESS Stop: 11/27/17 22:30 Last Admin: 10/18/17 10:19 Dose: 30 ml Albuterol Sulfate (Albuterol 2.5mg/3ml Neb Ud) 1.25 mg HHN Q4HRT PRN PRN Reason: Shortness of Breath Stop: 11/27/17 23:12 Aripiprazole (Abilify) 2 mg PO DAILY ESME; Protocol Stop: 12/21/17 08:59 Last Admin: 10/26/17 10:29 Dose: 2 mg Atorvastatin Calcium (Lipitor) 10 mg PO DAILY ESME; Protocol Stop: 11/28/17 08:59 Last Admin: 10/26/17 10:30 Dose: 10 mg Bisacodyl (Dulcolax 10 Mg Supp) 10 mg RC DAILY PRN PRN Reason: Constipation Stop: 12/13/17 22:14 Last Admin: 10/15/17 17:22 Dose: 10 mg Bupropion HCl (Wellbutrin Xl) 150 mg PO DAILY ESME; Protocol Stop: 12/06/17 08:59 Last Admin: 10/26/17 10:29 Dose: 150 mg Docusate Sodium (Colace) 100 mg PO BID ESME Stop: 11/28/17 08:59 Last Admin: 10/26/17 10:30 Dose: Not Given Donepezil HCl (Aricept) 5 mg PO DAILY ESME Stop: 11/28/17 08:59 Last Admin: 10/26/17 10:30 Dose: 5 mg Fluticasone Propionate (Flonase) 1 spr NS DAILY ESME Stop: 11/28/17 14:14 Last Admin: 10/26/17 10:31 Dose: Not Given Lorazepam (Ativan) 0.5 mg PO Q4H PRN; Protocol PRN Reason: Anxiety/agitation Stop: 11/27/17 22:30 Last Admin: 10/26/17 04:59 Dose: 0.5 mg Magnesium Hydroxide (Milk Of Magnesia) 30 ml PO HS PRN PRN Reason: Constipation Meclizine HCl (Antivert) 25 mg PO Q12H PRN PRN Reason: Vertigo Stop: 11/27/17 22:37 Miscellaneous (Probiotic Screen) 1 ea MC PRN PRN PRN Reason: PROTOCOL Stop: 11/29/17 08:14 Multivitamins/Vitamin C (Theragran) 1 tab PO DAILY ESME Stop: 11/28/17 08:59 Last Admin: 10/26/17 10:31 Dose: Not Given Pantoprazole Sodium (Protonix) 40 mg PO QDAC ESME Stop: 11/28/17 07:29 Last Admin: 10/26/17 06:31 Dose: 40 mg Zolpidem Tartrate (Ambien) 5 mg PO HS PRN PRN Reason: Insomnia Stop: 11/27/17 22:30 Last Admin: 10/22/17 20:45 Dose: 5 mg General: demented HEENT: NC/AT, PERRLA, anicteric sclerae, throat clear Neck: Supple, No thyromegaly, +2 carotid pulse wo bruit, No LAD Cardiovascular: Normal S1, Normal S2, without murmur Abdomen: soft, non-tender, non-distended Neurological: no change Internal Medicine Assmt/Plan - Assessment Assessment: 1.HYPERLIPIDEMIA. 2.DJD. 3.DEMENTIA. - Plan Plan: CONTINUE ON CURRENT MEDICATION AND DIET. Nutritional Asmnt/Malnutr-PDOC - Dietary Evaluation Malnutrition Findings (Please click <Entered> for more info): Nutritional Asmnt/Malnutrition Start: 10/04/17 14: 42 Text: Status: Complete Freq: Protocol: Document 10/04/17 14:42 LCHENG (Rec: 10/04/17 14:45 [email or web address] [email or web address]) Nutritional Asmnt/Malnutrition Patient General Information Nutritional Screening Low Risk Diagnosis psychosis Pertinent Medical Hx/Surgical Hx hyperlipidemia, DJD, demntia Subjective Information Pt was in bathroom not able to visit. Per EMR, PO intake 25% . Current Diet Order/ Nutrition Support regular Pertinent Medications colace, culturelle, theragran, protonix Pertinent Labs 09/29 triglycerides 202 Nutritional Hx/Data Height 1.65 m Height (Calculated Centimeters) 165.1 Current Weight (lbs) 56.699 kg Weight (Calculated Kilograms) 56.7 Weight (Calculated Grams) 56870.0 [place] Body Weight 125 Body Mass Index (BMI) 20.7 Weight Status Approriate GI Symptoms GI Symptoms None Last BM 7/8 Difficult in: None Skin Integrity/Comment: intact Current %PO Good (75-100%) Estimated Nutritional Goals BEE in Kcals: Using Current wt Calories/Kcals/Kg 25-30 Kcals Calculated 1811-0079 Protein: Using Current wt Protein g/k-1.2 Protein Calculated 57-68 Fluid: ml 1425-1710ml (1ml/kcal) Nutritional Problem No current Nutrition Prob Problem N/A Malnutrition Alert Is there a minimum of two criteria No selected? Query Text:Check all the applicable criteria. A minimum of two criteria are recommended for diagnosis of either severe or non-severe malnutrition. Malnutrition Related to Morbid Obesity Malnutrition related to morbid obesity No Intervention/Recommendation Comments 1. Continue with regular diet as ordered. 2. Monitor PO intake, wt, labs and skin integrity 3. F/U as low risk in 7 days, 10/11 Expected Outcomes/Goals Expected Outcomes/Goals 1. PO intake to meet at least 75% of nutritional needs. 2. Wt stability, skin to remain intact, labs to approach WNL.
--- NOTE | 2017-10-26 23:11 | Progress Notes ---
DATE: 10/26/2017 The patient in the hospital, noted to be at times confused, still radically medication compliant, telling me that she does not want to take the medications right now because it makes her sick and that makes her nauseous. She slept for about 8 hours, is resting comfortably, still pacing at times, restless, anxious, poor historian, withdrawn. 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 We are looking at places in [facility], I am not clear. ASSESSMENT: The patient remains depressed, withdrawn, symptomatic. No voices. No hallucinations, no psychotic symptoms. The patient noting she is having some nausea to the medications. She is currently on Lexapro, Aricept, Wellbutrin. These medications have not really been efficacious and she is noting that she feels they are making her nauseous. I will be stopping the Lexapro, continue Wellbutrin. The patient knows that she is agreeable to take medications if she is not having any side effects. JOB# [id number]
[2017-10-27] MEDS: Pantoprazole 40 mg EC Tab PO SCH (06:34)
--- NOTE | 2017-10-27 10:03 | Progress Notes ---
DATE: 10/27/2017 SUBJECTIVE: The patient in the hospital, still with poor memory, confused, tells me she is not taking medications, but in fact she is. Fair orientation, calm, cooperative. Staff noting she has been improving. It seems that as her medications have been tapered, she has improved. No auditory or visual hallucinations. She is suspicious, withdrawn, mostly to herself. No noted paranoia. She is eating okay. No behaviors, no hostility. Eating with some prompting. Sleeping well at night. ASSESSMENT: The patient seems to be approaching her baseline, calm and cooperative, no agitation. She is taking her medications, bupropion, Abilify. We will monitor and follow up waiting for a hearing today. [facility]# [id number]
[2017-10-27] MEDS: buPROPion XL 150 mg T 24 H PO SCH (11:17)
[2017-10-27] MEDS: Atorvastatin Calcium 10 MG TAB PO SCH (18:35)
[2017-10-27] MEDS: Fluticasone Propionate 0.05mg/Actuation 16gm Nasal Spray NS SCH (18:35)
[2017-10-27] MEDS: Multivitamin Tab PO SCH (18:35)
--- NOTE | 2017-10-27 22:31 | Internal Medicine Prog Note ---
Internal Medicine Subjective - Subjective Service Date: 10/27/17 Patient seen and examined:: without staff Patient is:: awake, verbal, in bed, talking, confused Per staff patient has:: no adverse event Internal Medicine Objective - Results Result Diagrams: 09/29/17 07:20 09/29/17 07:20 Recent Labs: Laboratory Last Values WBC 5.2 Th/cmm (4.8-10.8) 09/29/17 07:20 RBC 4.45 Mil/cmm (3.80-5.20) 09/29/17 07:20 Hgb 14.0 gm/dL (12-16) 09/29/17 07:20 Hct 41.8 % (41.0-60) 09/29/17 07:20 MCV 93.8 fl (81-100) 09/29/17 07:20 MCH 31.5 pg (27.0-31.0) H 09/29/17 07:20 MCHC Differential 33.6 pg (28.0-36.0) 09/29/17 07:20 RDW 13.3 % (11.5-20.0) 09/29/17 07:20 Plt Count 358 Th/cmm (150-400) 09/29/17 07:20 MPV 6.5 fl 09/29/17 07:20 Neutrophils % 55.3 % (40.0-80.0) 09/29/17 07:20 Lymphocytes % 32.4 % (20.0-50.0) 09/29/17 07:20 Monocytes % 7.1 % (2.0-10.0) 09/29/17 07:20 Eosinophils % 3.8 % (0.0-5.0) 09/29/17 07:20 Basophils % 1.4 % (0.0-2.0) 09/29/17 07:20 Sodium 140 mEq/L (136-145) 09/29/17 07:20 Potassium 4.0 mEq/L (3.5-5.1) 09/29/17 07:20 Chloride 106 mEq/L (98-107) 09/29/17 07:20 Carbon Dioxide 28.3 mEq/L (21.0-31.0) 09/29/17 07:20 Anion Gap 9.7 (7.0-16.0) 09/29/17 07:20 BUN 22 mg/dL (7-25) 09/29/17 07:20 Creatinine 0.7 mg/dL (0.6-1.2) 09/29/17 07:20 Est GFR ( Amer) > 60.0 ml/min (>90) 09/29/17 07:20 Est GFR (Non-Af Amer) > 60.0 ml/min 09/29/17 07:20 BUN/Creatinine Ratio 31.4 09/29/17 07:20 Glucose 95 mg/dL (70-105) 09/29/17 07:20 Hemoglobin A1c % 4.9 % (4.0-6.0) 09/29/17 07:20 Calcium 9.6 mg/dL (8.6-10.3) 09/29/17 07:20 Total Bilirubin 0.4 mg/dL (0.3-1.0) 09/29/17 07:20 AST 11 U/L (13-39) L 09/29/17 07:20 ALT 8 U/L (7-52) 09/29/17 07:20 Alkaline Phosphatase 59 U/L (34-104) 09/29/17 07:20 Total Protein 6.1 gm/dL (6.0-8.3) 09/29/17 07:20 Albumin 3.9 gm/dL (3.7-5.3) 09/29/17 07:20 Globulin 2.2 gm/dL 09/29/17 07:20 Albumin/Globulin Ratio 1.8 (1.0-1.8) 09/29/17 07:20 Triglycerides 202 mg/dL (<150) H 09/29/17 07:20 Cholesterol 178 mg/dL (<200) 09/29/17 07:20 LDL Cholesterol Direct 100 mg/dL (75-193) 09/29/17 07:20 HDL Cholesterol 33 mg/dL (23-92) 09/29/17 07:20 TSH 1.05 uIU/ml (0.34-5.60) 09/29/17 07:20 Urine Source CLEAN C 09/29/17 07:10 Urine Color YELLOW 09/29/17 07:10 Urine Clarity SLIGHTLY HAZY (CLEAR) 09/29/17 07:10 Urine pH 6.0 (4.6 - 8.0) 09/29/17 07:10 Ur Specific [place] 1.015 (1.005-1.030) 09/29/17 07:10 Urine Protein NEGATIVE mg/dL (NEGATIVE) 09/29/17 07:10 Urine Glucose (UA) NEGATIVE mg/dL (NEGATIVE) 09/29/17 07:10 Urine Ketones NEGATIVE mg/dL (NEGATIVE) 09/29/17 07:10 Urine Blood MODERATE (NEGATIVE) H 09/29/17 07:10 Urine Nitrate NEGATIVE (NEGATIVE) 09/29/17 07:10 Urine Bilirubin NEGATIVE (NEGATIVE) 09/29/17 07:10 Urine Urobilinogen 0.2 E.U./dL (0.2 - 1.0) 09/29/17 07:10 Ur Leukocyte Esterase SMALL (NEGATIVE) H 09/29/17 07:10 Urine RBC 5-10 /hpf (0-5) H 09/29/17 07:10 Urine WBC 6-10 /hpf (0-5) H 09/29/17 07:10 Ur Epithelial Cells MANY /lpf (FEW) 09/29/17 07:10 Urine Bacteria NONE SEEN /hpf (NONE SEEN) 09/29/17 07:10 RPR NONREACTIVE (NONREACTIVE) 09/29/17 07:20 Hepatitis A IgM Ab Negative (Negative) 09/29/17 07:20 Hep Bs Antigen Negative (Negative) 09/29/17 07:20 Hep B Core IgM Ab Negative (Negative) 09/29/17 07:20 Hepatitis C Antibody <0.1 s/co ratio (0.0-0.9) 09/29/17 07:20 - Physical Exam Vitals and I&O: Vital Signs Temp 98.5 F 10/27/17 20:00 Pulse 90 10/27/17 20:00 Resp 19 10/27/17 20:00 BP 114/74 10/27/17 20:00 Pulse Ox 96 10/27/17 20:00 Intake & Output 10/27/17 10/27/17 10/28/17 06:59 18:59 06:59 Intake Total 120 840 Balance 120 840 Intake: Oral 120 840 Other: # Voids 3 3 # Bowel Movements 0 1 Active Medications: Current Medications Acetaminophen (Tylenol) 650 mg PO Q6H PRN PRN Reason: mild pain Stop: 11/27/17 22:37 Acetaminophen/Hydrocodone Bitart ([place] 5mg/325mg) 1 tab PO Q4H PRN PRN Reason: Pain (Severe) Stop: 11/28/17 14:11 Al Hydrox/Mg Hydrox/Simethicone (Maalox) 30 ml PO Q4H PRN PRN Reason: GI DISTRESS Stop: 11/27/17 22:30 Last Admin: 10/18/17 10:19 Dose: 30 ml Albuterol Sulfate (Albuterol 2.5mg/3ml Neb Ud) 1.25 mg HHN Q4HRT PRN PRN Reason: Shortness of Breath Stop: 11/27/17 23:12 Aripiprazole (Abilify) 2 mg PO DAILY ESME; Protocol Stop: 12/21/17 08:59 Last Admin: 10/27/17 11:17 Dose: 2 mg Atorvastatin Calcium (Lipitor) 10 mg PO DAILY ESME; Protocol Stop: 11/28/17 08:59 Last Admin: 10/27/17 18:35 Dose: Not Given Bisacodyl (Dulcolax 10 Mg Supp) 10 mg RC DAILY PRN PRN Reason: Constipation Stop: 12/13/17 22:14 Last Admin: 10/15/17 17:22 Dose: 10 mg Bupropion HCl (Wellbutrin Xl) 150 mg PO DAILY ESME; Protocol Stop: 12/06/17 08:59 Last Admin: 10/27/17 11:17 Dose: 150 mg Docusate Sodium (Colace) 100 mg PO BID ESME Stop: 11/28/17 08:59 Last Admin: 10/27/17 18:35 Dose: Not Given Donepezil HCl (Aricept) 5 mg PO DAILY ESME Stop: 11/28/17 08:59 Last Admin: 10/27/17 18:35 Dose: Not Given Fluticasone Propionate (Flonase) 1 spr NS DAILY ESME Stop: 11/28/17 14:14 Last Admin: 10/27/17 18:35 Dose: Not Given Lorazepam (Ativan) 0.5 mg PO Q4H PRN; Protocol PRN Reason: Anxiety/agitation Stop: 11/27/17 22:30 Last Admin: 10/26/17 04:59 Dose: 0.5 mg Magnesium Hydroxide (Milk Of Magnesia) 30 ml PO HS PRN PRN Reason: Constipation Meclizine HCl (Antivert) 25 mg PO Q12H PRN PRN Reason: Vertigo Stop: 11/27/17 22:37 Miscellaneous (Probiotic Screen) 1 ea MC PRN PRN PRN Reason: PROTOCOL Stop: 11/29/17 08:14 Multivitamins/Vitamin C (Theragran) 1 tab PO DAILY ESME Stop: 11/28/17 08:59 Last Admin: 10/27/17 18:35 Dose: Not Given Pantoprazole Sodium (Protonix) 40 mg PO QDAC ESME Stop: 11/28/17 07:29 Last Admin: 10/27/17 06:34 Dose: Not Given Zolpidem Tartrate (Ambien) 5 mg PO HS PRN PRN Reason: Insomnia Stop: 11/27/17 22:30 Last Admin: 10/27/17 21:10 Dose: 5 mg General: demented HEENT: NC/AT, PERRLA, anicteric sclerae, throat clear Neck: Supple, No thyromegaly, +2 carotid pulse wo bruit, No LAD Cardiovascular: Normal S1, Normal S2, without murmur Abdomen: soft, non-tender, non-distended Neurological: no change Internal Medicine Assmt/Plan - Assessment Assessment: 1.HYPERLIPIDEMIA. 2.DJD. 3.DEMENTIA. - Plan Plan: CONTINUE ON CURRENT MEDICATION AND DIET. Nutritional Asmnt/Malnutr-PDOC - Dietary Evaluation Malnutrition Findings (Please click <Entered> for more info): Nutritional Asmnt/Malnutrition Start: 10/04/17 14: 42 Text: Status: Complete Freq: Protocol: Document 10/04/17 14:42 LCHENG (Rec: 10/04/17 14:45 [email or web address]) Nutritional Asmnt/Malnutrition Patient General Information Nutritional Screening Low Risk Diagnosis psychosis Pertinent Medical Hx/Surgical Hx hyperlipidemia, DJD, demntia Subjective Information Pt was in bathroom not able to visit. Per EMR, PO intake 25% . Current Diet Order/ Nutrition Support regular Pertinent Medications colace, culturelle, theragran, protonix Pertinent Labs 09/29 triglycerides 202 Nutritional Hx/Data Height 1.65 m Height (Calculated Centimeters) 165.1 Current Weight (lbs) 56.699 kg Weight (Calculated Kilograms) 56.7 Weight (Calculated Grams) 93560.0 [place] Body Weight 125 Body Mass Index (BMI) 20.7 Weight Status Approriate GI Symptoms GI Symptoms None Last BM 7/8 Difficult in: None Skin Integrity/Comment: intact Current %PO Good (75-100%) Estimated Nutritional Goals BEE in Kcals: Using Current wt Calories/Kcals/Kg 25-30 Kcals Calculated 4692-5191 Protein: Using Current wt Protein g/k-1.2 Protein Calculated 57-68 Fluid: ml 1425-1710ml (1ml/kcal) Nutritional Problem No current Nutrition Prob Problem N/A Malnutrition Alert Is there a minimum of two criteria No selected? Query Text:Check all the applicable criteria. A minimum of two criteria are recommended for diagnosis of either severe or non-severe malnutrition. Malnutrition Related to Morbid Obesity Malnutrition related to morbid obesity No Intervention/Recommendation Comments 1. Continue with regular diet as ordered. 2. Monitor PO intake, wt, labs and skin integrity 3. F/U as low risk in 7 days, 10/11 Expected Outcomes/Goals Expected Outcomes/Goals 1. PO intake to meet at least 75% of nutritional needs. 2. Wt stability, skin to remain intact, labs to approach WNL.
[2017-10-28] MEDS: Pantoprazole 40 mg EC Tab PO SCH (06:44)
[2017-10-28] MEDS: Fluticasone Propionate 0.05mg/Actuation 16gm Nasal Spray NS SCH (08:11)
[2017-10-28] MEDS: Atorvastatin Calcium 10 MG TAB PO SCH (08:12)
[2017-10-28] MEDS: buPROPion XL 150 mg T 24 H PO SCH (08:12)
[2017-10-28] MEDS: Multivitamin Tab PO SCH (08:13)
--- NOTE | 2017-10-28 20:17 | Internal Medicine Prog Note ---
Internal Medicine Subjective - Subjective Service Date: 10/28/17 Patient seen and examined:: with staff Patient is:: awake, verbal, in bed, talking, confused Per staff patient has:: no adverse event Internal Medicine Objective - Results Result Diagrams: 09/29/17 07:20 09/29/17 07:20 Recent Labs: Laboratory Last Values WBC 5.2 Th/cmm (4.8-10.8) 09/29/17 07:20 RBC 4.45 Mil/cmm (3.80-5.20) 09/29/17 07:20 Hgb 14.0 gm/dL (12-16) 09/29/17 07:20 Hct 41.8 % (41.0-60) 09/29/17 07:20 MCV 93.8 fl (81-100) 09/29/17 07:20 MCH 31.5 pg (27.0-31.0) H 09/29/17 07:20 MCHC Differential 33.6 pg (28.0-36.0) 09/29/17 07:20 RDW 13.3 % (11.5-20.0) 09/29/17 07:20 Plt Count 358 Th/cmm (150-400) 09/29/17 07:20 MPV 6.5 fl 09/29/17 07:20 Neutrophils % 55.3 % (40.0-80.0) 09/29/17 07:20 Lymphocytes % 32.4 % (20.0-50.0) 09/29/17 07:20 Monocytes % 7.1 % (2.0-10.0) 09/29/17 07:20 Eosinophils % 3.8 % (0.0-5.0) 09/29/17 07:20 Basophils % 1.4 % (0.0-2.0) 09/29/17 07:20 Sodium 140 mEq/L (136-145) 09/29/17 07:20 Potassium 4.0 mEq/L (3.5-5.1) 09/29/17 07:20 Chloride 106 mEq/L (98-107) 09/29/17 07:20 Carbon Dioxide 28.3 mEq/L (21.0-31.0) 09/29/17 07:20 Anion Gap 9.7 (7.0-16.0) 09/29/17 07:20 BUN 22 mg/dL (7-25) 09/29/17 07:20 Creatinine 0.7 mg/dL (0.6-1.2) 09/29/17 07:20 Est GFR ( Amer) > 60.0 ml/min (>90) 09/29/17 07:20 Est GFR (Non-Af Amer) > 60.0 ml/min 09/29/17 07:20 BUN/Creatinine Ratio 31.4 09/29/17 07:20 Glucose 95 mg/dL (70-105) 09/29/17 07:20 Hemoglobin A1c % 4.9 % (4.0-6.0) 09/29/17 07:20 Calcium 9.6 mg/dL (8.6-10.3) 09/29/17 07:20 Total Bilirubin 0.4 mg/dL (0.3-1.0) 09/29/17 07:20 AST 11 U/L (13-39) L 09/29/17 07:20 ALT 8 U/L (7-52) 09/29/17 07:20 Alkaline Phosphatase 59 U/L (34-104) 09/29/17 07:20 Total Protein 6.1 gm/dL (6.0-8.3) 09/29/17 07:20 Albumin 3.9 gm/dL (3.7-5.3) 09/29/17 07:20 Globulin 2.2 gm/dL 09/29/17 07:20 Albumin/Globulin Ratio 1.8 (1.0-1.8) 09/29/17 07:20 Triglycerides 202 mg/dL (<150) H 09/29/17 07:20 Cholesterol 178 mg/dL (<200) 09/29/17 07:20 LDL Cholesterol Direct 100 mg/dL (75-193) 09/29/17 07:20 HDL Cholesterol 33 mg/dL (23-92) 09/29/17 07:20 TSH 1.05 uIU/ml (0.34-5.60) 09/29/17 07:20 Urine Source CLEAN C 09/29/17 07:10 Urine Color YELLOW 09/29/17 07:10 Urine Clarity SLIGHTLY HAZY (CLEAR) 09/29/17 07:10 Urine pH 6.0 (4.6 - 8.0) 09/29/17 07:10 Ur Specific [place] 1.015 (1.005-1.030) 09/29/17 07:10 Urine Protein NEGATIVE mg/dL (NEGATIVE) 09/29/17 07:10 Urine Glucose (UA) NEGATIVE mg/dL (NEGATIVE) 09/29/17 07:10 Urine Ketones NEGATIVE mg/dL (NEGATIVE) 09/29/17 07:10 Urine Blood MODERATE (NEGATIVE) H 09/29/17 07:10 Urine Nitrate NEGATIVE (NEGATIVE) 09/29/17 07:10 Urine Bilirubin NEGATIVE (NEGATIVE) 09/29/17 07:10 Urine Urobilinogen 0.2 E.U./dL (0.2 - 1.0) 09/29/17 07:10 Ur Leukocyte Esterase SMALL (NEGATIVE) H 09/29/17 07:10 Urine RBC 5-10 /hpf (0-5) H 09/29/17 07:10 Urine WBC 6-10 /hpf (0-5) H 09/29/17 07:10 Ur Epithelial Cells MANY /lpf (FEW) 09/29/17 07:10 Urine Bacteria NONE SEEN /hpf (NONE SEEN) 09/29/17 07:10 RPR NONREACTIVE (NONREACTIVE) 09/29/17 07:20 Hepatitis A IgM Ab Negative (Negative) 09/29/17 07:20 Hep Bs Antigen Negative (Negative) 09/29/17 07:20 Hep B Core IgM Ab Negative (Negative) 09/29/17 07:20 Hepatitis C Antibody <0.1 s/co ratio (0.0-0.9) 09/29/17 07:20 - Physical Exam Vitals and I&O: Vital Signs Temp 98.4 F 10/28/17 14:00 Pulse 73 10/28/17 14:00 Resp 20 10/28/17 14:00 BP 110/70 10/28/17 14:00 Pulse Ox 97 10/28/17 14:00 Intake & Output 10/28/17 10/28/17 10/29/17 06:59 18:59 06:59 Intake Total 120 700 Balance 120 700 Intake: Oral 120 700 Other: # Voids 2 3 # Bowel Movements 0 Active Medications: Current Medications Acetaminophen (Tylenol) 650 mg PO Q6H PRN PRN Reason: mild pain Stop: 11/27/17 22:37 Acetaminophen/Hydrocodone Bitart ([place] 5mg/325mg) 1 tab PO Q4H PRN PRN Reason: Pain (Severe) Stop: 11/28/17 14:11 Al Hydrox/Mg Hydrox/Simethicone (Maalox) 30 ml PO Q4H PRN PRN Reason: GI DISTRESS Stop: 11/27/17 22:30 Last Admin: 10/18/17 10:19 Dose: 30 ml Albuterol Sulfate (Albuterol 2.5mg/3ml Neb Ud) 1.25 mg HHN Q4HRT PRN PRN Reason: Shortness of Breath Stop: 11/27/17 23:12 Aripiprazole (Abilify) 2 mg PO DAILY ESME; Protocol Stop: 12/21/17 08:59 Last Admin: 10/28/17 08:13 Dose: 2 mg Atorvastatin Calcium (Lipitor) 10 mg PO DAILY ESME; Protocol Stop: 11/28/17 08:59 Last Admin: 10/28/17 08:12 Dose: 10 mg Bisacodyl (Dulcolax 10 Mg Supp) 10 mg RC DAILY PRN PRN Reason: Constipation Stop: 12/13/17 22:14 Last Admin: 10/15/17 17:22 Dose: 10 mg Bupropion HCl (Wellbutrin Xl) 150 mg PO DAILY ESME; Protocol Stop: 12/06/17 08:59 Last Admin: 10/28/17 08:12 Dose: 150 mg Docusate Sodium (Colace) 100 mg PO BID ESME Stop: 11/28/17 08:59 Last Admin: 10/28/17 17:24 Dose: Not Given Donepezil HCl (Aricept) 5 mg PO DAILY ESME Stop: 11/28/17 08:59 Last Admin: 10/28/17 08:13 Dose: 5 mg Fluticasone Propionate (Flonase) 1 spr NS DAILY ESME Stop: 11/28/17 14:14 Last Admin: 10/28/17 08:11 Dose: 1 spr Lorazepam (Ativan) 0.5 mg PO Q4H PRN; Protocol PRN Reason: Anxiety/agitation Stop: 11/27/17 22:30 Last Admin: 10/26/17 04:59 Dose: 0.5 mg Magnesium Hydroxide (Milk Of Magnesia) 30 ml PO HS PRN PRN Reason: Constipation Meclizine HCl (Antivert) 25 mg PO Q12H PRN PRN Reason: Vertigo Stop: 11/27/17 22:37 Miscellaneous (Probiotic Screen) 1 ea MC PRN PRN PRN Reason: PROTOCOL Stop: 11/29/17 08:14 Multivitamins/Vitamin C (Theragran) 1 tab PO DAILY ESME Stop: 11/28/17 08:59 Last Admin: 10/28/17 08:13 Dose: 1 tab Pantoprazole Sodium (Protonix) 40 mg PO QDAC ESME Stop: 11/28/17 07:29 Last Admin: 10/28/17 06:44 Dose: 40 mg Zolpidem Tartrate (Ambien) 5 mg PO HS PRN PRN Reason: Insomnia Stop: 11/27/17 22:30 Last Admin: 10/27/17 21:10 Dose: 5 mg General: demented HEENT: NC/AT, PERRLA, anicteric sclerae, throat clear Neck: Supple, No thyromegaly, +2 carotid pulse wo bruit, No LAD Cardiovascular: Normal S1, Normal S2, without murmur Abdomen: soft, non-tender, non-distended Neurological: no change Internal Medicine Assmt/Plan - Assessment Assessment: 1.HYPERLIPIDEMIA. 2.DJD. 3.DEMENTIA. - Plan Plan: CONTINUE ON CURRENT MEDICATION AND DIET. Nutritional Asmnt/Malnutr-PDOC - Dietary Evaluation Malnutrition Findings (Please click <Entered> for more info): Nutritional Asmnt/Malnutrition Start: 10/04/17 14: 42 Text: Status: Complete Freq: Protocol: Document 10/04/17 14:42 LCHENG (Rec: 10/04/17 14:45 [email or web address] [email or web address]) Nutritional Asmnt/Malnutrition Patient General Information Nutritional Screening Low Risk Diagnosis psychosis Pertinent Medical Hx/Surgical Hx hyperlipidemia, DJD, demntia Subjective Information Pt was in bathroom not able to visit. Per EMR, PO intake 25% . Current Diet Order/ Nutrition Support regular Pertinent Medications colace, culturelle, theragran, protonix Pertinent Labs 09/29 triglycerides 202 Nutritional Hx/Data Height 1.65 m Height (Calculated Centimeters) 165.1 Current Weight (lbs) 56.699 kg Weight (Calculated Kilograms) 56.7 Weight (Calculated Grams) 16933.0 [place] Body Weight 125 Body Mass Index (BMI) 20.7 Weight Status Approriate GI Symptoms GI Symptoms None Last BM 7/8 Difficult in: None Skin Integrity/Comment: intact Current %PO Good (75-100%) Estimated Nutritional Goals BEE in Kcals: Using Current wt Calories/Kcals/Kg 25-30 Kcals Calculated 8470-0839 Protein: Using Current wt Protein g/k-1.2 Protein Calculated 57-68 Fluid: ml 1425-1710ml (1ml/kcal) Nutritional Problem No current Nutrition Prob Problem N/A Malnutrition Alert Is there a minimum of two criteria No selected? Query Text:Check all the applicable criteria. A minimum of two criteria are recommended for diagnosis of either severe or non-severe malnutrition. Malnutrition Related to Morbid Obesity Malnutrition related to morbid obesity No Intervention/Recommendation Comments 1. Continue with regular diet as ordered. 2. Monitor PO intake, wt, labs and skin integrity 3. F/U as low risk in 7 days, 10/11 Expected Outcomes/Goals Expected Outcomes/Goals 1. PO intake to meet at least 75% of nutritional needs. 2. Wt stability, skin to remain intact, labs to approach WNL.
--- NOTE | 2017-10-28 23:15 | Progress Notes ---
DATE: SUBJECTIVE: The patient seen, chart reviewed, discussed with staff and transition social worker in touch with daughter. We were trying to get her into [facility] or [facility]. The patient remains disoriented on exam, not talking much, confused, very anxious, nervous. People from [facility] came to see her, the as400 administrator transition social worker and nurse to clinical supervising nurse, the chief physician and a public info officer. The patient was sleeping well, eating well, seems to be getting along fairly well with staff and peers. No agitation. ASSESSMENT: The patient remains confused, disoriented, but calm. No behaviors. We will monitor and follow up. We will attempt to place her and establish a safe disposition plan. JOB# [id number]
[2017-10-29] MEDS: Pantoprazole 40 mg EC Tab PO SCH (06:55)
[2017-10-29] MEDS: Atorvastatin Calcium 10 MG TAB PO SCH (09:03)
[2017-10-29] MEDS: Multivitamin Tab PO SCH (09:03)
[2017-10-29] MEDS: buPROPion XL 150 mg T 24 H PO SCH (09:03)
[2017-10-29] MEDS: Fluticasone Propionate 0.05mg/Actuation 16gm Nasal Spray NS SCH (09:03)
--- NOTE | 2017-10-29 19:11 | Internal Medicine Prog Note ---
Internal Medicine Subjective - Subjective Service Date: 10/29/17 Patient seen and examined:: without staff Patient is:: awake, verbal, in bed, talking, confused Per staff patient has:: no adverse event Internal Medicine Objective - Results Result Diagrams: 09/29/17 07:20 09/29/17 07:20 Recent Labs: Laboratory Last Values WBC 5.2 Th/cmm (4.8-10.8) 09/29/17 07:20 RBC 4.45 Mil/cmm (3.80-5.20) 09/29/17 07:20 Hgb 14.0 gm/dL (12-16) 09/29/17 07:20 Hct 41.8 % (41.0-60) 09/29/17 07:20 MCV 93.8 fl (81-100) 09/29/17 07:20 MCH 31.5 pg (27.0-31.0) H 09/29/17 07:20 MCHC Differential 33.6 pg (28.0-36.0) 09/29/17 07:20 RDW 13.3 % (11.5-20.0) 09/29/17 07:20 Plt Count 358 Th/cmm (150-400) 09/29/17 07:20 MPV 6.5 fl 09/29/17 07:20 Neutrophils % 55.3 % (40.0-80.0) 09/29/17 07:20 Lymphocytes % 32.4 % (20.0-50.0) 09/29/17 07:20 Monocytes % 7.1 % (2.0-10.0) 09/29/17 07:20 Eosinophils % 3.8 % (0.0-5.0) 09/29/17 07:20 Basophils % 1.4 % (0.0-2.0) 09/29/17 07:20 Sodium 140 mEq/L (136-145) 09/29/17 07:20 Potassium 4.0 mEq/L (3.5-5.1) 09/29/17 07:20 Chloride 106 mEq/L (98-107) 09/29/17 07:20 Carbon Dioxide 28.3 mEq/L (21.0-31.0) 09/29/17 07:20 Anion Gap 9.7 (7.0-16.0) 09/29/17 07:20 BUN 22 mg/dL (7-25) 09/29/17 07:20 Creatinine 0.7 mg/dL (0.6-1.2) 09/29/17 07:20 Est GFR ( Amer) > 60.0 ml/min (>90) 09/29/17 07:20 Est GFR (Non-Af Amer) > 60.0 ml/min 09/29/17 07:20 BUN/Creatinine Ratio 31.4 09/29/17 07:20 Glucose 95 mg/dL (70-105) 09/29/17 07:20 Hemoglobin A1c % 4.9 % (4.0-6.0) 09/29/17 07:20 Calcium 9.6 mg/dL (8.6-10.3) 09/29/17 07:20 Total Bilirubin 0.4 mg/dL (0.3-1.0) 09/29/17 07:20 AST 11 U/L (13-39) L 09/29/17 07:20 ALT 8 U/L (7-52) 09/29/17 07:20 Alkaline Phosphatase 59 U/L (34-104) 09/29/17 07:20 Total Protein 6.1 gm/dL (6.0-8.3) 09/29/17 07:20 Albumin 3.9 gm/dL (3.7-5.3) 09/29/17 07:20 Globulin 2.2 gm/dL 09/29/17 07:20 Albumin/Globulin Ratio 1.8 (1.0-1.8) 09/29/17 07:20 Triglycerides 202 mg/dL (<150) H 09/29/17 07:20 Cholesterol 178 mg/dL (<200) 09/29/17 07:20 LDL Cholesterol Direct 100 mg/dL (75-193) 09/29/17 07:20 HDL Cholesterol 33 mg/dL (23-92) 09/29/17 07:20 TSH 1.05 uIU/ml (0.34-5.60) 09/29/17 07:20 Urine Source CLEAN C 09/29/17 07:10 Urine Color YELLOW 09/29/17 07:10 Urine Clarity SLIGHTLY HAZY (CLEAR) 09/29/17 07:10 Urine pH 6.0 (4.6 - 8.0) 09/29/17 07:10 Ur Specific [place] 1.015 (1.005-1.030) 09/29/17 07:10 Urine Protein NEGATIVE mg/dL (NEGATIVE) 09/29/17 07:10 Urine Glucose (UA) NEGATIVE mg/dL (NEGATIVE) 09/29/17 07:10 Urine Ketones NEGATIVE mg/dL (NEGATIVE) 09/29/17 07:10 Urine Blood MODERATE (NEGATIVE) H 09/29/17 07:10 Urine Nitrate NEGATIVE (NEGATIVE) 09/29/17 07:10 Urine Bilirubin NEGATIVE (NEGATIVE) 09/29/17 07:10 Urine Urobilinogen 0.2 E.U./dL (0.2 - 1.0) 09/29/17 07:10 Ur Leukocyte Esterase SMALL (NEGATIVE) H 09/29/17 07:10 Urine RBC 5-10 /hpf (0-5) H 09/29/17 07:10 Urine WBC 6-10 /hpf (0-5) H 09/29/17 07:10 Ur Epithelial Cells MANY /lpf (FEW) 09/29/17 07:10 Urine Bacteria NONE SEEN /hpf (NONE SEEN) 09/29/17 07:10 RPR NONREACTIVE (NONREACTIVE) 09/29/17 07:20 Hepatitis A IgM Ab Negative (Negative) 09/29/17 07:20 Hep Bs Antigen Negative (Negative) 09/29/17 07:20 Hep B Core IgM Ab Negative (Negative) 09/29/17 07:20 Hepatitis C Antibody <0.1 s/co ratio (0.0-0.9) 09/29/17 07:20 - Physical Exam Vitals and I&O: Vital Signs Temp 97.0 F 10/29/17 14:00 Pulse 67 10/29/17 14:00 Resp 20 10/29/17 14:00 BP 105/50 10/29/17 14:00 Pulse Ox 98 10/29/17 14:00 Intake & Output 10/29/17 10/29/17 10/30/17 06:59 18:59 06:59 Intake Total 120 1200 Balance 120 1200 Intake: Oral 120 1200 Other: # Voids 2 # Bowel Movements 1 Active Medications: Current Medications Acetaminophen (Tylenol) 650 mg PO Q6H PRN PRN Reason: mild pain Stop: 11/27/17 22:37 Acetaminophen/Hydrocodone Bitart ([place] 5mg/325mg) 1 tab PO Q4H PRN PRN Reason: Pain (Severe) Stop: 11/28/17 14:11 Al Hydrox/Mg Hydrox/Simethicone (Maalox) 30 ml PO Q4H PRN PRN Reason: GI DISTRESS Stop: 11/27/17 22:30 Last Admin: 10/18/17 10:19 Dose: 30 ml Albuterol Sulfate (Albuterol 2.5mg/3ml Neb Ud) 1.25 mg HHN Q4HRT PRN PRN Reason: Shortness of Breath Stop: 11/27/17 23:12 Aripiprazole (Abilify) 2 mg PO DAILY ESME; Protocol Stop: 12/21/17 08:59 Last Admin: 10/29/17 09:03 Dose: Not Given Atorvastatin Calcium (Lipitor) 10 mg PO DAILY ESME; Protocol Stop: 11/28/17 08:59 Last Admin: 10/29/17 09:03 Dose: Not Given Bisacodyl (Dulcolax 10 Mg Supp) 10 mg RC DAILY PRN PRN Reason: Constipation Stop: 12/13/17 22:14 Last Admin: 10/15/17 17:22 Dose: 10 mg Bupropion HCl (Wellbutrin Xl) 150 mg PO DAILY ESME; Protocol Stop: 12/06/17 08:59 Last Admin: 10/29/17 09:03 Dose: Not Given Docusate Sodium (Colace) 100 mg PO BID ESME Stop: 11/28/17 08:59 Last Admin: 10/29/17 16:19 Dose: Not Given Donepezil HCl (Aricept) 5 mg PO DAILY ESME Stop: 11/28/17 08:59 Last Admin: 10/29/17 09:03 Dose: Not Given Fluticasone Propionate (Flonase) 1 spr NS DAILY [facility] Stop: 11/28/17 14:14 Last Admin: 10/29/17 09:03 Dose: Not Given Lorazepam (Ativan) 0.5 mg PO Q4H PRN; Protocol PRN Reason: Anxiety/agitation Stop: 11/27/17 22:30 Last Admin: 10/26/17 04:59 Dose: 0.5 mg Magnesium Hydroxide (Milk Of Magnesia) 30 ml PO HS PRN PRN Reason: Constipation Meclizine HCl (Antivert) 25 mg PO Q12H PRN PRN Reason: Vertigo Stop: 11/27/17 22:37 Miscellaneous (Probiotic Screen) 1 ea MC PRN PRN PRN Reason: PROTOCOL Stop: 11/29/17 08:14 Multivitamins/Vitamin C (Theragran) 1 tab PO DAILY ESME Stop: 11/28/17 08:59 Last Admin: 10/29/17 09:03 Dose: Not Given Pantoprazole Sodium (Protonix) 40 mg PO QDAC ESME Stop: 11/28/17 07:29 Last Admin: 10/29/17 06:55 Dose: Not Given Zolpidem Tartrate (Ambien) 5 mg PO HS PRN PRN Reason: Insomnia Stop: 11/27/17 22:30 Last Admin: 10/27/17 21:10 Dose: 5 mg General: demented HEENT: NC/AT, PERRLA, anicteric sclerae, throat clear Neck: Supple, No thyromegaly, +2 carotid pulse wo bruit, No LAD Cardiovascular: Normal S1, Normal S2, without murmur Abdomen: soft, non-tender, non-distended Neurological: no change Internal Medicine Assmt/Plan - Assessment Assessment: 1.HYPERLIPIDEMIA. 2.DJD. 3.DEMENTIA. - Plan Plan: CONTINUE ON CURRENT MEDICATION AND DIET. Nutritional Asmnt/Malnutr-PDOC - Dietary Evaluation Malnutrition Findings (Please click <Entered> for more info): Nutritional Asmnt/Malnutrition Start: 10/04/17 14: 42 Text: Status: Complete Freq: Protocol: Document 10/04/17 14:42 LCHENG (Rec: 10/04/17 14:45 [email or web address] [email or web address]) Nutritional Asmnt/Malnutrition Patient General Information Nutritional Screening Low Risk Diagnosis psychosis Pertinent Medical Hx/Surgical Hx hyperlipidemia, DJD, demntia Subjective Information Pt was in bathroom not able to visit. Per EMR, PO intake 25% . Current Diet Order/ Nutrition Support regular Pertinent Medications colace, culturelle, theragran, protonix Pertinent Labs 09/29 triglycerides 202 Nutritional Hx/Data Height 1.65 m Height (Calculated Centimeters) 165.1 Current Weight (lbs) 56.699 kg Weight (Calculated Kilograms) 56.7 Weight (Calculated Grams) 30500.0 [place] Body Weight 125 Body Mass Index (BMI) 20.7 Weight Status Approriate GI Symptoms GI Symptoms None Last BM 7/8 Difficult in: None Skin Integrity/Comment: intact Current %PO Good (75-100%) Estimated Nutritional Goals BEE in Kcals: Using Current wt Calories/Kcals/Kg 25-30 Kcals Calculated 9014-4139 Protein: Using Current wt Protein g/k-1.2 Protein Calculated 57-68 Fluid: ml 1425-1710ml (1ml/kcal) Nutritional Problem No current Nutrition Prob Problem N/A Malnutrition Alert Is there a minimum of two criteria No selected? Query Text:Check all the applicable criteria. A minimum of two criteria are recommended for diagnosis of either severe or non-severe malnutrition. Malnutrition Related to Morbid Obesity Malnutrition related to morbid obesity No Intervention/Recommendation Comments 1. Continue with regular diet as ordered. 2. Monitor PO intake, wt, labs and skin integrity 3. F/U as low risk in 7 days, 10/11 Expected Outcomes/Goals Expected Outcomes/Goals 1. PO intake to meet at least 75% of nutritional needs. 2. Wt stability, skin to remain intact, labs to approach WNL.
--- NOTE | 2017-10-30 03:12 | Progress Notes ---
DATE: 10/29/2017 SUBJECTIVE: The patient is currently in the hospital. has accepted this patient and her daughter does not want her to place at these facilities. The patient remains calm, cooperative, still confused, somewhat disoriented, mostly withdrawn, keeps to herself, paces back and forth, noted to be comfortable. States she is refusing medications, but she is taking them. Remains preoccupied, anxious. She does seem to be calmer and somewhat better since her medications have been lowered. ASSESSMENT: The patient remains symptomatic, requiring prompting a higher level of care. We are trying to place this patient as well as we stabilize her. We will continue to monitor and follow up. [facility]# [id number]
[2017-10-30] MEDS: Pantoprazole 40 mg EC Tab PO SCH (06:38)
[2017-10-30] MEDS: Atorvastatin Calcium 10 MG TAB PO SCH (08:22)
[2017-10-30] MEDS: buPROPion XL 150 mg T 24 H PO SCH (08:22)
[2017-10-30] MEDS: Multivitamin Tab PO SCH (08:22)
[2017-10-30] MEDS: Fluticasone Propionate 0.05mg/Actuation 16gm Nasal Spray NS SCH (08:22)
--- NOTE | 2017-10-30 13:52 | General Progress Note ---
Subjective - Review of Systems Service Date: 10/30/17 Subjective: resting comfortably cooperative no complaint Objective - Results Result Diagrams: 09/29/17 07:20 09/29/17 07:20 Recent Labs: Laboratory Last Values WBC 5.2 Th/cmm (4.8-10.8) 09/29/17 07:20 RBC 4.45 Mil/cmm (3.80-5.20) 09/29/17 07:20 Hgb 14.0 gm/dL (12-16) 09/29/17 07:20 Hct 41.8 % (41.0-60) 09/29/17 07:20 MCV 93.8 fl (81-100) 09/29/17 07:20 MCH 31.5 pg (27.0-31.0) H 09/29/17 07:20 MCHC Differential 33.6 pg (28.0-36.0) 09/29/17 07:20 RDW 13.3 % (11.5-20.0) 09/29/17 07:20 Plt Count 358 Th/cmm (150-400) 09/29/17 07:20 MPV 6.5 fl 09/29/17 07:20 Neutrophils % 55.3 % (40.0-80.0) 09/29/17 07:20 Lymphocytes % 32.4 % (20.0-50.0) 09/29/17 07:20 Monocytes % 7.1 % (2.0-10.0) 09/29/17 07:20 Eosinophils % 3.8 % (0.0-5.0) 09/29/17 07:20 Basophils % 1.4 % (0.0-2.0) 09/29/17 07:20 Sodium 140 mEq/L (136-145) 09/29/17 07:20 Potassium 4.0 mEq/L (3.5-5.1) 09/29/17 07:20 Chloride 106 mEq/L (98-107) 09/29/17 07:20 Carbon Dioxide 28.3 mEq/L (21.0-31.0) 09/29/17 07:20 Anion Gap 9.7 (7.0-16.0) 09/29/17 07:20 BUN 22 mg/dL (7-25) 09/29/17 07:20 Creatinine 0.7 mg/dL (0.6-1.2) 09/29/17 07:20 Est GFR ( Amer) > 60.0 ml/min (>90) 09/29/17 07:20 Est GFR (Non-Af Amer) > 60.0 ml/min 09/29/17 07:20 BUN/Creatinine Ratio 31.4 09/29/17 07:20 Glucose 95 mg/dL (70-105) 09/29/17 07:20 Hemoglobin A1c % 4.9 % (4.0-6.0) 09/29/17 07:20 Calcium 9.6 mg/dL (8.6-10.3) 09/29/17 07:20 Total Bilirubin 0.4 mg/dL (0.3-1.0) 09/29/17 07:20 AST 11 U/L (13-39) L 09/29/17 07:20 ALT 8 U/L (7-52) 09/29/17 07:20 Alkaline Phosphatase 59 U/L (34-104) 09/29/17 07:20 Total Protein 6.1 gm/dL (6.0-8.3) 09/29/17 07:20 Albumin 3.9 gm/dL (3.7-5.3) 09/29/17 07:20 Globulin 2.2 gm/dL 09/29/17 07:20 Albumin/Globulin Ratio 1.8 (1.0-1.8) 09/29/17 07:20 Triglycerides 202 mg/dL (<150) H 09/29/17 07:20 Cholesterol 178 mg/dL (<200) 09/29/17 07:20 LDL Cholesterol Direct 100 mg/dL (75-193) 09/29/17 07:20 HDL Cholesterol 33 mg/dL (23-92) 09/29/17 07:20 TSH 1.05 uIU/ml (0.34-5.60) 09/29/17 07:20 Urine Source CLEAN C 09/29/17 07:10 Urine Color YELLOW 09/29/17 07:10 Urine Clarity SLIGHTLY HAZY (CLEAR) 09/29/17 07:10 Urine pH 6.0 (4.6 - 8.0) 09/29/17 07:10 Ur Specific [place] 1.015 (1.005-1.030) 09/29/17 07:10 Urine Protein NEGATIVE mg/dL (NEGATIVE) 09/29/17 07:10 Urine Glucose (UA) NEGATIVE mg/dL (NEGATIVE) 09/29/17 07:10 Urine Ketones NEGATIVE mg/dL (NEGATIVE) 09/29/17 07:10 Urine Blood MODERATE (NEGATIVE) H 09/29/17 07:10 Urine Nitrate NEGATIVE (NEGATIVE) 09/29/17 07:10 Urine Bilirubin NEGATIVE (NEGATIVE) 09/29/17 07:10 Urine Urobilinogen 0.2 E.U./dL (0.2 - 1.0) 09/29/17 07:10 Ur Leukocyte Esterase SMALL (NEGATIVE) H 09/29/17 07:10 Urine RBC 5-10 /hpf (0-5) H 09/29/17 07:10 Urine WBC 6-10 /hpf (0-5) H 09/29/17 07:10 Ur Epithelial Cells MANY /lpf (FEW) 09/29/17 07:10 Urine Bacteria NONE SEEN /hpf (NONE SEEN) 09/29/17 07:10 RPR NONREACTIVE (NONREACTIVE) 09/29/17 07:20 Hepatitis A IgM Ab Negative (Negative) 09/29/17 07:20 Hep Bs Antigen Negative (Negative) 09/29/17 07:20 Hep B Core IgM Ab Negative (Negative) 09/29/17 07:20 Hepatitis C Antibody <0.1 s/co ratio (0.0-0.9) 09/29/17 07:20 - Physical Exam Vitals and I&O: Vital Signs Temp 98.5 F 10/30/17 06:08 Pulse 65 10/30/17 06:08 Resp 20 10/30/17 06:08 BP 124/62 10/30/17 06:08 Pulse Ox 98 10/30/17 06:08 Intake & Output 10/29/17 10/30/17 10/30/17 18:59 06:59 18:59 Intake Total 1200 120 Balance 1200 120 Intake: Oral 1200 120 Other: # Voids 3 # Bowel Movements 1 0 Active Medications: Current Medications Acetaminophen (Tylenol) 650 mg PO Q6H PRN PRN Reason: mild pain Stop: 11/27/17 22:37 Acetaminophen/Hydrocodone Bitart ([place] 5mg/325mg) 1 tab PO Q4H PRN PRN Reason: Pain (Severe) Stop: 11/28/17 14:11 Al Hydrox/Mg Hydrox/Simethicone (Maalox) 30 ml PO Q4H PRN PRN Reason: GI DISTRESS Stop: 11/27/17 22:30 Last Admin: 10/18/17 10:19 Dose: 30 ml Albuterol Sulfate (Albuterol 2.5mg/3ml Neb Ud) 1.25 mg HHN Q4HRT PRN PRN Reason: Shortness of Breath Stop: 11/27/17 23:12 Aripiprazole (Abilify) 2 mg PO DAILY [facility]; Protocol Stop: 12/21/17 08:59 Last Admin: 10/30/17 08:22 Dose: Not Given Atorvastatin Calcium (Lipitor) 10 mg PO DAILY [facility]; Protocol Stop: 11/28/17 08:59 Last Admin: 10/30/17 08:22 Dose: Not Given Bisacodyl (Dulcolax 10 Mg Supp) 10 mg RC DAILY PRN PRN Reason: Constipation Stop: 12/13/17 22:14 Last Admin: 10/15/17 17:22 Dose: 10 mg Bupropion HCl (Wellbutrin Xl) 150 mg PO DAILY [facility]; Protocol Stop: 12/06/17 08:59 Last Admin: 10/30/17 08:22 Dose: Not Given Docusate Sodium (Colace) 100 mg PO BID [facility] Stop: 11/28/17 08:59 Last Admin: 10/30/17 08:22 Dose: Not Given Donepezil HCl (Aricept) 5 mg PO DAILY [facility] Stop: 11/28/17 08:59 Last Admin: 10/30/17 08:22 Dose: Not Given Fluticasone Propionate (Flonase) 1 spr NS DAILY [facility] Stop: 11/28/17 14:14 Last Admin: 10/30/17 08:22 Dose: Not Given Lorazepam (Ativan) 0.5 mg PO Q4H PRN; Protocol PRN Reason: Anxiety/agitation Stop: 11/27/17 22:30 Last Admin: 10/26/17 04:59 Dose: 0.5 mg Magnesium Hydroxide (Milk Of Magnesia) 30 ml PO HS PRN PRN Reason: Constipation Meclizine HCl (Antivert) 25 mg PO Q12H PRN PRN Reason: Vertigo Stop: 11/27/17 22:37 Miscellaneous (Probiotic Screen) 1 ea MC PRN PRN PRN Reason: PROTOCOL Stop: 11/29/17 08:14 Multivitamins/Vitamin C (Theragran) 1 tab PO DAILY [facility] Stop: 11/28/17 08:59 Last Admin: 10/30/17 08:22 Dose: Not Given Pantoprazole Sodium (Protonix) 40 mg PO QDAC [facility] Stop: 11/28/17 07:29 Last Admin: 10/30/17 06:38 Dose: Not Given Zolpidem Tartrate (Ambien) 5 mg PO HS PRN PRN Reason: Insomnia Stop: 11/27/17 22:30 Last Admin: 10/29/17 20:43 Dose: 5 mg General: Alert, Oriented x3, Cooperative HEENT: Atraumatic, PERRLA, EOMI Neck: Supple, JVD, Thyromegaly Cardiovascular: Regular rate, Normal S1, Normal S2 Lungs: Clear to auscultation Abdomen: Bowel sounds, Soft Assessment/Plan - Assessment Assessment: 1.HYPERLIPIDEMIA. 2.DJD. 3.DEMENTIA - Plan Plan: cont current treatment Nutritional Asmnt/Malnutr-PDOC - Dietary Evaluation Malnutrition Findings (Please click <Entered> for more info): Nutritional Asmnt/Malnutrition Start: 10/04/17 14: 42 Text: Status: Complete Freq: Protocol: Document 10/04/17 14:42 LCHENG (Rec: 10/04/17 14:45 [email or web address] [email or web address]) Nutritional Asmnt/Malnutrition Patient General Information Nutritional Screening Low Risk Diagnosis psychosis Pertinent Medical Hx/Surgical Hx hyperlipidemia, DJD, demntia Subjective Information Pt was in bathroom not able to visit. Per EMR, PO intake 25% . Current Diet Order/ Nutrition Support regular Pertinent Medications colace, culturelle, theragran, protonix Pertinent Labs 09/29 triglycerides 202 Nutritional Hx/Data Height 1.65 m Height (Calculated Centimeters) 165.1 Current Weight (lbs) 56.699 kg Weight (Calculated Kilograms) 56.7 Weight (Calculated Grams) 49503.0 [place] Body Weight 125 Body Mass Index (BMI) 20.7 Weight Status Approriate GI Symptoms GI Symptoms None Last BM 10/03 Difficult in: None Skin Integrity/Comment: intact Current %PO Good (75-100%) Estimated Nutritional Goals BEE in Kcals: Using Current wt Calories/Kcals/Kg 25-30 Kcals Calculated 4636-7935 Protein: Using Current wt Protein g/k-1.2 Protein Calculated 57-68 Fluid: ml 1425-1710ml (1ml/kcal) Nutritional Problem No current Nutrition Prob Problem N/A Malnutrition Alert Is there a minimum of two criteria No selected? Query Text:Check all the applicable criteria. A minimum of two criteria are recommended for diagnosis of either severe or non-severe malnutrition. Malnutrition Related to Morbid Obesity Malnutrition related to morbid obesity No Intervention/Recommendation Comments 1. Continue with regular diet as ordered. 2. Monitor PO intake, wt, labs and skin integrity 3. F/U as low risk in 7 days, 10/11 Expected Outcomes/Goals Expected Outcomes/Goals 1. PO intake to meet at least 75% of nutritional needs. 2. Wt stability, skin to remain intact, labs to approach WNL.
--- NOTE | 2017-10-31 02:20 | Progress Notes ---
DATE: 10/30/2017 The patient was seen and evaluated. The patient's chart was reviewed. This is Dr. Lau covering for Dr. Hopkins. IDENTIFYING DATA: A 72-year-old female who presented initially confused, disoriented, limited historian, does not give much of information beyond that. Overnight nursing staff reported the patient presents disorganized, delusional, pacing. Today, on [id number] eval in her room the patient mostly just paces in her room. When attempted to engage in linear conversation, the patient just keep walking away and then goes around in circles in her room and does not give much information or engage in meaningful conversation. MENTAL STATUS EXAMINATION: Disorganized. ASSESSMENT AND PLAN: The patient is a 72-year-old female, disorganized, unable to formulate a safe plan outside the structured environment. We will continue with primary psychiatrist's treatment plan and goals, which included Abilify 2 mg a day, Wellbutrin 150 mg a day, Aricept 5 mg a day, Aricept as needed ____. JOB# [id number]
[2017-10-31] MEDS: Pantoprazole 40 mg EC Tab PO SCH (07:17)
[2017-10-31] MEDS: Atorvastatin Calcium 10 MG TAB PO SCH (08:50)
[2017-10-31] MEDS: Fluticasone Propionate 0.05mg/Actuation 16gm Nasal Spray NS SCH (08:50)
[2017-10-31] MEDS: Multivitamin Tab PO SCH (08:50)
[2017-10-31] MEDS: buPROPion XL 150 mg T 24 H PO SCH (08:50)
--- NOTE | 2017-10-31 17:09 | General Progress Note ---
Subjective - Review of Systems Service Date: 10/31/17 Subjective: resting comfortably in bed attentive but doesn't answer back no distress Objective - Results Result Diagrams: 09/29/17 07:20 09/29/17 07:20 Recent Labs: Laboratory Last Values WBC 5.2 Th/cmm (4.8-10.8) 09/29/17 07:20 RBC 4.45 Mil/cmm (3.80-5.20) 09/29/17 07:20 Hgb 14.0 gm/dL (12-16) 09/29/17 07:20 Hct 41.8 % (41.0-60) 09/29/17 07:20 MCV 93.8 fl (81-100) 09/29/17 07:20 MCH 31.5 pg (27.0-31.0) H 09/29/17 07:20 MCHC Differential 33.6 pg (28.0-36.0) 09/29/17 07:20 RDW 13.3 % (11.5-20.0) 09/29/17 07:20 Plt Count 358 Th/cmm (150-400) 09/29/17 07:20 MPV 6.5 fl 09/29/17 07:20 Neutrophils % 55.3 % (40.0-80.0) 09/29/17 07:20 Lymphocytes % 32.4 % (20.0-50.0) 09/29/17 07:20 Monocytes % 7.1 % (2.0-10.0) 09/29/17 07:20 Eosinophils % 3.8 % (0.0-5.0) 09/29/17 07:20 Basophils % 1.4 % (0.0-2.0) 09/29/17 07:20 Sodium 140 mEq/L (136-145) 09/29/17 07:20 Potassium 4.0 mEq/L (3.5-5.1) 09/29/17 07:20 Chloride 106 mEq/L (98-107) 09/29/17 07:20 Carbon Dioxide 28.3 mEq/L (21.0-31.0) 09/29/17 07:20 Anion Gap 9.7 (7.0-16.0) 09/29/17 07:20 BUN 22 mg/dL (7-25) 09/29/17 07:20 Creatinine 0.7 mg/dL (0.6-1.2) 09/29/17 07:20 Est GFR ( Amer) > 60.0 ml/min (>90) 09/29/17 07:20 Est GFR (Non-Af Amer) > 60.0 ml/min 09/29/17 07:20 BUN/Creatinine Ratio 31.4 09/29/17 07:20 Glucose 95 mg/dL (70-105) 09/29/17 07:20 Hemoglobin A1c % 4.9 % (4.0-6.0) 09/29/17 07:20 Calcium 9.6 mg/dL (8.6-10.3) 09/29/17 07:20 Total Bilirubin 0.4 mg/dL (0.3-1.0) 09/29/17 07:20 AST 11 U/L (13-39) L 09/29/17 07:20 ALT 8 U/L (7-52) 09/29/17 07:20 Alkaline Phosphatase 59 U/L (34-104) 09/29/17 07:20 Total Protein 6.1 gm/dL (6.0-8.3) 09/29/17 07:20 Albumin 3.9 gm/dL (3.7-5.3) 09/29/17 07:20 Globulin 2.2 gm/dL 09/29/17 07:20 Albumin/Globulin Ratio 1.8 (1.0-1.8) 09/29/17 07:20 Triglycerides 202 mg/dL (<150) H 09/29/17 07:20 Cholesterol 178 mg/dL (<200) 09/29/17 07:20 LDL Cholesterol Direct 100 mg/dL (75-193) 09/29/17 07:20 HDL Cholesterol 33 mg/dL (23-92) 09/29/17 07:20 TSH 1.05 uIU/ml (0.34-5.60) 09/29/17 07:20 Urine Source CLEAN C 09/29/17 07:10 Urine Color YELLOW 09/29/17 07:10 Urine Clarity SLIGHTLY HAZY (CLEAR) 09/29/17 07:10 Urine pH 6.0 (4.6 - 8.0) 09/29/17 07:10 Ur Specific [place] 1.015 (1.005-1.030) 09/29/17 07:10 Urine Protein NEGATIVE mg/dL (NEGATIVE) 09/29/17 07:10 Urine Glucose (UA) NEGATIVE mg/dL (NEGATIVE) 09/29/17 07:10 Urine Ketones NEGATIVE mg/dL (NEGATIVE) 09/29/17 07:10 Urine Blood MODERATE (NEGATIVE) H 09/29/17 07:10 Urine Nitrate NEGATIVE (NEGATIVE) 09/29/17 07:10 Urine Bilirubin NEGATIVE (NEGATIVE) 09/29/17 07:10 Urine Urobilinogen 0.2 E.U./dL (0.2 - 1.0) 09/29/17 07:10 Ur Leukocyte Esterase SMALL (NEGATIVE) H 09/29/17 07:10 Urine RBC 5-10 /hpf (0-5) H 09/29/17 07:10 Urine WBC 6-10 /hpf (0-5) H 09/29/17 07:10 Ur Epithelial Cells MANY /lpf (FEW) 09/29/17 07:10 Urine Bacteria NONE SEEN /hpf (NONE SEEN) 09/29/17 07:10 RPR NONREACTIVE (NONREACTIVE) 09/29/17 07:20 Hepatitis A IgM Ab Negative (Negative) 09/29/17 07:20 Hep Bs Antigen Negative (Negative) 09/29/17 07:20 Hep B Core IgM Ab Negative (Negative) 09/29/17 07:20 Hepatitis C Antibody <0.1 s/co ratio (0.0-0.9) 09/29/17 07:20 - Physical Exam Vitals and I&O: Vital Signs Temp 98.2 F 10/31/17 14:00 Pulse 76 10/31/17 14:00 Resp 20 10/31/17 14:00 BP 108/73 10/31/17 14:00 Pulse Ox 97 10/31/17 14:00 Intake & Output 10/30/17 10/31/17 10/31/17 18:59 06:59 18:59 Intake Total 850 240 Balance 850 240 Intake: Oral 850 240 Other: # Voids 4 3 # Bowel Movements 1 0 Active Medications: Current Medications Acetaminophen (Tylenol) 650 mg PO Q6H PRN PRN Reason: mild pain Stop: 11/27/17 22:37 Acetaminophen/Hydrocodone Bitart ([place] 5mg/325mg) 1 tab PO Q4H PRN PRN Reason: Pain (Severe) Stop: 11/28/17 14:11 Al Hydrox/Mg Hydrox/Simethicone (Maalox) 30 ml PO Q4H PRN PRN Reason: GI DISTRESS Stop: 11/27/17 22:30 Last Admin: 10/18/17 10:19 Dose: 30 ml Albuterol Sulfate (Albuterol 2.5mg/3ml Neb Ud) 1.25 mg HHN Q4HRT PRN PRN Reason: Shortness of Breath Stop: 11/27/17 23:12 Aripiprazole (Abilify) 2 mg PO DAILY [facility]; Protocol Stop: 12/21/17 08:59 Last Admin: 10/31/17 08:50 Dose: Not Given Atorvastatin Calcium (Lipitor) 10 mg PO DAILY [facility]; Protocol Stop: 11/28/17 08:59 Last Admin: 10/31/17 08:50 Dose: Not Given Bisacodyl (Dulcolax 10 Mg Supp) 10 mg RC DAILY PRN PRN Reason: Constipation Stop: 12/13/17 22:14 Last Admin: 10/15/17 17:22 Dose: 10 mg Bupropion HCl (Wellbutrin Xl) 150 mg PO DAILY [facility]; Protocol Stop: 12/06/17 08:59 Last Admin: 10/31/17 08:50 Dose: Not Given Docusate Sodium (Colace) 100 mg PO BID [facility] Stop: 11/28/17 08:59 Last Admin: 10/31/17 16:13 Dose: Not Given Donepezil HCl (Aricept) 5 mg PO DAILY [facility] Stop: 11/28/17 08:59 Last Admin: 10/31/17 08:50 Dose: Not Given Fluticasone Propionate (Flonase) 1 spr NS DAILY [facility] Stop: 11/28/17 14:14 Last Admin: 10/31/17 08:50 Dose: Not Given Lorazepam (Ativan) 0.5 mg PO Q4H PRN; Protocol PRN Reason: Anxiety/agitation Stop: 11/27/17 22:30 Last Admin: 10/26/17 04:59 Dose: 0.5 mg Magnesium Hydroxide (Milk Of Magnesia) 30 ml PO HS PRN PRN Reason: Constipation Meclizine HCl (Antivert) 25 mg PO Q12H PRN PRN Reason: Vertigo Stop: 11/27/17 22:37 Miscellaneous (Probiotic Screen) 1 ea MC PRN PRN PRN Reason: PROTOCOL Stop: 11/29/17 08:14 Multivitamins/Vitamin C (Theragran) 1 tab PO DAILY [facility] Stop: 11/28/17 08:59 Last Admin: 10/31/17 08:50 Dose: Not Given Pantoprazole Sodium (Protonix) 40 mg PO QDAC [facility] Stop: 11/28/17 07:29 Last Admin: 10/31/17 07:17 Dose: Not Given Zolpidem Tartrate (Ambien) 5 mg PO HS PRN PRN Reason: Insomnia Stop: 11/27/17 22:30 Last Admin: 10/29/17 20:43 Dose: 5 mg General: Alert, Oriented x3, Cooperative HEENT: Atraumatic, PERRLA, EOMI Neck: Supple, JVD, Thyromegaly Cardiovascular: Regular rate, Normal S1, Normal S2 Lungs: Clear to auscultation Abdomen: Bowel sounds, Soft Assessment/Plan - Assessment Assessment: 1.HYPERLIPIDEMIA. 2.DJD. 3.DEMENTIA - Plan Plan: cont current treatment Nutritional Asmnt/Malnutr-PDOC - Dietary Evaluation Malnutrition Findings (Please click <Entered> for more info): Nutritional Asmnt/Malnutrition Start: 10/04/17 14: 42 Text: Status: Complete Freq: Protocol: Document 10/04/17 14:42 LCHENG (Rec: 10/04/17 14:45 LCHENG [email or web address]) Nutritional Asmnt/Malnutrition Patient General Information Nutritional Screening Low Risk Diagnosis psychosis Pertinent Medical Hx/Surgical Hx hyperlipidemia, DJD, demntia Subjective Information Pt was in bathroom not able to visit. Per EMR, PO intake 25% . Current Diet Order/ Nutrition Support regular Pertinent Medications colace, culturelle, theragran, protonix Pertinent Labs 09/29 triglycerides 202 Nutritional Hx/Data Height 1.65 m Height (Calculated Centimeters) 165.1 Current Weight (lbs) 56.699 kg Weight (Calculated Kilograms) 56.7 Weight (Calculated Grams) 73668.0 [place] Body Weight 125 Body Mass Index (BMI) 20.7 Weight Status Approriate GI Symptoms GI Symptoms None Last BM 10/03 Difficult in: None Skin Integrity/Comment: intact Current %PO Good (75-100%) Estimated Nutritional Goals BEE in Kcals: Using Current wt Calories/Kcals/Kg 25-30 Kcals Calculated 5214-7227 Protein: Using Current wt Protein g/k-1.2 Protein Calculated 57-68 Fluid: ml 1425-1710ml (1ml/kcal) Nutritional Problem No current Nutrition Prob Problem N/A Malnutrition Alert Is there a minimum of two criteria No selected? Query Text:Check all the applicable criteria. A minimum of two criteria are recommended for diagnosis of either severe or non-severe malnutrition. Malnutrition Related to Morbid Obesity Malnutrition related to morbid obesity No Intervention/Recommendation Comments 1. Continue with regular diet as ordered. 2. Monitor PO intake, wt, labs and skin integrity 3. F/U as low risk in 7 days, 10/11 Expected Outcomes/Goals Expected Outcomes/Goals 1. PO intake to meet at least 75% of nutritional needs. 2. Wt stability, skin to remain intact, labs to approach WNL.
--- NOTE | 2017-10-31 21:52 | Progress Notes ---
DATE: 10/31/2017 The patient was seen and evaluated. The patient's chart reviewed. This is Dr. Lau covering for Dr. Hopkins. SUBJECTIVE: Nursing staff reported that the patient continued to be ____. Today, on [id number] evaluation, the patient is little more engaging in the interview, but mostly perseverates about the night sleeping, engaged. MENTAL STATUS EXAMINATION: Disorganized, insomnia. ASSESSMENT AND PLAN: A 72-year-old female, disorganized, unable to form a safe plan. We will continue with the current medication regimen. Her medications were recently augmented and increased, which included Abilify, Wellbutrin, Aricept, and Ativan as needed. [facility]# [id number]
[2017-11-01] MEDS: Pantoprazole 40 mg EC Tab PO SCH (06:54)
[2017-11-01] MEDS: Atorvastatin Calcium 10 MG TAB PO SCH (09:42)
[2017-11-01] MEDS: Multivitamin Tab PO SCH (09:42)
[2017-11-01] MEDS: Fluticasone Propionate 0.05mg/Actuation 16gm Nasal Spray NS SCH (09:42)
[2017-11-01] MEDS: buPROPion XL 150 mg T 24 H PO SCH (09:42)
--- NOTE | 2017-11-01 16:25 | Progress Notes ---
DATE: 11/01/2017 SUBJECTIVE: The patient in the hospital, appearing to be more engaged, still confused, disoriented; however in her room, she states she is taking medications. No overt side effects. Currently pending placement. She seems to be approaching her baseline, which is confused but calm, chronically depressed and withdrawn, mostly keeping to herself. She still does not believe the medications are helping and she may be correct about this. We have tapered her dose down and I actually did notice some improvement. Her family member and the patient has both told me the only thing that worked was electroconvulsive therapy. The patient mostly in her room, staying to herself. We are trying to get her placement, hopefully to a memory care unit. The patient has been accepted to some places, but the daughter has been declining these options and wants the patient to go to the [facility] away. We are pending a hearing in this regard 11/09/2017. JOB# [id number]
--- NOTE | 2017-11-01 23:30 | Internal Medicine Prog Note ---
Internal Medicine Subjective - Subjective Service Date: 11/01/17 Patient seen and examined:: with staff Patient is:: awake, verbal, in bed, talking, confused Per staff patient has:: no adverse event Internal Medicine Objective - Results Result Diagrams: 09/29/17 07:20 09/29/17 07:20 Recent Labs: Laboratory Last Values WBC 5.2 Th/cmm (4.8-10.8) 09/29/17 07:20 RBC 4.45 Mil/cmm (3.80-5.20) 09/29/17 07:20 Hgb 14.0 gm/dL (12-16) 09/29/17 07:20 Hct 41.8 % (41.0-60) 09/29/17 07:20 MCV 93.8 fl (81-100) 09/29/17 07:20 MCH 31.5 pg (27.0-31.0) H 09/29/17 07:20 MCHC Differential 33.6 pg (28.0-36.0) 09/29/17 07:20 RDW 13.3 % (11.5-20.0) 09/29/17 07:20 Plt Count 358 Th/cmm (150-400) 09/29/17 07:20 MPV 6.5 fl 09/29/17 07:20 Neutrophils % 55.3 % (40.0-80.0) 09/29/17 07:20 Lymphocytes % 32.4 % (20.0-50.0) 09/29/17 07:20 Monocytes % 7.1 % (2.0-10.0) 09/29/17 07:20 Eosinophils % 3.8 % (0.0-5.0) 09/29/17 07:20 Basophils % 1.4 % (0.0-2.0) 09/29/17 07:20 Sodium 140 mEq/L (136-145) 09/29/17 07:20 Potassium 4.0 mEq/L (3.5-5.1) 09/29/17 07:20 Chloride 106 mEq/L (98-107) 09/29/17 07:20 Carbon Dioxide 28.3 mEq/L (21.0-31.0) 09/29/17 07:20 Anion Gap 9.7 (7.0-16.0) 09/29/17 07:20 BUN 22 mg/dL (7-25) 09/29/17 07:20 Creatinine 0.7 mg/dL (0.6-1.2) 09/29/17 07:20 Est GFR ( Amer) > 60.0 ml/min (>90) 09/29/17 07:20 Est GFR (Non-Af Amer) > 60.0 ml/min 09/29/17 07:20 BUN/Creatinine Ratio 31.4 09/29/17 07:20 Glucose 95 mg/dL (70-105) 09/29/17 07:20 Hemoglobin A1c % 4.9 % (4.0-6.0) 09/29/17 07:20 Calcium 9.6 mg/dL (8.6-10.3) 09/29/17 07:20 Total Bilirubin 0.4 mg/dL (0.3-1.0) 09/29/17 07:20 AST 11 U/L (13-39) L 09/29/17 07:20 ALT 8 U/L (7-52) 09/29/17 07:20 Alkaline Phosphatase 59 U/L (34-104) 09/29/17 07:20 Total Protein 6.1 gm/dL (6.0-8.3) 09/29/17 07:20 Albumin 3.9 gm/dL (3.7-5.3) 09/29/17 07:20 Globulin 2.2 gm/dL 09/29/17 07:20 Albumin/Globulin Ratio 1.8 (1.0-1.8) 09/29/17 07:20 Triglycerides 202 mg/dL (<150) H 09/29/17 07:20 Cholesterol 178 mg/dL (<200) 09/29/17 07:20 LDL Cholesterol Direct 100 mg/dL (75-193) 09/29/17 07:20 HDL Cholesterol 33 mg/dL (23-92) 09/29/17 07:20 TSH 1.05 uIU/ml (0.34-5.60) 09/29/17 07:20 Urine Source CLEAN C 09/29/17 07:10 Urine Color YELLOW 09/29/17 07:10 Urine Clarity SLIGHTLY HAZY (CLEAR) 09/29/17 07:10 Urine pH 6.0 (4.6 - 8.0) 09/29/17 07:10 Ur Specific [place] 1.015 (1.005-1.030) 09/29/17 07:10 Urine Protein NEGATIVE mg/dL (NEGATIVE) 09/29/17 07:10 Urine Glucose (UA) NEGATIVE mg/dL (NEGATIVE) 09/29/17 07:10 Urine Ketones NEGATIVE mg/dL (NEGATIVE) 09/29/17 07:10 Urine Blood MODERATE (NEGATIVE) H 09/29/17 07:10 Urine Nitrate NEGATIVE (NEGATIVE) 09/29/17 07:10 Urine Bilirubin NEGATIVE (NEGATIVE) 09/29/17 07:10 Urine Urobilinogen 0.2 E.U./dL (0.2 - 1.0) 09/29/17 07:10 Ur Leukocyte Esterase SMALL (NEGATIVE) H 09/29/17 07:10 Urine RBC 5-10 /hpf (0-5) H 09/29/17 07:10 Urine WBC 6-10 /hpf (0-5) H 09/29/17 07:10 Ur Epithelial Cells MANY /lpf (FEW) 09/29/17 07:10 Urine Bacteria NONE SEEN /hpf (NONE SEEN) 09/29/17 07:10 RPR NONREACTIVE (NONREACTIVE) 09/29/17 07:20 Hepatitis A IgM Ab Negative (Negative) 09/29/17 07:20 Hep Bs Antigen Negative (Negative) 09/29/17 07:20 Hep B Core IgM Ab Negative (Negative) 09/29/17 07:20 Hepatitis C Antibody <0.1 s/co ratio (0.0-0.9) 09/29/17 07:20 - Physical Exam Vitals and I&O: Vital Signs Temp 98.6 F 11/01/17 19:51 Pulse 69 11/01/17 19:51 Resp 18 11/01/17 19:51 BP 98/68 11/01/17 19:51 Pulse Ox 97 11/01/17 19:51 Intake & Output 11/01/17 11/01/17 11/02/17 06:59 18:59 06:59 Intake Total 360 240 Balance 360 240 Intake: Oral 360 240 Other: # Voids 1 1 1 # Bowel Movements 0 0 Active Medications: Current Medications Acetaminophen (Tylenol) 650 mg PO Q6H PRN PRN Reason: mild pain Stop: 11/27/17 22:37 Acetaminophen/Hydrocodone Bitart ([place] 5mg/325mg) 1 tab PO Q4H PRN PRN Reason: Pain (Severe) Stop: 11/28/17 14:11 Al Hydrox/Mg Hydrox/Simethicone (Maalox) 30 ml PO Q4H PRN PRN Reason: GI DISTRESS Stop: 11/27/17 22:30 Last Admin: 10/18/17 10:19 Dose: 30 ml Albuterol Sulfate (Albuterol 2.5mg/3ml Neb Ud) 1.25 mg HHN Q4HRT PRN PRN Reason: Shortness of Breath Stop: 11/27/17 23:12 Aripiprazole (Abilify) 2 mg PO DAILY ESME; Protocol Stop: 12/21/17 08:59 Last Admin: 11/01/17 09:42 Dose: 2 mg Atorvastatin Calcium (Lipitor) 10 mg PO DAILY ESME; Protocol Stop: 11/28/17 08:59 Last Admin: 11/01/17 09:42 Dose: 10 mg Bisacodyl (Dulcolax 10 Mg Supp) 10 mg RC DAILY PRN PRN Reason: Constipation Stop: 12/13/17 22:14 Last Admin: 10/15/17 17:22 Dose: 10 mg Bupropion HCl (Wellbutrin Xl) 150 mg PO DAILY ESME; Protocol Stop: 12/06/17 08:59 Last Admin: 11/01/17 09:42 Dose: 150 mg Docusate Sodium (Colace) 100 mg PO BID ESME Stop: 11/28/17 08:59 Last Admin: 11/01/17 17:37 Dose: Not Given Donepezil HCl (Aricept) 5 mg PO DAILY ESME Stop: 11/28/17 08:59 Last Admin: 11/01/17 09:42 Dose: Not Given Fluticasone Propionate (Flonase) 1 spr NS DAILY ESME Stop: 11/28/17 14:14 Last Admin: 11/01/17 09:42 Dose: 1 spr Lorazepam (Ativan) 0.5 mg PO Q4H PRN; Protocol PRN Reason: Anxiety/agitation Stop: 11/27/17 22:30 Last Admin: 10/26/17 04:59 Dose: 0.5 mg Magnesium Hydroxide (Milk Of Magnesia) 30 ml PO HS PRN PRN Reason: Constipation Meclizine HCl (Antivert) 25 mg PO Q12H PRN PRN Reason: Vertigo Stop: 11/27/17 22:37 Miscellaneous (Probiotic Screen) 1 ea MC PRN PRN PRN Reason: PROTOCOL Stop: 11/29/17 08:14 Multivitamins/Vitamin C (Theragran) 1 tab PO DAILY ESME Stop: 11/28/17 08:59 Last Admin: 11/01/17 09:42 Dose: Not Given Pantoprazole Sodium (Protonix) 40 mg PO QDAC ESME Stop: 11/28/17 07:29 Last Admin: 11/01/17 06:54 Dose: Not Given Zolpidem Tartrate (Ambien) 5 mg PO HS PRN PRN Reason: Insomnia Stop: 11/27/17 22:30 Last Admin: 10/29/17 20:43 Dose: 5 mg General: demented HEENT: NC/AT, PERRLA, anicteric sclerae, throat clear Neck: Supple, No thyromegaly, +2 carotid pulse wo bruit, No LAD Cardiovascular: Normal S1, Normal S2, without murmur Abdomen: soft, non-tender, non-distended Neurological: no change Internal Medicine Assmt/Plan - Assessment Assessment: 1.HYPERLIPIDEMIA. 2.DJD. 3.DEMENTIA. - Plan Plan: CONTINUE ON CURRENT MEDICATION AND DIET. Nutritional Asmnt/Malnutr-PDOC - Dietary Evaluation Malnutrition Findings (Please click <Entered> for more info): Nutritional Asmnt/Malnutrition Start: 10/04/17 14: 42 Text: Status: Complete Freq: Protocol: Document 10/04/17 14:42 [email or web address] (Rec: 10/04/17 14:45 [email or web address] [email or web address]) Nutritional Asmnt/Malnutrition Patient General Information Nutritional Screening Low Risk Diagnosis psychosis Pertinent Medical Hx/Surgical Hx hyperlipidemia, DJD, demntia Subjective Information Pt was in bathroom not able to visit. Per EMR, PO intake 25% . Current Diet Order/ Nutrition Support regular Pertinent Medications colace, culturelle, theragran, protonix Pertinent Labs 09/29 triglycerides 202 Nutritional Hx/Data Height 1.65 m Height (Calculated Centimeters) 165.1 Current Weight (lbs) 56.699 kg Weight (Calculated Kilograms) 56.7 Weight (Calculated Grams) 45377.0 [place] Body Weight 125 Body Mass Index (BMI) 20.7 Weight Status Approriate GI Symptoms GI Symptoms None Last BM 7/8 Difficult in: None Skin Integrity/Comment: intact Current %PO Good (75-100%) Estimated Nutritional Goals BEE in Kcals: Using Current wt Calories/Kcals/Kg 25-30 Kcals Calculated 6672-0133 Protein: Using Current wt Protein g/k-1.2 Protein Calculated 57-68 Fluid: ml 1425-1710ml (1ml/kcal) Nutritional Problem No current Nutrition Prob Problem N/A Malnutrition Alert Is there a minimum of two criteria No selected? Query Text:Check all the applicable criteria. A minimum of two criteria are recommended for diagnosis of either severe or non-severe malnutrition. Malnutrition Related to Morbid Obesity Malnutrition related to morbid obesity No Intervention/Recommendation Comments 1. Continue with regular diet as ordered. 2. Monitor PO intake, wt, labs and skin integrity 3. F/U as low risk in 7 days, 10/11 Expected Outcomes/Goals Expected Outcomes/Goals 1. PO intake to meet at least 75% of nutritional needs. 2. Wt stability, skin to remain intact, labs to approach WNL.
[2017-11-02] MEDS: Pantoprazole 40 mg EC Tab PO SCH (06:31)
[2017-11-02] MEDS: buPROPion XL 150 mg T 24 H PO SCH (08:48)
[2017-11-02] MEDS: Fluticasone Propionate 0.05mg/Actuation 16gm Nasal Spray NS SCH (08:49)
[2017-11-02] MEDS: Atorvastatin Calcium 10 MG TAB PO SCH (08:49)
[2017-11-02] MEDS: Multivitamin Tab PO SCH (08:49)
--- NOTE | 2017-11-02 12:12 | Internal Medicine Prog Note ---
Internal Medicine Subjective - Subjective Service Date: 11/02/17 Patient seen and examined:: with staff Patient is:: awake, verbal, in bed, talking, confused Per staff patient has:: no adverse event Internal Medicine Objective - Results Result Diagrams: 09/29/17 07:20 09/29/17 07:20 Recent Labs: Laboratory Last Values WBC 5.2 Th/cmm (4.8-10.8) 09/29/17 07:20 RBC 4.45 Mil/cmm (3.80-5.20) 09/29/17 07:20 Hgb 14.0 gm/dL (12-16) 09/29/17 07:20 Hct 41.8 % (41.0-60) 09/29/17 07:20 MCV 93.8 fl (81-100) 09/29/17 07:20 MCH 31.5 pg (27.0-31.0) H 09/29/17 07:20 MCHC Differential 33.6 pg (28.0-36.0) 09/29/17 07:20 RDW 13.3 % (11.5-20.0) 09/29/17 07:20 Plt Count 358 Th/cmm (150-400) 09/29/17 07:20 MPV 6.5 fl 09/29/17 07:20 Neutrophils % 55.3 % (40.0-80.0) 09/29/17 07:20 Lymphocytes % 32.4 % (20.0-50.0) 09/29/17 07:20 Monocytes % 7.1 % (2.0-10.0) 09/29/17 07:20 Eosinophils % 3.8 % (0.0-5.0) 09/29/17 07:20 Basophils % 1.4 % (0.0-2.0) 09/29/17 07:20 Sodium 140 mEq/L (136-145) 09/29/17 07:20 Potassium 4.0 mEq/L (3.5-5.1) 09/29/17 07:20 Chloride 106 mEq/L (98-107) 09/29/17 07:20 Carbon Dioxide 28.3 mEq/L (21.0-31.0) 09/29/17 07:20 Anion Gap 9.7 (7.0-16.0) 09/29/17 07:20 BUN 22 mg/dL (7-25) 09/29/17 07:20 Creatinine 0.7 mg/dL (0.6-1.2) 09/29/17 07:20 Est GFR ( Amer) > 60.0 ml/min (>90) 09/29/17 07:20 Est GFR (Non-Af Amer) > 60.0 ml/min 09/29/17 07:20 BUN/Creatinine Ratio 31.4 09/29/17 07:20 Glucose 95 mg/dL (70-105) 09/29/17 07:20 Hemoglobin A1c % 4.9 % (4.0-6.0) 09/29/17 07:20 Calcium 9.6 mg/dL (8.6-10.3) 09/29/17 07:20 Total Bilirubin 0.4 mg/dL (0.3-1.0) 09/29/17 07:20 AST 11 U/L (13-39) L 09/29/17 07:20 ALT 8 U/L (7-52) 09/29/17 07:20 Alkaline Phosphatase 59 U/L (34-104) 09/29/17 07:20 Total Protein 6.1 gm/dL (6.0-8.3) 09/29/17 07:20 Albumin 3.9 gm/dL (3.7-5.3) 09/29/17 07:20 Globulin 2.2 gm/dL 09/29/17 07:20 Albumin/Globulin Ratio 1.8 (1.0-1.8) 09/29/17 07:20 Triglycerides 202 mg/dL (<150) H 09/29/17 07:20 Cholesterol 178 mg/dL (<200) 09/29/17 07:20 LDL Cholesterol Direct 100 mg/dL (75-193) 09/29/17 07:20 HDL Cholesterol 33 mg/dL (23-92) 09/29/17 07:20 TSH 1.05 uIU/ml (0.34-5.60) 09/29/17 07:20 Urine Source CLEAN C 09/29/17 07:10 Urine Color YELLOW 09/29/17 07:10 Urine Clarity SLIGHTLY HAZY (CLEAR) 09/29/17 07:10 Urine pH 6.0 (4.6 - 8.0) 09/29/17 07:10 Ur Specific [place] 1.015 (1.005-1.030) 09/29/17 07:10 Urine Protein NEGATIVE mg/dL (NEGATIVE) 09/29/17 07:10 Urine Glucose (UA) NEGATIVE mg/dL (NEGATIVE) 09/29/17 07:10 Urine Ketones NEGATIVE mg/dL (NEGATIVE) 09/29/17 07:10 Urine Blood MODERATE (NEGATIVE) H 09/29/17 07:10 Urine Nitrate NEGATIVE (NEGATIVE) 09/29/17 07:10 Urine Bilirubin NEGATIVE (NEGATIVE) 09/29/17 07:10 Urine Urobilinogen 0.2 E.U./dL (0.2 - 1.0) 09/29/17 07:10 Ur Leukocyte Esterase SMALL (NEGATIVE) H 09/29/17 07:10 Urine RBC 5-10 /hpf (0-5) H 09/29/17 07:10 Urine WBC 6-10 /hpf (0-5) H 09/29/17 07:10 Ur Epithelial Cells MANY /lpf (FEW) 09/29/17 07:10 Urine Bacteria NONE SEEN /hpf (NONE SEEN) 09/29/17 07:10 RPR NONREACTIVE (NONREACTIVE) 09/29/17 07:20 Hepatitis A IgM Ab Negative (Negative) 09/29/17 07:20 Hep Bs Antigen Negative (Negative) 09/29/17 07:20 Hep B Core IgM Ab Negative (Negative) 09/29/17 07:20 Hepatitis C Antibody <0.1 s/co ratio (0.0-0.9) 09/29/17 07:20 - Physical Exam Vitals and I&O: Vital Signs Temp 98.1 F 11/02/17 06:14 Pulse 62 11/02/17 11:09 Resp 19 11/02/17 11:09 BP 113/69 11/02/17 06:14 Pulse Ox 98 11/02/17 06:14 Intake & Output 11/01/17 11/02/17 11/02/17 18:59 06:59 18:59 Intake Total 240 Balance 240 Intake: Oral 240 Other: # Voids 1 3 # Bowel Movements 0 0 Active Medications: Current Medications Acetaminophen (Tylenol) 650 mg PO Q6H PRN PRN Reason: mild pain Stop: 11/27/17 22:37 Acetaminophen/Hydrocodone Bitart ([place] 5mg/325mg) 1 tab PO Q4H PRN PRN Reason: Pain (Severe) Stop: 11/28/17 14:11 Al Hydrox/Mg Hydrox/Simethicone (Maalox) 30 ml PO Q4H PRN PRN Reason: GI DISTRESS Stop: 11/27/17 22:30 Last Admin: 10/18/17 10:19 Dose: 30 ml Albuterol Sulfate (Albuterol 2.5mg/3ml Neb Ud) 1.25 mg HHN Q4HRT PRN PRN Reason: Shortness of Breath Stop: 11/27/17 23:12 Aripiprazole (Abilify) 2 mg PO DAILY ESME; Protocol Stop: 12/21/17 08:59 Last Admin: 11/02/17 08:49 Dose: 2 mg Atorvastatin Calcium (Lipitor) 10 mg PO DAILY ESME; Protocol Stop: 11/28/17 08:59 Last Admin: 11/02/17 08:49 Dose: 10 mg Bisacodyl (Dulcolax 10 Mg Supp) 10 mg RC DAILY PRN PRN Reason: Constipation Stop: 12/13/17 22:14 Last Admin: 10/15/17 17:22 Dose: 10 mg Bupropion HCl (Wellbutrin Xl) 150 mg PO DAILY ESME; Protocol Stop: 12/06/17 08:59 Last Admin: 11/02/17 08:48 Dose: 150 mg Docusate Sodium (Colace) 100 mg PO BID ESME Stop: 11/28/17 08:59 Last Admin: 11/02/17 08:48 Dose: Not Given Donepezil HCl (Aricept) 5 mg PO DAILY ESME Stop: 11/28/17 08:59 Last Admin: 11/02/17 08:49 Dose: 5 mg Fluticasone Propionate (Flonase) 1 spr NS DAILY ESME Stop: 11/28/17 14:14 Last Admin: 11/02/17 08:49 Dose: 1 spr Lorazepam (Ativan) 0.5 mg PO Q4H PRN; Protocol PRN Reason: Anxiety/agitation Stop: 11/27/17 22:30 Last Admin: 10/26/17 04:59 Dose: 0.5 mg Magnesium Hydroxide (Milk Of Magnesia) 30 ml PO HS PRN PRN Reason: Constipation Meclizine HCl (Antivert) 25 mg PO Q12H PRN PRN Reason: Vertigo Stop: 11/27/17 22:37 Miscellaneous (Probiotic Screen) 1 ea MC PRN PRN PRN Reason: PROTOCOL Stop: 11/29/17 08:14 Multivitamins/Vitamin C (Theragran) 1 tab PO DAILY ESME Stop: 11/28/17 08:59 Last Admin: 11/02/17 08:49 Dose: Not Given Pantoprazole Sodium (Protonix) 40 mg PO QDAC ESME Stop: 11/28/17 07:29 Last Admin: 11/02/17 06:31 Dose: Not Given Zolpidem Tartrate (Ambien) 5 mg PO HS PRN PRN Reason: Insomnia Stop: 11/27/17 22:30 Last Admin: 10/29/17 20:43 Dose: 5 mg General: demented HEENT: NC/AT, PERRLA, anicteric sclerae, throat clear Neck: Supple, No thyromegaly, +2 carotid pulse wo bruit, No LAD Cardiovascular: Normal S1, Normal S2, without murmur Abdomen: soft, non-tender, non-distended Neurological: no change Internal Medicine Assmt/Plan - Assessment Assessment: 1.HYPERLIPIDEMIA. 2.DJD. 3.DEMENTIA. - Plan Plan: CONTINUE ON CURRENT MEDICATION AND DIET. Nutritional Asmnt/Malnutr-PDOC - Dietary Evaluation Malnutrition Findings (Please click <Entered> for more info): Nutritional Asmnt/Malnutrition Start: 10/04/17 14: 42 Text: Status: Complete Freq: Protocol: Document 10/04/17 14:42 [email or web address] (Rec: 10/04/17 14:45 [email or web address] [email or web address]) Nutritional Asmnt/Malnutrition Patient General Information Nutritional Screening Low Risk Diagnosis psychosis Pertinent Medical Hx/Surgical Hx hyperlipidemia, DJD, demntia Subjective Information Pt was in bathroom not able to visit. Per EMR, PO intake 25% . Current Diet Order/ Nutrition Support regular Pertinent Medications colace, culturelle, theragran, protonix Pertinent Labs 09/29 triglycerides 202 Nutritional Hx/Data Height 1.65 m Height (Calculated Centimeters) 165.1 Current Weight (lbs) 56.699 kg Weight (Calculated Kilograms) 56.7 Weight (Calculated Grams) 04540.0 [place] Body Weight 125 Body Mass Index (BMI) 20.7 Weight Status Approriate GI Symptoms GI Symptoms None Last BM 7/8 Difficult in: None Skin Integrity/Comment: intact Current %PO Good (75-100%) Estimated Nutritional Goals BEE in Kcals: Using Current wt Calories/Kcals/Kg 25-30 Kcals Calculated 8692-5923 Protein: Using Current wt Protein g/k-1.2 Protein Calculated 57-68 Fluid: ml 1425-1710ml (1ml/kcal) Nutritional Problem No current Nutrition Prob Problem N/A Malnutrition Alert Is there a minimum of two criteria No selected? Query Text:Check all the applicable criteria. A minimum of two criteria are recommended for diagnosis of either severe or non-severe malnutrition. Malnutrition Related to Morbid Obesity Malnutrition related to morbid obesity No Intervention/Recommendation Comments 1. Continue with regular diet as ordered. 2. Monitor PO intake, wt, labs and skin integrity 3. F/U as low risk in 7 days, 10/11 Expected Outcomes/Goals Expected Outcomes/Goals 1. PO intake to meet at least 75% of nutritional needs. 2. Wt stability, skin to remain intact, labs to approach WNL.
--- NOTE | 2017-11-02 18:35 | Progress Notes ---
DATE: 11/02/2017 SUBJECTIVE: The patient in her room, pacing, slept about 7 hours, took her medications, noting she is sleeping okay, "sometimes noisy," appearing somewhat confused, disoriented, not a good historian, does not want to talk, still depressed, withdrawn, likely at her baseline. Medications were noted. ASSESSMENT: The patient remains withdrawn, mildly confused, disoriented. No agitation, no SI, tolerant of treatment, better med compliance. We are currently pending confirmation of placement. PLAN: We will attempt to stabilize further. Titrate medications as tolerated. [facility]# [id number]
[2017-11-03] MEDS: Pantoprazole 40 mg EC Tab PO SCH (07:15)
[2017-11-03] MEDS: buPROPion XL 150 mg T 24 H PO SCH (09:03)
[2017-11-03] MEDS: Atorvastatin Calcium 10 MG TAB PO SCH (09:04)
[2017-11-03] MEDS: Multivitamin Tab PO SCH (09:04)
[2017-11-03] MEDS: Fluticasone Propionate 0.05mg/Actuation 16gm Nasal Spray NS SCH (09:04)
--- NOTE | 2017-11-03 16:49 | Progress Notes ---
DATE: 11/03/2017 SUBJECTIVE: The patient in the hospital, confused, stating that she cannot eat right now because "she did not pay for the food." Acting very strange mostly in her room, pacing back and forth, appearing internally preoccupied. Per family, she appears to be her baseline. No destructive behaviors, no agitation. She does eventually eat. Medications were noted. ASSESSMENT: The patient is calm, cooperative, but confused, disoriented, not want to eat lunch, believing that she needs to pay for the lunch. I tried to explain to her, otherwise, but she states that she does not want to eat. MEDICATIONS: Noted. PLAN: We will continue to monitor, adjust and titrate medications. Consider increasing dosing of Abilify. [facility]# [id number]
--- NOTE | 2017-11-03 21:35 | Internal Medicine Prog Note ---
Internal Medicine Subjective - Subjective Service Date: 11/03/17 Patient seen and examined:: with staff Patient is:: awake, verbal, in bed, talking, confused Per staff patient has:: no adverse event Internal Medicine Objective - Results Result Diagrams: 09/29/17 07:20 09/29/17 07:20 Recent Labs: Laboratory Last Values WBC 5.2 Th/cmm (4.8-10.8) 09/29/17 07:20 RBC 4.45 Mil/cmm (3.80-5.20) 09/29/17 07:20 Hgb 14.0 gm/dL (12-16) 09/29/17 07:20 Hct 41.8 % (41.0-60) 09/29/17 07:20 MCV 93.8 fl (81-100) 09/29/17 07:20 MCH 31.5 pg (27.0-31.0) H 09/29/17 07:20 MCHC Differential 33.6 pg (28.0-36.0) 09/29/17 07:20 RDW 13.3 % (11.5-20.0) 09/29/17 07:20 Plt Count 358 Th/cmm (150-400) 09/29/17 07:20 MPV 6.5 fl 09/29/17 07:20 Neutrophils % 55.3 % (40.0-80.0) 09/29/17 07:20 Lymphocytes % 32.4 % (20.0-50.0) 09/29/17 07:20 Monocytes % 7.1 % (2.0-10.0) 09/29/17 07:20 Eosinophils % 3.8 % (0.0-5.0) 09/29/17 07:20 Basophils % 1.4 % (0.0-2.0) 09/29/17 07:20 Sodium 140 mEq/L (136-145) 09/29/17 07:20 Potassium 4.0 mEq/L (3.5-5.1) 09/29/17 07:20 Chloride 106 mEq/L (98-107) 09/29/17 07:20 Carbon Dioxide 28.3 mEq/L (21.0-31.0) 09/29/17 07:20 Anion Gap 9.7 (7.0-16.0) 09/29/17 07:20 BUN 22 mg/dL (7-25) 09/29/17 07:20 Creatinine 0.7 mg/dL (0.6-1.2) 09/29/17 07:20 Est GFR ( Amer) > 60.0 ml/min (>90) 09/29/17 07:20 Est GFR (Non-Af Amer) > 60.0 ml/min 09/29/17 07:20 BUN/Creatinine Ratio 31.4 09/29/17 07:20 Glucose 95 mg/dL (70-105) 09/29/17 07:20 Hemoglobin A1c % 4.9 % (4.0-6.0) 09/29/17 07:20 Calcium 9.6 mg/dL (8.6-10.3) 09/29/17 07:20 Total Bilirubin 0.4 mg/dL (0.3-1.0) 09/29/17 07:20 AST 11 U/L (13-39) L 09/29/17 07:20 ALT 8 U/L (7-52) 09/29/17 07:20 Alkaline Phosphatase 59 U/L (34-104) 09/29/17 07:20 Total Protein 6.1 gm/dL (6.0-8.3) 09/29/17 07:20 Albumin 3.9 gm/dL (3.7-5.3) 09/29/17 07:20 Globulin 2.2 gm/dL 09/29/17 07:20 Albumin/Globulin Ratio 1.8 (1.0-1.8) 09/29/17 07:20 Triglycerides 202 mg/dL (<150) H 09/29/17 07:20 Cholesterol 178 mg/dL (<200) 09/29/17 07:20 LDL Cholesterol Direct 100 mg/dL (75-193) 09/29/17 07:20 HDL Cholesterol 33 mg/dL (23-92) 09/29/17 07:20 TSH 1.05 uIU/ml (0.34-5.60) 09/29/17 07:20 Urine Source CLEAN C 09/29/17 07:10 Urine Color YELLOW 09/29/17 07:10 Urine Clarity SLIGHTLY HAZY (CLEAR) 09/29/17 07:10 Urine pH 6.0 (4.6 - 8.0) 09/29/17 07:10 Ur Specific [place] 1.015 (1.005-1.030) 09/29/17 07:10 Urine Protein NEGATIVE mg/dL (NEGATIVE) 09/29/17 07:10 Urine Glucose (UA) NEGATIVE mg/dL (NEGATIVE) 09/29/17 07:10 Urine Ketones NEGATIVE mg/dL (NEGATIVE) 09/29/17 07:10 Urine Blood MODERATE (NEGATIVE) H 09/29/17 07:10 Urine Nitrate NEGATIVE (NEGATIVE) 09/29/17 07:10 Urine Bilirubin NEGATIVE (NEGATIVE) 09/29/17 07:10 Urine Urobilinogen 0.2 E.U./dL (0.2 - 1.0) 09/29/17 07:10 Ur Leukocyte Esterase SMALL (NEGATIVE) H 09/29/17 07:10 Urine RBC 5-10 /hpf (0-5) H 09/29/17 07:10 Urine WBC 6-10 /hpf (0-5) H 09/29/17 07:10 Ur Epithelial Cells MANY /lpf (FEW) 09/29/17 07:10 Urine Bacteria NONE SEEN /hpf (NONE SEEN) 09/29/17 07:10 RPR NONREACTIVE (NONREACTIVE) 09/29/17 07:20 Hepatitis A IgM Ab Negative (Negative) 09/29/17 07:20 Hep Bs Antigen Negative (Negative) 09/29/17 07:20 Hep B Core IgM Ab Negative (Negative) 09/29/17 07:20 Hepatitis C Antibody <0.1 s/co ratio (0.0-0.9) 09/29/17 07:20 - Physical Exam Vitals and I&O: Vital Signs Temp 97.8 F 11/03/17 19:59 Pulse 74 11/03/17 19:59 Resp 18 11/03/17 19:59 BP 116/76 11/03/17 19:59 Pulse Ox 97 11/03/17 19:59 Intake & Output 11/03/17 11/03/17 11/04/17 06:59 18:59 06:59 Intake Total 240 700 Balance 240 700 Intake: Oral 240 700 Other: # Voids 2 3 # Bowel Movements 0 0 Active Medications: Current Medications Acetaminophen (Tylenol) 650 mg PO Q6H PRN PRN Reason: mild pain Stop: 11/27/17 22:37 Acetaminophen/Hydrocodone Bitart ([place] 5mg/325mg) 1 tab PO Q4H PRN PRN Reason: Pain (Severe) Stop: 11/28/17 14:11 Al Hydrox/Mg Hydrox/Simethicone (Maalox) 30 ml PO Q4H PRN PRN Reason: GI DISTRESS Stop: 11/27/17 22:30 Last Admin: 10/18/17 10:19 Dose: 30 ml Albuterol Sulfate (Albuterol 2.5mg/3ml Neb Ud) 1.25 mg HHN Q4HRT PRN PRN Reason: Shortness of Breath Stop: 11/27/17 23:12 Aripiprazole (Abilify) 2 mg PO DAILY ESME; Protocol Stop: 12/21/17 08:59 Last Admin: 11/03/17 09:04 Dose: Not Given Atorvastatin Calcium (Lipitor) 10 mg PO DAILY ESME; Protocol Stop: 11/28/17 08:59 Last Admin: 11/03/17 09:04 Dose: Not Given Bisacodyl (Dulcolax 10 Mg Supp) 10 mg RC DAILY PRN PRN Reason: Constipation Stop: 12/13/17 22:14 Last Admin: 10/15/17 17:22 Dose: 10 mg Bupropion HCl (Wellbutrin Xl) 150 mg PO DAILY ESME; Protocol Stop: 12/06/17 08:59 Last Admin: 11/03/17 09:03 Dose: Not Given Docusate Sodium (Colace) 100 mg PO BID ESME Stop: 11/28/17 08:59 Last Admin: 11/03/17 09:04 Dose: Not Given Donepezil HCl (Aricept) 5 mg PO DAILY ESME Stop: 11/28/17 08:59 Last Admin: 11/03/17 09:04 Dose: Not Given Fluticasone Propionate (Flonase) 1 spr NS DAILY ESME Stop: 11/28/17 14:14 Last Admin: 11/03/17 09:04 Dose: 1 spr Lorazepam (Ativan) 0.5 mg PO Q4H PRN; Protocol PRN Reason: Anxiety/agitation Stop: 11/27/17 22:30 Last Admin: 10/26/17 04:59 Dose: 0.5 mg Magnesium Hydroxide (Milk Of Magnesia) 30 ml PO HS PRN PRN Reason: Constipation Meclizine HCl (Antivert) 25 mg PO Q12H PRN PRN Reason: Vertigo Stop: 11/27/17 22:37 Miscellaneous (Probiotic Screen) 1 ea MC PRN PRN PRN Reason: PROTOCOL Stop: 11/29/17 08:14 Multivitamins/Vitamin C (Theragran) 1 tab PO DAILY ESME Stop: 11/28/17 08:59 Last Admin: 11/03/17 09:04 Dose: Not Given Pantoprazole Sodium (Protonix) 40 mg PO QDAC ESME Stop: 11/28/17 07:29 Last Admin: 11/03/17 07:15 Dose: Not Given Zolpidem Tartrate (Ambien) 5 mg PO HS PRN PRN Reason: Insomnia Stop: 11/27/17 22:30 Last Admin: 10/29/17 20:43 Dose: 5 mg General: demented HEENT: NC/AT, PERRLA, anicteric sclerae, throat clear Neck: Supple, No thyromegaly, +2 carotid pulse wo bruit, No LAD Cardiovascular: Normal S1, Normal S2, without murmur Abdomen: soft, non-tender, non-distended Neurological: no change Internal Medicine Assmt/Plan - Assessment Assessment: 1.HYPERLIPIDEMIA. 2.DJD. 3.DEMENTIA. - Plan Plan: CONTINUE ON CURRENT MEDICATION AND DIET. Nutritional Asmnt/Malnutr-PDOC - Dietary Evaluation Malnutrition Findings (Please click <Entered> for more info): Nutritional Asmnt/Malnutrition Start: 10/04/17 14: 42 Text: Status: Complete Freq: Protocol: Document 10/04/17 14:42 LCHENG (Rec: 10/04/17 14:45 [email or web address]) Nutritional Asmnt/Malnutrition Patient General Information Nutritional Screening Low Risk Diagnosis psychosis Pertinent Medical Hx/Surgical Hx hyperlipidemia, DJD, demntia Subjective Information Pt was in bathroom not able to visit. Per EMR, PO intake 25% . Current Diet Order/ Nutrition Support regular Pertinent Medications colace, culturelle, theragran, protonix Pertinent Labs 09/29 triglycerides 202 Nutritional Hx/Data Height 1.65 m Height (Calculated Centimeters) 165.1 Current Weight (lbs) 56.699 kg Weight (Calculated Kilograms) 56.7 Weight (Calculated Grams) 88270.0 [place] Body Weight 125 Body Mass Index (BMI) 20.7 Weight Status Approriate GI Symptoms GI Symptoms None Last BM 7/8 Difficult in: None Skin Integrity/Comment: intact Current %PO Good (75-100%) Estimated Nutritional Goals BEE in Kcals: Using Current wt Calories/Kcals/Kg 25-30 Kcals Calculated 0656-7679 Protein: Using Current wt Protein g/k-1.2 Protein Calculated 57-68 Fluid: ml 1425-1710ml (1ml/kcal) Nutritional Problem No current Nutrition Prob Problem N/A Malnutrition Alert Is there a minimum of two criteria No selected? Query Text:Check all the applicable criteria. A minimum of two criteria are recommended for diagnosis of either severe or non-severe malnutrition. Malnutrition Related to Morbid Obesity Malnutrition related to morbid obesity No Intervention/Recommendation Comments 1. Continue with regular diet as ordered. 2. Monitor PO intake, wt, labs and skin integrity 3. F/U as low risk in 7 days, 10/11 Expected Outcomes/Goals Expected Outcomes/Goals 1. PO intake to meet at least 75% of nutritional needs. 2. Wt stability, skin to remain intact, labs to approach WNL.
[2017-11-04] MEDS: Pantoprazole 40 mg EC Tab PO SCH (06:40)
[2017-11-04] MEDS: Multivitamin Tab PO SCH (08:46)
[2017-11-04] MEDS: buPROPion XL 150 mg T 24 H PO SCH (08:49)
[2017-11-04] MEDS: Atorvastatin Calcium 10 MG TAB PO SCH (08:49)
[2017-11-04] MEDS: Fluticasone Propionate 0.05mg/Actuation 16gm Nasal Spray NS SCH (08:49)
--- NOTE | 2017-11-04 18:51 | Internal Medicine Prog Note ---
Internal Medicine Subjective - Subjective Service Date: 11/04/17 Patient seen and examined:: without staff Patient is:: awake, verbal, in bed, talking, confused Per staff patient has:: no adverse event Internal Medicine Objective - Results Result Diagrams: 09/29/17 07:20 09/29/17 07:20 Recent Labs: Laboratory Last Values WBC 5.2 Th/cmm (4.8-10.8) 09/29/17 07:20 RBC 4.45 Mil/cmm (3.80-5.20) 09/29/17 07:20 Hgb 14.0 gm/dL (12-16) 09/29/17 07:20 Hct 41.8 % (41.0-60) 09/29/17 07:20 MCV 93.8 fl (81-100) 09/29/17 07:20 MCH 31.5 pg (27.0-31.0) H 09/29/17 07:20 MCHC Differential 33.6 pg (28.0-36.0) 09/29/17 07:20 RDW 13.3 % (11.5-20.0) 09/29/17 07:20 Plt Count 358 Th/cmm (150-400) 09/29/17 07:20 MPV 6.5 fl 09/29/17 07:20 Neutrophils % 55.3 % (40.0-80.0) 09/29/17 07:20 Lymphocytes % 32.4 % (20.0-50.0) 09/29/17 07:20 Monocytes % 7.1 % (2.0-10.0) 09/29/17 07:20 Eosinophils % 3.8 % (0.0-5.0) 09/29/17 07:20 Basophils % 1.4 % (0.0-2.0) 09/29/17 07:20 Sodium 140 mEq/L (136-145) 09/29/17 07:20 Potassium 4.0 mEq/L (3.5-5.1) 09/29/17 07:20 Chloride 106 mEq/L (98-107) 09/29/17 07:20 Carbon Dioxide 28.3 mEq/L (21.0-31.0) 09/29/17 07:20 Anion Gap 9.7 (7.0-16.0) 09/29/17 07:20 BUN 22 mg/dL (7-25) 09/29/17 07:20 Creatinine 0.7 mg/dL (0.6-1.2) 09/29/17 07:20 Est GFR ( Amer) > 60.0 ml/min (>90) 09/29/17 07:20 Est GFR (Non-Af Amer) > 60.0 ml/min 09/29/17 07:20 BUN/Creatinine Ratio 31.4 09/29/17 07:20 Glucose 95 mg/dL (70-105) 09/29/17 07:20 Hemoglobin A1c % 4.9 % (4.0-6.0) 09/29/17 07:20 Calcium 9.6 mg/dL (8.6-10.3) 09/29/17 07:20 Total Bilirubin 0.4 mg/dL (0.3-1.0) 09/29/17 07:20 AST 11 U/L (13-39) L 09/29/17 07:20 ALT 8 U/L (7-52) 09/29/17 07:20 Alkaline Phosphatase 59 U/L (34-104) 09/29/17 07:20 Total Protein 6.1 gm/dL (6.0-8.3) 09/29/17 07:20 Albumin 3.9 gm/dL (3.7-5.3) 09/29/17 07:20 Globulin 2.2 gm/dL 09/29/17 07:20 Albumin/Globulin Ratio 1.8 (1.0-1.8) 09/29/17 07:20 Triglycerides 202 mg/dL (<150) H 09/29/17 07:20 Cholesterol 178 mg/dL (<200) 09/29/17 07:20 LDL Cholesterol Direct 100 mg/dL (75-193) 09/29/17 07:20 HDL Cholesterol 33 mg/dL (23-92) 09/29/17 07:20 TSH 1.05 uIU/ml (0.34-5.60) 09/29/17 07:20 Urine Source CLEAN C 09/29/17 07:10 Urine Color YELLOW 09/29/17 07:10 Urine Clarity SLIGHTLY HAZY (CLEAR) 09/29/17 07:10 Urine pH 6.0 (4.6 - 8.0) 09/29/17 07:10 Ur Specific [place] 1.015 (1.005-1.030) 09/29/17 07:10 Urine Protein NEGATIVE mg/dL (NEGATIVE) 09/29/17 07:10 Urine Glucose (UA) NEGATIVE mg/dL (NEGATIVE) 09/29/17 07:10 Urine Ketones NEGATIVE mg/dL (NEGATIVE) 09/29/17 07:10 Urine Blood MODERATE (NEGATIVE) H 09/29/17 07:10 Urine Nitrate NEGATIVE (NEGATIVE) 09/29/17 07:10 Urine Bilirubin NEGATIVE (NEGATIVE) 09/29/17 07:10 Urine Urobilinogen 0.2 E.U./dL (0.2 - 1.0) 09/29/17 07:10 Ur Leukocyte Esterase SMALL (NEGATIVE) H 09/29/17 07:10 Urine RBC 5-10 /hpf (0-5) H 09/29/17 07:10 Urine WBC 6-10 /hpf (0-5) H 09/29/17 07:10 Ur Epithelial Cells MANY /lpf (FEW) 09/29/17 07:10 Urine Bacteria NONE SEEN /hpf (NONE SEEN) 09/29/17 07:10 RPR NONREACTIVE (NONREACTIVE) 09/29/17 07:20 Hepatitis A IgM Ab Negative (Negative) 09/29/17 07:20 Hep Bs Antigen Negative (Negative) 09/29/17 07:20 Hep B Core IgM Ab Negative (Negative) 09/29/17 07:20 Hepatitis C Antibody <0.1 s/co ratio (0.0-0.9) 09/29/17 07:20 - Physical Exam Vitals and I&O: Vital Signs Temp 97.4 F 11/04/17 14:00 Pulse 72 11/04/17 14:00 Resp 18 11/04/17 14:00 BP 113/66 11/04/17 14:00 Pulse Ox 98 11/04/17 14:00 Intake & Output 11/03/17 11/04/17 11/04/17 18:59 06:59 18:59 Intake Total 700 960 Balance 700 960 Intake: Oral 700 960 Other: # Voids 3 3 # Bowel Movements 0 1 Active Medications: Current Medications Acetaminophen (Tylenol) 650 mg PO Q6H PRN PRN Reason: mild pain Stop: 11/27/17 22:37 Acetaminophen/Hydrocodone Bitart ([place] 5mg/325mg) 1 tab PO Q4H PRN PRN Reason: Pain (Severe) Stop: 11/28/17 14:11 Al Hydrox/Mg Hydrox/Simethicone (Maalox) 30 ml PO Q4H PRN PRN Reason: GI DISTRESS Stop: 11/27/17 22:30 Last Admin: 10/18/17 10:19 Dose: 30 ml Albuterol Sulfate (Albuterol 2.5mg/3ml Neb Ud) 1.25 mg HHN Q4HRT PRN PRN Reason: Shortness of Breath Stop: 11/27/17 23:12 Aripiprazole (Abilify) 2 mg PO DAILY ESME; Protocol Stop: 12/21/17 08:59 Last Admin: 11/04/17 08:48 Dose: 2 mg Atorvastatin Calcium (Lipitor) 10 mg PO DAILY ESME; Protocol Stop: 11/28/17 08:59 Last Admin: 11/04/17 08:49 Dose: 10 mg Bisacodyl (Dulcolax 10 Mg Supp) 10 mg RC DAILY PRN PRN Reason: Constipation Stop: 12/13/17 22:14 Last Admin: 10/15/17 17:22 Dose: 10 mg Bupropion HCl (Wellbutrin Xl) 150 mg PO DAILY ESME; Protocol Stop: 12/06/17 08:59 Last Admin: 11/04/17 08:49 Dose: 150 mg Docusate Sodium (Colace) 100 mg PO BID ESME Stop: 11/28/17 08:59 Last Admin: 11/04/17 16:13 Dose: 100 mg Donepezil HCl (Aricept) 5 mg PO DAILY ESME Stop: 11/28/17 08:59 Last Admin: 11/04/17 08:49 Dose: 5 mg Fluticasone Propionate (Flonase) 1 spr NS DAILY ESME Stop: 11/28/17 14:14 Last Admin: 11/04/17 08:49 Dose: 1 spr Lorazepam (Ativan) 0.5 mg PO Q4H PRN; Protocol PRN Reason: Anxiety/agitation Stop: 11/27/17 22:30 Last Admin: 10/26/17 04:59 Dose: 0.5 mg Magnesium Hydroxide (Milk Of Magnesia) 30 ml PO HS PRN PRN Reason: Constipation Meclizine HCl (Antivert) 25 mg PO Q12H PRN PRN Reason: Vertigo Stop: 11/27/17 22:37 Miscellaneous (Probiotic Screen) 1 ea MC PRN PRN PRN Reason: PROTOCOL Stop: 11/29/17 08:14 Multivitamins/Vitamin C (Theragran) 1 tab PO DAILY ESME Stop: 11/28/17 08:59 Last Admin: 11/04/17 08:46 Dose: 1 tab Pantoprazole Sodium (Protonix) 40 mg PO QDAC ESME Stop: 11/28/17 07:29 Last Admin: 11/04/17 06:40 Dose: Not Given Zolpidem Tartrate (Ambien) 5 mg PO HS PRN PRN Reason: Insomnia Stop: 11/27/17 22:30 Last Admin: 10/29/17 20:43 Dose: 5 mg General: demented HEENT: NC/AT, PERRLA, anicteric sclerae, throat clear Neck: Supple, No thyromegaly, +2 carotid pulse wo bruit, No LAD Cardiovascular: Normal S1, Normal S2, without murmur Abdomen: soft, non-tender, non-distended Neurological: no change Internal Medicine Assmt/Plan - Assessment Assessment: 1.HYPERLIPIDEMIA. 2.DJD. 3.DEMENTIA. - Plan Plan: CONTINUE ON CURRENT MEDICATION AND DIET. Nutritional Asmnt/Malnutr-PDOC - Dietary Evaluation Malnutrition Findings (Please click <Entered> for more info): Nutritional Asmnt/Malnutrition Start: 10/04/17 14: 42 Text: Status: Complete Freq: Protocol: Document 10/04/17 14:42 LCHENG (Rec: 10/04/17 14:45 [email or web address] [email or web address]) Nutritional Asmnt/Malnutrition Patient General Information Nutritional Screening Low Risk Diagnosis psychosis Pertinent Medical Hx/Surgical Hx hyperlipidemia, DJD, demntia Subjective Information Pt was in bathroom not able to visit. Per EMR, PO intake 25% . Current Diet Order/ Nutrition Support regular Pertinent Medications colace, culturelle, theragran, protonix Pertinent Labs 09/29 triglycerides 202 Nutritional Hx/Data Height 1.65 m Height (Calculated Centimeters) 165.1 Current Weight (lbs) 56.699 kg Weight (Calculated Kilograms) 56.7 Weight (Calculated Grams) 21593.0 [place] Body Weight 125 Body Mass Index (BMI) 20.7 Weight Status Approriate GI Symptoms GI Symptoms None Last BM 7/8 Difficult in: None Skin Integrity/Comment: intact Current %PO Good (75-100%) Estimated Nutritional Goals BEE in Kcals: Using Current wt Calories/Kcals/Kg 25-30 Kcals Calculated 8353-1852 Protein: Using Current wt Protein g/k-1.2 Protein Calculated 57-68 Fluid: ml 1425-1710ml (1ml/kcal) Nutritional Problem No current Nutrition Prob Problem N/A Malnutrition Alert Is there a minimum of two criteria No selected? Query Text:Check all the applicable criteria. A minimum of two criteria are recommended for diagnosis of either severe or non-severe malnutrition. Malnutrition Related to Morbid Obesity Malnutrition related to morbid obesity No Intervention/Recommendation Comments 1. Continue with regular diet as ordered. 2. Monitor PO intake, wt, labs and skin integrity 3. F/U as low risk in 7 days, 10/11 Expected Outcomes/Goals Expected Outcomes/Goals 1. PO intake to meet at least 75% of nutritional needs. 2. Wt stability, skin to remain intact, labs to approach WNL.
--- NOTE | 2017-11-05 02:54 | Progress Notes ---
DATE: 11/04/2017 SUBJECTIVE: The patient is currently in the hospital, confused, disoriented, mostly in her room, withdrawn, wanting to leave, but we cannot get her to leave right now because the daughter is not agreeable to placement outside of a place that does not want her back and there is a court case next Wednesday at the hospital to determine whether she can go back or not. The patient was confused yesterday, paranoid, believing that she could not eat because she did not pay for the food. ASSESSMENT: The patient remains confused, disoriented, isolative, withdrawn, likely at her baseline. We will continue to monitor, titrate, and adjust medications. No agitation, no escalation of behaviors. The patient has been calm. JOB# [id number]
[2017-11-05] MEDS: Pantoprazole 40 mg EC Tab PO SCH (06:39)
[2017-11-05] MEDS: Atorvastatin Calcium 10 MG TAB PO SCH (09:05)
[2017-11-05] MEDS: Multivitamin Tab PO SCH (09:07)
[2017-11-05] MEDS: buPROPion XL 150 mg T 24 H PO SCH (09:07)
[2017-11-05] MEDS: Fluticasone Propionate 0.05mg/Actuation 16gm Nasal Spray NS SCH (09:09)
--- NOTE | 2017-11-05 19:15 | Internal Medicine Prog Note ---
Internal Medicine Subjective - Subjective Service Date: 10/29/17 Patient seen and examined:: without staff Patient is:: awake, verbal, in bed, talking, confused Per staff patient has:: no adverse event Internal Medicine Objective - Results Result Diagrams: 09/29/17 07:20 09/29/17 07:20 Recent Labs: Laboratory Last Values WBC 5.2 Th/cmm (4.8-10.8) 09/29/17 07:20 RBC 4.45 Mil/cmm (3.80-5.20) 09/29/17 07:20 Hgb 14.0 gm/dL (12-16) 09/29/17 07:20 Hct 41.8 % (41.0-60) 09/29/17 07:20 MCV 93.8 fl (81-100) 09/29/17 07:20 MCH 31.5 pg (27.0-31.0) H 09/29/17 07:20 MCHC Differential 33.6 pg (28.0-36.0) 09/29/17 07:20 RDW 13.3 % (11.5-20.0) 09/29/17 07:20 Plt Count 358 Th/cmm (150-400) 09/29/17 07:20 MPV 6.5 fl 09/29/17 07:20 Neutrophils % 55.3 % (40.0-80.0) 09/29/17 07:20 Lymphocytes % 32.4 % (20.0-50.0) 09/29/17 07:20 Monocytes % 7.1 % (2.0-10.0) 09/29/17 07:20 Eosinophils % 3.8 % (0.0-5.0) 09/29/17 07:20 Basophils % 1.4 % (0.0-2.0) 09/29/17 07:20 Sodium 140 mEq/L (136-145) 09/29/17 07:20 Potassium 4.0 mEq/L (3.5-5.1) 09/29/17 07:20 Chloride 106 mEq/L (98-107) 09/29/17 07:20 Carbon Dioxide 28.3 mEq/L (21.0-31.0) 09/29/17 07:20 Anion Gap 9.7 (7.0-16.0) 09/29/17 07:20 BUN 22 mg/dL (7-25) 09/29/17 07:20 Creatinine 0.7 mg/dL (0.6-1.2) 09/29/17 07:20 Est GFR ( Amer) > 60.0 ml/min (>90) 09/29/17 07:20 Est GFR (Non-Af Amer) > 60.0 ml/min 09/29/17 07:20 BUN/Creatinine Ratio 31.4 09/29/17 07:20 Glucose 95 mg/dL (70-105) 09/29/17 07:20 Hemoglobin A1c % 4.9 % (4.0-6.0) 09/29/17 07:20 Calcium 9.6 mg/dL (8.6-10.3) 09/29/17 07:20 Total Bilirubin 0.4 mg/dL (0.3-1.0) 09/29/17 07:20 AST 11 U/L (13-39) L 09/29/17 07:20 ALT 8 U/L (7-52) 09/29/17 07:20 Alkaline Phosphatase 59 U/L (34-104) 09/29/17 07:20 Total Protein 6.1 gm/dL (6.0-8.3) 09/29/17 07:20 Albumin 3.9 gm/dL (3.7-5.3) 09/29/17 07:20 Globulin 2.2 gm/dL 09/29/17 07:20 Albumin/Globulin Ratio 1.8 (1.0-1.8) 09/29/17 07:20 Triglycerides 202 mg/dL (<150) H 09/29/17 07:20 Cholesterol 178 mg/dL (<200) 09/29/17 07:20 LDL Cholesterol Direct 100 mg/dL (75-193) 09/29/17 07:20 HDL Cholesterol 33 mg/dL (23-92) 09/29/17 07:20 TSH 1.05 uIU/ml (0.34-5.60) 09/29/17 07:20 Urine Source CLEAN C 09/29/17 07:10 Urine Color YELLOW 09/29/17 07:10 Urine Clarity SLIGHTLY HAZY (CLEAR) 09/29/17 07:10 Urine pH 6.0 (4.6 - 8.0) 09/29/17 07:10 Ur Specific [place] 1.015 (1.005-1.030) 09/29/17 07:10 Urine Protein NEGATIVE mg/dL (NEGATIVE) 09/29/17 07:10 Urine Glucose (UA) NEGATIVE mg/dL (NEGATIVE) 09/29/17 07:10 Urine Ketones NEGATIVE mg/dL (NEGATIVE) 09/29/17 07:10 Urine Blood MODERATE (NEGATIVE) H 09/29/17 07:10 Urine Nitrate NEGATIVE (NEGATIVE) 09/29/17 07:10 Urine Bilirubin NEGATIVE (NEGATIVE) 09/29/17 07:10 Urine Urobilinogen 0.2 E.U./dL (0.2 - 1.0) 09/29/17 07:10 Ur Leukocyte Esterase SMALL (NEGATIVE) H 09/29/17 07:10 Urine RBC 5-10 /hpf (0-5) H 09/29/17 07:10 Urine WBC 6-10 /hpf (0-5) H 09/29/17 07:10 Ur Epithelial Cells MANY /lpf (FEW) 09/29/17 07:10 Urine Bacteria NONE SEEN /hpf (NONE SEEN) 09/29/17 07:10 RPR NONREACTIVE (NONREACTIVE) 09/29/17 07:20 Hepatitis A IgM Ab Negative (Negative) 09/29/17 07:20 Hep Bs Antigen Negative (Negative) 09/29/17 07:20 Hep B Core IgM Ab Negative (Negative) 09/29/17 07:20 Hepatitis C Antibody <0.1 s/co ratio (0.0-0.9) 09/29/17 07:20 - Physical Exam Vitals and I&O: Vital Signs Temp 98.2 F 11/05/17 16:14 Pulse 69 11/05/17 16:14 Resp 18 11/05/17 16:14 BP 116/76 11/05/17 16:14 Pulse Ox 97 11/05/17 16:14 Intake & Output 11/05/17 11/05/17 11/06/17 06:59 18:59 06:59 Intake Total 600 Balance 600 Intake: Oral 600 Other: # Voids 3 # Bowel Movements 0 Active Medications: Current Medications Acetaminophen (Tylenol) 650 mg PO Q6H PRN PRN Reason: mild pain Stop: 11/27/17 22:37 Acetaminophen/Hydrocodone Bitart ([place] 5mg/325mg) 1 tab PO Q4H PRN PRN Reason: Pain (Severe) Stop: 11/28/17 14:11 Al Hydrox/Mg Hydrox/Simethicone (Maalox) 30 ml PO Q4H PRN PRN Reason: GI DISTRESS Stop: 11/27/17 22:30 Last Admin: 10/18/17 10:19 Dose: 30 ml Albuterol Sulfate (Albuterol 2.5mg/3ml Neb Ud) 1.25 mg HHN Q4HRT PRN PRN Reason: Shortness of Breath Stop: 11/27/17 23:12 Aripiprazole (Abilify) 2 mg PO DAILY ESME; Protocol Stop: 12/21/17 08:59 Last Admin: 11/05/17 09:07 Dose: 2 mg Atorvastatin Calcium (Lipitor) 10 mg PO DAILY ESME; Protocol Stop: 11/28/17 08:59 Last Admin: 11/05/17 09:05 Dose: 10 mg Bisacodyl (Dulcolax 10 Mg Supp) 10 mg RC DAILY PRN PRN Reason: Constipation Stop: 12/13/17 22:14 Last Admin: 10/15/17 17:22 Dose: 10 mg Bupropion HCl (Wellbutrin Xl) 150 mg PO DAILY ESME; Protocol Stop: 12/06/17 08:59 Last Admin: 11/05/17 09:07 Dose: 150 mg Docusate Sodium (Colace) 100 mg PO BID ESME Stop: 11/28/17 08:59 Last Admin: 11/05/17 17:18 Dose: 100 mg Donepezil HCl (Aricept) 5 mg PO DAILY ESME Stop: 11/28/17 08:59 Last Admin: 11/05/17 09:09 Dose: 5 mg Fluticasone Propionate (Flonase) 1 spr NS DAILY SEME Stop: 11/28/17 14:14 Last Admin: 11/05/17 09:09 Dose: 1 spr Lorazepam (Ativan) 0.5 mg PO Q4H PRN; Protocol PRN Reason: Anxiety/agitation Stop: 11/27/17 22:30 Last Admin: 10/26/17 04:59 Dose: 0.5 mg Magnesium Hydroxide (Milk Of Magnesia) 30 ml PO HS PRN PRN Reason: Constipation Meclizine HCl (Antivert) 25 mg PO Q12H PRN PRN Reason: Vertigo Stop: 11/27/17 22:37 Miscellaneous (Probiotic Screen) 1 ea MC PRN PRN PRN Reason: PROTOCOL Stop: 11/29/17 08:14 Multivitamins/Vitamin C (Theragran) 1 tab PO DAILY ESME Stop: 11/28/17 08:59 Last Admin: 11/05/17 09:07 Dose: 1 tab Pantoprazole Sodium (Protonix) 40 mg PO QDAC ESME Stop: 11/28/17 07:29 Last Admin: 11/05/17 06:39 Dose: 40 mg Zolpidem Tartrate (Ambien) 5 mg PO HS PRN PRN Reason: Insomnia Stop: 11/27/17 22:30 Last Admin: 10/29/17 20:43 Dose: 5 mg General: demented HEENT: NC/AT, PERRLA, anicteric sclerae, throat clear Neck: Supple, No thyromegaly, +2 carotid pulse wo bruit, No LAD Cardiovascular: Normal S1, Normal S2, without murmur Abdomen: soft, non-tender, non-distended Neurological: no change Internal Medicine Assmt/Plan - Assessment Assessment: 1.HYPERLIPIDEMIA. 2.DJD. 3.DEMENTIA. - Plan Plan: CONTINUE ON CURRENT MEDICATION AND DIET. Nutritional Asmnt/Malnutr-PDOC - Dietary Evaluation Malnutrition Findings (Please click <Entered> for more info): Nutritional Asmnt/Malnutrition Start: 10/04/17 14: 42 Text: Status: Complete Freq: Protocol: Document 10/04/17 14:42 LCHENG (Rec: 10/04/17 14:45 [email or web address]) Nutritional Asmnt/Malnutrition Patient General Information Nutritional Screening Low Risk Diagnosis psychosis Pertinent Medical Hx/Surgical Hx hyperlipidemia, DJD, demntia Subjective Information Pt was in bathroom not able to visit. Per EMR, PO intake 25% . Current Diet Order/ Nutrition Support regular Pertinent Medications colace, culturelle, theragran, protonix Pertinent Labs 09/29 triglycerides 202 Nutritional Hx/Data Height 1.65 m Height (Calculated Centimeters) 165.1 Current Weight (lbs) 56.699 kg Weight (Calculated Kilograms) 56.7 Weight (Calculated Grams) 32351.0 [place] Body Weight 125 Body Mass Index (BMI) 20.7 Weight Status Approriate GI Symptoms GI Symptoms None Last BM 7/8 Difficult in: None Skin Integrity/Comment: intact Current %PO Good (75-100%) Estimated Nutritional Goals BEE in Kcals: Using Current wt Calories/Kcals/Kg 25-30 Kcals Calculated 2205-3305 Protein: Using Current wt Protein g/k-1.2 Protein Calculated 57-68 Fluid: ml 1425-1710ml (1ml/kcal) Nutritional Problem No current Nutrition Prob Problem N/A Malnutrition Alert Is there a minimum of two criteria No selected? Query Text:Check all the applicable criteria. A minimum of two criteria are recommended for diagnosis of either severe or non-severe malnutrition. Malnutrition Related to Morbid Obesity Malnutrition related to morbid obesity No Intervention/Recommendation Comments 1. Continue with regular diet as ordered. 2. Monitor PO intake, wt, labs and skin integrity 3. F/U as low risk in 7 days, 10/11 Expected Outcomes/Goals Expected Outcomes/Goals 1. PO intake to meet at least 75% of nutritional needs. 2. Wt stability, skin to remain intact, labs to approach WNL.
--- NOTE | 2017-11-06 01:08 | Progress Notes ---
DATE: 11/05/2017 SUBJECTIVE: The patient is seen, chart reviewed, and discussed with staff. The patient is confused, disoriented, preoccupied at times, believing that she cannot eat because she did not pay for the food. Repetitive behaviors mostly seen in her room, wandering, still depressed, withdrawn. When I see her, she is pacing in room. Yesterday, she was pretty down, depressed, mostly in her bed. We are trying to work on placements. MEDICATIONS: Reviewed including doses and frequencies. The patient is eating ____. Sleeping fairly well. ASSESSMENT: The patient is internally preoccupied, withdrawn. No overt psychotic symptoms, just depressed, confused. I will continue to monitor. She is not safe for discharge. We have not confirmed a safe discharge plan as of yet. JOB# [id number]
[2017-11-06] MEDS: Pantoprazole 40 mg EC Tab PO SCH (06:41)
[2017-11-06] MEDS: Fluticasone Propionate 0.05mg/Actuation 16gm Nasal Spray NS SCH (08:16)
[2017-11-06] MEDS: buPROPion XL 150 mg T 24 H PO SCH (08:17)
[2017-11-06] MEDS: Atorvastatin Calcium 10 MG TAB PO SCH (08:17)
[2017-11-06] MEDS: Multivitamin Tab PO SCH (08:18)
--- NOTE | 2017-11-06 21:01 | Internal Medicine Prog Note ---
Internal Medicine Subjective - Subjective Service Date: 11/06/17 Patient seen and examined:: with staff Patient is:: awake, verbal, in bed, talking, confused Per staff patient has:: no adverse event Internal Medicine Objective - Results Result Diagrams: 09/29/17 07:20 09/29/17 07:20 Recent Labs: Laboratory Last Values WBC 5.2 Th/cmm (4.8-10.8) 09/29/17 07:20 RBC 4.45 Mil/cmm (3.80-5.20) 09/29/17 07:20 Hgb 14.0 gm/dL (12-16) 09/29/17 07:20 Hct 41.8 % (41.0-60) 09/29/17 07:20 MCV 93.8 fl (81-100) 09/29/17 07:20 MCH 31.5 pg (27.0-31.0) H 09/29/17 07:20 MCHC Differential 33.6 pg (28.0-36.0) 09/29/17 07:20 RDW 13.3 % (11.5-20.0) 09/29/17 07:20 Plt Count 358 Th/cmm (150-400) 09/29/17 07:20 MPV 6.5 fl 09/29/17 07:20 Neutrophils % 55.3 % (40.0-80.0) 09/29/17 07:20 Lymphocytes % 32.4 % (20.0-50.0) 09/29/17 07:20 Monocytes % 7.1 % (2.0-10.0) 09/29/17 07:20 Eosinophils % 3.8 % (0.0-5.0) 09/29/17 07:20 Basophils % 1.4 % (0.0-2.0) 09/29/17 07:20 Sodium 140 mEq/L (136-145) 09/29/17 07:20 Potassium 4.0 mEq/L (3.5-5.1) 09/29/17 07:20 Chloride 106 mEq/L (98-107) 09/29/17 07:20 Carbon Dioxide 28.3 mEq/L (21.0-31.0) 09/29/17 07:20 Anion Gap 9.7 (7.0-16.0) 09/29/17 07:20 BUN 22 mg/dL (7-25) 09/29/17 07:20 Creatinine 0.7 mg/dL (0.6-1.2) 09/29/17 07:20 Est GFR ( Amer) > 60.0 ml/min (>90) 09/29/17 07:20 Est GFR (Non-Af Amer) > 60.0 ml/min 09/29/17 07:20 BUN/Creatinine Ratio 31.4 09/29/17 07:20 Glucose 95 mg/dL (70-105) 09/29/17 07:20 Hemoglobin A1c % 4.9 % (4.0-6.0) 09/29/17 07:20 Calcium 9.6 mg/dL (8.6-10.3) 09/29/17 07:20 Total Bilirubin 0.4 mg/dL (0.3-1.0) 09/29/17 07:20 AST 11 U/L (13-39) L 09/29/17 07:20 ALT 8 U/L (7-52) 09/29/17 07:20 Alkaline Phosphatase 59 U/L (34-104) 09/29/17 07:20 Total Protein 6.1 gm/dL (6.0-8.3) 09/29/17 07:20 Albumin 3.9 gm/dL (3.7-5.3) 09/29/17 07:20 Globulin 2.2 gm/dL 09/29/17 07:20 Albumin/Globulin Ratio 1.8 (1.0-1.8) 09/29/17 07:20 Triglycerides 202 mg/dL (<150) H 09/29/17 07:20 Cholesterol 178 mg/dL (<200) 09/29/17 07:20 LDL Cholesterol Direct 100 mg/dL (75-193) 09/29/17 07:20 HDL Cholesterol 33 mg/dL (23-92) 09/29/17 07:20 TSH 1.05 uIU/ml (0.34-5.60) 09/29/17 07:20 Urine Source CLEAN C 09/29/17 07:10 Urine Color YELLOW 09/29/17 07:10 Urine Clarity SLIGHTLY HAZY (CLEAR) 09/29/17 07:10 Urine pH 6.0 (4.6 - 8.0) 09/29/17 07:10 Ur Specific [place] 1.015 (1.005-1.030) 09/29/17 07:10 Urine Protein NEGATIVE mg/dL (NEGATIVE) 09/29/17 07:10 Urine Glucose (UA) NEGATIVE mg/dL (NEGATIVE) 09/29/17 07:10 Urine Ketones NEGATIVE mg/dL (NEGATIVE) 09/29/17 07:10 Urine Blood MODERATE (NEGATIVE) H 09/29/17 07:10 Urine Nitrate NEGATIVE (NEGATIVE) 09/29/17 07:10 Urine Bilirubin NEGATIVE (NEGATIVE) 09/29/17 07:10 Urine Urobilinogen 0.2 E.U./dL (0.2 - 1.0) 09/29/17 07:10 Ur Leukocyte Esterase SMALL (NEGATIVE) H 09/29/17 07:10 Urine RBC 5-10 /hpf (0-5) H 09/29/17 07:10 Urine WBC 6-10 /hpf (0-5) H 09/29/17 07:10 Ur Epithelial Cells MANY /lpf (FEW) 09/29/17 07:10 Urine Bacteria NONE SEEN /hpf (NONE SEEN) 09/29/17 07:10 RPR NONREACTIVE (NONREACTIVE) 09/29/17 07:20 Hepatitis A IgM Ab Negative (Negative) 09/29/17 07:20 Hep Bs Antigen Negative (Negative) 09/29/17 07:20 Hep B Core IgM Ab Negative (Negative) 09/29/17 07:20 Hepatitis C Antibody <0.1 s/co ratio (0.0-0.9) 09/29/17 07:20 - Physical Exam Vitals and I&O: Vital Signs Temp 97 F 11/06/17 20:00 Pulse 68 11/06/17 20:00 Resp 19 11/06/17 20:00 BP 104/54 11/06/17 20:00 Pulse Ox 98 11/06/17 20:00 Intake & Output 11/06/17 11/06/17 11/07/17 06:59 18:59 06:59 Intake Total 240 660 Balance 240 660 Intake: Oral 240 660 Other: # Voids 1 2 # Bowel Movements 0 Active Medications: Current Medications Acetaminophen (Tylenol) 650 mg PO Q6H PRN PRN Reason: mild pain Stop: 11/27/17 22:37 Acetaminophen/Hydrocodone Bitart ([place] 5mg/325mg) 1 tab PO Q4H PRN PRN Reason: Pain (Severe) Stop: 11/28/17 14:11 Al Hydrox/Mg Hydrox/Simethicone (Maalox) 30 ml PO Q4H PRN PRN Reason: GI DISTRESS Stop: 11/27/17 22:30 Last Admin: 10/18/17 10:19 Dose: 30 ml Albuterol Sulfate (Albuterol 2.5mg/3ml Neb Ud) 1.25 mg HHN Q4HRT PRN PRN Reason: Shortness of Breath Stop: 11/27/17 23:12 Aripiprazole (Abilify) 5 mg PO DAILY ESME; Protocol Stop: 01/05/18 08:59 Last Admin: 11/06/17 08:18 Dose: 5 mg Atorvastatin Calcium (Lipitor) 10 mg PO DAILY ESME; Protocol Stop: 11/28/17 08:59 Last Admin: 11/06/17 08:17 Dose: 10 mg Bisacodyl (Dulcolax 10 Mg Supp) 10 mg RC DAILY PRN PRN Reason: Constipation Stop: 12/13/17 22:14 Last Admin: 10/15/17 17:22 Dose: 10 mg Docusate Sodium (Colace) 100 mg PO BID ESME Stop: 11/28/17 08:59 Last Admin: 11/06/17 16:33 Dose: Not Given Donepezil HCl (Aricept) 5 mg PO DAILY ESME Stop: 11/28/17 08:59 Last Admin: 11/06/17 08:18 Dose: 5 mg Fluticasone Propionate (Flonase) 1 spr NS DAILY ESME Stop: 11/28/17 14:14 Last Admin: 11/06/17 08:16 Dose: 1 spr Lorazepam (Ativan) 0.5 mg PO Q4H PRN; Protocol PRN Reason: Anxiety/agitation Stop: 11/27/17 22:30 Last Admin: 10/26/17 04:59 Dose: 0.5 mg Magnesium Hydroxide (Milk Of Magnesia) 30 ml PO HS PRN PRN Reason: Constipation Meclizine HCl (Antivert) 25 mg PO Q12H PRN PRN Reason: Vertigo Stop: 11/27/17 22:37 Miscellaneous (Probiotic Screen) 1 ea MC PRN PRN PRN Reason: PROTOCOL Stop: 11/29/17 08:14 Multivitamins/Vitamin C (Theragran) 1 tab PO DAILY ESME Stop: 11/28/17 08:59 Last Admin: 11/06/17 08:18 Dose: 1 tab Pantoprazole Sodium (Protonix) 40 mg PO QDAC ESME Stop: 11/28/17 07:29 Last Admin: 11/06/17 06:41 Dose: 40 mg Zolpidem Tartrate (Ambien) 5 mg PO HS PRN PRN Reason: Insomnia Stop: 11/27/17 22:30 Last Admin: 11/05/17 21:35 Dose: 5 mg General: demented HEENT: NC/AT, PERRLA, anicteric sclerae, throat clear Neck: Supple, No thyromegaly, +2 carotid pulse wo bruit, No LAD Cardiovascular: Normal S1, Normal S2, without murmur Abdomen: soft, non-tender, non-distended Neurological: no change Internal Medicine Assmt/Plan - Assessment Assessment: 1.HYPERLIPIDEMIA. 2.DJD. 3.DEMENTIA. - Plan Plan: CONTINUE ON CURRENT MEDICATION AND DIET. Nutritional Asmnt/Malnutr-PDOC - Dietary Evaluation Malnutrition Findings (Please click <Entered> for more info): Nutritional Asmnt/Malnutrition Start: 10/04/17 14: 42 Text: Status: Complete Freq: Protocol: Document 10/04/17 14:42 LCHENG (Rec: 10/04/17 14:45 LCHENG [email or web address]) Nutritional Asmnt/Malnutrition Patient General Information Nutritional Screening Low Risk Diagnosis psychosis Pertinent Medical Hx/Surgical Hx hyperlipidemia, DJD, demntia Subjective Information Pt was in bathroom not able to visit. Per EMR, PO intake 25% . Current Diet Order/ Nutrition Support regular Pertinent Medications colace, culturelle, theragran, protonix Pertinent Labs 09/29 triglycerides 202 Nutritional Hx/Data Height 1.65 m Height (Calculated Centimeters) 165.1 Current Weight (lbs) 56.699 kg Weight (Calculated Kilograms) 56.7 Weight (Calculated Grams) 57542.0 [place] Body Weight 125 Body Mass Index (BMI) 20.7 Weight Status Approriate GI Symptoms GI Symptoms None Last BM 10/03 Difficult in: None Skin Integrity/Comment: intact Current %PO Good (75-100%) Estimated Nutritional Goals BEE in Kcals: Using Current wt Calories/Kcals/Kg 25-30 Kcals Calculated 1712-5928 Protein: Using Current wt Protein g/k-1.2 Protein Calculated 57-68 Fluid: ml 1425-1710ml (1ml/kcal) Nutritional Problem No current Nutrition Prob Problem N/A Malnutrition Alert Is there a minimum of two criteria No selected? Query Text:Check all the applicable criteria. A minimum of two criteria are recommended for diagnosis of either severe or non-severe malnutrition. Malnutrition Related to Morbid Obesity Malnutrition related to morbid obesity No Intervention/Recommendation Comments 1. Continue with regular diet as ordered. 2. Monitor PO intake, wt, labs and skin integrity 3. F/U as low risk in 7 days, 10/11 Expected Outcomes/Goals Expected Outcomes/Goals 1. PO intake to meet at least 75% of nutritional needs. 2. Wt stability, skin to remain intact, labs to approach WNL.
--- NOTE | 2017-11-06 21:20 | Progress Notes ---
DATE: 11/06/2017 SUBJECTIVE: The patient disoriented, believes that she cannot eat because she did not pay for it. When I tell her that she does not need to pay for it, she states "Yes, I do." The patient is confused, but calm, no agitation, no escalation of behaviors. She mostly stays in her room and stays to herself. ASSESSMENT: The patient remains symptomatic, delusional, quietly psychotic. No escalation of behaviors, no agitation. She follows unit rules and directions, sleeping fairly well. She does eventually eat. We will be increasing the dosing of Abilify. JOB# [id number]
[2017-11-07] MEDS: Pantoprazole 40 mg EC Tab PO SCH (06:41)
--- NOTE | 2017-11-07 07:12 | Progress Notes ---
DATE: 11/07/2017 SUBJECTIVE: The patient is confused, mostly in her room, delusional, believing that she has to pay for the food. I told her it is already paid for her and insurance covers the food and her stay. She says she is not going to eat because she cannot afford it. The patient making statements that she needs to occupational therapy assistant her mom. Medications were noted including doses and frequencies. ASSESSMENT: The patient is bizarre, delusional, confused, disoriented; however, no agitation, no escalation of behaviors. PLAN: We will continue to monitor. Tolerant of recent dose increase of Abilify. No combative behaviors. Pleasantly psychotic. [facility]# [id number]
[2017-11-07] MEDS: Fluticasone Propionate 0.05mg/Actuation 16gm Nasal Spray NS SCH (08:33)
[2017-11-07] MEDS: Atorvastatin Calcium 10 MG TAB PO SCH (08:35)
[2017-11-07] MEDS: Multivitamin Tab PO SCH (08:36)
--- NOTE | 2017-11-07 20:25 | Internal Medicine Prog Note ---
Internal Medicine Subjective - Subjective Service Date: 11/07/17 Patient seen and examined:: without staff Patient is:: awake, verbal, in bed, talking, confused Per staff patient has:: no adverse event Internal Medicine Objective - Results Result Diagrams: 09/29/17 07:20 09/29/17 07:20 Recent Labs: Laboratory Last Values WBC 5.2 Th/cmm (4.8-10.8) 09/29/17 07:20 RBC 4.45 Mil/cmm (3.80-5.20) 09/29/17 07:20 Hgb 14.0 gm/dL (12-16) 09/29/17 07:20 Hct 41.8 % (41.0-60) 09/29/17 07:20 MCV 93.8 fl (81-100) 09/29/17 07:20 MCH 31.5 pg (27.0-31.0) H 09/29/17 07:20 MCHC Differential 33.6 pg (28.0-36.0) 09/29/17 07:20 RDW 13.3 % (11.5-20.0) 09/29/17 07:20 Plt Count 358 Th/cmm (150-400) 09/29/17 07:20 MPV 6.5 fl 09/29/17 07:20 Neutrophils % 55.3 % (40.0-80.0) 09/29/17 07:20 Lymphocytes % 32.4 % (20.0-50.0) 09/29/17 07:20 Monocytes % 7.1 % (2.0-10.0) 09/29/17 07:20 Eosinophils % 3.8 % (0.0-5.0) 09/29/17 07:20 Basophils % 1.4 % (0.0-2.0) 09/29/17 07:20 Sodium 140 mEq/L (136-145) 09/29/17 07:20 Potassium 4.0 mEq/L (3.5-5.1) 09/29/17 07:20 Chloride 106 mEq/L (98-107) 09/29/17 07:20 Carbon Dioxide 28.3 mEq/L (21.0-31.0) 09/29/17 07:20 Anion Gap 9.7 (7.0-16.0) 09/29/17 07:20 BUN 22 mg/dL (7-25) 09/29/17 07:20 Creatinine 0.7 mg/dL (0.6-1.2) 09/29/17 07:20 Est GFR ( Amer) > 60.0 ml/min (>90) 09/29/17 07:20 Est GFR (Non-Af Amer) > 60.0 ml/min 09/29/17 07:20 BUN/Creatinine Ratio 31.4 09/29/17 07:20 Glucose 95 mg/dL (70-105) 09/29/17 07:20 Hemoglobin A1c % 4.9 % (4.0-6.0) 09/29/17 07:20 Calcium 9.6 mg/dL (8.6-10.3) 09/29/17 07:20 Total Bilirubin 0.4 mg/dL (0.3-1.0) 09/29/17 07:20 AST 11 U/L (13-39) L 09/29/17 07:20 ALT 8 U/L (7-52) 09/29/17 07:20 Alkaline Phosphatase 59 U/L (34-104) 09/29/17 07:20 Total Protein 6.1 gm/dL (6.0-8.3) 09/29/17 07:20 Albumin 3.9 gm/dL (3.7-5.3) 09/29/17 07:20 Globulin 2.2 gm/dL 09/29/17 07:20 Albumin/Globulin Ratio 1.8 (1.0-1.8) 09/29/17 07:20 Triglycerides 202 mg/dL (<150) H 09/29/17 07:20 Cholesterol 178 mg/dL (<200) 09/29/17 07:20 LDL Cholesterol Direct 100 mg/dL (75-193) 09/29/17 07:20 HDL Cholesterol 33 mg/dL (23-92) 09/29/17 07:20 TSH 1.05 uIU/ml (0.34-5.60) 09/29/17 07:20 Urine Source CLEAN C 09/29/17 07:10 Urine Color YELLOW 09/29/17 07:10 Urine Clarity SLIGHTLY HAZY (CLEAR) 09/29/17 07:10 Urine pH 6.0 (4.6 - 8.0) 09/29/17 07:10 Ur Specific [place] 1.015 (1.005-1.030) 09/29/17 07:10 Urine Protein NEGATIVE mg/dL (NEGATIVE) 09/29/17 07:10 Urine Glucose (UA) NEGATIVE mg/dL (NEGATIVE) 09/29/17 07:10 Urine Ketones NEGATIVE mg/dL (NEGATIVE) 09/29/17 07:10 Urine Blood MODERATE (NEGATIVE) H 09/29/17 07:10 Urine Nitrate NEGATIVE (NEGATIVE) 09/29/17 07:10 Urine Bilirubin NEGATIVE (NEGATIVE) 09/29/17 07:10 Urine Urobilinogen 0.2 E.U./dL (0.2 - 1.0) 09/29/17 07:10 Ur Leukocyte Esterase SMALL (NEGATIVE) H 09/29/17 07:10 Urine RBC 5-10 /hpf (0-5) H 09/29/17 07:10 Urine WBC 6-10 /hpf (0-5) H 09/29/17 07:10 Ur Epithelial Cells MANY /lpf (FEW) 09/29/17 07:10 Urine Bacteria NONE SEEN /hpf (NONE SEEN) 09/29/17 07:10 RPR NONREACTIVE (NONREACTIVE) 09/29/17 07:20 Hepatitis A IgM Ab Negative (Negative) 09/29/17 07:20 Hep Bs Antigen Negative (Negative) 09/29/17 07:20 Hep B Core IgM Ab Negative (Negative) 09/29/17 07:20 Hepatitis C Antibody <0.1 s/co ratio (0.0-0.9) 09/29/17 07:20 - Physical Exam Vitals and I&O: Vital Signs Temp 98.4 F 11/07/17 20:00 Pulse 81 11/07/17 20:00 Resp 20 11/07/17 20:00 BP 115/72 11/07/17 20:00 Pulse Ox 97 11/07/17 20:00 Intake & Output 11/07/17 11/07/17 11/08/17 06:59 18:59 06:59 Intake Total 120 Balance 120 Intake: Oral 120 Other: # Voids 2 2 # Bowel Movements 0 Active Medications: Current Medications Acetaminophen (Tylenol) 650 mg PO Q6H PRN PRN Reason: mild pain Stop: 11/27/17 22:37 Acetaminophen/Hydrocodone Bitart ([place] 5mg/325mg) 1 tab PO Q4H PRN PRN Reason: Pain (Severe) Stop: 11/28/17 14:11 Al Hydrox/Mg Hydrox/Simethicone (Maalox) 30 ml PO Q4H PRN PRN Reason: GI DISTRESS Stop: 11/27/17 22:30 Last Admin: 10/18/17 10:19 Dose: 30 ml Albuterol Sulfate (Albuterol 2.5mg/3ml Neb Ud) 1.25 mg HHN Q4HRT PRN PRN Reason: Shortness of Breath Stop: 11/27/17 23:12 Aripiprazole (Abilify) 5 mg PO DAILY ESME; Protocol Stop: 01/05/18 08:59 Last Admin: 11/07/17 08:35 Dose: 5 mg Atorvastatin Calcium (Lipitor) 10 mg PO DAILY ESME; Protocol Stop: 11/28/17 08:59 Last Admin: 11/07/17 08:35 Dose: 10 mg Bisacodyl (Dulcolax 10 Mg Supp) 10 mg RC DAILY PRN PRN Reason: Constipation Stop: 12/13/17 22:14 Last Admin: 10/15/17 17:22 Dose: 10 mg Docusate Sodium (Colace) 100 mg PO BID ESME Stop: 11/28/17 08:59 Last Admin: 11/07/17 16:17 Dose: Not Given Donepezil HCl (Aricept) 5 mg PO DAILY ESME Stop: 11/28/17 08:59 Last Admin: 11/07/17 08:36 Dose: 5 mg Fluticasone Propionate (Flonase) 1 spr NS DAILY ESME Stop: 11/28/17 14:14 Last Admin: 11/07/17 08:33 Dose: 1 spr Lorazepam (Ativan) 0.5 mg PO Q4H PRN; Protocol PRN Reason: Anxiety/agitation Stop: 11/27/17 22:30 Last Admin: 10/26/17 04:59 Dose: 0.5 mg Magnesium Hydroxide (Milk Of Magnesia) 30 ml PO HS PRN PRN Reason: Constipation Meclizine HCl (Antivert) 25 mg PO Q12H PRN PRN Reason: Vertigo Stop: 11/27/17 22:37 Miscellaneous (Probiotic Screen) 1 ea MC PRN PRN PRN Reason: PROTOCOL Stop: 11/29/17 08:14 Multivitamins/Vitamin C (Theragran) 1 tab PO DAILY ESME Stop: 11/28/17 08:59 Last Admin: 11/07/17 08:36 Dose: 1 tab Pantoprazole Sodium (Protonix) 40 mg PO QDAC ESME Stop: 11/28/17 07:29 Last Admin: 11/07/17 06:41 Dose: 40 mg Zolpidem Tartrate (Ambien) 5 mg PO HS PRN PRN Reason: Insomnia Stop: 11/27/17 22:30 Last Admin: 11/05/17 21:35 Dose: 5 mg General: demented HEENT: NC/AT, PERRLA, anicteric sclerae, throat clear Neck: Supple, No thyromegaly, +2 carotid pulse wo bruit, No LAD Cardiovascular: Normal S1, Normal S2, without murmur Abdomen: soft, non-tender, non-distended Neurological: no change Internal Medicine Assmt/Plan - Assessment Assessment: 1.HYPERLIPIDEMIA. 2.DJD. 3.DEMENTIA. - Plan Plan: CONTINUE ON CURRENT MEDICATION AND DIET. Nutritional Asmnt/Malnutr-PDOC - Dietary Evaluation Malnutrition Findings (Please click <Entered> for more info): Nutritional Asmnt/Malnutrition Start: 10/04/17 14: 42 Text: Status: Complete Freq: Protocol: Document 10/04/17 14:42 LCHENG (Rec: 10/04/17 14:45 [email or web address]) Nutritional Asmnt/Malnutrition Patient General Information Nutritional Screening Low Risk Diagnosis psychosis Pertinent Medical Hx/Surgical Hx hyperlipidemia, DJD, demntia Subjective Information Pt was in bathroom not able to visit. Per EMR, PO intake 25% . Current Diet Order/ Nutrition Support regular Pertinent Medications colace, culturelle, theragran, protonix Pertinent Labs 09/29 triglycerides 202 Nutritional Hx/Data Height 1.65 m Height (Calculated Centimeters) 165.1 Current Weight (lbs) 56.699 kg Weight (Calculated Kilograms) 56.7 Weight (Calculated Grams) 48529.0 [place] Body Weight 125 Body Mass Index (BMI) 20.7 Weight Status Approriate GI Symptoms GI Symptoms None Last BM 78 Difficult in: None Skin Integrity/Comment: intact Current %PO Good (75-100%) Estimated Nutritional Goals BEE in Kcals: Using Current wt Calories/Kcals/Kg 25-30 Kcals Calculated 3781-1718 Protein: Using Current wt Protein g/k-1.2 Protein Calculated 57-68 Fluid: ml 1425-1710ml (1ml/kcal) Nutritional Problem No current Nutrition Prob Problem N/A Malnutrition Alert Is there a minimum of two criteria No selected? Query Text:Check all the applicable criteria. A minimum of two criteria are recommended for diagnosis of either severe or non-severe malnutrition. Malnutrition Related to Morbid Obesity Malnutrition related to morbid obesity No Intervention/Recommendation Comments 1. Continue with regular diet as ordered. 2. Monitor PO intake, wt, labs and skin integrity 3. F/U as low risk in 7 days, 10/11 Expected Outcomes/Goals Expected Outcomes/Goals 1. PO intake to meet at least 75% of nutritional needs. 2. Wt stability, skin to remain intact, labs to approach WNL.
[2017-11-08] MEDS: Pantoprazole 40 mg EC Tab PO SCH (06:32)
[2017-11-08] MEDS: Fluticasone Propionate 0.05mg/Actuation 16gm Nasal Spray NS SCH (10:19)
[2017-11-08] MEDS: Atorvastatin Calcium 10 MG TAB PO SCH (10:19)
[2017-11-08] MEDS: Multivitamin Tab PO SCH (10:20)
--- NOTE | 2017-11-08 12:24 | Discharge Summary ---
DATE OF DISCHARGE: 11/08/2017 JUSTIFICATION FOR HOSPITALIZATION: Worsening confusion, depression, stating she is homeless. HISTORY OF PRESENT ILLNESS: A 72-year-old female, confused, disoriented, does not know why she is in the hospital, stating she is homeless when she is not homeless, attesting to sadness, withdrawn, selectively mute at times. PAST PSYCHIATRIC HISTORY: "I don't know." SOCIAL HISTORY: , no kids, but she has a daughter that is very involved. States she is homeless but she is not homeless. MEDICATIONS: Noted. MENTAL STATUS EXAMINATION: Please see full psych eval for details. PROVISIONAL DIAGNOSES: Dementia with behaviors; mood, unspecified; psychosis, unspecified; anxiety, unspecified. Medical: Please see full H and P. HOSPITAL COURSE: After initial assessment, the patient started on medications Wellbutrin, Abilify, SSRI medications were started. However, the patient does not want to take these medications attesting to stomach upset. Medications were lowered. As the medications were lowered, she actually improved. She was less withdrawn, getting out of her room. She was noted to be isolative still but less so. Also, somewhat more interactive. She was pretty confused, believing she was homeless when she was not homeless. Daughter very involved when she initially told me she had no kids. Toward the latter end of her hospitalization, she was calm, cooperative, no agitation. She remained confused. No suicidal thoughts. She had a fixed delusion that she could not eat the food in the hospital because she did not pay for it, but per staff she was eating regularly 3 meals a day. Placement was confirmed on 11/08/2017. CONDITION UPON DISCHARGE: Improved. Fair ADLs. Good eye contact. Mood "the same." Affect flat. Thought processes were confused. No SI, no HI, no intent, no plan. No auditory or visual hallucinations. The patient having thoughts that she cannot eat because she did not pay for the food, but staff noting she is eating 3 square meals per day. Insight and judgment remained diminished. No behaviors, for example, no combative or agitation behaviors. DISCHARGE DIAGNOSES: Dementia, dementia with behaviors; psychosis, unspecified, rule out delusional disorder; anxiety, unspecified. Medical: Please see full H and P. PROGNOSIS: The patient follows up with outpatient mental health services and remains compliant with treatment. Prognosis will improve, otherwise guarded. [facility]# [id number]
== END 2017-11-08 11:55 | DRG 884 ==
LOC: GERO 21:18
PROVIDERS: ADMIT Psychiatry & Neurology Psychiatry; ATTEND Psychiatry & Neurology Psychiatry
DX: F03.91 Unspecified dementia, unspecified severity, with behavioral disturbance (principal); N39.0 Urinary tract infection, site not specified; F39 Unspecified mood [affective] disorder; F41.9 Anxiety disorder, unspecified; E78.5 Hyperlipidemia, unspecified; F32.9 Major depressive disorder, single episode, unspecified; F22 Delusional disorders; M19.90 Unspecified osteoarthritis, unspecified site; F29 Unspecified psychosis not due to a substance or known physiological condition; Z59.0 Homelessness; Z88.6 Allergy status to analgesic agent; Z88.5 Allergy status to narcotic agent
CPT/HCPCS: 36415-UA; 71045-TC; 80053-TC; 80061-TC; 80074-90; 81001-TC; 83036-90; 84443-TC; 85025-TC; 86592-TC; 87086-90; 93005; J7051; Z7610